=== PATIENT | male | born 1935 | race Caucasian/White ===

== ENCOUNTER 2017-12-18 05:26 | Inpatient (IN) | payer BC, OTHER ==
--- NOTE | 2017-12-18 06:01 | PDOC ---
Attending Attestation - Resident Resident Name: Phuong Kirby - ED Attending Attestation I have performed the following: I have examined & evaluated the patient, The case was reviewed & discussed with the resident, I agree w/resident's findings & plan - HPI HPI: 12/18/17 06:52 Pt comes with SOB; he has low pulsox and he has tachycardia. Pt has rapid afib 115 BPM. Pt has no fever. He has no abd pain and no flank pain. He has no cough. Pt states that he was nauseous and vomited some blood streaked sputum. - Physicial Exam PE: 12/18/17 06:53 Abd soft, NT.ND. Pt has rapid afib. Rales at the bases of his lung. Pt has fluid in his legs bilat - pitting edema. HEENT normal. Pt is alert and awake. - Medical Decision Making 12/18/17 06:54 Pt will be signed out to the day docs; they will follow all labs that were sent , CXR, and reeval patient and admit as needed.
[2017-12-18] MEDS ORDERED: ONDANSETRON 4 MG/2 ML VIAL IVPUSH ONE (06:03)
--- NOTE | 2017-12-18 06:06 | PDOC ---
History of Present Illness - General Chief Complaint: Shortness of Breath Stated Complaint: DIFFICULTY BREATHING Time Seen by Provider: 12/18/17 05:42 - History of Present Illness Initial Comments: 12/18/17 06:03 82 year old man with history of gout, DM, HTN, CKD, afib, CHF who presents from [facility] with shortness of breath and hemoptysis. The patient takes xarelto. The patient reports that he vomited two times yesterday and two times earlier today that all had blood streaks. Prior to arrival the patient reports that he was coughing up red cough medicine that was given to him. Per [facility] note the patient was coughing blood, complaining of chest pain and satting 86-90% on RA. The patient does not require home oxygen at baseline. At bedside the patient complains of nausea but denies any recent fevers, abdominal pain, diarrhea or constipation. PMHX: as in HPI PSHX: see below Meds: see below Allergies: penicillin Tob: none Etoh: none Rec drugs: none PCP: Darian Pt. full code Past History - Past Medical History Allergies/Adverse Reactions: Allergies Allergy/AdvReac Type Severity Reaction Status Date / Time Penicillins Allergy Severe Hives Verified 12/18/17 05:46 Home Medications: Ambulatory Orders Allopurinol [Zyloprim -] 100 mg PO DAILY 12/18/17 Calcium Carbonate/Vitamin D3 [Oyster Shell 500-Vit D3 200 Tb] 1 each PO BID Clotrimazole/Betamethasone Dip [Clotrimazole-Betamethasone Crm] 45 gm TP BID Fenofibric Acid [Trilipix -] 45 mg PO DAILY 12/18/17 Guaifenesin 100 mg PO TID 12/18/17 Metformin HCl [Metformin HCl ER] 500 mg PO BID 12/18/17 Mometasone Furoate [Asmanex] 110 mcg IH DAILY 12/18/17 Rivaroxaban [Xarelto -] 20 mg PO DAILY 12/18/17 Acetaminophen [Tylenol .Regular Strength -] 650 mg PO Q6H PRN tablet 12/24/17 Albuterol 2.5/Ipratropium 0.5 [Duoneb -] 1 amp NEB Q4H PRN amp 12/24/17 Allopurinol [Zyloprim -] 100 mg PO DAILY tablet 12/24/17 Aspirin [ASA -] 81 mg PO DAILY tab.chew 12/24/17 Atorvastatin Ca [Lipitor] 80 mg PO HS tablet 12/24/17 Enalapril Maleate [Vasotec -] 2.5 mg PO BID tablet 12/24/17 Ferrous Sulfate [Feosol] 325 mg PO DAILY #30 tablet 12/24/17 Furosemide [Lasix -] 40 mg PO BID@0600,1400 tablet 12/24/17 Metoprolol Succinate [Toprol XL -] 150 mg PO DAILY tab.sr.24h 12/24/17 Mupirocin Ointment [Bactroban Ointment (For Decolonization) -] 1 applic NS BID applic 12/24/17 Polyethylene Glycol 3350 [Miralax 119 gm Btl -] 17 gm PO DAILY bottle 12/24/17 Sennosides [Senna -] 2 tab PO HS PRN tablet 12/24/17 Anemia: No Asthma: No Cancer: No Cardiac Disorders: No CVA: No COPD: No CHF: No Dementia: No Diabetes: Yes Disorders: (CKD) HTN: Yes Seizures: No Other medical history: Gout - Surgical History Cardiac Surgery: No Neurologic Surgery: No Orthopedic Surgery: Yes (Right knee replacement) - Suicide/Smoking/Psychosocial Hx Smoking History: Never smoked Have you smoked in the past 12 months: No Information on smoking cessation initiated: No Hx Alcohol Use: No Drug/Substance Use Hx: No Substance Use Type: None Hx Substance Use Treatment: No Review of Systems - Review of Systems Able to Perform ROS?: Yes Is the patient limited Lebanese proficient: No Constitutional: No: Chills, Diaphoresis, Fever, Weakness HEENTM: No: Blurred Vision, Tinnitus Respiratory: Yes: Cough. No: Orthopnea, Shortness of Breath Cardiac (ROS): No: Chest Pain, Edema, Lightheadedness, Chest Tightness ABD/GI: Yes: Nausea, Vomiting. No: Constipated, Diarrhea : No: Burning, Dysuria, Hematuria Musculoskeletal: No: Muscle Pain, Muscle Weakness Neurological: No: Headache, Numbness, Paresthesia, Tingling *Physical Exam - Vital Signs Last Vital Signs Temp Pulse Resp BP Pulse Ox 98.1 F 117 H 24 144/104 98 12/18/17 05:42 12/18/17 05:42 12/18/17 05:42 12/18/17 05:42 12/18/17 05:42 - Physical Exam Comments: 12/18/17 06:17 Per proxy who is familiar with patient and at bedside: pt's symptoms of: facial droop and expressive aphasia 2+ pitting edema bilateral calves and ankles abdominal distention are all at baseline for the patient GENERAL: Awake, alert, and fully oriented, in no acute distress, facial droop and expressive aphasia, red liquid crusting around mouth and chin HEAD: No signs of trauma, normocephalic, atraumatic EYES: EOMI, sclera anicteric, conjunctiva clear ENT: oropharynx clear without exudates. Moist mucosa NECK: Normal ROM, supple, no lymphadenopathy, JVD, or masses LUNGS: No distress, speaks full sentences, minimally decreased breath sounds in all lobes HEART: Regular rate and rhythm, normal S1 and S2, no murmurs, rubs or gallops, peripheral pulses normal and equal bilaterally. ABDOMEN: abdominal distention, nontender, normoactive bowel sounds. No guarding , no rebound EXTREMITIES : Normal inspection, Normal range of motion, 2+ pitting edema bilateral calves and ankles NEUROLOGICAL: Cranial nerves II through XII grossly intact. Normal speech, normal gait, no focal sensorimotor deficits SKIN: Warm, Dry, normal turgor, no rashes or lesions noted ED Treatment Course - LABORATORY CBC & Chemistry Diagram: 12/23/17 05:30 12/23/17 05:30 - RADIOLOGY Radiology Studies Ordered: Category Date Time Status CHEST X-RAY PORTABLE* [RAD] Stat Radiology 12/18/17 05:51 Ordered Medical Decision Making - Medical Decision Making 12/18/17 06:13 82 year old man with history of gout, DM, HTN, CKD, afib, CHF who presents from [facility] with shortness of breath and hemoptysis. The patient takes xarelto. The patient reports that he vomited two times yesterday and two times earlier today that had blood streaks. Prior to arrival the patient reports that he was coughing but only coughing up red cough medicine that was given to him. Per [facility] note the patient was coughing blood and complaining of chest pain and satting 86-90% on RA. DDX including but not limited to: PE vs PNA vs CHF exacerbation vs bronchitis vs esophageal tear W/U: - cbc, cmp, PT/INR, PTT, cardiac profile, BNP - CXR - EKG TX: - zofran 4 ED Course: Patient sat 99% on 3L NC. tachycardic EKG: Afib, tachy 115bpm Patient w/ history of CKD, concern for Chest CTA to r/o PE. D-dimer ordered. Patient on xarelto. at [facility] for 3 years - likely compliant with all medications. Pt signed out to Dr. Stein. *DC/Admit/Observation/Transfer Diagnosis at time of Disposition: Pneumonia - Discharge Dispostion Disposition: LONGTERM FACILITY Condition at time of disposition: Stable - Prescriptions - Referrals - Patient Instructions - Post Discharge Activity
[2017-12-18 06:55] LABS: BASO % 0.8 % (0-2.0); EOS % 0.1 % (0-4.5); HEMOGLOBIN 11.6 GM/dL (11.7-16.9); LYMPH % 6.4 % (8-40); MCH 28.6 pg (25.7-33.7); MCHC 32.4 g/dl (32.0-35.9); MEAN CELL VOLUME 88.3 fl (80-96); MEAN PLT VOLUME 9.5 fl (7.5-11.1); MONO % 6.6 % (3.8-10.2); NEUT % 86.1 % (42.8-82.8); PLATELET COUNT 340 K/MM3 (134-434); RBC 4.07 M/mm3 (4.00-5.60); RDW 14.5 % (11.9-15.9); WHITE BLOOD COUNT 19.7 K/mm3 (4.0-10.0)
[2017-12-18 07:08] LABS: INR 1.49 (0.83-1.09); PROTHROMBIN TIME (PATIENT) 16.8 SEC (9.7-13.0)
[2017-12-18 07:11] LABS: ACTIVATED PTT 33.8 SECONDS (25.2-36.5)
--- NOTE | 2017-12-18 07:12 | PDOC ---
*Physical Exam - Vital Signs Last Vital Signs Temp Pulse Resp BP Pulse Ox 97.8 F 111 H 18 140/89 100 12/18/17 06:00 12/18/17 07:37 12/18/17 07:37 12/18/17 07:37 12/18/17 07:37 <Nasar Hernandez - Last Filed: 12/18/17 09:32> - Vital Signs Last Vital Signs Temp Pulse Resp BP Pulse Ox 97.8 F 118 H 20 138/108 99 12/18/17 06:00 12/18/17 06:00 12/18/17 06:00 12/18/17 06:00 12/18/17 06:00 <Hieu Stein - Last Filed: 12/18/17 11:32> ED Treatment Course - LABORATORY CBC & Chemistry Diagram: 12/18/17 06:50 12/18/17 06:50 - ADDITIONAL ORDERS Additional order review: Laboratory Results 12/18/17 12/18/17 12/18/17 08:31 06:50 06:50 PT with INR 16.80 H INR 1.49 H PTT (Actin FS) 33.8 D-Dimer VBG pH 7.38 POC VBG pCO2 42.5 POC VBG pO2 30.0 Mixed VBG HCO3 24.7 Sodium 139 Potassium 4.6 Chloride 105 Carbon Dioxide 27 Anion Gap 7 L BUN 37 H Creatinine 1.6 H Creat Clearance w eGFR 41.49 Random Glucose 155 H Lactic Acid Calcium 8.3 L Total Bilirubin 0.7 AST 36 ALT 38 Alkaline Phosphatase 98 Creatine Kinase 147 Troponin I 2.16 H* B-Natriuretic Peptide 8137.72 H Total Protein 6.8 Albumin 3.0 L 12/18/17 12/18/17 06:40 06:40 PT with INR INR PTT (Actin FS) D-Dimer 850 H VBG pH POC VBG pCO2 POC VBG pO2 Mixed VBG HCO3 Sodium Potassium Chloride Carbon Dioxide Anion Gap BUN Creatinine Creat Clearance w eGFR Random Glucose Lactic Acid 2.3 H* Calcium Total Bilirubin AST ALT Alkaline Phosphatase Creatine Kinase Troponin I B-Natriuretic Peptide Total Protein Albumin 12/18/17 06:50 RBC 4.07 MCV 88.3 MCHC 32.4 RDW 14.5 D MPV 9.5 Neutrophils % 86.1 H Lymphocytes % 6.4 L D Monocytes % 6.6 Eosinophils % 0.1 D Basophils % 0.8 - Medications Given in the ED: ED Medications Discontinued Medications Generic Name Dose Route Start Last Admin Trade Name Diana PRN Reason Stop Dose Admin Aspirin 324 mg 12/18/17 07:35 12/18/17 08:09 Asa - PO 12/18/17 07:36 324 mg ONCE ONE Administration Azithromycin 500 mg/ Dextrose 250 mls @ 250 mls/hr 12/18/17 07:55 12/18/17 08 :29 IVPB 12/18/17 08:54 250 mls/hr ONCE ONE Administration <Nasra Hernandez - Last Filed: 12/18/17 09:32> - LABORATORY CBC & Chemistry Diagram: 12/18/17 06:50 12/18/17 06:50 <Hieu Stein - Last Filed: 12/18/17 11:32> Medical Decision Making - Medical Decision Making *Reviewed vital signs, nursing notes, and prior visit documentation (if available). 12/18/17 07:10 Received sign out from resident Dr. Kirby. In short, pt is a 82 y/o male presenting from [facility] complaining of two days of blood streaked sputum and cough. SNF notes document prior complaint of chest pain, which pt current denies. Found to be hypoxia on room air, now requiring 3LPM of Oxygen. All labs pending. EKG: Afib with ventricular rate of 115. No ST segment changes. Chronic arrhythmia per pts chart. CXR: Per my wet read, R lower lobe pneumonia and questionable left-sided lower lobe pneumonia. Awaiting official read. Leukocytosis 19.7 Troponin 2.16 Lactic Acid 2.3 BUN/Cr: 37/1.6 calculated eGFR 41 Blood cultures ordered. Started antibiotic therapy with Vancomycin, Azithromycin, Aztreonam. Did not start Zosyn given pts penicillin allergy. Holding fluids given history of CHF and BNP of >8000. Pt will received fluids through IV therapy. Will reconsider if repeat lactic acid trends upward. 08:[address] Montez (cardiology). Will evaluate the pt at bedside. Requests 6 hour repeat troponin. No heparin as pt is on Xeralto. 08:22 Telephone consult with ICU admitting team with concern for pneumonia with concurrent NSTEMI given troponin elevation versus pneumonia with severe sepsis and signs of end organ dysfunction. Will review chart and return call. 09:[address] Pritchard. Agrees to admit pt to telemetry with concern for bilateral lower lobe pneumonia. Requests cardiology consultation be changed to Dr. Lozada from Dr. Montez. Awaiting repeat lactic acid and official CXR read. 12/18/17 11:[address] Wilkinson. Explained mistake made with cardiology consult. 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 <Hieu Stein - Last Filed: 12/18/17 11:32> *DC/Admit/Observation/Transfer <Nasra Hernandez - Last Filed: 12/18/17 09:32> - Discharge Dispostion Decision to Admit order: Yes <Hieu Stein - Last Filed: 12/18/17 11:32> Diagnosis at time of Disposition: Pneumonia Qualifiers: Pneumonia type: due to unspecified organism Laterality: bilateral Lung location : lower lobe of lung Qualified Code(s): J18.1 - Lobar pneumonia, unspecified organism - Discharge Dispostion Condition at time of disposition: Stable
[2017-12-18 07:27] LABS: ANION GAP 7 MMOL/L (8-16); BILIRUBIN,TOTAL 0.7 mg/dL (0.2-1.0); BLOOD UREA NITROGEN 37 mg/dL (7-18); CALCIUM 8.3 mg/dL (8.5-10.1); CHLORIDE 105 mmol/L (98-107); CO2 27 mmol/L (21-32); CREATININE 1.6 mg/dL (0.55-1.3); GLUCOSE,RANDOM 155 mg/dL (74-106); POTASSIUM 4.6 mmol/L (3.5-5.1); SGOT/AST 36 U/L (15-37); SGPT/ALT 38 U/L (13-61); SODIUM 139 mmol/L (136-145); TOT PROT 6.8 g/dl (6.4-8.2)
[2017-12-18 07:30] LABS: ALK PHOS 98 U/L (45-117); N-TERMINAL BNP 8137.72 pg/ml (5-450)
[2017-12-18] MEDS ORDERED: ASPIRIN 81 MG CHEWABLE TABLETS PO ONE (07:35)
[2017-12-18] MEDS ORDERED: VANCOMYCIN 1,000 MG in DEXTROSE 5%-WATER - 250 ML IVPB ONE (07:55)
[2017-12-18] MEDS ORDERED: AZITHROMYCIN IVPB 500 MG in DEXTROSE 5%-WATER - 250 ML IVPB ONE (07:55)
[2017-12-18] MEDS ORDERED: AZTREONAM 2 GM in DEXTROSE 5%-WATER 100 ML IVPB ONE (07:58)
[2017-12-18] MEDS ORDERED: ASPIRIN 81 MG CHEWABLE TABLETS ONE (08:04)
[2017-12-18] MEDS ORDERED: VANCOMYCIN 1 GRAM (PRE-DOCKED) 1,000 MG/250 ML BAG IVPB ONE ×2 (08:04→10:19)
[2017-12-18] MEDS ORDERED: AZITHROMYCIN IVPB 250 ML IVPB ONE (08:04)
[2017-12-18] MEDS ORDERED: ACETAMINOPHEN 325 MG TABLET (FP) PO PRN (09:12)
--- NOTE | 2017-12-18 09:14 | HP ---
Admitting History and Physical - Primary Care Physician PCP: Lindsay Arvizu - Admission Chief Complaint: COUGH WITH BLOOD TINGED SPUTUM/SOB/CHEST PAIN History of Present Illness: 82 year old man with history of gout, DM, HTN, CKD, afib, CHF who presents from [facility] with shortness of breath and hemoptysis. The patient takes xarelto. The patient reports that he vomited two times yesterday and two times earlier today that all had blood streaks. Prior to arrival the patient reports that he was coughing up red cough medicine that was given to him. Per [facility] note the patient was coughing blood, complaining of chest pain and satting 86-90% on RA. The patient does not require home oxygen at baseline. At bedside the patient complains of nausea but denies any recent fevers, abdominal pain, diarrhea or constipation. 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 History of Recent Travel: No Home Medications - Allergies Allergies/Adverse Reactions: Allergies Allergy/AdvReac Type Severity Reaction Status Date / Time Penicillins Allergy Severe Hives Verified 12/18/17 05:46 - Home Medications Home Medications: Ambulatory Orders Allopurinol [Zyloprim -] 100 mg PO DAILY 12/18/17 Amoxicillin/Potassium Clav [Augmentin 875-125 Tablet] 1 each PO BID 12/18/17 Calcium Carbonate/Vitamin D3 [Oyster Shell 500-Vit D3 200 Tb] 1 each PO BID Clotrimazole/Betamethasone Dip [Clotrimazole-Betamethasone Crm] 45 gm TP BID Fenofibric Acid [Trilipix -] 45 mg PO DAILY 12/18/17 Furosemide [Lasix] 40 mg PO DAILY 12/18/17 Guaifenesin 100 mg PO TID 12/18/17 Hydralazine HCl 25 mg PO QID 12/18/17 Metformin HCl [Metformin HCl ER] 500 mg PO BID 12/18/17 Metoprolol Succinate [Toprol Xl] 100 mg PO DAILY 12/18/17 Mometasone Furoate [Asmanex] 110 mcg IH DAILY 12/18/17 Rivaroxaban [Xarelto -] 20 mg PO DAILY 12/18/17 Review of Systems - Review of Systems Constitutional: reports: Loss of Appetite Eyes: reports: No Symptoms HENT: reports: No Symptoms Neck: reports: No Symptoms Cardiovascular: reports: Chest Pain, Shortness of Breath Respiratory: reports: Cough, Hemoptysis Gastrointestinal: reports: No Symptoms Genitourinary: reports: Incontinence Musculoskeletal: reports: Muscle Weakness Integumentary: reports: Other Neurological: reports: Other Endocrine: reports: Other Psychiatric: reports: Other Physical Examination Vital Signs: Vital Signs Temperature 97.8 F 12/18/17 06:00 Pulse Rate 111 H 12/18/17 07:37 Respiratory Rate 18 12/18/17 07:37 Blood Pressure 140/89 12/18/17 07:37 O2 Sat by Pulse Oximetry (%) 100 12/18/17 07:37 Constitutional: Yes: Mild Distress Eyes: Yes: WNL, Other HENT: Yes: WNL Neck: Yes: WNL Cardiovascular: Yes: Pulse Irregular Respiratory: Yes: Cough, On Nasal O2, SOB Gastrointestinal: Yes: WNL Renal/: Yes: WNL, Incontinence Musculoskeletal: Yes: Muscle Weakness Extremities: Yes: Other Edema: Yes Edema: LLE: 1+, RLE: 1+ Peripheral Pulses WNL: Yes Integumentary: Yes: Venous Stasis Changes Wound/Incision: Yes: Clean/Dry Neurological: Yes: Weakness ...Motor Strength: LLE, RLE Psychiatric: Yes: Other Labs: CBC, BMP 12/18/17 06:50 12/18/17 06:50 Imaging - Results Chest X-ray: Report Reviewed Problem List - Problems (1) Hemoptysis, unspecified Code(s): R04.2 - HEMOPTYSIS (2) Pneumonia Code(s): J18.9 - PNEUMONIA, UNSPECIFIED ORGANISM Qualifiers: Pneumonia type: due to unspecified organism Laterality: bilateral Lung location: lower lobe of lung Qualified Code(s): J18.1 - Lobar pneumonia, unspecified organism (3) Abnormal LFTs (liver function tests) Code(s): R79.89 - OTHER SPECIFIED ABNORMAL FINDINGS OF BLOOD CHEMISTRY (4) Atrial fibrillation Code(s): I48.91 - UNSPECIFIED ATRIAL FIBRILLATION (5) Fever Code(s): R50.9 - FEVER, UNSPECIFIED Qualifiers: Fever type: unspecified cause of fever Qualified Code(s): R50.9 - Fever, unspecified (6) Hyperlipidemia Code(s): E78.5 - HYPERLIPIDEMIA, UNSPECIFIED (7) Hypertension Code(s): I10 - ESSENTIAL (PRIMARY) HYPERTENSION Qualifiers: Hypertension type: essential hypertension Qualified Code(s): I10 - Essential (primary) hypertension Assessment/Plan IV ABX CARDIO EVAL PT EVAL RESP SUPPORT NEBS PULM/ID FOLLOW UP
[2017-12-18 09:18] LABS: VENOUS PH 7.38 (7.32-7.42)
[2017-12-18 09:19] LABS: VENOUS PC02 42.5 mmHg (38-52)
--- NOTE | 2017-12-18 10:25 | CONSULT ---
Consult - text type - Consultation Consultation Note: Renal Consult for JD This is a 82 year old gentleman with Hx of DM, CKD (unclear baseline Cr), Afib on A/C, CHF (preserved LV function on last echo), Hypertension who presented from [facility] with SOB and Hemoptysis and found to have PNA with JD. Pt says that he has been coughing for 1 days. No Chest pain, abd pain, N/V/D. No change in urine output quality. no flank pain. PMhx: as above Allergies: NKDA Family Hx: NC Social Hx: No T/A/D ROS: as per HPI Home Medications Medication Instructions Recorded Atorvastatin Ca [Lipitor] 20 mg PO HS #30 tablet 06/22/14 Rivaroxaban [Xarelto -] 20 mg PO DAILY #30 tablet 06/22/14 Acetaminophen [Tylenol .Regular 650 mg PO Q6H PRN #0 tablet 07/21/14 Strength -] Allopurinol [Zyloprim -] 100 mg PO DAILY tablet 07/21/14 Calcium 500Mg/Vit-D 200 Units 1 combo PO BID tablet 07/21/14 [Os-Yehuda 500+D -] Metoprolol Succinate [Toprol XL -] 100 mg PO BID #60 tab.sr.24h 07/21/14 Metoprolol Succinate [Toprol XL -] 100 mg PO BID #60 tab.sr.24h 07/30/14 Vital Signs Temperature 98.4 F 12/18/17 09:33 Pulse Rate 108 H 12/18/17 09:33 Respiratory Rate 22 12/18/17 09:33 Blood Pressure 125/85 12/18/17 09:33 O2 Sat by Pulse Oximetry (%) 99 12/18/17 09:33 Intake & Output 12/15/17 12/16/17 12/17/17 12/18/17 23:59 23:59 23:59 23:59 Weight 106.594 kg NAD awake and alert neck supple, no JVD RRR, No M/R Dec BS B/L soft NT/ND No LE edema, no clubbing or cyanosis no bladder distension CBC, BMP 12/18/17 06:50 12/18/17 06:50 Current Medications Acetaminophen (Tylenol -) 650 mg PO Q6H PRN PRN Reason: PAIN OR FEVER Albuterol/Ipratropium (Duoneb -) 1 amp NEB Q6H PRN PRN Reason: SHORTNESS OF BREATH Allopurinol (Zyloprim -) 100 mg PO DAILY [facility] Atorvastatin Calcium (Lipitor -) 20 mg PO HS [facility] Metoprolol Succinate (Toprol Xl -) 100 mg PO DAILY [facility] 82 year old gentleman with Hx of DM, CKD (unclear baseline Cr), Afib on A/C, CHF (preserved LV function on last echo), Hypertension who presented from [facility] with SOB and Hemoptysis and found to have PNA with JD. #JD vs. CKD likely related to renal hypoprofusion in setting of sepsis #PNA/Sepsis Syndrome #Hx of CHF #DM #Hypertension #Elevated Troponin Will need to obtain baseline Cr from [place] Would suggest trial of IVF given pt has lactic acidosis, sepsis and possibly acute renal insufficiency check UA, UPCR Check Renal Us when clinically stable Trend Cardiac enzymes, Cardiology consult Tele monitoring Would not start ACEi/ARB at this time Thank you Will follow Thiago Fan DO
[2017-12-18] MEDS ORDERED: SODIUM CHLORIDE 1,000 ML IV SCH (10:30)
--- NOTE | 2017-12-18 10:32 | CON.CARD ---
Consult Consult Specialty:: cardio - History of Present Illness Chief Complaint: cp, sob, cough with blood History of Present Illness: 82 M sent from [place] with cp, cough with blood, sob. pt provides history to me as follows: states that he began "throwing up" and coughing yesterday. brown color, but also saw some blood. more of same earlier this am but less than yesterday. denies having had CP or SOB at any time in ID or here. denies fever/chills, cough, sore throat. walks around halls in [place] and says he does not experience cp or sob with this. denies leg/feet swelling. hypoxia (to 86%) noted in NH vs's. 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 History of Recent Travel: No Home Medications - Allergies Allergies/Adverse Reactions: Allergies Allergy/AdvReac Type Severity Reaction Status Date / Time Penicillins Allergy Severe Hives Verified 12/18/17 05:46 - Home Medications Home Medications: Ambulatory Orders Allopurinol [Zyloprim -] 100 mg PO DAILY 12/18/17 Amoxicillin/Potassium Clav [Augmentin 875-125 Tablet] 1 each PO BID 12/18/17 Calcium Carbonate/Vitamin D3 [Oyster Shell 500-Vit D3 200 Tb] 1 each PO BID Clotrimazole/Betamethasone Dip [Clotrimazole-Betamethasone Crm] 45 gm TP BID Fenofibric Acid [Trilipix -] 45 mg PO DAILY 12/18/17 Furosemide [Lasix] 40 mg PO DAILY 12/18/17 Guaifenesin 100 mg PO TID 12/18/17 Hydralazine HCl 25 mg PO QID 12/18/17 Metformin HCl [Metformin HCl ER] 500 mg PO BID 12/18/17 Metoprolol Succinate [Toprol Xl] 100 mg PO DAILY 12/18/17 Mometasone Furoate [Asmanex] 110 mcg IH DAILY 12/18/17 Rivaroxaban [Xarelto -] 20 mg PO DAILY 12/18/17 Family Disease History - Family Disease History Family History: Denies (no known CMP) Review of Systems - Review of Systems Constitutional: denies: Chills, Fever Eyes: denies: Eye Pain HENT: denies: Nasal Congestion Neck: denies: Stiffness Cardiovascular: denies: Palpitations Respiratory: denies: Orthopnea, PND Gastrointestinal: denies: Diarrhea, Rectal Bleeding Genitourinary: denies: Burning, Hematuria Musculoskeletal: denies: Muscle Pain Integumentary: denies: Rash Neurological: denies: Numbness, Seizure, Syncope Endocrine: denies: Excessive Sweating Hematology/Lymphatic: denies: Excessive Bleeding Vital Signs: Vital Signs Temperature 98.4 F 12/18/17 09:33 Pulse Rate 108 H 12/18/17 09:33 Respiratory Rate 22 12/18/17 09:33 Blood Pressure 125/85 12/18/17 09:33 O2 Sat by Pulse Oximetry (%) 99 12/18/17 09:33 Constitutional: Yes: Well Nourished, No Distress Eyes: No: Sclera Icterus HENT: No: Nasal Congestion Neck: No: Decreased ROM Respiratory: Yes: CTA Bilaterally. No: Accessory Muscle Use, Rales, Wheezes Gastrointestinal: Yes: Normal Bowel Sounds. No: Distention, Hepatomegaly, Palpable Mass, Tenderness Cardiovascular: Yes: Regular Rate and Rhythm JVD: No Carotid Bruit: No PMI: Non-Displaced Heart Sounds: Yes: S1, S2. No: Gallop Murmur: No: Systolic Murmur, Diastolic Murmur Musculoskeletal: Yes: Other (No kyphosis) Extremities: No: Cold, Cyanosis Edema: Yes (mild nonpitting ankles) Peripheral Pulses: 2+ Left Carotid, 2+ Right Carotid, 2+ Left Doralis Pedis, 2+ Right Dorsalis Pedis Integumentary: No: Jaundice Neurological: Yes: Alert, Oriented (x3) Psychiatric: No: Agitated - Other Data Labs, Other Data: CBC, BMP 12/18/17 06:50 12/18/17 06:50 INR, PTT INR 1.49 (0.83-1.09) H 12/18/17 06:50 Troponin, BNP 12/18/17 06:50 Troponin I 2.16 H* B-Natriuretic Peptide 8137.72 H Troponin, BNP 12/18/17 06:50 Troponin I 2.16 H* B-Natriuretic Peptide 8137.72 H Laboratory Tests 10/02/14 12/18/17 12/18/17 05:00 06:40 06:50 WBC 19.7 H Hgb 11.6 L Plt Count 340 D Sodium Potassium Carbon Dioxide BUN Creatinine 0.9 Lactic Acid 2.3 H* AST ALT Creatine Kinase Troponin I B-Natriuretic Peptide 12/18/17 06:50 WBC Hgb Plt Count Sodium 139 Potassium 4.6 Carbon Dioxide 27 BUN 37 H Creatinine 1.6 H Lactic Acid AST 36 ALT 38 Creatine Kinase 147 Troponin I 2.16 H* B-Natriuretic Peptide 8137.72 H Assessment/Plan ECG: afib (115 bpm), normal axis. q waves V1-V3, NSST-Ts lateral leads CXR (no report, image reviewed): bilateral interstitial infiltrates lower lobes new vs prior. no vasc redistribution or effusions. mibi 04/2013 (stanton): no ecg changes, no ischemia/scar, nl lvef Echo 2014: TDS, normal LV/RV size and function, Aortic valve not seen well hypoxia, tachypnea, ? hemoptysis vs hematemesis (pt describes the latter): -CXR with new bilateral lower lobe interstitial infiltrates, without corresponding findings of chf (no effusions, vasc redistribution, estela b lines ) -physical exam without JVD though somewhat TDS thick neck -elevated troponin -hi WBCs, no fever--? PNA. being treated with abx -consider pulm consult, per PMD -clinical picture uncertain for sepsis/PNA (acute onset of sx's argues less for PNA), vs ACS and cxr not diagnostic as well -JD could be sepsis or could be cardiorenal -ongoing mild tachypnea but pt comfortable with stable O2 sats -prefer to avoid IVF, but also defer diuresis, while observe him over next 24 hrs and repeat CXR in am. if acute myocardial ischemia is causing chf and JD here, all may resolve promptly with med mgmt of ischemia -d/w'd renal (jackie) who agrees--IVF order d/c'd NSTEM: -troponin 2.1-->monitor trend -ECG with no diagnostic acute ischemia. there is evidence of old septal infarct which was not present on prior study (2014). nonspecific mild ST-Ts likely rate- related. -pt only admits to sx of vomiting vs cough--? atypical NSTEMI sx. -rpt ECG -check echo -will plan for pharm MPI early next week to risk stratify -continue home AC (xarelto). per ER, sputum reportedly blood tinged, without large amt of blood--close monitoring and hold AC if hemoptysis worsens -cont home metoprolol -hi intensity statin for now until pathophysiology of present events is clarified (incr atorva 20 to 80) afib: -on xarelto from before (CHADS VASC 3)--hemoptysis monitoring as above, to cont AC for now -cont home metoprolol -monitor HRs on tele HTN: -bp controlled -same plan
[2017-12-18] MEDS: ALLOPURINOL 100 MG TABLET (FP) PO SCH (11:57)
--- NOTE | 2017-12-18 13:13 | CON.PULM ---
Consult Consult Specialty:: PULM/CCM Referred by:: USMAN Reason for Consultation:: SOB - History of Present Illness Chief Complaint: SOB History of Present Illness: 82 M, DM, CKD, Afib on NOAC, CHF (preserved LV function on last echo), and HTN. Admitted via the ER due to reported hematamesis and/or hemoptysis. Patient reports cough for 1 day. No travel history or sick contacts. No fever or chills. CXR: cardiomegaly / biltateral increased interstitial markings mostly at the lung bases. Noted he was given Aztreonam and Zithromax. Noted mildly elevated lactic acid so there is a concern for sepsis, although this can be due to his WOB and inflammatory response. He has been on a NOAC so do not have a high clinical suspicion for PE. 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 History of Recent Travel: No Home Medications - Allergies Allergies/Adverse Reactions: Allergies Allergy/AdvReac Type Severity Reaction Status Date / Time Penicillins Allergy Severe Hives Verified 12/18/17 05:46 - Home Medications Home Medications: Ambulatory Orders Allopurinol [Zyloprim -] 100 mg PO DAILY 12/18/17 Amoxicillin/Potassium Clav [Augmentin 875-125 Tablet] 1 each PO BID 12/18/17 Calcium Carbonate/Vitamin D3 [Oyster Shell 500-Vit D3 200 Tb] 1 each PO BID Clotrimazole/Betamethasone Dip [Clotrimazole-Betamethasone Crm] 45 gm TP BID Fenofibric Acid [Trilipix -] 45 mg PO DAILY 12/18/17 Furosemide [Lasix] 40 mg PO DAILY 12/18/17 Guaifenesin 100 mg PO TID 12/18/17 Hydralazine HCl 25 mg PO QID 12/18/17 Metformin HCl [Metformin HCl ER] 500 mg PO BID 12/18/17 Metoprolol Succinate [Toprol Xl] 100 mg PO DAILY 12/18/17 Mometasone Furoate [Asmanex] 110 mcg IH DAILY 12/18/17 Rivaroxaban [Xarelto -] 20 mg PO DAILY 12/18/17 Review of Systems - Review of Systems Constitutional: reports: Malaise, Weakness. denies: Chills, Fever, Night Sweats , Unintentional Wgt. Loss Eyes: reports: No Symptoms HENT: reports: No Symptoms Neck: reports: No Symptoms Cardiovascular: reports: Shortness of Breath. denies: Chest Pain, Edema, Palpitations Respiratory: reports: Cough, Hemoptysis, SOB, SOB on Exertion. denies: Snoring , Wheezing Gastrointestinal: reports: No Symptoms Genitourinary: reports: No Symptoms Breasts: reports: No Symptoms Reported Musculoskeletal: reports: No Symptoms Integumentary: reports: No Symptoms Neurological: reports: No Symptoms Endocrine: reports: No Symptoms Hematology/Lymphatic: reports: No Symptoms Psychiatric: reports: No Symptoms Physical Exam Vital Sings: Vital Signs Temperature 98.4 F 12/18/17 09:33 Pulse Rate 108 H 12/18/17 09:33 Respiratory Rate 22 12/18/17 09:33 Blood Pressure 125/85 12/18/17 09:33 O2 Sat by Pulse Oximetry (%) 99 12/18/17 09:33 Constitutional: Yes: No Distress, Calm Eyes: Yes: Conjunctiva Clear, EOM Intact HENT: Yes: Atraumatic, Normocephalic Neck: Yes: Supple, Trachea Midline Cardiovascular: Yes: Tachycardia, Pulse Irregular Respiratory: Yes: Cough, Diminished, On Nasal O2, Rhonchi, SOB, SOB on Exertion , Tachypnea. No: Accessory Muscle Use, Rales, Stridor, Wheezes ...Inspection: Yes: WNL ...Clubbing: No Gastrointestinal: Yes: Normal Bowel Sounds, Soft Renal/: Yes: WNL Musculoskeletal: Yes: WNL Extremities: Yes: WNL Edema: No Peripheral Pulses WNL: Yes Integumentary: Yes: WNL Neurological: Yes: Alert, Oriented ...Motor Strength: WNL Psychiatric: Yes: Alert, Oriented Labs: CBC, BMP 12/18/17 06:50 12/18/17 06:50 Imaging - Results Chest X-ray: Report Reviewed, Image Reviewed Problem List - Problems (1) Pneumonia Code(s): J18.9 - PNEUMONIA, UNSPECIFIED ORGANISM Qualifiers: Pneumonia type: due to unspecified organism Laterality: bilateral Lung location: lower lobe of lung Qualified Code(s): J18.1 - Lobar pneumonia, unspecified organism (2) Atrial fibrillation Code(s): I48.91 - UNSPECIFIED ATRIAL FIBRILLATION (3) Hyperlipidemia Code(s): E78.5 - HYPERLIPIDEMIA, UNSPECIFIED (4) Hypertension Code(s): I10 - ESSENTIAL (PRIMARY) HYPERTENSION Qualifiers: Hypertension type: essential hypertension Qualified Code(s): I10 - Essential (primary) hypertension Assessment/Plan Noted that the patient has already received IV ABX and ID consult has been called. To discuss coverage. Check urine Check sputum O2 as needed to maintain saturation. IVF Follow renal function Follow H&H Monitor systemic steroids Trend LA (pending repeat) Will be monitored on Cardiac Telemetry Will follow Dr Novak
--- NOTE | 2017-12-18 17:20 | HOSP ---
Subjective - Review of Symptoms Events since last encounter: Requested to evaluate patient by RN for complaint of SOB and agitation. Distressed, says he can't urinate. Patient seen and examined Vital Signs Temperature 98 F 12/18/17 16:31 Pulse Rate 108 H 12/18/17 16:31 Respiratory Rate 18 12/18/17 15:27 Blood Pressure 143/110 12/18/17 16:41 O2 Sat by Pulse Oximetry (%) 94 L 12/18/17 16:31 General: A&Ox2; moderate distress due to urgency Pulm: bibasilar crackles, end expiratory wheezing Lower Ext: 1+ edema bilaterally Assessment & Plan Ray catheter placed, pus/cloudy urine sent for UA&UC Put out ~30 cc's total Discussed with renal; clearly septic patient with NSTEMI possible heart failure ; will refrain from IV fluids and lasix for now and observe closely; if patient changes clinically (hypotensive, desats) will reassess Physical Examination Vital Signs: Vital Signs Temperature 98 F 12/18/17 16:31 Pulse Rate 108 H 12/18/17 16:31 Respiratory Rate 18 12/18/17 15:27 Blood Pressure 143/110 12/18/17 16:41 O2 Sat by Pulse Oximetry (%) 93 L 12/18/17 16:31 Labs: CBC, BMP 12/18/17 06:50 12/18/17 06:50
[2017-12-18] MEDS: ALBUTEROL SO4 2.5/IPRATROPIUM 0.5 INH SOL 3 ML VIAL.NEB. NEB PRN ×2 (17:22→23:14)
[2017-12-18 18:27] LABS: ARTERIAL BLD GAS O2 SATURATION 94.4 % (90-98.9); ARTERIAL BLOOD GAS BASE EXCESS -2.5 meq/l (-2-2); ARTERIAL BLOOD GAS PCO2 34.1 mmHg (35-45); ARTERIAL BLOOD GAS PO2 79.4 mmHg (68-100); ARTERIAL BLOOD GAS pH 7.41 (7.35-7.45)
[2017-12-18 19:48] LABS: URINE APPEARANCE TURBID; URINE BILIRUBIN NEGATIVE (<2.0 mg/dL); URINE COLOR YELLOW; URINE GLUCOSE (UA) 1+ (NEGATIVE); URINE KETONE NEGATIVE (NEGATIVE); URINE LEUK ESTERASE 2+ (NEGATIVE); URINE NITRITE NEGATIVE (NEGATIVE); URINE PROTEIN 2+ (NEGATIVE); URINE UROBILINOGEN NEGATIVE mg/dL (0.2-1.0)
[2017-12-18 19:49] LABS: EPI CELLS RARE /HPF (FEW); URINE MUCUS FEW
[2017-12-18] MEDS ORDERED: ATORVASTATIN CA 20 MG TABLET (FP) PO SCH (22:00)
[2017-12-18] MEDS: ATORVASTATIN CA 20 MG TABLET (FP) PO SCH (22:46)
[2017-12-19] MEDS ORDERED: METOPROLOL TARTRATE 5 MG/5 ML VIAL IVPUSH ONE ×3 (01:12→23:45)
[2017-12-19 09:25] LABS: BASO % 0.4 % (0-2.0); EOS % 0.2 % (0-4.5); HEMATOCRIT 36.2 % (35.4-49); HEMOGLOBIN 11.8 GM/dL (11.7-16.9); LYMPH % 7.7 % (8-40); MCH 28.6 pg (25.7-33.7); MCHC 32.4 g/dl (32.0-35.9); MEAN CELL VOLUME 88.1 fl (80-96); MEAN PLT VOLUME 9.9 fl (7.5-11.1); MONO % 6.9 % (3.8-10.2); NEUT % 84.8 % (42.8-82.8); PLATELET COUNT 361 K/MM3 (134-434); RBC 4.12 M/mm3 (4.00-5.60); RDW 15.2 % (11.9-15.9); WHITE BLOOD COUNT 18.7 K/mm3 (4.0-10.0)
--- NOTE | 2017-12-19 09:39 | PN ---
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 (short form) - Note 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: Renal follow up for JD Pt seen and examined at the bedside no acute complaints no sob, cp, abd pain, N/V/D Vital Signs Temperature 97.5 F L 12/19/17 09:02 Pulse Rate 115 H 12/19/17 09:02 Respiratory Rate 28 H 12/19/17 09:02 Blood Pressure 160/113 12/19/17 09:02 O2 Sat by Pulse Oximetry (%) 96 12/19/17 09:02 Intake & Output 12/16/17 12/17/17 12/18/17 12/19/17 23:59 23:59 23:59 23:59 Intake Total 1144 100 Output Total 230 300 Balance 914 -200 Weight 106.594 kg NAD awake and alert Neck supple no JVD Dec BS lung bases no LE edema todays lab pending Current Medications Acetaminophen (Tylenol -) 650 mg PO Q6H PRN PRN Reason: PAIN OR FEVER Albuterol/Ipratropium (Duoneb -) 1 amp NEB Q6H PRN PRN Reason: SHORTNESS OF BREATH Last Admin: 12/18/17 23:14 Dose: 1 amp Allopurinol (Zyloprim -) 100 mg PO DAILY [facility] Last Admin: 12/18/17 11:57 Dose: 100 mg Atorvastatin Calcium (Lipitor -) 80 mg PO HS [facility] Last Admin: 12/18/17 22:46 Dose: 80 mg Metoprolol Succinate (Toprol Xl -) 100 mg PO DAILY [facility] Last Admin: 12/18/17 11:27 Dose: 100 mg 82 year old gentleman with Hx of DM, CKD (unclear baseline Cr), Afib on A/C, CHF (preserved LV function on last echo), Hypertension who presented from [facility] with SOB and Hemoptysis and found to have PNA with JD. #JD vs. CKD likely related to renal hypoprofusion in setting of sepsis #PNA/Sepsis Syndrome #Hx of CHF #DM #Hypertension #Elevated Troponin Clinically unchanged, labs pending, CXR pendng Cardiac enzymes stable thus far BP stable, no fevers will wait for repeat labs and CXR findings, would attempt to give trail of IVF if CXR not indicative of CHF urine studies show low serum Na indicating preserved tubular function Trend renal function and electrolytes cardiology follow up Thiago Fan DO
[2017-12-19 09:52] LABS: ANION GAP 12 MMOL/L (8-16); BLOOD UREA NITROGEN 39 mg/dL (7-18); CALCIUM 8.6 mg/dL (8.5-10.1); CHLORIDE 107 mmol/L (98-107); CO2 22 mmol/L (21-32); CREATININE 1.5 mg/dL (0.55-1.3); GLUCOSE,RANDOM 165 mg/dL (74-106); MAGNESIUM 2.3 mg/dL (1.8-2.4); POTASSIUM 4.5 mmol/L (3.5-5.1); SGOT/AST 86 U/L (15-37); SGPT/ALT 108 U/L (13-61); SODIUM 141 mmol/L (136-145)
[2017-12-19 09:56] LABS: ALK PHOS 126 U/L (45-117); BILIRUBIN,TOTAL 0.8 mg/dL (0.2-1.0); TOT PROT 6.6 g/dl (6.4-8.2)
[2017-12-19] MEDS: ALLOPURINOL 100 MG TABLET (FP) PO SCH ×2 (10:49→10:56)
--- NOTE | 2017-12-19 11:47 | PN ---
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, Physician Chief Complaint: cough tele neg History of Present Illness: He is an 82 year old NHR with a history of HTN NIDDM, CKD, afib on NOAC admitted for cough with blood tinged sputum, noted with elevated troponin. No chest pain, sob, orthopnea, pnd or edema. ECG: afib (115 bpm), normal axis. q waves V1-V3, NSST-Ts lateral leads mibi 04/2013 (stanton): no ecg changes, no ischemia/scar, nl lvef Echo 2014: TDS, normal LV/RV size and function, Aortic valve not seen well - Current Medication List Current Medications: Active Medications Acetaminophen (Tylenol -) 650 mg PO Q6H PRN PRN Reason: PAIN OR FEVER Albuterol/Ipratropium (Duoneb -) 1 amp NEB Q6H PRN PRN Reason: SHORTNESS OF BREATH Last Admin: 12/18/17 23:14 Dose: 1 amp Allopurinol (Zyloprim -) 100 mg PO DAILY [facility] Last Admin: 12/19/17 10:56 Dose: Not Given Atorvastatin Calcium (Lipitor -) 80 mg PO [facility] Last Admin: 12/18/17 22:46 Dose: 80 mg Metoprolol Succinate (Toprol Xl -) 100 mg PO DAILY [facility] Last Admin: 12/19/17 08:30 Dose: 100 mg - Objective Vital Signs: Vital Signs Temperature 97.5 F L 12/19/17 09:02 Pulse Rate 115 H 12/19/17 09:02 Respiratory Rate 28 H 12/19/17 09:02 Blood Pressure 160/113 12/19/17 09:02 O2 Sat by Pulse Oximetry (%) 96 12/19/17 09:02 Constitutional: Yes: No Distress, Calm Eyes: Yes: EOM Intact HENT: Yes: Normocephalic Neck: Yes: Trachea Midline Cardiovascular: Yes: Pulse Irregular Respiratory: Yes: Rales (bilat bases) Gastrointestinal: Yes: Normal Bowel Sounds, Soft Extremities: Yes: WNL Edema: Yes Edema: LLE: Trace, RLE: Trace Peripheral Pulses WNL: Yes Labs: CBC, BMP 12/19/17 09:15 12/19/17 09:15 INR, PTT INR 1.49 (0.83-1.09) H 12/18/17 06:50 Assessment/Plan He is an 82 year old NHR with a history of HTN, NIDDM, Afib on Noac, CKD admitted for cough with blood tinged sputum, noted with elevated troponin. No chest pain, sob, orthopnea, pnd or edema. ECG: afib (115 bpm), normal axis. q waves V1-V3, NSST-Ts lateral leads CXR (no report, image reviewed): bilateral interstitial infiltrates lower lobes new vs prior. no vasc redistribution or effusions. mibi 04/2013 (stanton): no ecg changes, no ischemia/scar, nl lvef Echo 2015: TDS, normal LV/RV size and function, Aortic valve not seen well 1. hypoxia, tachypnea, ? hemoptysis vs hematemesis : -CXR with new bilateral lower lobe interstitial infiltrates, without corresponding findings of chf (no effusions, vasc redistribution, estela b lines ) -elevated troponin -hi WBCs, no fever--? PNA. being treated with abx -ongoing mild tachypnea but pt comfortable with stable O2 sats -Hold IVF for now. 2.NSTEMI: -troponin 2.1-->monitor trend -ECG with no diagnostic acute ischemia. there is evidence of old septal infarct which was not present on prior study (2014). nonspecific mild ST-Ts likely rate- related. -pt only admits to sx of vomiting vs cough--? atypical NSTEMI sx. -rpt ECG without changes -check echo, further plans depending on the results as he is at elevated risk of cath related ATN due to his renal disease. -continue home AC (xarelto). per ER, sputum reportedly blood tinged, without large amt of blood--close monitoring and hold AC if hemoptysis worsens -cont home metoprolol -hi intensity statin for now until pathophysiology of present events is clarified (incr atorva 20 to 80) afib: -on xarelto from before (CHADS VASC 3)--hemoptysis monitoring as above, to cont AC for now -cont home metoprolol -monitor HRs on tele HTN: -bp controlled -same plan
--- NOTE | 2017-12-19 12:17 | PN ---
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, Physician Chief Complaint: AWAKE MORE ALERT TODAY - Current Medication List Current Medications: Active Medications Acetaminophen (Tylenol -) 650 mg PO Q6H PRN PRN Reason: PAIN OR FEVER Albuterol/Ipratropium (Duoneb -) 1 amp NEB Q6H PRN PRN Reason: SHORTNESS OF BREATH Last Admin: 12/18/17 23:14 Dose: 1 amp Allopurinol (Zyloprim -) 100 mg PO DAILY [facility] Last Admin: 12/19/17 10:56 Dose: Not Given Atorvastatin Calcium (Lipitor -) 80 mg PO HS [facility] Last Admin: 12/18/17 22:46 Dose: 80 mg Metoprolol Succinate (Toprol Xl -) 100 mg PO DAILY [facility] Last Admin: 12/19/17 08:30 Dose: 100 mg - Objective Vital Signs: Vital Signs Temperature 97.5 F L 12/19/17 09:02 Pulse Rate 115 H 12/19/17 09:02 Respiratory Rate 28 H 12/19/17 09:02 Blood Pressure 160/113 12/19/17 09:02 O2 Sat by Pulse Oximetry (%) 96 12/19/17 09:02 Constitutional: Yes: Mild Distress Eyes: Yes: WNL HENT: Yes: WNL Neck: Yes: WNL Cardiovascular: Yes: Pulse Irregular Respiratory: Yes: SOB, Wheezes Gastrointestinal: Yes: WNL Genitourinary: Yes: Incontinence Musculoskeletal: Yes: Muscle Weakness Extremities: Yes: Other Edema: Yes Edema: LLE: 1+, RLE: 1+ Peripheral Pulses WNL: Yes Integumentary: Yes: Rash, Venous Stasis Changes Wound/Incision: Yes: Dressing Dry and Intact Neurological: Yes: Weakness ...Motor Strength: LLE, RLE Psychiatric: Yes: Other Labs: CBC, BMP 12/19/17 09:15 12/19/17 09:15 INR, PTT INR 1.49 (0.83-1.09) H 12/18/17 06:50 Problem List - Problems (1) Hemoptysis, unspecified Code(s): R04.2 - HEMOPTYSIS (2) Pneumonia Code(s): J18.9 - PNEUMONIA, UNSPECIFIED ORGANISM Qualifiers: Pneumonia type: due to unspecified organism Laterality: bilateral Lung location: lower lobe of lung Qualified Code(s): J18.1 - Lobar pneumonia, unspecified organism (3) Atrial fibrillation Code(s): I48.91 - UNSPECIFIED ATRIAL FIBRILLATION (4) Fever Code(s): R50.9 - FEVER, UNSPECIFIED Qualifiers: Fever type: unspecified cause of fever Qualified Code(s): R50.9 - Fever, unspecified (5) Hypertension Code(s): I10 - ESSENTIAL (PRIMARY) HYPERTENSION Qualifiers: Hypertension type: essential hypertension Qualified Code(s): I10 - Essential (primary) hypertension Assessment/Plan IV ABX CARDIO EVAL PT EVAL RESP SUPPORT NEBS PULM/ID FOLLOW UP
--- NOTE | 2017-12-19 13:04 | PN ---
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 (short form) - Note 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: Looks a little better today. Reports some cough. No CP or SOB. Intake & Output 12/16/17 12/17/17 12/18/17 12/19/17 23:59 23:59 23:59 23:59 Intake Total 1144 100 Output Total 230 300 Balance 914 -200 Weight 235 lb Last Vital Signs Temp Pulse Resp BP Pulse Ox 97.5 F L 115 H 28 H 160/113 96 12/19/17 09:02 12/19/17 09:02 12/19/17 09:02 12/19/17 09:02 12/19/17 09:02 Active Medications Acetaminophen (Tylenol -) 650 mg PO Q6H PRN PRN Reason: PAIN OR FEVER Albuterol/Ipratropium (Duoneb -) 1 amp NEB Q6H PRN PRN Reason: SHORTNESS OF BREATH Last Admin: 12/18/17 23:14 Dose: 1 amp Allopurinol (Zyloprim -) 100 mg PO DAILY [facility] Last Admin: 12/19/17 10:56 Dose: Not Given Atorvastatin Calcium (Lipitor -) 80 mg PO [facility] Last Admin: 12/18/17 22:46 Dose: 80 mg Metoprolol Succinate (Toprol Xl -) 100 mg PO DAILY [facility] Last Admin: 12/19/17 08:30 Dose: 100 mg Constitutional: Yes: No Distress Eyes: Yes: Conjunctiva Clear, EOM Intact HENT: Yes: Atraumatic, Normocephalic Neck: Yes: Supple, Trachea Midline Cardiovascular: Yes: Tachycardia, Pulse Irregular Respiratory: Yes: Cough, Diminished, On Nasal O2, Rhonchi, SOB, SOB on Exertion , Tachypnea. No: Accessory Muscle Use, Rales, Stridor, Wheezes ...Inspection: Yes: WNL ...Clubbing: No Gastrointestinal: Yes: Normal Bowel Sounds, Soft Renal/: Yes: WNL Musculoskeletal: Yes: WNL Extremities: Yes: WNL Edema: No Peripheral Pulses WNL: Yes Integumentary: Yes: WNL Neurological: Yes: Alert, Oriented ...Motor Strength: WNL Psychiatric: Yes: Alert, Oriented Labs: Laboratory Results - last 24 hr 12/18/17 12/18/17 12/18/17 10:45 18:00 18:00 WBC RBC Hgb Hct MCV MCH MCHC RDW Plt Count MPV Absolute Neuts (auto) Neutrophils % Lymphocytes % Monocytes % Eosinophils % Basophils % Nucleated RBC % Anticoagulation Therapy Puncture Site ABG pH ABG pCO2 at Pt Temp ABG pO2 at Pt Temp ABG HCO3 ABG O2 Sat (Measured) ABG O2 Content ABG Base Excess Brice Test O2 Delivery Device Oxygen Flow Rate Vent Mode Vent Rate Mechanical Rate Pressure Support Vent Sodium Potassium Chloride Carbon Dioxide Anion Gap BUN Creatinine Creat Clearance w eGFR POC Glucometer Random Glucose Calcium Magnesium Total Bilirubin AST ALT Alkaline Phosphatase Creatine Kinase 144 162 Creatine Kinase Index 3.3 CK-MB (CK-2) 5.38 H Troponin I 2.17 H* 1.89 H* Total Protein Albumin Urine Color Urine Appearance Urine pH Ur Specific [place] Urine Protein Urine Glucose (UA) Urine Ketones Urine Blood Urine Nitrite Urine Bilirubin Urine Urobilinogen Ur Leukocyte Esterase Urine WBC (Auto) Urine RBC (Auto) Ur Epithelial Cells Urine Mucus U Random Total Protein Ur Random Sodium 16 Ur Random Urea Nitrogn Urine Creatinine 12/18/17 12/18/17 12/18/17 18:00 18:00 18:00 WBC RBC Hgb Hct MCV MCH MCHC RDW Plt Count MPV Absolute Neuts (auto) Neutrophils % Lymphocytes % Monocytes % Eosinophils % Basophils % Nucleated RBC % Anticoagulation Therapy Puncture Site ABG pH ABG pCO2 at Pt Temp ABG pO2 at Pt Temp ABG HCO3 ABG O2 Sat (Measured) ABG O2 Content ABG Base Excess Brice Test O2 Delivery Device Oxygen Flow Rate Vent Mode Vent Rate Mechanical Rate Pressure Support Vent Sodium Potassium Chloride Carbon Dioxide Anion Gap BUN Creatinine Creat Clearance w eGFR POC Glucometer Random Glucose Calcium Magnesium Total Bilirubin AST ALT Alkaline Phosphatase Creatine Kinase Creatine Kinase Index CK-MB (CK-2) Troponin I Total Protein Albumin Urine Color Yellow Urine Appearance Turbid Urine pH 5.0 Ur Specific [place] 1.019 Urine Protein 2+ H Urine Glucose (UA) 1+ H Urine Ketones Negative Urine Blood 1+ H Urine Nitrite Negative Urine Bilirubin Negative Urine Urobilinogen Negative Ur Leukocyte Esterase 2+ H Urine WBC (Auto) 3108 Urine RBC (Auto) 38 Ur Epithelial Cells Rare Urine Mucus Few U Random Total Protein 113 H Ur Random Sodium Ur Random Urea Nitrogn Urine Creatinine 198.0 12/18/17 12/18/17 12/19/17 18:00 18:05 06:48 WBC RBC Hgb Hct MCV MCH MCHC RDW Plt Count MPV Absolute Neuts (auto) Neutrophils % Lymphocytes % Monocytes % Eosinophils % Basophils % Nucleated RBC % Anticoagulation Therapy No Result Required. Puncture Site Right radial ABG pH 7.41 ABG pCO2 at Pt Temp 34.1 L ABG pO2 at Pt Temp 79.4 ABG HCO3 21.0 L ABG O2 Sat (Measured) 94.4 ABG O2 Content 16.4 ABG Base Excess -2.5 L Brice Test No Result Required. O2 Delivery Device Nasal Oxygen Flow Rate 4l Vent Mode No Result Required. Vent Rate No Result Required. Mechanical Rate No Result Required. Pressure Support Vent No Result Required. Sodium Potassium Chloride Carbon Dioxide Anion Gap BUN Creatinine Creat Clearance w eGFR POC Glucometer 175 Random Glucose Calcium Magnesium Total Bilirubin AST ALT Alkaline Phosphatase Creatine Kinase Creatine Kinase Index CK-MB (CK-2) Troponin I Total Protein Albumin Urine Color Urine Appearance Urine pH Ur Specific [place] Urine Protein Urine Glucose (UA) Urine Ketones Urine Blood Urine Nitrite Urine Bilirubin Urine Urobilinogen Ur Leukocyte Esterase Urine WBC (Auto) Urine RBC (Auto) Ur Epithelial Cells Urine Mucus U Random Total Protein Ur Random Sodium Ur Random Urea Nitrogn 966 Urine Creatinine 12/19/17 12/19/17 09:15 09:15 WBC 18.7 H RBC 4.12 Hgb 11.8 Hct 36.2 MCV 88.1 MCH 28.6 MCHC 32.4 RDW 15.2 Plt Count 361 MPV 9.9 Absolute Neuts (auto) 15.9 H Neutrophils % 84.8 H Lymphocytes % 7.7 L D Monocytes % 6.9 Eosinophils % 0.2 D Basophils % 0.4 Nucleated RBC % 0 Anticoagulation Therapy Puncture Site ABG pH ABG pCO2 at Pt Temp ABG pO2 at Pt Temp ABG HCO3 ABG O2 Sat (Measured) ABG O2 Content ABG Base Excess Brice Test O2 Delivery Device Oxygen Flow Rate Vent Mode Vent Rate Mechanical Rate Pressure Support Vent Sodium 141 Potassium 4.5 Chloride 107 Carbon Dioxide 22 Anion Gap 12 BUN 39 H Creatinine 1.5 H Creat Clearance w eGFR 44.69 POC Glucometer Random Glucose 165 H Calcium 8.6 Magnesium 2.3 Total Bilirubin 0.8 AST 86 H ALT 108 H Alkaline Phosphatase 126 H Creatine Kinase 177 Creatine Kinase Index 3.4 CK-MB (CK-2) 6.07 H Troponin I 1.84 H* Total Protein 6.6 Albumin 3.0 L Urine Color Urine Appearance Urine pH Ur Specific [place] Urine Protein Urine Glucose (UA) Urine Ketones Urine Blood Urine Nitrite Urine Bilirubin Urine Urobilinogen Ur Leukocyte Esterase Urine WBC (Auto) Urine RBC (Auto) Ur Epithelial Cells Urine Mucus U Random Total Protein Ur Random Sodium Ur Random Urea Nitrogn Urine Creatinine Problem List - Problems (1) Pneumonia Code(s): J18.9 - PNEUMONIA, UNSPECIFIED ORGANISM Qualifiers: Pneumonia type: due to unspecified organism Laterality: bilateral Lung location: lower lobe of lung Qualified Code(s): J18.1 - Lobar pneumonia, unspecified organism (2) Atrial fibrillation Code(s): I48.91 - UNSPECIFIED ATRIAL FIBRILLATION (3) Hyperlipidemia Code(s): E78.5 - HYPERLIPIDEMIA, UNSPECIFIED (4) Hypertension Code(s): I10 - ESSENTIAL (PRIMARY) HYPERTENSION Qualifiers: Hypertension type: essential hypertension Qualified Code(s): I10 - Essential (primary) hypertension Assessment/Plan Currently off ABX, noted ID consult has been called, cultures are (-) and he appears improved. O2 as needed to maintain saturation. BD TX Monitor off systemic steroids Dr Novak Problem List - Problems (1) Pneumonia Code(s): J18.9 - PNEUMONIA, UNSPECIFIED ORGANISM Qualifiers: Pneumonia type: due to unspecified organism Laterality: bilateral Lung location: lower lobe of lung Qualified Code(s): J18.1 - Lobar pneumonia, unspecified organism (2) Atrial fibrillation Code(s): I48.91 - UNSPECIFIED ATRIAL FIBRILLATION (3) Hyperlipidemia Code(s): E78.5 - HYPERLIPIDEMIA, UNSPECIFIED (4) Hypertension Code(s): I10 - ESSENTIAL (PRIMARY) HYPERTENSION Qualifiers: Hypertension type: essential hypertension Qualified Code(s): I10 - Essential (primary) hypertension
[2017-12-19] MEDS: ALBUTEROL SO4 2.5/IPRATROPIUM 0.5 INH SOL 3 ML VIAL.NEB. NEB PRN (14:47)
--- NOTE | 2017-12-19 14:51 | PN ---
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 (short form) - Note 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: ID Consult dictated UTI/ possible sepsis secondary to UTI ? pneumonia Leukocytosis PCN allergy Await cultures Empiric ceftriaxone
[2017-12-19] MEDS ORDERED: CEFTRIAXONE 1 GM in DEXTROSE 5%-WATER - 100 ML IVPB SCH (15:00)
--- NOTE | 2017-12-19 15:28 | CONS ---
DATE OF CONSULTATION: DATE OF DICTATION: 12/19/2017 The patient is an 82-year-old male who is evaluated for possible pneumonia. History was obtained from the chart, as he cannot give a reliable history. He was admitted from the half-way with reports of worsening shortness of breath and hemoptysis. In the emergency room, he was noted to be in rapid atrial fibrillation and was noted to have rales at the bases bilaterally. He had developed nausea and vomiting with blood-streaking noted in the vomitus. White blood cell count on admission elevated at 19.7. He was empirically treated with vancomycin, Azactam, and Zithromax. At the present time, he is awake, but he is confused. He offers no complaints. He denies any chest pain or shortness of breath. No complaints of dysuria or hematuria. Denies suprapubic or flank pain. PAST MEDICAL HISTORY: Positive for diabetes mellitus, hypertension, hyperlipidemia, gouty arthritis, chronic kidney disease, atrial fibrillation, congestive heart failure. PAST SURGICAL HISTORY: Status post right total knee replacement. ALLERGIES: PENICILLIN (hives). MEDICATIONS: Lipitor; Xarelto; allopurinol; Toprol. SOCIAL HISTORY: He is a half-way resident, nonsmoker, nondrinker. SYSTEMS REVIEW: Neurologic: No loss of consciousness, seizure activity, focal weakness. Cardiac: Negative chest pain or palpitations. Respiratory: As per HPI. Gastrointestinal: Positive for nausea and vomiting. No diarrhea. Genitourinary: Positive for urinary tract infection. LABORATORY DATA: White count on admission 19.7 with 84 neutrophils, 7 lymphocytes, 7 monocytes; hematocrit 36.2; platelet count 361. BUN 39, creatinine 1.5. Total bilirubin 0.8, alkaline phosphatase 126, ALT 86, AST 108. Urinalysis with 3108 white cells. Blood and urine cultures pending. Chest x-ray shows increased markings at the bases bilaterally. PHYSICAL EXAMINATION: General: He is awake, but he is confused. Vital Signs: His temperature is 97.5, blood pressure 160/113, pulse 115 and irregular, respirations 24/min. HEENT: Sclerae anicteric. Heart Sounds: S1, S2, irregular. Lungs: Crepitations at the bases bilaterally. Abdomen: Obese. No tenderness elicited. No mass, rebound, or rigidity. Extremities: One-plus edema. IMPRESSION: 1. Urinary tract infection/possible sepsis secondary to urinary tract infection. 2. Possible pneumonia. 3. Leukocytosis. 4. PENICILLIN allergy. Await culture results, empiric antibiotic coverage pending cultures with ceftriaxone in this PENICILLIN-allergic patient. Will follow. Thank you for the kind referral. HEAVEN LANGE M.D. [id number]
[2017-12-19] MEDS: RIVAROXABAN 20 MG TABLET PO SCH (17:00)
[2017-12-19] MEDS ORDERED: cefTRIAXone SODIUM 1 GM VIAL ONE ×2 (17:17→20:08)
[2017-12-19] MEDS ORDERED: DEXTROSE 5%-WATER - 50 ML IVPB ONE ×2 (17:17→20:08)
[2017-12-19] MEDS: CEFTRIAXONE 1 GM in DEXTROSE 5%-WATER - 50 ML IVPB SCH (17:22)
[2017-12-19] MEDS ORDERED: METOPROLOL TARTRATE 5 MG/5 ML VIAL ONE ×2 (17:26→18:15)
[2017-12-19] MEDS ORDERED: FUROSEMIDE 40 MG/4 ML INJECTABLE VIAL IVPUSH ONE (18:00)
[2017-12-19] MEDS ORDERED: NITROGLYCERIN 2% OINTMENT - 1GM PACKET TD ONE (18:00)
--- NOTE | 2017-12-19 18:39 | RAPID ---
Physical Examination Vital Signs: Requested to respond to patient who is desatting to 50s on 5L NC. Patient seen and examined. VS: 98.1 BP 176/109 p110 SpO2 95% on 100% FiO2 General: Awake, alert, talking Lungs: Diffuse wheezing Skin: pale, clammy CV: irreg S1, S2 Lower Ext: 1+ bilateral edema Assessment & Plan Hypoxic respiratory failure Acute decompensated heart failure NSTEMI --Lasix IVP 80 x 1 --Nitro paste 2" --EKG: afib @ 111bpm --BiPAP --CXR --ABG --lopressor 5mg x 1 --cbc, cmp, lytes, troponins x 2, lactic acid --low threshold for intubation --consider lasix drip depending in cxr --Echo in am --transferred to ICU Labs: CBC, BMP 12/19/17 09:15 12/19/17 09:15
[2017-12-19 19:00] LABS: ARTERIAL BLOOD GAS pH 7.46 (7.35-7.45)
[2017-12-19 19:01] LABS: ALLENS TEST POSITIVE; ARTERIAL BLOOD GAS BASE EXCESS -0.6 meq/l (-2-2); ARTERIAL BLOOD GAS PCO2 31.5 mmHg (35-45)
[2017-12-19] MEDS ORDERED: morphine SULFATE 4 MG/ML VIAL ONE (19:03)
[2017-12-19 19:05] LABS: ARTERIAL BLD GAS O2 SATURATION 99.6 % (90-98.9)
--- NOTE | 2017-12-19 19:07 | CONSULT ---
Consultation: REQUESTING PROVIDER: Amanda CONSULT REQUEST: We have been asked to medically evaluate this patient for acute respiratory failure. HISTORY OF PRESENT ILLNESS: Pt is a 82 yo M with PMH of gout, DM, HTN, CKD, A-fib (on xarelto), CHF who presents from [facility] with SOB and hemoptysis. Pt reports that he vomited multiple times prior to presentation that all had blood streaks. He also stated that he was coughing up red cough medicine that was given to him. Per [facility], pt was coughing blood, complaining of chest pain and satting 86-90% on RA. Pt does not require home oxygen at baseline. At bedside, pt complains of nausea, but denies any recent fevers, abdominal pain, diarrhea or constipation. On the floor today, Rapid was called b/c pt had hypoxic resp failure, desat into 40s with wheezing. 80 Lasix was given, 2 inch nitro paste, and 5 mg lopressor. Initial BP 183/135, recheck 160/116. Pt brought down to the ICU on non-rebreather mask saturating 100%, but tachypneic into 30s-40s. He was started on BIPAP (14 IPAP, 8 EPAP, rate 12, FiO2 100%), repeat ABG drawn. Cardio was called and repeat ECG and chest x-ray done. PMHX: as in HPI Allergies: penicillin Tob: none Etoh: none Rec drugs: none Pt. full code ROS: as above -fever, -syncope +cough, +productive, red sputum +vomiting, +red-streaked vomit -abdominal pain, -diarrhea, -constipation, -dysuria, -hematuria -leg swelling PHYSICAL EXAMINATION Vital Signs - 24 hr 12/18/17 12/18/17 12/18/17 20:00 21:00 22:00 Temperature Pulse Rate 109 H Respiratory 25 H 24 Rate Blood Pressure 149/106 O2 Sat by Pulse 94 L 93 L Oximetry (%) 12/18/17 12/19/17 12/19/17 23:50 01:34 01:59 Temperature 98.2 F 98.8 F Pulse Rate 125 H 125 H 126 H Respiratory 24 20 Rate Blood Pressure 174/110 137/106 139/104 O2 Sat by Pulse Oximetry (%) 12/19/17 12/19/17 12/19/17 06:05 09:00 09:02 Temperature 97.5 F L Pulse Rate 115 H Respiratory 28 H Rate Blood Pressure 160/113 O2 Sat by Pulse 94 L 96 96 Oximetry (%) 12/19/17 12/19/17 12/19/17 13:00 18:00 18:30 Temperature 97.4 F L Pulse Rate 104 H 122 H Respiratory 32 H Rate Blood Pressure 154/104 185/135 O2 Sat by Pulse 100 Oximetry (%) GENERAL: Awake, alert, and fully oriented. Tachypneic on BiPAP, diaphoretic. HEAD: Normal with no signs of trauma. EYES: Pupils equal, round and reactive to light, extraocular movements intact, sclera anicteric, conjunctiva clear. No lid lag. EARS, NOSE, THROAT: External ears normal, nares patent, oropharynx clear without exudates. Moist mucous membranes. NECK: Normal range of motion, supple without lymphadenopathy, JVD, or masses. LUNGS: Breath sounds diminished anterior and posterior, more diminished in L anterior guillory. No current wheezes or crackles noted. Pt tachypneic to 30s-40s , diaphoretic with increased work of breathing. HEART: A-fib, tachycardic to 110s, normal S1 and S2 without murmur, rub or gallop. No JVD. ABDOMEN: Soft, nontender, distended (umbilical hernia?), normoactive bowel sounds, no guarding, no rebound. No hepatomegaly or splenomegaly. Pt states protuberant abdomen is baseline for him. MUSCULOSKELETAL: Normal range of motion at all joints. No bony deformities or tenderness. No CVA tenderness. UPPER EXTREMITIES: 2+ pulses, warm, well-perfused. No cyanosis. No clubbing. Cap refill <2 seconds. No peripheral pitting edema. LOWER EXTREMITIES: 1+ pulses, warm, well-perfused. No calf tenderness. No peripheral pitting edema. NEUROLOGICAL: Cranial nerves II-XII intact. Normal speech. Gait not examined. PSYCHIATRIC: Cooperative. Good eye contact. Appropriate mood and affect. SKIN: Warm, dry, normal turgor, no rashes or lesions noted. Laboratory Results - last 24 hr 12/18/17 12/18/17 12/18/17 18:00 18:00 18:00 WBC RBC Hgb Hct MCV MCH MCHC RDW Plt Count MPV Absolute Neuts (auto) Neutrophils % Lymphocytes % Monocytes % Eosinophils % Basophils % Nucleated RBC % Sodium Potassium Chloride Carbon Dioxide Anion Gap BUN Creatinine Creat Clearance w eGFR POC Glucometer Random Glucose Lactic Acid Calcium Magnesium Total Bilirubin AST ALT Alkaline Phosphatase Creatine Kinase 162 Creatine Kinase Index 3.3 CK-MB (CK-2) 5.38 H Troponin I 1.89 H* Total Protein Albumin Urine Color Yellow Urine Appearance Turbid Urine pH 5.0 Ur Specific [place] 1.019 Urine Protein 2+ H Urine Glucose (UA) 1+ H Urine Ketones Negative Urine Blood 1+ H Urine Nitrite Negative Urine Bilirubin Negative Urine Urobilinogen Negative Ur Leukocyte Esterase 2+ H Urine WBC (Auto) 3108 Urine RBC (Auto) 38 Ur Epithelial Cells Rare Urine Mucus Few U Random Total Protein Ur Random Sodium 16 Ur Random Urea Nitrogn Urine Creatinine 12/18/17 12/18/17 12/18/17 18:00 18:00 18:00 WBC RBC Hgb Hct MCV MCH MCHC RDW Plt Count MPV Absolute Neuts (auto) Neutrophils % Lymphocytes % Monocytes % Eosinophils % Basophils % Nucleated RBC % Sodium Potassium Chloride Carbon Dioxide Anion Gap BUN Creatinine Creat Clearance w eGFR POC Glucometer Random Glucose Lactic Acid Calcium Magnesium Total Bilirubin AST ALT Alkaline Phosphatase Creatine Kinase Creatine Kinase Index CK-MB (CK-2) Troponin I Total Protein Albumin Urine Color Urine Appearance Urine pH Ur Specific [place] Urine Protein Urine Glucose (UA) Urine Ketones Urine Blood Urine Nitrite Urine Bilirubin Urine Urobilinogen Ur Leukocyte Esterase Urine WBC (Auto) Urine RBC (Auto) Ur Epithelial Cells Urine Mucus U Random Total Protein 113 H Ur Random Sodium Ur Random Urea Nitrogn 966 Urine Creatinine 198.0 12/19/17 12/19/17 12/19/17 06:48 09:15 09:15 WBC 18.7 H RBC 4.12 Hgb 11.8 Hct 36.2 MCV 88.1 MCH 28.6 MCHC 32.4 RDW 15.2 Plt Count 361 MPV 9.9 Absolute Neuts (auto) 15.9 H Neutrophils % 84.8 H Lymphocytes % 7.7 L D Monocytes % 6.9 Eosinophils % 0.2 D Basophils % 0.4 Nucleated RBC % 0 Sodium 141 Potassium 4.5 Chloride 107 Carbon Dioxide 22 Anion Gap 12 BUN 39 H Creatinine 1.5 H Creat Clearance w eGFR 44.69 POC Glucometer 175 Random Glucose 165 H Lactic Acid Calcium 8.6 Magnesium 2.3 Total Bilirubin 0.8 AST 86 H ALT 108 H Alkaline Phosphatase 126 H Creatine Kinase 177 Creatine Kinase Index 3.4 CK-MB (CK-2) 6.07 H Troponin I 1.84 H* Total Protein 6.6 Albumin 3.0 L Urine Color Urine Appearance Urine pH Ur Specific [place] Urine Protein Urine Glucose (UA) Urine Ketones Urine Blood Urine Nitrite Urine Bilirubin Urine Urobilinogen Ur Leukocyte Esterase Urine WBC (Auto) Urine RBC (Auto) Ur Epithelial Cells Urine Mucus U Random Total Protein Ur Random Sodium Ur Random Urea Nitrogn Urine Creatinine 12/19/17 12:01 WBC RBC Hgb Hct MCV MCH MCHC RDW Plt Count MPV Absolute Neuts (auto) Neutrophils % Lymphocytes % Monocytes % Eosinophils % Basophils % Nucleated RBC % Sodium Potassium Chloride Carbon Dioxide Anion Gap BUN Creatinine Creat Clearance w eGFR POC Glucometer Random Glucose Lactic Acid 2.4 H* Calcium Magnesium Total Bilirubin AST ALT Alkaline Phosphatase Creatine Kinase Creatine Kinase Index CK-MB (CK-2) Troponin I Total Protein Albumin Urine Color Urine Appearance Urine pH Ur Specific [place] Urine Protein Urine Glucose (UA) Urine Ketones Urine Blood Urine Nitrite Urine Bilirubin Urine Urobilinogen Ur Leukocyte Esterase Urine WBC (Auto) Urine RBC (Auto) Ur Epithelial Cells Urine Mucus U Random Total Protein Ur Random Sodium Ur Random Urea Nitrogn Urine Creatinine Active Medications Generic Name Dose Route Start Last Admin Trade Name Freq PRN Reason Stop Dose Admin Acetaminophen 650 mg 12/18/17 09:12 Tylenol - PO Q6H PRN PAIN OR FEVER Albuterol/Ipratropium 1 amp 12/18/17 09:12 12/19/17 14:47 Duoneb - NEB 1 amp Q6H PRN Administration SHORTNESS OF BREATH Allopurinol 100 mg 12/18/17 10:00 12/19/17 10:56 Zyloprim - PO Not Given DAILY [facility] Atorvastatin Calcium 80 mg 12/18/17 22:00 12/18/17 22:46 Lipitor - PO 80 mg HS [facility]ILEY Administration Ceftriaxone Sodium 1 gm/ 50 mls @ 100 mls/hr 12/19/17 17:15 12/19/17 17:22 Dextrose IVPB 100 mls/hr DAILY [facility] Administration Protocol Metoprolol Succinate 100 mg 12/18/17 10:00 12/19/17 08:30 Toprol Xl - PO 100 mg DAILY [facility] Administration Rivaroxaban 20 mg 12/19/17 15:45 12/19/17 17:00 Xarelto - PO 20 mg DAILY [facility] Administration ASSESSMENT/PLAN: 1. Respiratory (acute hypoxic respiratory failure 2/2 to acute heart failure/N- STEMI); possible pneumonia -Desat into 40s on floor with wheezing and SOB; Was provided 80 mg Lasix, 5 Lopressor IV, 100 Lopressor Qday -2 inch nitro paste given, 2 mg IV morphine -CXR (no report, image reviewed): bilateral interstitial infiltrates lower lobes new vs prior. no vasc redistribution or effusions; PE showed no JVD, no pitting edema in LE -F/u chest x-ray, ABG -- may need additional diuresis with Lasix drip depending on x-ray and symptomatic improvement -Requiring BIPAP: IPAP 14, EPAP 8, Rate 12, FiO2 100%; Low threshold for intubation -Follow ABG, mental status changes and respiratory effort 2. Cardiac (acute heart failure 2/2 N-STEMI, and A-fib) -Echo 2014: TDS, normal LV/RV size and function, Aortic valve not seen well -ECG (12:00 12/19): A-Fib, HR 111, QTC 495, ST depression I/aVL, T-wave inversions V1-V6, ST depression V5-V6 -ECG (18:35): A-fib with RVR, HR 111, Qtc 448, ST depression I/aVL, T-wave upright V1-V6, ST segment elevation V1-V3 -Troponin 2.1, monitor trend -- new troponin ordered after respiratory distress today -Current BP 167/117, continue to monitor -BNP 8000s -AFib-on a/c: xarelto 20mg PO qd; rate control with Toprol XL 100 mg PO Qday -Atorvastatin 80 mg PO Qday -d/t initial labile BP, currently not on GEMMA-, plavix, but should restart once BP stable 3. -UA shows UTI, urine cultures pending; Leuk est 2+, WBC 3108 -Ray in place, minimal output so far (appeared pustular, ~100 cc so far), will monitor 4. Renal (JD) -39, 1.5; continue to monitor -- balance between fluids/lasix -- sepsis vs cardio-renal 5. ID (pneumonia vs UTI) -Lactic acid 2.4, 2.3; WBC 18.7 -- f/u lactic drawn this PM -Azithromycin 500 mg and Aztreonam 2 g given ONCE in ER -Rocephin 1 gm Qday IVPB -- treating UTI -Follow urine and blood cultures, no growth yet Dispo: We will continue to follow the patient. Thank you for this consultative opportunity. Problem List - Problems (1) Respiratory failure Code(s): J96.90 - RESPIRATORY FAILURE, UNSP, UNSP W HYPOXIA OR HYPERCAPNIA (2) Urinary tract infection Code(s): N39.0 - URINARY TRACT INFECTION, SITE NOT SPECIFIED (3) Sepsis Code(s): A41.9 - SEPSIS, UNSPECIFIED ORGANISM (4) Non-STEMI (non-ST elevated myocardial infarction) Code(s): I21.4 - NON-ST ELEVATION (NSTEMI) MYOCARDIAL INFARCTION (5) Hemoptysis, unspecified Code(s): R04.2 - HEMOPTYSIS (6) Pneumonia Code(s): J18.9 - PNEUMONIA, UNSPECIFIED ORGANISM Qualifiers: Pneumonia type: due to unspecified organism Laterality: bilateral Lung location: lower lobe of lung Qualified Code(s): J18.1 - Lobar pneumonia, unspecified organism (7) Atrial fibrillation Code(s): I48.91 - UNSPECIFIED ATRIAL FIBRILLATION (8) Leukocytosis Code(s): D72.829 - ELEVATED WHITE BLOOD CELL COUNT, UNSPECIFIED Visit type - Emergency Visit Emergency Visit: Yes ED Registration Date: 12/18/17 Care time: The patient presented to the Emergency Department on the above date and was hospitalized for further evaluation of their emergent condition. - New Patient This patient is new to me today: Yes Date on this admission: 12/19/17 - Critical Care Critical Care patient: Yes Total Critical Care Time (in minutes): 45 Critical Care Statement: The care of this patient involved high complexity decision making to prevent further life threatening deterioration of the patient 's condition and/or to evaluate & treat vital organ system(s) failure or risk of failure.
[2017-12-19] MEDS ORDERED: MORPHINE SULFATE 2 MG/ML VIAL IVPUSH ONE (19:15)
[2017-12-19 19:53] LABS: BASO % 0.2 % (0-2.0); EOS % 0.1 % (0-4.5); HEMATOCRIT 34.6 % (35.4-49); HEMOGLOBIN 11.5 GM/dL (11.7-16.9); MCH 29.3 pg (25.7-33.7); MCHC 33.3 g/dl (32.0-35.9); MEAN CELL VOLUME 87.9 fl (80-96); MEAN PLT VOLUME 10.3 fl (7.5-11.1); MONO % 6.5 % (3.8-10.2); NEUT % 86.2 % (42.8-82.8); PLATELET COUNT 371 K/MM3 (134-434); RBC 3.93 M/mm3 (4.00-5.60); RDW 14.7 % (11.9-15.9)
[2017-12-19 20:12] LABS: ALBUMIN 2.9 g/dl (3.4-5.0); ANION GAP 14 MMOL/L (8-16); BILIRUBIN,TOTAL 0.7 mg/dL (0.2-1.0); BLOOD UREA NITROGEN 42 mg/dL (7-18); CALCIUM 8.3 mg/dL (8.5-10.1); CHLORIDE 107 mmol/L (98-107); CO2 21 mmol/L (21-32); CREATININE 1.4 mg/dL (0.55-1.3); GLUCOSE,RANDOM 191 mg/dL (74-106); MAGNESIUM 2.2 mg/dL (1.8-2.4); POTASSIUM 4.1 mmol/L (3.5-5.1); SGOT/AST 136 U/L (15-37); SGPT/ALT 169 U/L (13-61); SODIUM 142 mmol/L (136-145); TOT PROT 6.4 g/dl (6.4-8.2)
[2017-12-19 20:13] LABS: ALK PHOS 201 U/L (45-117)
[2017-12-19] MEDS: ATORVASTATIN CA 20 MG TABLET (FP) PO SCH (21:29)
[2017-12-19] MEDS: CHLORHEXIDINE GLUCONATE 4% CLEANSER FOR DECOLONIZATION TP SCH (21:29)
[2017-12-19] MEDS: MUPIROCIN 2% TOPICAL OINTMENT FOR DECOLONIZATION NS SCH (21:31)
--- NOTE | 2017-12-19 21:36 | EKG ---
Test Reason : Blood Pressure : / mmHG Vent. Rate : 111 BPM Atrial Rate : 250 BPM P-R Int : 000 ms QRS Dur : 086 ms QT Int : 364 ms P-R-T Axes : 000 -29 130 degrees QTc Int : 495 ms ATRIAL FIBRILLATION WITH RAPID VENTRICULAR RESPONSE SEPTAL INFARCT (CITED ON OR BEFORE 18-DEC-2017) ABNORMAL ECG WHEN COMPARED WITH ECG OF 18-DEC-2017 06:04, SERIAL CHANGES OF SEPTAL INFARCT PRESENT Confirmed by RUTH ALCALA MD ([id number]) on 12/19/2017 9:36:19 PM Referred By: Amish MENDOZA Confirmed By:RUTH ALCALA MD
--- NOTE | 2017-12-19 21:42 | EKG ---
Test Reason : Blood Pressure : / mmHG Vent. Rate : 115 BPM Atrial Rate : 127 BPM P-R Int : 000 ms QRS Dur : 084 ms QT Int : 316 ms P-R-T Axes : 000 -22 122 degrees QTc Int : 437 ms ATRIAL FIBRILLATION WITH RAPID VENTRICULAR RESPONSE WITH PREMATURE VENTRICULAR OR ABERRANTLY CONDUCTED COMPLEXES ANTEROSEPTAL INFARCT , AGE UNDETERMINED NONSPECIFIC T WAVE ABNORMALITY ABNORMAL ECG WHEN COMPARED WITH ECG OF 19-JUL-2014 08:28, ANTEROSEPTAL INFARCT IS NOW PRESENT T WAVE INVERSION NOW EVIDENT IN LATERAL LEADS Confirmed by RUTH ALCALA MD ([id number]) on 12/19/2017 9:41:37 PM Referred By: Confirmed By:RUTH ALCALA MD
[2017-12-20 05:47] LABS: BASO % 0.4 % (0-2.0); EOS % 0.7 % (0-4.5); HEMATOCRIT 33.5 % (35.4-49); HEMOGLOBIN 10.9 GM/dL (11.7-16.9); LYMPH % 11.5 % (8-40); MCH 28.7 pg (25.7-33.7); MCHC 32.5 g/dl (32.0-35.9); MEAN CELL VOLUME 88.2 fl (80-96); MEAN PLT VOLUME 10.3 fl (7.5-11.1); MONO % 8.4 % (3.8-10.2); PLATELET COUNT 372 K/MM3 (134-434); WHITE BLOOD COUNT 15.5 K/mm3 (4.0-10.0)
[2017-12-20 06:01] LABS: ALBUMIN 2.8 g/dl (3.4-5.0); ANION GAP 10 MMOL/L (8-16); BLOOD UREA NITROGEN 43 mg/dL (7-18); CALCIUM 8.4 mg/dL (8.5-10.1); CHLORIDE 103 mmol/L (98-107); CO2 29 mmol/L (21-32); CREATININE 1.6 mg/dL (0.55-1.3); GLUCOSE,RANDOM 136 mg/dL (74-106); MAGNESIUM 2.2 mg/dL (1.8-2.4); PHOSPHOROUS 4.3 mg/dL (2.5-4.9); POTASSIUM 3.8 mmol/L (3.5-5.1); SGOT/AST 99 U/L (15-37); SGPT/ALT 150 U/L (13-61); SODIUM 142 mmol/L (136-145)
[2017-12-20 06:04] LABS: ALK PHOS 172 U/L (45-117); BILIRUBIN,TOTAL 0.7 mg/dL (0.2-1.0); TOT PROT 6.2 g/dl (6.4-8.2)
[2017-12-20] MEDS ORDERED: POTASSIUM CHLORIDE 20 MEQ PREMIX IVPB 100 ML IVPB ONE ×2 (07:20→07:32)
[2017-12-20] MEDS ORDERED: DEXTROSE 5%-WATER - 50 ML IVPB ONE (07:52)
[2017-12-20] MEDS ORDERED: cefTRIAXone SODIUM 1 GM VIAL ONE (07:52)
[2017-12-20] MEDS ORDERED: KCL 10 MEQ IVPB 10 MEQ/100 ML INFUS.BAG IVPB SCH (08:30)
--- NOTE | 2017-12-20 08:35 | PN ---
Physical Exam: SUBJECTIVE: Patient seen and examined this AM. Pt was switched from BiPAP -> face mask -> 4L NC. Pt currently on 4L NC. He has been afebrile with no acute events overnight. Pt complains of mild SOB and cough, but states he is much improved from last PM. He denies any chest pain, syncope, dizziness, nausea/ vomiting, abdominal pain, or leg swelling from baseline. Pt tolerating PO intake without difficulty. Urine output improved with salcedo catheter, draining yellow urine. OBJECTIVE: Vital Signs Period Temp Pulse Resp BP Sys/[place] Pulse Ox Last 24 Hr 97.2 F-98.7 F 91-122 17-36 107-185/80-135 95-100 GENERAL: Awake, alert, and fully oriented. Tachypneic in 30s. Can speak in full sentences on NC. HEAD: Normal with no signs of trauma. EYES: Extraocular movements intact, sclera anicteric, conjunctiva clear. No lid lag. EARS, NOSE, THROAT: External ears normal, nares patent, oropharynx clear without exudates. Moist mucous membranes. NECK: Normal range of motion, supple without lymphadenopathy, or masses. No significant JVD. LUNGS: Breath sounds diminished anterior and posterior, more diminished in L anterior guillory. No current wheezes or crackles noted. Pt tachypneic to 30s, no significant increased work of breathing, no intercostal retractions. HEART: A-fib, tachycardic to 110s, normal S1 and S2 without murmur, rub or gallop. No significant JVD. ABDOMEN: Soft, nontender, distended (umbilical hernia?), normoactive bowel sounds, no guarding, no rebound. No hepatomegaly or splenomegaly. Pt states protuberant abdomen is baseline for him. MUSCULOSKELETAL: Normal range of motion at all joints. No bony deformities or tenderness. No CVA tenderness. UPPER EXTREMITIES: 2+ pulses, warm, well-perfused. No cyanosis. No clubbing. Cap refill <2 seconds. No peripheral pitting edema. LOWER EXTREMITIES: 1+ pulses, warm, well-perfused. No calf tenderness. No peripheral pitting edema. NEUROLOGICAL: Cranial nerves II-XII intact. Normal speech. Gait not examined. PSYCHIATRIC: Cooperative. Good eye contact. Appropriate mood and affect. SKIN: Warm, dry, normal turgor, no rashes or lesions noted. I/O: 1130/2100 = -970 over past 24 hrs. Laboratory Results - last 24 hr 12/19/17 12/19/17 12/19/17 09:15 09:15 12:01 WBC 18.7 H RBC 4.12 Hgb 11.8 Hct 36.2 MCV 88.1 MCH 28.6 MCHC 32.4 RDW 15.2 Plt Count 361 MPV 9.9 Absolute Neuts (auto) 15.9 H Neutrophils % 84.8 H Lymphocytes % 7.7 L D Monocytes % 6.9 Eosinophils % 0.2 D Basophils % 0.4 Nucleated RBC % 0 Puncture Site ABG pH ABG pCO2 at Pt Temp ABG pO2 at Pt Temp ABG HCO3 ABG O2 Sat (Measured) ABG O2 Content ABG Base Excess Brice Test Oxygen Flow Rate Sodium 141 Potassium 4.5 Chloride 107 Carbon Dioxide 22 Anion Gap 12 BUN 39 H Creatinine 1.5 H Creat Clearance w eGFR 44.69 POC Glucometer Random Glucose 165 H Lactic Acid 2.4 H* Calcium 8.6 Phosphorus Magnesium 2.3 Total Bilirubin 0.8 AST 86 H ALT 108 H Alkaline Phosphatase 126 H Creatine Kinase 177 Creatine Kinase Index 3.4 CK-MB (CK-2) 6.07 H Troponin I 1.84 H* Total Protein 6.6 Albumin 3.0 L 12/19/17 12/19/17 12/19/17 19:00 19:15 19:15 WBC 17.0 H RBC 3.93 L Hgb 11.5 L Hct 34.6 L MCV 87.9 MCH 29.3 MCHC 33.3 RDW 14.7 Plt Count 371 MPV 10.3 Absolute Neuts (auto) 14.6 H Neutrophils % 86.2 H Lymphocytes % 7.0 L Monocytes % 6.5 Eosinophils % 0.1 Basophils % 0.2 Nucleated RBC % 0 Puncture Site Left radial ABG pH 7.46 H ABG pCO2 at Pt Temp 31.5 L ABG pO2 at Pt Temp 380.0 H* D ABG HCO3 22.1 ABG O2 Sat (Measured) 99.6 H* ABG O2 Content No Result Required. ABG Base Excess -0.6 Brice Test Positive Oxygen Flow Rate Fio2:100% Sodium Potassium Chloride Carbon Dioxide Anion Gap BUN Creatinine Creat Clearance w eGFR POC Glucometer Random Glucose Lactic Acid Calcium Phosphorus Magnesium Total Bilirubin AST ALT Alkaline Phosphatase Creatine Kinase Creatine Kinase Index CK-MB (CK-2) Troponin I 1.92 H* Total Protein Albumin 12/19/17 12/19/17 12/19/17 19:15 19:15 21:32 WBC RBC Hgb Hct MCV MCH MCHC RDW Plt Count MPV Absolute Neuts (auto) Neutrophils % Lymphocytes % Monocytes % Eosinophils % Basophils % Nucleated RBC % Puncture Site ABG pH ABG pCO2 at Pt Temp ABG pO2 at Pt Temp ABG HCO3 ABG O2 Sat (Measured) ABG O2 Content ABG Base Excess Brice Test Oxygen Flow Rate Sodium 142 Potassium 4.1 Chloride 107 Carbon Dioxide 21 Anion Gap 14 BUN 42 H Creatinine 1.4 H Creat Clearance w eGFR 48.40 POC Glucometer [phone] Random Glucose 191 H Lactic Acid 1.9 Calcium 8.3 L Phosphorus Magnesium 2.2 Total Bilirubin 0.7 AST 136 H ALT 169 H Alkaline Phosphatase 201 H Creatine Kinase Creatine Kinase Index CK-MB (CK-2) Troponin I Total Protein 6.4 Albumin 2.9 L 12/20/17 12/20/17 12/20/17 00:00 00:00 01:30 WBC RBC Hgb Hct MCV MCH MCHC RDW Plt Count MPV Absolute Neuts (auto) Neutrophils % Lymphocytes % Monocytes % Eosinophils % Basophils % Nucleated RBC % Puncture Site ABG pH ABG pCO2 at Pt Temp ABG pO2 at Pt Temp ABG HCO3 ABG O2 Sat (Measured) ABG O2 Content ABG Base Excess Brice Test Oxygen Flow Rate Sodium Potassium Chloride Carbon Dioxide Anion Gap BUN Creatinine Creat Clearance w eGFR POC Glucometer 179.78703 Random Glucose Lactic Acid Calcium Phosphorus Magnesium Total Bilirubin AST ALT Alkaline Phosphatase Creatine Kinase 106 Creatine Kinase Index CK-MB (CK-2) Troponin I 1.97 H* 1.95 H* Total Protein Albumin 12/20/17 12/20/17 12/20/17 05:15 05:15 05:15 WBC 15.5 H RBC 3.80 L Hgb 10.9 L Hct 33.5 L MCV 88.2 MCH 28.7 MCHC 32.5 RDW 15.0 Plt Count 372 MPV 10.3 Absolute Neuts (auto) 12.3 H Neutrophils % 79.0 Lymphocytes % 11.5 D Monocytes % 8.4 Eosinophils % 0.7 D Basophils % 0.4 Nucleated RBC % 0 Puncture Site ABG pH ABG pCO2 at Pt Temp ABG pO2 at Pt Temp ABG HCO3 ABG O2 Sat (Measured) ABG O2 Content ABG Base Excess Brice Test Oxygen Flow Rate Sodium 142 Potassium 3.8 Chloride 103 Carbon Dioxide 29 Anion Gap 10 BUN 43 H Creatinine 1.6 H Creat Clearance w eGFR 41.49 POC Glucometer Random Glucose 136 H Lactic Acid Calcium 8.4 L Phosphorus 4.3 Magnesium 2.2 Total Bilirubin 0.7 AST 99 H ALT 150 H Alkaline Phosphatase 172 H Creatine Kinase 135 Creatine Kinase Index CK-MB (CK-2) Troponin I 2.70 H* Total Protein 6.2 L Albumin 2.8 L 12/20/17 05:20 WBC RBC Hgb Hct MCV MCH MCHC RDW Plt Count MPV Absolute Neuts (auto) Neutrophils % Lymphocytes % Monocytes % Eosinophils % Basophils % Nucleated RBC % Puncture Site ABG pH ABG pCO2 at Pt Temp ABG pO2 at Pt Temp ABG HCO3 ABG O2 Sat (Measured) ABG O2 Content ABG Base Excess Brice Test Oxygen Flow Rate Sodium Potassium Chloride Carbon Dioxide Anion Gap BUN Creatinine Creat Clearance w eGFR POC Glucometer 139.88158 Random Glucose Lactic Acid Calcium Phosphorus Magnesium Total Bilirubin AST ALT Alkaline Phosphatase Creatine Kinase Creatine Kinase Index CK-MB (CK-2) Troponin I Total Protein Albumin Active Medications Generic Name Dose Route Start Last Admin Trade Name Josueq PRN Reason Stop Dose Admin Acetaminophen 650 mg 12/18/17 09:12 Tylenol - PO Q6H PRN PAIN OR FEVER Albuterol/Ipratropium 1 amp 12/18/17 09:12 12/19/17 14:47 Duoneb - NEB 1 amp Q6H PRN Administration SHORTNESS OF BREATH Allopurinol 100 mg 12/18/17 10:00 12/19/17 10:56 Zyloprim - PO Not Given DAILY [facility] Atorvastatin Calcium 80 mg 12/18/17 22:00 12/19/17 21:29 Lipitor - PO 80 mg HS [facility] Administration Chlorhexidine Gluconate 1 applic 12/19/17 22:00 12/19/17 21:29 Hibiclens For Decolonization - TP 1 applic HS [facility] Administration Ceftriaxone Sodium 1 gm/ 50 mls @ 100 mls/hr 12/19/17 17:15 12/19/17 17:22 Dextrose IVPB 100 mls/hr DAILY [facility] Administration Protocol Metoprolol Succinate 100 mg 12/18/17 10:00 12/19/17 08:30 Toprol Xl - PO 100 mg DAILY [facility] Administration Mupirocin 1 applic 12/19/17 22:00 12/19/17 21:31 Bactroban Ointment (For Decolonization) - NS 12/24/17 21:59 1 applic BID [facility] Administration Potassium Chloride 20 meq 12/20/17 08:45 K-Dur - PO 12/20/17 08:46 ONCE ONE Rivaroxaban 20 mg 12/19/17 15:45 12/19/17 17:00 Xarelto - PO 20 mg DAILY [facility] Administration ASSESSMENT/PLAN: 1. Respiratory (acute hypoxic respiratory failure 2/2 to acute heart failure/N- STEMI); possible pneumonia -Desat into 40s on floor with wheezing and SOB; Was provided 80 mg Lasix, 5 Lopressor IV, 100 Lopressor Qday, 2 inch nitro paste given, and 2 mg IV morphine last PM Pt improved today, stable on 4L NC, still tachypneic and tachycardic -- provided additional 40 IV Lasix, 100 Lopressor PO Qday, 5 mg IV lopressor will continue to monitor based on pt clinical appearance Put in order for 5 mg IV Lopressor PRN (for HR >110s) for rate control -CXR: continued bi-basilar infiltrates, hazy on L lung guillory; PE showed no JVD , no pitting edema in LE -May need additional diuresis with Lasix drip depending on x-ray and symptomatic improvement -Follow mental status changes and respiratory effort 2. Cardiac (acute heart failure 2/2 N-STEMI, and A-fib) -Echo 2014: TDS, normal LV/RV size and function, Aortic valve not seen well Repeat Echo done today, awaiting report. -ECG (12:00 12/19): A-Fib, HR 111, QTC 495, ST depression I/aVL, T-wave inversions V1-V6, ST depression V5-V6 -ECG (18:35): A-fib with RVR, HR 111, Qtc 448, ST depression I/aVL, T-wave upright V1-V6, ST segment elevation V1-V3 -ECG this AM similar to last PM. Called cardiology (Dr. Kendall) about ST elevations in anterior leads; no significant changes from ECGs since admission, Dr. Kendall will follow. -Troponin 2.1, monitor trend -- troponin 2.70 -> 1.67 today (down-trending) -Current BP 144/105, continue to monitor -BNP 8000s -AFib-on a/c: xarelto 20mg PO qd; rate control with Toprol XL 100 mg PO Qday and PRN lopressor as needed -Atorvastatin 80 mg PO Qday; Aspirin 81 mg PO Qday -d/t initial labile BP, currently not on GEMMA-, plavix, but should restart once BP stable 3. -UA shows UTI, urine cultures pending; Leuk est 2+, WBC 3108 -Salcedo in place, output of yellow urine has improved since yesterday -Covering with Rocephin 1 gm Qday IVPB 4. Renal (JD) -39, 1.5; continue to monitor -- balance between fluids/lasix -- sepsis vs cardio-renal 5. Hepatic -Increased LFTs (downtrending) -- continue to monitor 6. ID (pneumonia vs UTI) -Lactic acid 2.4, 2.3; WBC 18.7 -- f/u lactic drawn this PM -Azithromycin 500 mg and Aztreonam 2 g given ONCE in ER -Rocephin 1 gm Qday IVPB -- treating UTI -Follow urine and blood cultures, no growth yet 7. Diet -Na/Diabetic/Fluid restricted diet due to fluid overload -Strict I/Os -*Passed bedside 3oz water swallow test with resident; able to tolerate PO meds before diet started with no choking or spitting up Dispo: We will continue to follow the patient. Thank you for this consultative opportunity. Problem List - Problems (1) Respiratory failure Code(s): J96.90 - RESPIRATORY FAILURE, UNSP, UNSP W HYPOXIA OR HYPERCAPNIA (2) Urinary tract infection Code(s): N39.0 - URINARY TRACT INFECTION, SITE NOT SPECIFIED (3) Sepsis Code(s): A41.9 - SEPSIS, UNSPECIFIED ORGANISM (4) Non-STEMI (non-ST elevated myocardial infarction) Code(s): I21.4 - NON-ST ELEVATION (NSTEMI) MYOCARDIAL INFARCTION (5) Hemoptysis, unspecified Code(s): R04.2 - HEMOPTYSIS (6) Pneumonia Code(s): J18.9 - PNEUMONIA, UNSPECIFIED ORGANISM Qualifiers: Pneumonia type: due to unspecified organism Laterality: bilateral Lung location: lower lobe of lung Qualified Code(s): J18.1 - Lobar pneumonia, unspecified organism (7) Atrial fibrillation Code(s): I48.91 - UNSPECIFIED ATRIAL FIBRILLATION (8) Leukocytosis Code(s): D72.829 - ELEVATED WHITE BLOOD CELL COUNT, UNSPECIFIED Visit type - Emergency Visit Emergency Visit: Yes ED Registration Date: 12/18/17 Care time: The patient presented to the Emergency Department on the above date and was hospitalized for further evaluation of their emergent condition. - New Patient This patient is new to me today: No - Critical Care Critical Care patient: Yes Total Critical Care Time (in minutes): 35 Critical Care Statement: The care of this patient involved high complexity decision making to prevent further life threatening deterioration of the patient 's condition and/or to evaluate & treat vital organ system(s) failure or risk of failure. - Discharge Referral Referred to [facility] Yes
[2017-12-20] MEDS ORDERED: POTASSIUM CHLORIDE TABS 20 MEQ TABLET.ER (FP) PO ONE (08:45)
--- NOTE | 2017-12-20 08:59 | PN ---
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, Physician Chief Complaint: AWAKE ALERT HAVING ECHO BEDSIDE PN 02 OVERNIGHT EVENTS NOTED - Current Medication List Current Medications: Active Medications Acetaminophen (Tylenol -) 650 mg PO Q6H PRN PRN Reason: PAIN OR FEVER Albuterol/Ipratropium (Duoneb -) 1 amp NEB Q6H PRN PRN Reason: SHORTNESS OF BREATH Last Admin: 12/19/17 14:47 Dose: 1 amp Allopurinol (Zyloprim -) 100 mg PO DAILY [facility] Last Admin: 12/19/17 10:56 Dose: Not Given Atorvastatin Calcium (Lipitor -) 80 mg PO HS [facility] Last Admin: 12/19/17 21:29 Dose: 80 mg Chlorhexidine Gluconate (Hibiclens For Decolonization -) 1 applic TP HS [facility] Last Admin: 12/19/17 21:29 Dose: 1 applic Ceftriaxone Sodium 1 gm/ (Dextrose) 50 mls @ 100 mls/hr IVPB DAILY [facility]; Protocol Last Admin: 12/19/17 17:22 Dose: 100 mls/hr Metoprolol Succinate (Toprol Xl -) 100 mg PO DAILY [facility] Last Admin: 12/19/17 08:30 Dose: 100 mg Mupirocin (Bactroban Ointment (For Decolonization) -) 1 applic NS BID [facility] Stop: 12/24/17 21:59 Last Admin: 12/19/17 21:31 Dose: 1 applic Rivaroxaban (Xarelto -) 20 mg PO DAILY [facility] Last Admin: 12/19/17 17:00 Dose: 20 mg - Objective Vital Signs: Vital Signs Temperature 98.7 F 12/20/17 08:00 Pulse Rate 105 H 12/20/17 08:00 Respiratory Rate 26 H 12/20/17 08:00 Blood Pressure 134/106 12/20/17 08:00 O2 Sat by Pulse Oximetry (%) 99 12/20/17 08:00 Constitutional: Yes: Mild Distress Eyes: Yes: WNL HENT: Yes: WNL Neck: Yes: WNL Cardiovascular: Yes: WNL Respiratory: Yes: Other Gastrointestinal: Yes: WNL Genitourinary: Yes: WNL Musculoskeletal: Yes: WNL Extremities: Yes: WNL Edema: Yes Peripheral Pulses WNL: Yes Integumentary: Yes: WNL Wound/Incision: Yes: Clean/Dry Neurological: Yes: WNL ...Motor Strength: LLE, RLE Psychiatric: Yes: WNL Labs: CBC, BMP 12/20/17 05:15 12/20/17 05:15 INR, PTT INR 1.49 (0.83-1.09) H 12/18/17 06:50 Problem List - Problems (1) Hemoptysis, unspecified Code(s): R04.2 - HEMOPTYSIS (2) Pneumonia Code(s): J18.9 - PNEUMONIA, UNSPECIFIED ORGANISM Qualifiers: Pneumonia type: due to unspecified organism Laterality: bilateral Lung location: lower lobe of lung Qualified Code(s): J18.1 - Lobar pneumonia, unspecified organism (3) Atrial fibrillation Code(s): I48.91 - UNSPECIFIED ATRIAL FIBRILLATION (4) Fever Code(s): R50.9 - FEVER, UNSPECIFIED Qualifiers: Fever type: unspecified cause of fever (5) Hypertension Code(s): I10 - ESSENTIAL (PRIMARY) HYPERTENSION Qualifiers: Hypertension type: essential hypertension Qualified Code(s): I10 - Essential (primary) hypertension Assessment/Plan IV ABX CARDIO EVAL APPRECIATED ICU FOR MONITORING INTUBATE IF NEEDED PT EVAL RESP SUPPORT ON NC_NEBS PULM/ID FOLLOW UP IV LASIX
[2017-12-20] MEDS ORDERED: PT OWN MED DRAWER 7, Y5N ONE (09:31)
[2017-12-20] MEDS: CEFTRIAXONE 1 GM in DEXTROSE 5%-WATER - 50 ML IVPB SCH (09:33)
[2017-12-20] MEDS: MUPIROCIN 2% TOPICAL OINTMENT FOR DECOLONIZATION NS SCH ×2 (09:34→21:06)
[2017-12-20] MEDS: ALLOPURINOL 100 MG TABLET (FP) PO SCH (09:34)
[2017-12-20] MEDS: RIVAROXABAN 20 MG TABLET PO SCH (09:34)
--- NOTE | 2017-12-20 09:55 | EKG ---
Test Reason : Blood Pressure : / mmHG Vent. Rate : 102 BPM Atrial Rate : 098 BPM P-R Int : 000 ms QRS Dur : 088 ms QT Int : 378 ms P-R-T Axes : 000 -24 149 degrees QTc Int : 492 ms ATRIAL FIBRILLATION WITH RAPID VENTRICULAR RESPONSE WITH ABERRANTLY CONDUCTED COMPLEX ANTEROSEPTAL INFARCT (CITED ON OR BEFORE 18-DEC-2017) ABNORMAL ECG WHEN COMPARED WITH ECG OF 19-DEC-2017 18:35, T WAVE INVERSION NOW EVIDENT IN ANTERIOR LEADS Confirmed by JANEE KRAUS, DRISS ([id number]) on 12/20/2017 9:54:54 AM Referred By: Confirmed By:DRISS EWLLER MD
--- NOTE | 2017-12-20 09:59 | EKG ---
Test Reason : Blood Pressure : / mmHG Vent. Rate : 111 BPM Atrial Rate : 117 BPM P-R Int : 000 ms QRS Dur : 086 ms QT Int : 330 ms P-R-T Axes : 000 -12 133 degrees QTc Int : 448 ms ATRIAL FIBRILLATION WITH RAPID VENTRICULAR RESPONSE WITH PREMATURE VENTRICULAR OR ABERRANTLY CONDUCTED COMPLEXES ANTEROSEPTAL INFARCT (CITED ON OR BEFORE 18-DEC-2017) ABNORMAL ECG WHEN COMPARED WITH ECG OF 18-DEC-2017 12:08, NO SIGNIFICANT CHANGE WAS FOUND Confirmed by DRISS WELLER MD ([id number]) on 12/20/2017 9:59:35 AM Referred By: Confirmed By:DRISS WELLER MD
[2017-12-20] MEDS ORDERED: VANCOMYCIN 1,000 MG in DEXTROSE 5%-WATER - 250 ML IVPB ONE (10:42)
[2017-12-20] MEDS ORDERED: FUROSEMIDE 40 MG/4 ML INJECTABLE VIAL IVPUSH ONE (10:43)
[2017-12-20] MEDS ORDERED: METOPROLOL TARTRATE 5 MG/5 ML VIAL IVPUSH ONE (10:44)
--- NOTE | 2017-12-20 10:48 | PN ---
Teaching Attending Note Name of Resident: Merari De ATTENDING PHYSICIAN STATEMENT I saw and evaluated the patient. I reviewed the resident's note and discussed the case with the resident. I agree with the resident's findings and plan as documented. SUBJECTIVE: Pt seen and examined in the ICU. States breathing is improving although visibly tachypneic. Echocardiogram in progress. OBJECTIVE: Vital Signs Period Temp Pulse Resp BP Sys/[place] Pulse Ox Last 24 Hr 97.2 F-98.7 F 91-122 17-36 107-185/80-135 95-100 Intake & Output 12/17/17 12/18/17 12/19/17 12/20/17 23:59 23:59 23:59 23:59 Intake Total 1144 730 400 Output Total 230 1500 600 Balance 914 -770 -200 Weight 106.594 kg 104.5 kg 102.597 kg Gen: tachypneic at rest Heart: RRR Lung: decreased breath sounds at the bases Abd: soft, nontender Ext: distal edema CBC, BMP 12/20/17 05:15 12/20/17 05:15 Active Medications Acetaminophen (Tylenol -) 650 mg PO Q6H PRN PRN Reason: PAIN OR FEVER Albuterol/Ipratropium (Duoneb -) 1 amp NEB Q6H PRN PRN Reason: SHORTNESS OF BREATH Last Admin: 12/19/17 14:47 Dose: 1 amp Allopurinol (Zyloprim -) 100 mg PO DAILY [facility] Last Admin: 12/20/17 09:34 Dose: 100 mg Atorvastatin Calcium (Lipitor -) 80 mg PO [facility] Last Admin: 12/19/17 21:29 Dose: 80 mg Chlorhexidine Gluconate (Hibiclens For Decolonization -) 1 applic TP [facility] Last Admin: 12/19/17 21:29 Dose: 1 applic Ceftriaxone Sodium 1 gm/ (Dextrose) 50 mls @ 100 mls/hr IVPB DAILY [facility]; Protocol Last Admin: 12/20/17 09:33 Dose: 100 mls/hr Vancomycin HCl 1,000 mg/ (Dextrose) 250 mls @ 166.667 mls/hr IVPB ONCE ONE; Protocol Stop: 12/20/17 12:11 Metoprolol Succinate (Toprol Xl -) 100 mg PO DAILY [facility] Last Admin: 12/20/17 09:34 Dose: 100 mg Mupirocin (Bactroban Ointment (For Decolonization) -) 1 applic NS BID [facility] Stop: 12/24/17 21:59 Last Admin: 12/20/17 09:34 Dose: 1 applic Rivaroxaban (Xarelto -) 20 mg PO DAILY [facility] Last Admin: 12/20/17 09:34 Dose: 20 mg ASSESSMENT AND PLAN: Acute Hypoxic Respiratory Failure r/o Acute Systolic Heart Failure r/o Acute NSTEMI Atrial Fibrillation with RVR UTI Acute Kidney Injury Elevated LFTs HTN DM - continue antibiotics, dose vanco for possible gram positive cocci - f/u cultures - lasix today - monitor urine output, creatinine - rate control - continue anticoagulation - trend cardiac enzymes until peak - f/u echocardiogram - cardiology f/u - O2 to keep SpO2 >90% - BiPAP as needed to assist in work of breathing - trend LFTs - continue ICU monitoring critical care time spent in reviewing chart, evaluating patient and formulating plan 35 min
[2017-12-20] MEDS ORDERED: VANCOMYCIN 1,500 MG in DEXTROSE 5%-WATER - 500 ML IVPB ONE (11:00)
--- NOTE | 2017-12-20 11:43 | PN ---
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, Physician History of Present Illness: Transferred to ICU Awake but confused Offers no complaints Denies chest pain/ dyspnea/ cough Ray catheter in place Afebrile WBC improved 15K BC GPCCL 1 bottle Urine c/s 10K CFU - Current Medication List Current Medications: Active Medications Acetaminophen (Tylenol -) 650 mg PO Q6H PRN PRN Reason: PAIN OR FEVER Albuterol/Ipratropium (Duoneb -) 1 amp NEB Q6H PRN PRN Reason: SHORTNESS OF BREATH Last Admin: 12/19/17 14:47 Dose: 1 amp Allopurinol (Zyloprim -) 100 mg PO DAILY [facility] Last Admin: 12/20/17 09:34 Dose: 100 mg Aspirin (Asa -) 81 mg PO DAILY [facility] Atorvastatin Calcium (Lipitor -) 80 mg PO HS [facility] Last Admin: 12/19/17 21:29 Dose: 80 mg Chlorhexidine Gluconate (Hibiclens For Decolonization -) 1 applic TP HS [facility] Last Admin: 12/19/17 21:29 Dose: 1 applic Ceftriaxone Sodium 1 gm/ (Dextrose) 50 mls @ 100 mls/hr IVPB DAILY [facility]; Protocol Last Admin: 12/20/17 09:33 Dose: 100 mls/hr Vancomycin HCl 1,500 mg/ (Dextrose) 500 mls @ 250 mls/hr IVPB ONCE ONE; Protocol Stop: 12/20/17 12:59 Metoprolol Succinate (Toprol Xl -) 100 mg PO DAILY [facility] Last Admin: 12/20/17 09:34 Dose: 100 mg Metoprolol Tartrate (Lopressor Injection -) 5 mg IVPUSH Q4H PRN PRN Reason: TACHYCARDIA Mupirocin (Bactroban Ointment (For Decolonization) -) 1 applic NS BID [facility] Stop: 12/24/17 21:59 Last Admin: 18 09:34 Dose: 1 applic Rivaroxaban (Xarelto -) 20 mg PO DAILY [facility] Last Admin: 12/20/17 09:34 Dose: 20 mg - Objective Vital Signs: Vital Signs Temperature 98.7 F 12/20/17 08:00 Pulse Rate 108 H 18 10:00 Respiratory Rate 19 12/20/17 10:00 Blood Pressure 137/95 12/20/17 10:00 O2 Sat by Pulse Oximetry (%) 99 12/20/17 08:00 Constitutional: Yes: No Distress Eyes: Yes: Conjunctiva Clear Cardiovascular: Yes: Regular Rate and Rhythm, Tachycardia, S1, S2 Respiratory: Yes: Other (+ crepitations at bases) Gastrointestinal: Yes: Normal Bowel Sounds, Soft, Abdomen, Obese. No: Tenderness Edema: Yes Edema: LLE: 1+, RLE: 1+ Labs: CBC, BMP 12/20/17 05:15 12/20/17 05:15 INR, PTT INR 1.49 (0.83-1.09) H 12/18/17 06:50 Assessment/Plan + Blood c/s ? significance CHF UTI Leukocytosis - improved PCN allergy Repeat BC Vancomycin x 1 dose pending final c/s Continue ceftriaxone
[2017-12-20] MEDS: ASPIRIN 81 MG CHEWABLE TABLETS PO SCH (11:45)
--- NOTE | 2017-12-20 11:48 | PN ---
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 (short form) - Note 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: Renal follow up for JD Pt seen and examined in the ICU transferred to the ICU yesterday b/c of SOB required BIPAP and IV diuretics reprots feeling better today but SOB not fully resolved no cp, abd pain, N//V/D Vital Signs Temperature 98.7 F 12/20/17 08:00 Pulse Rate 111 H 12/20/17 11:00 Respiratory Rate 19 12/20/17 11:00 Blood Pressure 123/88 12/20/17 11:00 O2 Sat by Pulse Oximetry (%) 99 12/20/17 08:00 Intake & Output 12/17/17 12/18/17 12/19/17 12/20/17 23:59 23:59 23:59 23:59 Intake Total 1144 730 400 Output Total 230 1500 600 Balance 914 -770 -200 Weight 106.594 kg 104.5 kg 102.597 kg NAD awake and alert Neck supple no JVD some rales lung base no LE edema CBC, BMP 12/20/17 05:15 12/20/17 05:15 Current Medications Acetaminophen (Tylenol -) 650 mg PO Q6H PRN PRN Reason: PAIN OR FEVER Albuterol/Ipratropium (Duoneb -) 1 amp NEB Q6H PRN PRN Reason: SHORTNESS OF BREATH Last Admin: 12/19/17 14:47 Dose: 1 amp Allopurinol (Zyloprim -) 100 mg PO DAILY [facility] Last Admin: 12/20/17 09:34 Dose: 100 mg Aspirin (Asa -) 81 mg PO DAILY [facility] Last Admin: 12/20/17 11:45 Dose: 81 mg Atorvastatin Calcium (Lipitor -) 80 mg PO HS [facility] Last Admin: 12/19/17 21:29 Dose: 80 mg Chlorhexidine Gluconate (Hibiclens For Decolonization -) 1 applic TP HS [facility] Last Admin: 12/19/17 21:29 Dose: 1 applic Ceftriaxone Sodium 1 gm/ (Dextrose) 50 mls @ 100 mls/hr IVPB DAILY [facility]; Protocol Last Admin: 12/20/17 09:33 Dose: 100 mls/hr Vancomycin HCl 1,500 mg/ (Dextrose) 500 mls @ 250 mls/hr IVPB ONCE ONE; Protocol Stop: 12/20/17 12:59 Metoprolol Succinate (Toprol Xl -) 100 mg PO DAILY [facility] Last Admin: 12/20/17 09:34 Dose: 100 mg Metoprolol Tartrate (Lopressor Injection -) 5 mg IVPUSH Q4H PRN PRN Reason: TACHYCARDIA Mupirocin (Bactroban Ointment (For Decolonization) -) 1 applic NS BID [facility] Stop: 12/24/17 21:59 Last Admin: 12/20/17 09:34 Dose: 1 applic Rivaroxaban (Xarelto -) 20 mg PO DAILY [facility] Last Admin: 12/20/17 09:34 Dose: 20 mg 82 year old gentleman with Hx of DM, CKD (unclear baseline Cr), Afib on A/C, CHF (preserved LV function on last echo), Hypertension who presented from [facility] with SOB and Hemoptysis and found to have PNA with JD. #JD vs. CKD likely related to renal hypoprofusion in setting of sepsis #PNA/Sepsis Syndrome #Hx of CHF #DM #Hypertension #Elevated Troponin Renal function stable thus far pt with clinical improvement and improvement in urine output s/p Lasix continue Lasix as needed for SOB Trend renal function and electrolytes Cardiology follow up Thiago Fan DO
--- NOTE | 2017-12-20 14:00 | ECHO ---
Name: CONNIE MARLEY Exam:Adult Echocardiogram Study Date: 12/20/2017 08:31 AM Age: 82 yrs Reason For Study: anstemi Height: 72 in Weight: 235 lb BSA: 2.3 m2 MMode/2D Measurements & Calculations IVSd: 0.92 cm Ao root diam: 2.8 cm LVIDd: 5.0 cm LA dimension: 3.9 cm LVIDs: 3.8 cm LVPWd: 0.87 cm EDV(Teich): 115.7 ml LVOT diam: 1.9 cm ESV(Teich): 62.1 ml RV S Clarence: 10.1 cm/sec Doppler Measurements & Calculations MV E max clarence: 67.6 cm/sec Ao V2 max: 267.8 cm/sec MV A max clarence: 17.8 cm/sec Ao max P.8 mmHg MV E/A: 3.8 Ao V2 mean: 190.0 cm/sec MV dec time: 0.12 sec Ao mean P.4 mmHg Ao V2 VTI: 44.0 cm RICO(I,D): 0.74 cm2 AI P1/2t: 286.0 msec RICO(V,D): 0.80 cm2 AI max clarence: 370.3 cm/sec LV V1 max P.2 mmHg AI max P.0 mmHg LV V1 mean P.1 mmHg AI dec slope: 379.3 cm/sec2 LV V1 max: 73.7 cm/sec LV V1 mean: 48.0 cm/sec LV V1 VTI: 11.1 cm MR max clarence: 441.4 cm/sec SV(LVOT): 32.5 ml MR max P.3 mmHg TR max clarence: 245.7 cm/sec Med Peak E' Clarence: 2.5 cm/sec TR max P.3 mmHg Med E/e': 26.7 Lat Peak E' Clarence: 9.6 cm/sec Lat E/e': 7.0 Procedure The study was technically difficult with many images being suboptimal in quality. Left Ventricle The left ventricle is grossly normal size. Left ventricular systolic function is moderate to severely reduced. LV wall motion abnormality with severely hypokinetic anterior, septal brannon, apical dyskinesis and hypercontractile base c/w LAD infarct vs Takutsubo apical ballooning syndrome. There is apical dyskin esis. There is severe anterior wall hypokinesis. There is severe septal hypokinesis. Right Ventricle The right ventricle is normal in size and function. Atria The left atrium is borderline dilated. The right atrium is mildly dilated. Mitral Valve There is mild mitral annular calcification. The mitral valve is grossly normal. There is moderate to severe mitral regurgitation. Tricuspid Valve The tricuspid valve is not well visualized, but is grossly normal. Aortic Valve Moderate valvular aortic stenosis. Trace aortic regurgitation. Pulmonic Valve The pulmonic valve is not well visualized. Great Vessels The aortic root is normal size. Pericardium/Pleura There is no pericardial effusion. Interpretation Summary In comparison to previous study performed 06/19/2014, new regional wall motion abnormalities are now seen. The right ventricle is normal in size and function. Moderate valvular aortic stenosis. Trace aortic regurgitation. There is mild mitral annular calcification. There is severe septal hypokinesis. There is apical dyskinesis. In comparison to previous study performed 06/19/2014, new regional wall motion abnormalities are now seen LV wall motion abnormality with severely hypokinetic anterior, septal brannon, apical dyskinesis and hypercontractile base c/w LAD infarct vs Takutsubo apical ballooning syndrome. Left ventricular systolic function is moderate to severely reduced. The right atrium is mildly dilated. There is moderate to severe mitral regurgitation. There is severe anterior wall hypokinesis. Swapnil Bazan MD 12/20/2017 01:59 PM
--- NOTE | 2017-12-20 16:55 | PN ---
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, Physician Chief Complaint: Transferred to ICU for hypoxia required BiPAP. SP diuresis. History of Present Illness: He is an 82 year old NHR with a history of HTN NIDDM, CKD, afib on NOAC admitted for cough with blood tinged sputum, noted with elevated troponin. ECG: afib (115 bpm), normal axis. q waves V1-V3, NSST-Ts lateral leads mibi 04/2013 (stanton): no ecg changes, no ischemia/scar, nl lvef Echo 2014: TDS, normal LV/RV size and function, Aortic valve not seen well Echo 12/20/17 severe segmental LV systolic dysfunction with LAD territory LV dysfunction. No significant valvular pathology - Current Medication List Current Medications: Active Medications Acetaminophen (Tylenol -) 650 mg PO Q6H PRN PRN Reason: PAIN OR FEVER Albuterol/Ipratropium (Duoneb -) 1 amp NEB Q6H PRN PRN Reason: SHORTNESS OF BREATH Last Admin: 12/19/17 14:47 Dose: 1 amp Allopurinol (Zyloprim -) 100 mg PO DAILY [facility] Last Admin: 12/20/17 09:34 Dose: 100 mg Aspirin (Asa -) 81 mg PO DAILY [facility] Last Admin: 12/20/17 11:45 Dose: 81 mg Atorvastatin Calcium (Lipitor -) 80 mg PO HS [facility] Last Admin: 12/19/17 21:29 Dose: 80 mg Chlorhexidine Gluconate (Hibiclens For Decolonization -) 1 applic TP HS [facility] Last Admin: 12/19/17 21:29 Dose: 1 applic Ceftriaxone Sodium 1 gm/ (Dextrose) 50 mls @ 100 mls/hr IVPB DAILY [facility]; Protocol Last Admin: 12/20/17 09:33 Dose: 100 mls/hr Metoprolol Succinate (Toprol Xl -) 100 mg PO DAILY [facility] Last Admin: 12/20/17 09:34 Dose: 100 mg Metoprolol Tartrate (Lopressor Injection -) 5 mg IVPUSH Q4H PRN PRN Reason: TACHYCARDIA Mupirocin (Bactroban Ointment (For Decolonization) -) 1 applic NS BID [facility] Stop: 12/24/17 21:59 Last Admin: 12/20/17 09:34 Dose: 1 applic Rivaroxaban (Xarelto -) 20 mg PO DAILY [facility] Last Admin: 12/20/17 09:34 Dose: 20 mg - Objective Vital Signs: Vital Signs Temperature 98.0 F 12/20/17 16:00 Pulse Rate 102 H 12/20/17 16:00 Respiratory Rate 24 12/20/17 16:00 Blood Pressure 133/93 12/20/17 16:00 O2 Sat by Pulse Oximetry (%) 99 12/20/17 08:00 Constitutional: Yes: Well Nourished, No Distress Eyes: Yes: Conjunctiva Clear, EOM Intact HENT: Yes: Atraumatic, Normocephalic Neck: Yes: Supple, Trachea Midline, Tenderness Cardiovascular: Yes: Tachycardia, Pulse Irregular, JVD, S1, S2 Respiratory: Yes: CTA Bilaterally Gastrointestinal: Yes: Normal Bowel Sounds Edema: Yes Edema: LLE: 1+, RLE: 1+ Labs: CBC, BMP 12/20/17 05:15 12/20/17 05:15 INR, PTT INR 1.49 (0.83-1.09) H 12/18/17 06:50 - ....Imaging Chest X-ray: Report Reviewed Problem List - Problems (1) Non-STEMI (non-ST elevated myocardial infarction) Code(s): I21.4 - NON-ST ELEVATION (NSTEMI) MYOCARDIAL INFARCTION (2) Sepsis Code(s): A41.9 - SEPSIS, UNSPECIFIED ORGANISM Assessment/Plan He is an 82 year old NHR with a history of HTN, NIDDM, Afib on Noac, CKD admitted for cough with blood tinged sputum, noted with elevated troponin, HFrEF and sepsis. 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 Troponin elevation during this admission is due to heart failure and sepsis not STEMI. Rec: -Lasix 40mg IV BID -Monitor I/O -Continue Metoprolol XL 100mg qd today and will try to raise dose tomorrow. -Hold off on adding ACEI/ARB until diuresed.
[2017-12-20] MEDS: ATORVASTATIN CA 20 MG TABLET (FP) PO SCH (21:04)
[2017-12-20] MEDS: CHLORHEXIDINE GLUCONATE 4% CLEANSER FOR DECOLONIZATION TP SCH (21:05)
[2017-12-21 06:15] LABS: BASO % 0.6 % (0-2.0); EOS % 2.6 % (0-4.5); HEMOGLOBIN 11.9 GM/dL (11.7-16.9); LYMPH % 13.7 % (8-40); MCH 28.5 pg (25.7-33.7); MCHC 32.1 g/dl (32.0-35.9); MEAN CELL VOLUME 88.8 fl (80-96); MEAN PLT VOLUME 10.5 fl (7.5-11.1); MONO % 8.2 % (3.8-10.2); NEUT % 74.9 % (42.8-82.8); PLATELET COUNT 392 K/MM3 (134-434); RBC 4.16 M/mm3 (4.00-5.60); RDW 14.8 % (11.9-15.9); WHITE BLOOD COUNT 15.9 K/mm3 (4.0-10.0)
[2017-12-21 06:35] LABS: ALBUMIN 2.7 g/dl (3.4-5.0); ANION GAP 9 MMOL/L (8-16); BLOOD UREA NITROGEN 43 mg/dL (7-18); CALCIUM 8.2 mg/dL (8.5-10.1); CHLORIDE 102 mmol/L (98-107); CO2 28 mmol/L (21-32); GLUCOSE,RANDOM 130 mg/dL (74-106); MAGNESIUM 2.1 mg/dL (1.8-2.4); POTASSIUM 4.1 mmol/L (3.5-5.1); SODIUM 139 mmol/L (136-145)
[2017-12-21 06:38] LABS: ALK PHOS 161 U/L (45-117); BILIRUBIN,TOTAL 0.7 mg/dL (0.2-1); CREATININE 1.5 mg/dL (0.55-1.3); PHOSPHOROUS 3.5 mg/dL (2.5-4.9); SGOT/AST 62 U/L (15-37); SGPT/ALT 127 U/L (13-61); TOT PROT 6.3 g/dl (6.4-8.2)
--- NOTE | 2017-12-21 06:49 | PN ---
Physical Exam: SUBJECTIVE: Patient seen and examined this AM. Pt has been tolerating PO intake. Denies current SOB and chest pain, currently on 4LNC, no acute events overnight. Has been passing yellow urine via Ray catheter, no BM in last 2 days. Pt asked for medication to assist with BMs. OBJECTIVE: Vital Signs Period Temp Pulse Resp BP Sys/[place] Pulse Ox Last 24 Hr 97.6 F-98.7 F 95-118 14-40 114-149/80-112 95-100 GENERAL: Awake, alert, and fully oriented. Continues to be tachypneic in 30s. Can speak in full sentences on 4L NC. Saturating ~95-96%. HEAD: Normal with no signs of trauma. EYES: Extraocular movements intact, sclera anicteric, conjunctiva clear. No lid lag. EARS, NOSE, THROAT: External ears normal, nares patent, oropharynx clear without exudates. Moist mucous membranes. NECK: Normal range of motion, supple without lymphadenopathy, or masses. No significant JVD. LUNGS: Breath sounds diminished anterior and posterior, improved from yesterday. No current wheezes or crackles noted. Pt tachypneic to 30s, no significant increased work of breathing, no intercostal retractions. HEART: A-fib, tachycardic 90s to ~110, normal S1 and S2 without murmur, rub or gallop. No significant JVD. ABDOMEN: Soft, nontender, distended (umbilical hernia?), normoactive bowel sounds, no guarding, no rebound. No hepatomegaly or splenomegaly. Pt states protuberant abdomen is baseline for him. MUSCULOSKELETAL: Normal range of motion at all joints. No bony deformities or tenderness. No CVA tenderness. UPPER EXTREMITIES: 2+ pulses, warm, well-perfused. No cyanosis. No clubbing. Cap refill <2 seconds. No peripheral pitting edema. LOWER EXTREMITIES: 1+ pulses, warm, well-perfused. No calf tenderness. No peripheral pitting edema. NEUROLOGICAL: Cranial nerves II-XII intact. Normal speech. Gait not examined. PSYCHIATRIC: Cooperative and interactive with staff. Good eye contact. Appropriate mood and affect. SKIN: Warm, dry, normal turgor, no rashes or lesions noted. I/O: 1380/2650 = -1300 over past 24 hrs. Laboratory Results - last 24 hr 0912/20/17 12/20/17 10:16 11:02 16:18 WBC RBC Hgb Hct MCV MCH MCHC RDW Plt Count MPV Absolute Neuts (auto) Neutrophils % Lymphocytes % Monocytes % Eosinophils % Basophils % Nucleated RBC % Sodium Potassium Chloride Carbon Dioxide Anion Gap BUN Creatinine Creat Clearance w eGFR POC Glucometer 138.89223 235.18258 Random Glucose Calcium Phosphorus Magnesium Total Bilirubin AST ALT Alkaline Phosphatase Creatine Kinase 132 Troponin I 1.67 H* Total Protein Albumin 12/21/17 12/21/17 05:30 05:30 WBC 15.9 H RBC 4.16 Hgb 11.9 Hct 37.0 MCV 88.8 MCH 28.5 MCHC 32.1 RDW 14.8 Plt Count 392 MPV 10.5 Absolute Neuts (auto) 11.9 H Neutrophils % 74.9 Lymphocytes % 13.7 Monocytes % 8.2 Eosinophils % 2.6 D Basophils % 0.6 Nucleated RBC % 0 Sodium 139 Potassium 4.1 Chloride 102 Carbon Dioxide 28 Anion Gap 9 BUN 43 H Creatinine 1.5 H Creat Clearance w eGFR 44.69 POC Glucometer Random Glucose 130 H Calcium 8.2 L Phosphorus 3.5 Magnesium 2.1 Total Bilirubin 0.7 AST 62 H ALT 127 H Alkaline Phosphatase 161 H Creatine Kinase Troponin I Total Protein 6.3 L Albumin 2.7 L Active Medications Generic Name Dose Route Start Last Admin Trade Name Freq PRN Reason Stop Dose Admin Acetaminophen 650 mg 12/18/17 09:12 Tylenol - PO Q6H PRN PAIN OR FEVER Albuterol/Ipratropium 1 amp 12/18/17 09:12 12/19/17 14:47 Duoneb - NEB 1 amp Q6H PRN Administration SHORTNESS OF BREATH Allopurinol 100 mg 12/18/17 10:00 12/20/17 09:34 Zyloprim - PO 100 mg DAILY [facility] Administration Aspirin 81 mg 12/20/17 11:00 12/20/17 11:45 Asa - PO 81 mg DAILY [facility] Administration Atorvastatin Calcium 80 mg 12/18/17 22:00 12/20/17 21:04 Lipitor - PO 80 mg HS [facility] Administration Chlorhexidine Gluconate 1 applic 12/19/17 22:00 12/20/17 21:05 Hibiclens For Decolonization - TP 1 applic HS [facility] Administration Ceftriaxone Sodium 1 gm/ 50 mls @ 100 mls/hr 12/19/17 17:15 12/20/17 09:33 Dextrose IVPB 100 mls/hr DAILY [facility] Administration Protocol Metoprolol Succinate 100 mg 12/18/17 10:00 12/20/17 09:34 Toprol Xl - PO 100 mg DAILY [facility] Administration Metoprolol Tartrate 5 mg 12/20/17 10:56 Lopressor Injection - IVPUSH Q4H PRN TACHYCARDIA Mupirocin 1 applic 12/19/17 22:00 12/20/17 21:06 Bactroban Ointment (For Decolonization) - NS 12/24/17 21:59 1 applic BID [facility] Administration Rivaroxaban 20 mg 12/19/17 15:45 12/20/17 09:34 Xarelto - PO 20 mg DAILY [facility] Administration ASSESSMENT/PLAN: 1. Respiratory (acute hypoxic respiratory failure 2/2 to acute heart failure/N- STEMI); possible pneumonia -Desat into 40s on floor with wheezing and SOB; Was provided 80 mg Lasix, 5 Lopressor IV, 100 Lopressor Qday, 2 inch nitro paste given, and 2 mg IV morphine last PM Pt improved, stable on 4L NC, still tachypneic and tachycardic -- today provided 125 mg Lopressor Qday and started 40 Lasix IV BID. Will increase to 150 mg Lopressor Qday tomorrow and re-evaluate, considering pt HR still in 90s- 110s today. Put in order for 5 mg IV Lopressor PRN (for HR >110s) for rate control -CXR: continued bi-basilar infiltrates, hazy on L lung guillory; PE showed no JVD , no pitting edema in LE -Follow mental status changes and respiratory effort 2. Cardiac (acute heart failure 2/2 N-STEMI, and A-fib) -Echo 2014: TDS, normal LV/RV size and function, Aortic valve not seen well Repeat Echo showed LV systolic dysfunction (mod-severe reduction); Severe hypokinetic anterior, septal, and apical dyskinesis, with hypercontractile base , consistent with prior LAD infarct. -ECG (12:00 12/19): A-Fib, HR 111, QTC 495, ST depression I/aVL, T-wave inversions V1-V6, ST depression V5-V6 -ECG (18:35): A-fib with RVR, HR 111, Qtc 448, ST depression I/aVL, T-wave upright V1-V6, ST segment elevation V1-V3 -ECG this AM similar to last PM. Called cardiology (Dr. Kendall) about ST elevations in anterior leads; no significant changes from ECGs since admission, Dr. Pressley/[facility] team will follow. -Troponin 2.1, monitor trend -- troponin 2.70 -> 1.67 (down-trending); due to sepsis/CHF, not STEMI per Dr. Pressley -BP 130-140/80-120 today, continue to monitor -BNP 8000s -AFib-on a/c: xarelto 20mg PO qd; rate control with Toprol XL 150 mg PO Qday and PRN lopressor as needed -Atorvastatin 80 mg PO Qday; Aspirin 81 mg PO Qday -Wait to initiate GEMMA-i/ARB once BP more stable 3. -UA shows UTI, urine cultures pending; Leuk est 2+, WBC 3108 -Ray d/c today, as pt has been ambulatory with PT. -Covering with Rocephin 1 gm Qday IVPB 4. Renal (JD) -39, 1.5; continue to monitor -- balance between fluids/lasix -- sepsis vs cardio-renal 5. Hepatic -Increased LFTs (downtrending each day) -- continue to monitor 6. ID (pneumonia vs UTI) -Lactic acid 2.4, 2.3; WBC 18.7 -- f/u lactic drawn this PM -Azithromycin 500 mg and Aztreonam 2 g given ONCE in ER -Rocephin 1 gm Qday IVPB -- treating UTI -Blood culture grew gram+ cocci in clusters, provided 1.5 g Vanc 12/20. Vanc level 12/21: 9.29, providing additional 1.5 g Vanc. -Continue following cultures. 7. Diet/FEN -Continue to monitor electrolytes- no repletion needed today -Na/Diabetic/Fluid restricted diet due to fluid overload -Strict I/Os -*Passed bedside 3oz water swallow test with resident; able to tolerate PO meds before diet started with no choking or spitting up 8. Prophylaxis -Xarelto 20 mg Qday -SCDs Dispo: Pt transfer to Tele today. Problem List - Problems (1) Respiratory failure Code(s): J96.90 - RESPIRATORY FAILURE, UNSP, UNSP W HYPOXIA OR HYPERCAPNIA (2) Urinary tract infection Code(s): N39.0 - URINARY TRACT INFECTION, SITE NOT SPECIFIED (3) Sepsis Code(s): A41.9 - SEPSIS, UNSPECIFIED ORGANISM (4) Non-STEMI (non-ST elevated myocardial infarction) Code(s): I21.4 - NON-ST ELEVATION (NSTEMI) MYOCARDIAL INFARCTION (5) Hemoptysis, unspecified Code(s): R04.2 - HEMOPTYSIS (6) Pneumonia Code(s): J18.9 - PNEUMONIA, UNSPECIFIED ORGANISM Qualifiers: Pneumonia type: due to unspecified organism Laterality: bilateral Lung location: lower lobe of lung Qualified Code(s): J18.1 - Lobar pneumonia, unspecified organism (7) Atrial fibrillation Code(s): I48.91 - UNSPECIFIED ATRIAL FIBRILLATION (8) Leukocytosis Code(s): D72.829 - ELEVATED WHITE BLOOD CELL COUNT, UNSPECIFIED Visit type - Emergency Visit Emergency Visit: Yes ED Registration Date: 12/18/17 Care time: The patient presented to the Emergency Department on the above date and was hospitalized for further evaluation of their emergent condition. - New Patient This patient is new to me today: No - Critical Care Critical Care patient: Yes Total Critical Care Time (in minutes): 35 Critical Care Statement: The care of this patient involved high complexity decision making to prevent further life threatening deterioration of the patient 's condition and/or to evaluate & treat vital organ system(s) failure or risk of failure. - Discharge Referral Referred to [facility] Med P.C.: Yes
[2017-12-21] MEDS ORDERED: SENNOSIDES 8.6MG TABLET (FP) PO PRN (09:10)
--- NOTE | 2017-12-21 09:11 | PN ---
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, Physician Chief Complaint: AWAKE ALERT FEELING BETTER TODAY - Current Medication List Current Medications: Active Medications Acetaminophen (Tylenol -) 650 mg PO Q6H PRN PRN Reason: PAIN OR FEVER Albuterol/Ipratropium (Duoneb -) 1 amp NEB Q6H PRN PRN Reason: SHORTNESS OF BREATH Last Admin: 12/19/17 14:47 Dose: 1 amp Allopurinol (Zyloprim -) 100 mg PO DAILY [facility] Last Admin: 12/20/17 09:34 Dose: 100 mg Aspirin (Asa -) 81 mg PO DAILY [facility] Last Admin: 12/20/17 11:45 Dose: 81 mg Atorvastatin Calcium (Lipitor -) 80 mg PO HS [facility] Last Admin: 12/20/17 21:04 Dose: 80 mg Chlorhexidine Gluconate (Hibiclens For Decolonization -) 1 applic TP HS [facility] Last Admin: 12/20/17 21:05 Dose: 1 applic Furosemide (Lasix Injection -) 40 mg IVPUSH BIDLASIX [facility] Ceftriaxone Sodium 1 gm/ (Dextrose) 50 mls @ 100 mls/hr IVPB DAILY [facility]; Protocol Last Admin: 12/20/17 09:33 Dose: 100 mls/hr Metoprolol Succinate 100 mg/ (Metoprolol Succinate 25 mg) 125 mg PO DAILY [facility] Metoprolol Tartrate (Lopressor Injection -) 5 mg IVPUSH Q4H PRN PRN Reason: TACHYCARDIA Mupirocin (Bactroban Ointment (For Decolonization) -) 1 applic NS BID [facility] Stop: 12/24/17 21:59 Last Admin: 12/20/17 21:06 Dose: 1 applic Rivaroxaban (Xarelto -) 20 mg PO DAILY [facility] Last Admin: 12/20/17 09:34 Dose: 20 mg - Objective Vital Signs: Vital Signs Temperature 97.6 F 12/21/17 02:36 Pulse Rate 117 H 12/21/17 08:00 Respiratory Rate 22 12/21/17 08:00 Blood Pressure 136/97 12/21/17 08:00 O2 Sat by Pulse Oximetry (%) 100 12/21/17 07:59 Constitutional: Yes: Mild Distress Eyes: Yes: WNL HENT: Yes: WNL Neck: Yes: WNL Cardiovascular: Yes: Pulse Irregular Respiratory: Yes: On Nasal O2, Rales, SOB Gastrointestinal: Yes: WNL Genitourinary: Yes: Incontinence Musculoskeletal: Yes: Muscle Weakness Extremities: Yes: Other Edema: Yes Edema: LLE: 1+, RLE: 1+ Peripheral Pulses WNL: Yes Integumentary: Yes: Rash, Venous Stasis Changes Wound/Incision: Yes: Dressing Dry and Intact Neurological: Yes: Pre-Existing Deficit, Weakness ...Motor Strength: LLE, RLE Psychiatric: Yes: Other Labs: CBC, BMP 12/21/17 05:30 12/21/17 05:30 INR, PTT INR 1.49 (0.83-1.09) H 12/18/17 06:50 Problem List - Problems (1) Hemoptysis, unspecified Code(s): R04.2 - HEMOPTYSIS (2) Pneumonia Code(s): J18.9 - PNEUMONIA, UNSPECIFIED ORGANISM Qualifiers: Pneumonia type: due to unspecified organism Laterality: bilateral Lung location: lower lobe of lung Qualified Code(s): J18.1 - Lobar pneumonia, unspecified organism (3) Atrial fibrillation Code(s): I48.91 - UNSPECIFIED ATRIAL FIBRILLATION (4) Fever Code(s): R50.9 - FEVER, UNSPECIFIED Qualifiers: Fever type: unspecified cause of fever (5) Hypertension Code(s): I10 - ESSENTIAL (PRIMARY) HYPERTENSION Qualifiers: Hypertension type: essential hypertension Qualified Code(s): I10 - Essential (primary) hypertension Assessment/Plan IV ABX CARDIO EVAL APPRECIATED ICU FOR MONITORING INTUBATE IF NEEDED PT EVAL RESP SUPPORT ON NC_NEBS PULM/ID FOLLOW UP IV LASIX ECHO REVIEWED
[2017-12-21] MEDS ORDERED: metoPROLOL SUCCINATE 25 MG TAB.SR.24H (FP) ONE (09:18)
[2017-12-21] MEDS ORDERED: cefTRIAXone SODIUM 1 GM VIAL ONE (09:19)
[2017-12-21] MEDS ORDERED: DEXTROSE 5%-WATER - 50 ML IVPB ONE (09:20)
[2017-12-21] MEDS: ASPIRIN 81 MG CHEWABLE TABLETS PO SCH (09:28)
[2017-12-21] MEDS: ALLOPURINOL 100 MG TABLET (FP) PO SCH (09:28)
[2017-12-21] MEDS: CEFTRIAXONE 1 GM in DEXTROSE 5%-WATER - 50 ML IVPB SCH (09:28)
[2017-12-21] MEDS: RIVAROXABAN 20 MG TABLET PO SCH (09:28)
[2017-12-21] MEDS: POLYETHYLENE GLYCOL 3350 119 GM BTL PO SCH (09:29)
[2017-12-21] MEDS: FUROSEMIDE 40 MG/4 ML INJECTABLE VIAL IVPUSH SCH ×2 (09:29→15:28)
[2017-12-21] MEDS: METOPROLOL TARTRATE 5 MG/5 ML VIAL IVPUSH PRN (09:37)
[2017-12-21] MEDS ORDERED: METOPROLOL SUCCINATE 100 MG, METOPROLOL SUCCINATE 25 MG PO SCH (10:00)
[2017-12-21] MEDS: MUPIROCIN 2% TOPICAL OINTMENT FOR DECOLONIZATION NS SCH ×2 (10:00→22:00)
--- NOTE | 2017-12-21 10:50 | PN ---
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, Physician History of Present Illness: seen and examined today in nad. - Current Medication List Current Medications: Active Medications Acetaminophen (Tylenol -) 650 mg PO Q6H PRN PRN Reason: PAIN OR FEVER Albuterol/Ipratropium (Duoneb -) 1 amp NEB Q6H PRN PRN Reason: SHORTNESS OF BREATH Last Admin: 12/19/17 14:47 Dose: 1 amp Allopurinol (Zyloprim -) 100 mg PO DAILY [facility] Last Admin: 12/21/17 09:28 Dose: 100 mg Aspirin (Asa -) 81 mg PO DAILY [facility] Last Admin: 12/21/17 09:28 Dose: 81 mg Atorvastatin Calcium (Lipitor -) 80 mg PO HS [facility] Last Admin: 12/20/17 21:04 Dose: 80 mg Chlorhexidine Gluconate (Hibiclens For Decolonization -) 1 applic TP HS [facility] Last Admin: 12/20/17 21:05 Dose: 1 applic Furosemide (Lasix Injection -) 40 mg IVPUSH BIDLASIX [facility] Last Admin: 12/21/17 09:29 Dose: 40 mg Ceftriaxone Sodium 1 gm/ (Dextrose) 50 mls @ 100 mls/hr IVPB DAILY [facility]; Protocol Last Admin: 12/21/17 09:28 Dose: 100 mls/hr Metoprolol Succinate 100 mg/ (Metoprolol Succinate 25 mg) 125 mg PO DAILY [facility] Last Admin: 12/21/17 09:28 Dose: 125 mg Metoprolol Tartrate (Lopressor Injection -) 5 mg IVPUSH Q4H PRN PRN Reason: TACHYCARDIA Last Admin: 12/21/17 09:37 Dose: 5 mg Mupirocin (Bactroban Ointment (For Decolonization) -) 1 applic NS BID [facility] Stop: 12/24/17 21:59 Last Admin: 12/20/17 21:06 Dose: 1 applic Polyethylene Glycol (Miralax (For Daily Use) -) 17 gm PO DAILY [facility] Last Admin: 12/21/17 09:29 Dose: 17 gm Rivaroxaban (Xarelto -) 20 mg PO DAILY [facility] Last Admin: 12/21/17 09:28 Dose: 20 mg Senna (Senna -) 2 tab PO HS PRN PRN Reason: CONSTIPATION - Objective Vital Signs: Vital Signs Temperature 97.2 F L 12/21/17 10:00 Pulse Rate 115 H 09/18/18 10:00 Respiratory Rate 15 12/21/17 10:00 Blood Pressure 151/103 12/21/17 10:00 O2 Sat by Pulse Oximetry (%) 100 12/21/17 07:59 Constitutional: Yes: Well Nourished, No Distress, Calm Eyes: Yes: Conjunctiva Clear, EOM Intact HENT: Yes: Atraumatic, Normocephalic Neck: Yes: Supple, Trachea Midline Cardiovascular: Yes: Pulse Irregular, S1, S2. No: Bradycardia, Tachycardia, Bruit, JVD, Gallop, Murmur, Rub, S3, S4, Varicosities Respiratory: Yes: Regular, Diminished. No: Rales Gastrointestinal: Yes: Normal Bowel Sounds, Soft. No: Distention, Tenderness Edema: Yes Edema: LLE: Trace, RLE: Trace Peripheral Pulses WNL: Yes Peripheral Pulses: Left Doralis Pedis: 2+, Right Dorsalis Pedis: 2+ Neurological: Yes: Alert Psychiatric: Yes: Alert Labs: CBC, BMP 12/21/17 05:30 12/21/17 05:30 INR, PTT INR 1.49 (0.83-1.09) H 12/18/17 06:50 - ....Imaging Chest X-ray: Report Reviewed, Image Reviewed EKG: Report Reviewed, Image Reviewed Other: Report Reviewed, Image Reviewed (tele-AF with RVR, PVCs) Assessment/Plan 82 year old NHR with a history of HTN NIDDM, CKD, afib on NOAC admitted for cough with blood tinged sputum, noted with elevated troponin. ECG: afib (115 bpm), normal axis. q waves V1-V3, NSST-Ts lateral leads mibi 04/2013 (stanton): no ecg changes, no ischemia/scar, nl lvef Echo 2014: TDS, normal LV/RV size and function, Aortic valve not seen well Echo 12/20/17 severe segmental LV systolic dysfunction with LAD territory LV dysfunction. No significant valvular pathology Assessment/Plan He is an 82 year old NHR with a history of HTN, NIDDM, Afib on Noac, CKD admitted for cough with blood tinged sputum, noted with elevated troponin, HFrEF and sepsis. 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 Troponin elevation during this admission is due to heart failure and sepsis not STEMI. Rec: Acute on chronic systolic CHF -cont Lasix 40mg IV BID -Monitor I/O, daily weights, bun/creat, electrolytes and replete as needed -cont asa, statin -Hold off on adding ACEI/ARB until diuresed. Atrial fibrillation with RVR -Continue Metoprolol XL 125mg qd today and cont to titrate as needed for HR control -on Xarelto
--- NOTE | 2017-12-21 12:22 | PN ---
Teaching Attending Note Name of Resident: Merari De ATTENDING PHYSICIAN STATEMENT I saw and evaluated the patient. I reviewed the resident's note and discussed the case with the resident. I agree with the resident's findings and plan as documented. SUBJECTIVE: Pt seen and examined in the ICU. Breathing improving. Diuresed well with lasix yesterday. Heart rates better controlled but still rapid at times. OBJECTIVE: Vital Signs Period Temp Pulse Resp BP Sys/[place] Pulse Ox Last 24 Hr 97.2 F-98.3 F 95-130 14-40 114-151/80-112 96-100 Intake & Output 12/18/17 12/19/17 12/20/17 12/21/17 23:59 23:59 23:59 23:59 Intake Total 6869 322 9544 Output Total 230 1500 2350 300 Balance 914 -770 -1000 -300 Weight 106.594 kg 104.5 kg 102.512 kg 102.1 kg Gen: less tachypneic Heart: irregular Lung: scattered rhonchi Abd: soft, nontender Ext: no edema CBC, BMP 12/21/17 05:30 12/21/17 05:30 Active Medications Acetaminophen (Tylenol -) 650 mg PO Q6H PRN PRN Reason: PAIN OR FEVER Albuterol/Ipratropium (Duoneb -) 1 amp NEB Q6H PRN PRN Reason: SHORTNESS OF BREATH Last Admin: 12/19/17 14:47 Dose: 1 amp Allopurinol (Zyloprim -) 100 mg PO DAILY [facility] Last Admin: 12/21/17 09:28 Dose: 100 mg Aspirin (Asa -) 81 mg PO DAILY [facility] Last Admin: 12/21/17 09:28 Dose: 81 mg Atorvastatin Calcium (Lipitor -) 80 mg PO HS [facility] Last Admin: 12/20/17 21:04 Dose: 80 mg Chlorhexidine Gluconate (Hibiclens For Decolonization -) 1 applic TP HS [facility] Last Admin: 12/20/17 21:05 Dose: 1 applic Furosemide (Lasix Injection -) 40 mg IVPUSH BIDLASIX [facility] Last Admin: 12/21/17 09:29 Dose: 40 mg Ceftriaxone Sodium 1 gm/ (Dextrose) 50 mls @ 100 mls/hr IVPB DAILY [facility]; Protocol Last Admin: 12/21/17 09:28 Dose: 100 mls/hr Metoprolol Succinate (Toprol Xl -) 150 mg PO DAILY [facility] Metoprolol Tartrate (Lopressor Injection -) 5 mg IVPUSH Q4H PRN PRN Reason: TACHYCARDIA Last Admin: 12/21/17 09:37 Dose: 5 mg Mupirocin (Bactroban Ointment (For Decolonization) -) 1 applic NS BID [facility] Stop: 12/24/17 21:59 Last Admin: 12/20/17 21:06 Dose: 1 applic Polyethylene Glycol (Miralax (For Daily Use) -) 17 gm PO DAILY [facility] Last Admin: 12/21/17 09:29 Dose: 17 gm Rivaroxaban (Xarelto -) 20 mg PO DAILY [facility] Last Admin: 12/21/17 09:28 Dose: 20 mg Senna (Senna -) 2 tab PO HS PRN PRN Reason: CONSTIPATION ASSESSMENT AND PLAN: Acute Hypoxic Respiratory Failure Acute Systolic Heart Failure r/o Acute NSTEMI Atrial Fibrillation with RVR UTI Acute Kidney Injury Elevated LFTs HTN DM - continue antibiotics, dose vanco for possible gram positive cocci - f/u cultures - continue lasix - monitor urine output, creatinine - rate control, titrate up metoprolol - continue anticoagulation - O2 to keep SpO2 >90% - BiPAP as needed to assist in work of breathing - trend LFTs - can monitor on telemetry critical care time spent in reviewing chart, evaluating patient and formulating plan 35 min
[2017-12-21] MEDS ORDERED: VANCOMYCIN 1,500 MG in DEXTROSE 5%-WATER - 500 ML IVPB ONE (14:48)
--- NOTE | 2017-12-21 15:13 | PN ---
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 (short form) - Note 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: Renal follow up for JD Pt seen and examined in the ICU no acute complaints no overnight events no cp, sob improved Vital Signs Temperature 98 F 12/21/17 14:00 Pulse Rate 104 H 12/21/17 14:00 Respiratory Rate 22 12/21/17 14:00 Blood Pressure 120/88 12/21/17 14:00 O2 Sat by Pulse Oximetry (%) 96 12/21/17 09:00 Intake & Output 12/18/17 12/19/17 12/20/17 12/21/17 23:59 23:59 23:59 23:59 Intake Total 7645 668 9268 Output Total 230 1500 2350 300 Balance 914 -770 -1000 -300 Weight 106.594 kg 104.5 kg 102.512 kg 102.1 kg NAD awake and alert Neck supple no JVD some rales lung base no LE edema CBC, BMP 12/21/17 05:30 12/21/17 05:30 Current Medications Acetaminophen (Tylenol -) 650 mg PO Q6H PRN PRN Reason: PAIN OR FEVER Albuterol/Ipratropium (Duoneb -) 1 amp NEB Q6H PRN PRN Reason: SHORTNESS OF BREATH Last Admin: 12/19/17 14:47 Dose: 1 amp Allopurinol (Zyloprim -) 100 mg PO DAILY [facility] Last Admin: 12/21/17 09:28 Dose: 100 mg Aspirin (Asa -) 81 mg PO DAILY [facility] Last Admin: 12/21/17 09:28 Dose: 81 mg Atorvastatin Calcium (Lipitor -) 80 mg PO HS [facility] Last Admin: 12/20/17 21:04 Dose: 80 mg Chlorhexidine Gluconate (Hibiclens For Decolonization -) 1 applic TP HS [facility] Last Admin: 12/20/17 21:05 Dose: 1 applic Furosemide (Lasix Injection -) 40 mg IVPUSH BIDLASIX [facility] Last Admin: 12/21/17 09:29 Dose: 40 mg Ceftriaxone Sodium 1 gm/ (Dextrose) 50 mls @ 100 mls/hr IVPB DAILY [facility]; Protocol Last Admin: 12/21/17 09:28 Dose: 100 mls/hr Vancomycin HCl 1,500 mg/ (Dextrose) 500 mls @ 250 mls/hr IVPB ONCE ONE; Protocol Stop: 09/18/18 16:47 Metoprolol Succinate (Toprol Xl -) 150 mg PO DAILY [facility] Metoprolol Tartrate (Lopressor Injection -) 5 mg IVPUSH Q4H PRN PRN Reason: TACHYCARDIA Last Admin: 12/21/17 09:37 Dose: 5 mg Mupirocin (Bactroban Ointment (For Decolonization) -) 1 applic NS BID [facility] Stop: 12/24/17 21:59 Last Admin: 12/20/17 21:06 Dose: 1 applic Polyethylene Glycol (Miralax (For Daily Use) -) 17 gm PO DAILY [facility] Last Admin: 12/21/17 09:29 Dose: 17 gm Rivaroxaban (Xarelto -) 20 mg PO DAILY [facility] Last Admin: 12/21/17 09:28 Dose: 20 mg Senna (Senna -) 2 tab PO HS PRN PRN Reason: CONSTIPATION 82 year old gentleman with Hx of DM, CKD (unclear baseline Cr), Afib on A/C, CHF (preserved LV function on last echo), Hypertension who presented from [facility] with SOB and Hemoptysis and found to have PNA with JD. #JD vs. CKD likely related to renal hypoprofusion in setting of sepsis #PNA/Sepsis Syndrome #Hx of CHF #DM #Hypertension #Elevated Troponin Renal function remains stable continue Lasix as per cardiology continue Abx BIPAP support as needed Trend renal function and electrolytes Thiago Fan DO
[2017-12-21] MEDS ORDERED: MINERAL OIL ENEMA 133 ML ENEMA PR ONE (18:30)
--- NOTE | 2017-12-21 19:03 | PN ---
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, Physician History of Present Illness: OOB in chair Awake but confused Offers no complaints Denies chest pain/ dyspnea/ cough Afebrile WBC remains elevated 15K BC SCN 1 bottle Urine c/s 10K CFU - Current Medication List Current Medications: Active Medications Acetaminophen (Tylenol -) 650 mg PO Q6H PRN PRN Reason: PAIN OR FEVER Albuterol/Ipratropium (Duoneb -) 1 amp NEB Q6H PRN PRN Reason: SHORTNESS OF BREATH Last Admin: 12/19/17 14:47 Dose: 1 amp Allopurinol (Zyloprim -) 100 mg PO DAILY [facility] Last Admin: 12/21/17 09:28 Dose: 100 mg Aspirin (Asa -) 81 mg PO DAILY [facility] Last Admin: 12/21/17 09:28 Dose: 81 mg Atorvastatin Calcium (Lipitor -) 80 mg PO HS [facility] Last Admin: 12/20/17 21:04 Dose: 80 mg Chlorhexidine Gluconate (Hibiclens For Decolonization -) 1 applic TP HS [facility] Last Admin: 12/20/17 21:05 Dose: 1 applic Furosemide (Lasix Injection -) 40 mg IVPUSH BIDLASIX [facility] Last Admin: 12/21/17 15:28 Dose: 40 mg Ceftriaxone Sodium 1 gm/ (Dextrose) 50 mls @ 100 mls/hr IVPB DAILY [facility]; Protocol Last Admin: 12/21/17 09:28 Dose: 100 mls/hr Metoprolol Succinate (Toprol Xl -) 150 mg PO DAILY [facility] Metoprolol Tartrate (Lopressor Injection -) 5 mg IVPUSH Q4H PRN PRN Reason: TACHYCARDIA Last Admin: 12/21/17 09:37 Dose: 5 mg Mupirocin (Bactroban Ointment (For Decolonization) -) 1 applic NS BID [facility] Stop: 12/24/17 21:59 Last Admin: 12/21/17 10:00 Dose: 1 applic Polyethylene Glycol (Miralax (For Daily Use) -) 17 gm PO DAILY [facility] Last Admin: 12/21/17 09:29 Dose: 17 gm Rivaroxaban (Xarelto -) 20 mg PO DAILY [facility] Last Admin: 12/21/17 09:28 Dose: 20 mg Senna (Senna -) 2 tab PO HS PRN PRN Reason: CONSTIPATION - Objective Vital Signs: Vital Signs Temperature 98 F 12/21/17 14:00 Pulse Rate 104 H 12/21/17 14:00 Respiratory Rate 22 12/21/17 14:00 Blood Pressure 120/88 12/21/17 14:00 O2 Sat by Pulse Oximetry (%) 96 12/21/17 09:00 Constitutional: Yes: No Distress Cardiovascular: Yes: Regular Rate and Rhythm, S1, S2 Respiratory: Yes: Other (crepitations, bases) Gastrointestinal: Yes: Soft, Abdomen, Obese Labs: CBC, BMP 12/21/17 05:30 12/21/17 05:30 INR, PTT INR 1.49 (0.83-1.09) H 12/18/17 06:50 Assessment/Plan + Blood c/s SCN c/w contamination CHF UTI Leukocytosis PCN allergy Repeat BC no growth Continue ceftriaxone
[2017-12-21] MEDS: CHLORHEXIDINE GLUCONATE 4% CLEANSER FOR DECOLONIZATION TP SCH (22:00)
[2017-12-21] MEDS: ALBUTEROL SO4 2.5/IPRATROPIUM 0.5 INH SOL 3 ML VIAL.NEB. NEB PRN (22:00)
[2017-12-21] MEDS: ATORVASTATIN CA 80 MG TABLET (FP) PO SCH (22:06)
[2017-12-22] MEDS: FUROSEMIDE 40 MG/4 ML INJECTABLE VIAL IVPUSH SCH ×2 (06:13→13:22)
[2017-12-22 06:47] LABS: HEMATOCRIT 33.7 % (35.4-49); HEMOGLOBIN 10.9 GM/dL (11.7-16.9); MCH 28.7 pg (25.7-33.7); MCHC 32.5 g/dl (32.0-35.9); MEAN CELL VOLUME 88.3 fl (80-96); MEAN PLT VOLUME 10.1 fl (7.5-11.1); PLATELET COUNT 364 K/MM3 (134-434); RBC 3.81 M/mm3 (4.00-5.60); RDW 14.5 % (11.9-15.9); WHITE BLOOD COUNT 12.9 K/mm3 (4.0-10.0)
[2017-12-22] MEDS: ALBUTEROL SO4 2.5/IPRATROPIUM 0.5 INH SOL 3 ML VIAL.NEB. NEB PRN ×2 (07:54→21:10)
[2017-12-22 08:44] LABS: BLOOD UREA NITROGEN 40 mg/dL (7-18); CHLORIDE 102 mmol/L (98-107); CREATININE 1.4 mg/dL (0.55-1.3); GLUCOSE,RANDOM 107 mg/dL (74-106); POTASSIUM 3.6 mmol/L (3.5-5.1); SODIUM 140 mmol/L (136-145)
[2017-12-22 08:45] LABS: ALBUMIN 2.5 g/dl (3.4-5.0); ALK PHOS 134 U/L (45-117); ANION GAP 9 MMOL/L (8-16); BILIRUBIN,TOTAL 0.7 mg/dL (0.2-1); CALCIUM 7.9 mg/dL (8.5-10.1); CO2 29 mmol/L (21-32); MAGNESIUM 2.1 mg/dL (1.8-2.4); PHOSPHOROUS 4.1 mg/dL (2.5-4.9); SGOT/AST 41 U/L (15-37); SGPT/ALT 96 U/L (13-61); TOT PROT 5.7 g/dl (6.4-8.2)
[2017-12-22] MEDS ORDERED: cefTRIAXone SODIUM 1 GM VIAL ONE (09:50)
[2017-12-22] MEDS ORDERED: DEXTROSE 5%-WATER - 50 ML IVPB ONE (09:50)
[2017-12-22] MEDS: MUPIROCIN 2% TOPICAL OINTMENT FOR DECOLONIZATION NS SCH ×3 (10:06→21:29)
[2017-12-22] MEDS: POLYETHYLENE GLYCOL 3350 119 GM BTL PO SCH (10:06)
[2017-12-22] MEDS: ASPIRIN 81 MG CHEWABLE TABLETS PO SCH (10:06)
[2017-12-22] MEDS: CEFTRIAXONE 1 GM in DEXTROSE 5%-WATER - 50 ML IVPB SCH (10:06)
[2017-12-22] MEDS: RIVAROXABAN 20 MG TABLET PO SCH (10:07)
[2017-12-22] MEDS: ALLOPURINOL 100 MG TABLET (FP) PO SCH (10:07)
--- NOTE | 2017-12-22 12:20 | PN ---
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 (short form) - Note 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: Looks a little better today. Seen on Telemetry unit. Remains on 40% VM O2. Some cough reported. No CP. No acute events overnight. Intake & Output 12/19/17 12/20/17 12/21/17 12/22/17 23:59 23:59 23:59 23:59 Intake Total 730 1350 760 980 Output Total 1500 2350 2375 400 Balance -770 1000 -2744 580 Weight 230 lb 6.129 oz 226 lb 225 lb 1.471 oz 225 lb 3.2 oz Last Vital Signs Temp Pulse Resp BP Pulse Ox 97.6 F 101 H 20 131/85 96 12/22/17 09:00 12/22/17 09:00 12/22/17 09:00 12/22/17 09:00 12/22/17 09:00 Active Medications Acetaminophen (Tylenol -) 650 mg PO Q6H PRN PRN Reason: PAIN OR FEVER Albuterol/Ipratropium (Duoneb -) 1 amp NEB Q6H PRN PRN Reason: SHORTNESS OF BREATH Last Admin: 12/22/17 07:54 Dose: 1 amp Allopurinol (Zyloprim -) 100 mg PO DAILY [facility] Last Admin: 12/22/17 10:07 Dose: 100 mg Aspirin (Asa -) 81 mg PO DAILY [facility] Last Admin: 12/22/17 10:06 Dose: 81 mg Atorvastatin Calcium (Lipitor -) 80 mg PO HS [facility] Last Admin: 12/21/17 22:06 Dose: 80 mg Chlorhexidine Gluconate (Hibiclens For Decolonization -) 1 applic TP HS [facility] Last Admin: 12/21/17 22:00 Dose: Not Given Furosemide (Lasix Injection -) 40 mg IVPUSH BIDLASIX [facility] Last Admin: 12/22/17 06:13 Dose: 40 mg Ceftriaxone Sodium 1 gm/ (Dextrose) 50 mls @ 100 mls/hr IVPB DAILY [facility]; Protocol Last Admin: 12/22/17 10:06 Dose: 100 mls/hr Metoprolol Succinate (Toprol Xl -) 150 mg PO DAILY [facility] Last Admin: 12/22/17 10:07 Dose: 150 mg Metoprolol Tartrate (Lopressor Injection -) 5 mg IVPUSH Q4H PRN PRN Reason: TACHYCARDIA Last Admin: 12/21/17 09:37 Dose: 5 mg Mupirocin (Bactroban Ointment (For Decolonization) -) 1 applic NS BID [facility] Stop: 12/24/17 21:59 Last Admin: 12/22/17 10:06 Dose: 1 applic Polyethylene Glycol (Miralax (For Daily Use) -) 17 gm PO DAILY [facility] Last Admin: 12/22/17 10:06 Dose: 17 gm Rivaroxaban (Xarelto -) 20 mg PO DAILY [facility] Last Admin: 12/22/17 10:07 Dose: 20 mg Senna (Senna -) 2 tab PO HS PRN PRN Reason: CONSTIPATION Constitutional: Yes: Awake, No Distress Eyes: Yes: Conjunctiva Clear, EOM Intact HENT: Yes: Atraumatic, Normocephalic Neck: Yes: Supple, Trachea Midline Cardiovascular: Yes: Pulse Irregular Respiratory: Yes: Cough, Diminished, On VM O2, Rhonchi. No: Accessory Muscle Use , Rales, Stridor, Wheezes ...Inspection: Yes: WNL ...Clubbing: No Gastrointestinal: Yes: Normal Bowel Sounds, Soft Renal/: Yes: WNL Musculoskeletal: Yes: WNL Extremities: Yes: WNL Edema: No Peripheral Pulses WNL: Yes Integumentary: Yes: WNL Neurological: Yes: Alert, Oriented ...Motor Strength: WNL Psychiatric: Yes: Alert, Oriented Labs: Laboratory Results - last 24 hr 12/21/17 12/21/17 12/22/17 11:58 22:05 05:30 WBC 12.9 H RBC 3.81 L Hgb 10.9 L Hct 33.7 L MCV 88.3 MCH 28.7 MCHC 32.5 RDW 14.5 Plt Count 364 MPV 10.1 Sodium Potassium Chloride Carbon Dioxide Anion Gap BUN Creatinine Creat Clearance w eGFR POC Glucometer 165 Random Glucose Calcium Phosphorus Magnesium Total Bilirubin AST ALT Alkaline Phosphatase Total Protein Albumin Random Vancomycin 9.29 12/22/17 05:30 WBC RBC Hgb Hct MCV MCH MCHC RDW Plt Count MPV Sodium 140 Potassium 3.6 Chloride 102 Carbon Dioxide 29 Anion Gap 9 BUN 40 H Creatinine 1.4 H Creat Clearance w eGFR 48.40 POC Glucometer Random Glucose 107 H Calcium 7.9 L Phosphorus 4.1 Magnesium 2.1 Total Bilirubin 0.7 AST 41 H ALT 96 H Alkaline Phosphatase 134 H Total Protein 5.7 L Albumin 2.5 L Random Vancomycin Problem List - Problems (1) Pneumonia Code(s): J18.9 - PNEUMONIA, UNSPECIFIED ORGANISM Qualifiers: Pneumonia type: due to unspecified organism Laterality: bilateral Lung location: lower lobe of lung Qualified Code(s): J18.1 - Lobar pneumonia, unspecified organism (2) Atrial fibrillation Code(s): I48.91 - UNSPECIFIED ATRIAL FIBRILLATION (3) Hyperlipidemia Code(s): E78.5 - HYPERLIPIDEMIA, UNSPECIFIED (4) Hypertension Code(s): I10 - ESSENTIAL (PRIMARY) HYPERTENSION Qualifiers: Hypertension type: essential hypertension Qualified Code(s): I10 - Essential (primary) hypertension Assessment/Plan ABX per ID IV Lasix Supplemental O2 via VM to maintain saturation If WOB increases, can order NIPPV support BD TX Monitor off systemic steroids Dr Novak Problem List - Problems (1) Pneumonia Code(s): J18.9 - PNEUMONIA, UNSPECIFIED ORGANISM Qualifiers: Pneumonia type: due to unspecified organism Laterality: bilateral Lung location: lower lobe of lung Qualified Code(s): J18.1 - Lobar pneumonia, unspecified organism (2) Atrial fibrillation Code(s): I48.91 - UNSPECIFIED ATRIAL FIBRILLATION (3) Hyperlipidemia Code(s): E78.5 - HYPERLIPIDEMIA, UNSPECIFIED (4) Hypertension Code(s): I10 - ESSENTIAL (PRIMARY) HYPERTENSION Qualifiers: Hypertension type: essential hypertension Qualified Code(s): I10 - Essential (primary) hypertension
--- NOTE | 2017-12-22 13:59 | PN ---
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 (short form) - Note 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: Renal follow up for JD Pt seen and examined at the bedside no acute complaints On venti mask O2 no CP, SOB, abd pain, N/V/D making urine Vital Signs Temperature 97.4 F L 12/22/17 11:00 Pulse Rate 102 H 12/22/17 11:00 Respiratory Rate 20 12/22/17 11:00 Blood Pressure 135/82 12/22/17 11:00 O2 Sat by Pulse Oximetry (%) 96 12/22/17 09:00 Intake & Output 12/19/17 12/20/17 12/21/17 12/22/17 23:59 23:59 23:59 23:59 Intake Total 730 1350 760 980 Output Total 1500 2350 2375 400 Balance -770 -1000 -1615 580 Weight 104.5 kg 102.512 kg 102.1 kg 102.149 kg NAD awake and alert Neck supple no JVD some rales lung base no LE edema CBC, BMP 12/22/17 05:30 12/22/17 05:30 Current Medications Acetaminophen (Tylenol -) 650 mg PO Q6H PRN PRN Reason: PAIN OR FEVER Albuterol/Ipratropium (Duoneb -) 1 amp NEB Q6H PRN PRN Reason: SHORTNESS OF BREATH Last Admin: 12/22/17 07:54 Dose: 1 amp Allopurinol (Zyloprim -) 100 mg PO DAILY [facility] Last Admin: 12/22/17 10:07 Dose: 100 mg Aspirin (Asa -) 81 mg PO DAILY [facility] Last Admin: 12/22/17 10:06 Dose: 81 mg Atorvastatin Calcium (Lipitor -) 80 mg PO HS [facility] Last Admin: 12/21/17 22:06 Dose: 80 mg Chlorhexidine Gluconate (Hibiclens For Decolonization -) 1 applic TP HS [facility] Last Admin: 12/21/17 22:00 Dose: Not Given Furosemide (Lasix Injection -) 40 mg IVPUSH BIDLASIX [facility] Last Admin: 12/22/17 13:22 Dose: 40 mg Ceftriaxone Sodium 1 gm/ (Dextrose) 50 mls @ 100 mls/hr IVPB DAILY [facility]; Protocol Last Admin: 12/22/17 10:06 Dose: 100 mls/hr Metoprolol Succinate (Toprol Xl -) 150 mg PO DAILY [facility] Last Admin: 12/22/17 10:07 Dose: 150 mg Metoprolol Tartrate (Lopressor Injection -) 5 mg IVPUSH Q4H PRN PRN Reason: TACHYCARDIA Last Admin: 12/21/17 09:37 Dose: 5 mg Mupirocin (Bactroban Ointment (For Decolonization) -) 1 applic NS BID [facility] Stop: 12/24/17 21:59 Last Admin: 12/22/17 10:06 Dose: 1 applic Polyethylene Glycol (Miralax (For Daily Use) -) 17 gm PO DAILY [facility] Last Admin: 12/22/17 10:06 Dose: 17 gm Rivaroxaban (Xarelto -) 20 mg PO DAILY [facility] Last Admin: 12/22/17 10:07 Dose: 20 mg Senna (Senna -) 2 tab PO HS PRN PRN Reason: CONSTIPATION 82 year old gentleman with Hx of DM, CKD (unclear baseline Cr), Afib on A/C, CHF (preserved LV function on last echo), Hypertension who presented from [facility] with SOB and Hemoptysis and found to have PNA with JD. #JD vs. CKD likely related to renal hypoprofusion in setting of sepsis #PNA/Sepsis Syndrome #Hx of CHF #DM #Hypertension #Elevated Troponin Renal function remains stable continue IV Lasix BID continue Abx f/u vanco levels if repeat doses warranted Cardiology follow up trend renal function and electrolytes Thiago Fan DO
--- NOTE | 2017-12-22 17:16 | PN ---
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, Physician History of Present Illness: seen and examined today in nad. states that he is feeling better. sob improving , LE edema improving. - Current Medication List Current Medications: Active Medications Acetaminophen (Tylenol -) 650 mg PO Q6H PRN PRN Reason: PAIN OR FEVER Albuterol/Ipratropium (Duoneb -) 1 amp NEB Q6H PRN PRN Reason: SHORTNESS OF BREATH Last Admin: 12/22/17 07:54 Dose: 1 amp Allopurinol (Zyloprim -) 100 mg PO DAILY [facility] Last Admin: 12/22/17 10:07 Dose: 100 mg Aspirin (Asa -) 81 mg PO DAILY [facility] Last Admin: 12/22/17 10:06 Dose: 81 mg Atorvastatin Calcium (Lipitor -) 80 mg PO HS [facility] Last Admin: 12/21/17 22:06 Dose: 80 mg Chlorhexidine Gluconate (Hibiclens For Decolonization -) 1 applic TP HS [facility] Last Admin: 12/21/17 22:00 Dose: Not Given Furosemide (Lasix Injection -) 40 mg IVPUSH BIDLASIX [facility] Last Admin: 12/22/17 13:22 Dose: 40 mg Ceftriaxone Sodium 1 gm/ (Dextrose) 50 mls @ 100 mls/hr IVPB DAILY [facility]; Protocol Last Admin: 12/22/17 10:06 Dose: 100 mls/hr Metoprolol Succinate (Toprol Xl -) 150 mg PO DAILY [facility] Last Admin: 12/22/17 10:07 Dose: 150 mg Metoprolol Tartrate (Lopressor Injection -) 5 mg IVPUSH Q4H PRN PRN Reason: TACHYCARDIA Last Admin: 12/21/17 09:37 Dose: 5 mg Mupirocin (Bactroban Ointment (For Decolonization) -) 1 applic NS BID [facility] Stop: 12/24/17 21:59 Last Admin: 12/22/17 10:06 Dose: 1 applic Polyethylene Glycol (Miralax (For Daily Use) -) 17 gm PO DAILY [facility] Last Admin: 12/22/17 10:06 Dose: 17 gm Rivaroxaban (Xarelto -) 20 mg PO DAILY [facility] Last Admin: 12/22/17 10:07 Dose: 20 mg Senna (Senna -) 2 tab PO HS PRN PRN Reason: CONSTIPATION - Objective Vital Signs: Vital Signs Temperature 98.1 F 12/22/17 14:00 Pulse Rate 104 H 12/22/17 14:00 Respiratory Rate 20 12/22/17 11:00 Blood Pressure 121/96 12/22/17 14:00 O2 Sat by Pulse Oximetry (%) 96 12/22/17 09:00 Constitutional: Yes: No Distress, Calm Eyes: Yes: Conjunctiva Clear, EOM Intact, PERRL HENT: Yes: Atraumatic, Normocephalic Neck: Yes: Supple, Trachea Midline Cardiovascular: Yes: Regular Rate and Rhythm, Murmur, S1, S2. No: Bradycardia, Tachycardia, Pulse Irregular, Bruit, JVD, Gallop, Rub, S3, S4, Varicosities Respiratory: Yes: Regular, Diminished, Rales. No: Rhonchi, SOB, Wheezes Gastrointestinal: Yes: Normal Bowel Sounds, Soft. No: Distention, Tenderness Musculoskeletal: Yes: WNL Extremities: Yes: WNL Edema: Yes Edema: LLE: Trace, RLE: Trace Peripheral Pulses WNL: Yes Neurological: Yes: Alert, Oriented Psychiatric: Yes: Alert, Oriented Labs: CBC, BMP 12/22/17 05:30 12/22/17 05:30 INR, PTT INR 1.49 (0.83-1.09) H 12/18/17 06:50 - ....Imaging Chest X-ray: Report Reviewed, Image Reviewed EKG: Report Reviewed, Image Reviewed Other: Report Reviewed, Image Reviewed (tele-nsr, pvcs) Assessment/Plan 82 year old NHR with a history of HTN NIDDM, CKD, afib on NOAC admitted for cough with blood tinged sputum, noted with elevated troponin. ECG: afib (115 bpm), normal axis. q waves V1-V3, NSST-Ts lateral leads mibi 04/2013 ([facility]): no ecg changes, no ischemia/scar, nl lvef Echo 2014: TDS, normal LV/RV size and function, Aortic valve not seen well Echo 12/20/17 severe segmental LV systolic dysfunction with LAD territory LV dysfunction. No significant valvular pathology Assessment/Plan He is an 82 year old NHR with a history of HTN, NIDDM, Afib on Noac, CKD admitted for cough with blood tinged sputum, noted with elevated troponin, HFrEF and sepsis. 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 Troponin elevation during this admission is due to heart failure and sepsis not STEMI. Rec: Acute on chronic systolic CHF-still mildly volume overloaded -cont Lasix 40mg IV BID -Monitor I/O, daily weights, bun/creat, electrolytes and replete as needed -cont asa, statin -Hold off on adding ACEI/ARB until diuresed. Atrial fibrillation with RVR -Continue Metoprolol XL 150mg qd today and cont to titrate as needed for HR control -on Xarelto
--- NOTE | 2017-12-22 17:38 | PN ---
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, Physician Chief Complaint: Pneumonia JD History of Present Illness: NAD Alert but confused Seen by Pulmonary and nephrology On IV abx Seen by ID - Current Medication List Current Medications: Active Medications Acetaminophen (Tylenol -) 650 mg PO Q6H PRN PRN Reason: PAIN OR FEVER Albuterol/Ipratropium (Duoneb -) 1 amp NEB Q6H PRN PRN Reason: SHORTNESS OF BREATH Last Admin: 12/22/17 07:54 Dose: 1 amp Allopurinol (Zyloprim -) 100 mg PO DAILY [facility] Last Admin: 12/22/17 10:07 Dose: 100 mg Aspirin (Asa -) 81 mg PO DAILY [facility] Last Admin: 12/22/17 10:06 Dose: 81 mg Atorvastatin Calcium (Lipitor -) 80 mg PO HS [facility] Last Admin: 12/21/17 22:06 Dose: 80 mg Chlorhexidine Gluconate (Hibiclens For Decolonization -) 1 applic TP HS [facility] Last Admin: 12/21/17 22:00 Dose: Not Given Furosemide (Lasix Injection -) 40 mg IVPUSH BIDLASIX [facility] Last Admin: 12/22/17 13:22 Dose: 40 mg Ceftriaxone Sodium 1 gm/ (Dextrose) 50 mls @ 100 mls/hr IVPB DAILY [facility]; Protocol Last Admin: 12/22/17 10:06 Dose: 100 mls/hr Metoprolol Succinate (Toprol Xl -) 150 mg PO DAILY [facility] Last Admin: 12/22/17 10:07 Dose: 150 mg Metoprolol Tartrate (Lopressor Injection -) 5 mg IVPUSH Q4H PRN PRN Reason: TACHYCARDIA Last Admin: 12/21/17 09:37 Dose: 5 mg Mupirocin (Bactroban Ointment (For Decolonization) -) 1 applic NS BID [facility] Stop: 12/24/17 21:59 Last Admin: 12/22/17 10:06 Dose: 1 applic Polyethylene Glycol (Miralax (For Daily Use) -) 17 gm PO DAILY [facility] Last Admin: 12/22/17 10:06 Dose: 17 gm Rivaroxaban (Xarelto -) 20 mg PO DAILY [facility] Last Admin: 12/22/17 10:07 Dose: 20 mg Senna (Senna -) 2 tab PO HS PRN PRN Reason: CONSTIPATION - Objective Vital Signs: Vital Signs Temperature 98.1 F 12/22/17 14:00 Pulse Rate 104 H 12/22/17 14:00 Respiratory Rate 20 12/22/17 11:00 Blood Pressure 121/96 12/22/17 14:00 O2 Sat by Pulse Oximetry (%) 96 12/22/17 09:00 Constitutional: Yes: Well Nourished, No Distress, Calm Cardiovascular: Yes: Regular Rate and Rhythm Respiratory: Yes: Rales (BLLL) Musculoskeletal: Yes: WNL Extremities: Yes: WNL Edema: No Neurological: Yes: Alert, Confusion Psychiatric: Yes: Alert Labs: CBC, BMP 12/22/17 05:30 12/22/17 05:30 INR, PTT INR 1.49 (0.83-1.09) H 12/18/17 06:50 Problem List - Problems (1) Pneumonia Assessment/Plan: -Pulmonary and ID on board -IV abx -Urine legionella -afebrile -Micro pending -Bronchodilators Code(s): J18.9 - PNEUMONIA, UNSPECIFIED ORGANISM Qualifiers: Pneumonia type: due to unspecified organism Laterality: bilateral Lung location: lower lobe of lung Qualified Code(s): J18.1 - Lobar pneumonia, unspecified organism (2) Abnormal LFTs (liver function tests) Assessment/Plan: -trended up, now improving -GI consult -likely 2/2 to abx Code(s): R79.89 - OTHER SPECIFIED ABNORMAL FINDINGS OF BLOOD CHEMISTRY (3) Atrial fibrillation Assessment/Plan: -On Xarelto -metoprolol 150 mg po daily Code(s): I48.91 - UNSPECIFIED ATRIAL FIBRILLATION (4) Hypertension Assessment/Plan: -on metoprolol 150 mg po daily -Metoprolol 4 mg IVP for SBP >160 mm Hg or HR > 110 BPM Code(s): I10 - ESSENTIAL (PRIMARY) HYPERTENSION Qualifiers: Hypertension type: essential hypertension Qualified Code(s): I10 - Essential (primary) hypertension (5) Anemia Assessment/Plan: -check stool OB, B12, Iron and Thyroid profile -monitor trend Code(s): D64.9 - ANEMIA, UNSPECIFIED (6) CHF (congestive heart failure) Assessment/Plan: -cardiology on board -IV lasix Code(s): I50.9 - HEART FAILURE, UNSPECIFIED (7) JD (acute kidney injury) Assessment/Plan: -nephrology on board -Cr stable -monitor trend Code(s): N17.9 - ACUTE KIDNEY FAILURE, UNSPECIFIED Assessment/Plan see problem list
[2017-12-22] MEDS ORDERED: METOPROLOL TARTRATE 5 MG/5 ML VIAL ONE (17:46)
[2017-12-22] MEDS: METOPROLOL TARTRATE 5 MG/5 ML VIAL IVPUSH PRN (17:48)
[2017-12-22] MEDS: CHLORHEXIDINE GLUCONATE 4% CLEANSER FOR DECOLONIZATION TP SCH (21:29)
[2017-12-22] MEDS: ATORVASTATIN CA 80 MG TABLET (FP) PO SCH (21:40)
[2017-12-23] MEDS: FUROSEMIDE 40 MG/4 ML INJECTABLE VIAL IVPUSH SCH ×2 (05:59→13:09)
[2017-12-23] MEDS: ALBUTEROL SO4 2.5/IPRATROPIUM 0.5 INH SOL 3 ML VIAL.NEB. NEB PRN ×2 (06:18→21:09)
[2017-12-23 07:18] LABS: BASO % 0.5 % (0-2.0); EOS % 3.5 % (0-4.5); HEMATOCRIT 34.5 % (35.4-49); HEMOGLOBIN 11.5 GM/dL (11.7-16.9); LYMPH % 13.7 % (8-40); MCHC 33.3 g/dl (32.0-35.9); MEAN CELL VOLUME 87.1 fl (80-96); MEAN PLT VOLUME 10.1 fl (7.5-11.1); MONO % 7.4 % (3.8-10.2); NEUT % 74.9 % (42.8-82.8); PLATELET COUNT 405 K/MM3 (134-434); RBC 3.96 M/mm3 (4.00-5.60); RDW 14.6 % (11.9-15.9)
[2017-12-23 07:38] LABS: ALBUMIN 2.6 g/dl (3.4-5.0); ANION GAP 9 MMOL/L (8-16); BLOOD UREA NITROGEN 38 mg/dL (7-18); CALCIUM 7.9 mg/dL (8.5-10.1); CHLORIDE 101 mmol/L (98-107); CO2 29 mmol/L (21-32); GLUCOSE,RANDOM 114 mg/dL (74-106); POTASSIUM 3.5 mmol/L (3.5-5.1); SGOT/AST 36 U/L (15-37); SODIUM 139 mmol/L (136-145)
[2017-12-23 08:15] LABS: ALK PHOS 131 U/L (45-117); BILIRUBIN,TOTAL 0.6 mg/dL (0.2-1); CREATININE 1.3 mg/dL (0.55-1.3); SGPT/ALT 80 U/L (13-61); TOT PROT 5.8 g/dl (6.4-8.2)
--- NOTE | 2017-12-23 08:30 | PN ---
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, Physician - Current Medication List Current Medications: Active Medications Acetaminophen (Tylenol -) 650 mg PO Q6H PRN PRN Reason: PAIN OR FEVER Albuterol/Ipratropium (Duoneb -) 1 amp NEB Q6H PRN PRN Reason: SHORTNESS OF BREATH Last Admin: 12/23/17 06:18 Dose: 1 amp Allopurinol (Zyloprim -) 100 mg PO DAILY [facility] Last Admin: 12/22/17 10:07 Dose: 100 mg Aspirin (Asa -) 81 mg PO DAILY [facility] Last Admin: 12/22/17 10:06 Dose: 81 mg Atorvastatin Calcium (Lipitor -) 80 mg PO HS [facility] Last Admin: 12/22/17 21:40 Dose: 80 mg Chlorhexidine Gluconate (Hibiclens For Decolonization -) 1 applic TP HS [facility] Last Admin: 12/22/17 21:29 Dose: Not Given Furosemide (Lasix Injection -) 40 mg IVPUSH BIDLASIX [facility] Last Admin: 12/23/17 05:59 Dose: 40 mg Ceftriaxone Sodium 1 gm/ (Dextrose) 50 mls @ 100 mls/hr IVPB DAILY [facility]; Protocol Last Admin: 12/22/17 10:06 Dose: 100 mls/hr Metoprolol Succinate (Toprol Xl -) 150 mg PO DAILY [facility] Last Admin: 12/22/17 10:07 Dose: 150 mg Metoprolol Tartrate (Lopressor Injection -) 5 mg IVPUSH Q4H PRN PRN Reason: TACHYCARDIA Last Admin: 12/22/17 17:48 Dose: 5 mg Mupirocin (Bactroban Ointment (For Decolonization) -) 1 applic NS BID [facility] Stop: 12/24/17 21:59 Last Admin: 12/22/17 21:29 Dose: Not Given Polyethylene Glycol (Miralax (For Daily Use) -) 17 gm PO DAILY [facility] Last Admin: 12/22/17 10:06 Dose: 17 gm Rivaroxaban (Xarelto -) 20 mg PO DAILY [facility] Last Admin: 12/22/17 10:07 Dose: 20 mg Senna (Senna -) 2 tab PO HS PRN PRN Reason: CONSTIPATION - Objective Vital Signs: Vital Signs Temperature 99.8 F H 12/23/17 05:00 Pulse Rate 96 H 12/23/17 05:00 Respiratory Rate 20 12/23/17 05:00 Blood Pressure 121/79 12/23/17 05:00 O2 Sat by Pulse Oximetry (%) 95 12/22/17 21:00 Cardiovascular: Yes: S1, S2 Respiratory: Yes: Rhonchi Gastrointestinal: Yes: Normal Bowel Sounds, Soft Labs: CBC, BMP 12/23/17 05:30 12/23/17 05:30 INR, PTT INR 1.49 (0.83-1.09) H 12/18/17 06:50 Assessment/Plan - Problems (1) Pneumonia Assessment/Plan: -Pulmonary and ID on board -IV abx -Urine legionella -afebrile -Micro pending -Bronchodilators Code(s): J18.9 - PNEUMONIA, UNSPECIFIED ORGANISM Qualifiers: Pneumonia type: due to unspecified organism Laterality: bilateral Lung location: lower lobe of lung Qualified Code(s): J18.1 - Lobar pneumonia, unspecified organism (2) Abnormal LFTs (liver function tests) Assessment/Plan: -trended up, now improving -GI consult -likely 2/2 to abx Code(s): R79.89 - OTHER SPECIFIED ABNORMAL FINDINGS OF BLOOD CHEMISTRY (3) Atrial fibrillation Assessment/Plan: -On Xarelto -metoprolol 150 mg po daily Code(s): I48.91 - UNSPECIFIED ATRIAL FIBRILLATION (4) Hypertension Assessment/Plan: -on metoprolol 150 mg po daily -Metoprolol 4 mg IVP for SBP >160 mm Hg or HR > 110 BPM Code(s): I10 - ESSENTIAL (PRIMARY) HYPERTENSION Qualifiers: Hypertension type: essential hypertension Qualified Code(s): I10 - Essential (primary) hypertension (5) Anemia Assessment/Plan: -check stool OB, B12, Iron and Thyroid profile -monitor trend Code(s): D64.9 - ANEMIA, UNSPECIFIED (6) CHF (congestive heart failure) Assessment/Plan: -cardiology on board -IV lasix Code(s): I50.9 - HEART FAILURE, UNSPECIFIED (7) JD (acute kidney injury) Assessment/Plan: -nephrology on board -Cr stable -monitor trend Code(s): N17.9 - ACUTE KIDNEY FAILURE, UNSPECIFIED
--- NOTE | 2017-12-23 08:57 | CON.GI ---
Consult Consult Specialty:: GI Reason for Consultation:: elevated liver enzymes - History of Present Illness History of Present Illness: Chart reviewed. Hospital course noted. Prior admissions and imaging reviewed. GI was called for elevated liver enzymes. Admitted for PNA on 12/18 with normal liver chemistry. Rocephin was initiated and mild hepatitis with intrahepatic cholestasis was noted one day later. Augmenting was also documented on pt's home medications list even though he is allergic to Penicillins, per records. The patient is know to have cholelithiasis per US of the liver and MRCP on 07/21 , however, no signs, or symptos of choledocolithiasis, cholecystitis, or symptomatic cholelithiais reported. 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 History of Recent Travel: No Home Medications - Allergies Allergies/Adverse Reactions: Allergies Allergy/AdvReac Type Severity Reaction Status Date / Time Penicillins Allergy Severe Hives Verified 12/18/17 05:46 - Home Medications Home Medications: Ambulatory Orders Allopurinol [Zyloprim -] 100 mg PO DAILY 12/18/17 Amoxicillin/Potassium Clav [Augmentin 875-125 Tablet] 1 each PO BID 12/18/17 Calcium Carbonate/Vitamin D3 [Oyster Shell 500-Vit D3 200 Tb] 1 each PO BID Clotrimazole/Betamethasone Dip [Clotrimazole-Betamethasone Crm] 45 gm TP BID Fenofibric Acid [Trilipix -] 45 mg PO DAILY 12/18/17 Furosemide [Lasix] 40 mg PO DAILY 12/18/17 Guaifenesin 100 mg PO TID 12/18/17 Hydralazine HCl 25 mg PO QID 12/18/17 Metformin HCl [Metformin HCl ER] 500 mg PO BID 12/18/17 Metoprolol Succinate [Toprol Xl] 100 mg PO DAILY 12/18/17 Mometasone Furoate [Asmanex] 110 mcg IH DAILY 12/18/17 Rivaroxaban [Xarelto -] 20 mg PO DAILY 12/18/17 Family Disease History - Family Disease History Family History: Unremarkable Review of Systems Findings/Remarks: as per HPI, ED, H&P Physical Exam-GI Vital Signs: Vital Signs Temperature 99.8 F H 12/23/17 05:00 Pulse Rate 96 H 12/23/17 05:00 Respiratory Rate 20 12/23/17 05:00 Blood Pressure 121/79 12/23/17 05:00 O2 Sat by Pulse Oximetry (%) 95 12/22/17 21:00 Constitutional: Yes: Well Nourished, No Distress, Calm Eyes: Yes: Conjunctiva Clear HENT: Yes: Atraumatic Neck: Yes: Supple Cardiovascular: Yes: Regular Rate and Rhythm Respiratory: Yes: Regular Gastrointestinal Inspection: No: Ascites, Distention ...Auscultate: Yes: Normoactive Bowel Sounds ...Palpate: Yes: Soft. No: Firm/Rigid, Guarding, Mass Neurological: Yes: Alert, Oriented Labs: CBC, BMP 12/23/17 05:30 12/23/17 05:30 INR, PTT INR 1.49 (0.83-1.09) H 12/18/17 06:50 Laboratory Last Values WBC 13.0 K/mm3 (4.0-10.0) H 12/23/17 05:30 RBC 3.96 M/mm3 (4.00-5.60) L 12/23/17 05:30 Hgb 11.5 GM/dL (11.7-16.9) L 12/23/17 05:30 Hct 34.5 % (35.4-49) L 12/23/17 05:30 MCV 87.1 fl (80-96) 12/23/17 05:30 MCH 29.0 pg (25.7-33.7) 12/23/17 05:30 MCHC 33.3 g/dl (32.0-35.9) 12/23/17 05:30 RDW 14.6 % (11.9-15.9) 12/23/17 05:30 Plt Count 405 K/MM3 (134-434) 12/23/17 05:30 MPV 10.1 fl (7.5-11.1) 12/23/17 05:30 Absolute Neuts (auto) 9.7 K/mm3 (1.5-8.0) H 12/23/17 05:30 Neutrophils % 74.9 % (42.8-82.8) 12/23/17 05:30 Lymphocytes % 13.7 % (8-40) 12/23/17 05:30 Monocytes % 7.4 % (3.8-10.2) 12/23/17 05:30 Eosinophils % 3.5 % (0-4.5) 12/23/17 05:30 Basophils % 0.5 % (0-2.0) 12/23/17 05:30 Nucleated RBC % 0 % (0-0) 12/23/17 05:30 PT with INR 16.80 SEC (9.7-13.0) H 12/18/17 06:50 INR 1.49 (0.83-1.09) H 12/18/17 06:50 PTT (Actin FS) 33.8 SECONDS (25.2-36.5) 12/18/17 06:50 D-Dimer 850 ng/ml (0-500) H 12/18/17 06:40 Anticoagulation Therapy No Result Required. 12/18/17 18:05 Puncture Site Left radial 12/19/17 19:00 ABG pH 7.46 (7.35-7.45) H 12/19/17 19:00 ABG pCO2 at Pt Temp 31.5 mmHg (35-45) L 12/19/17 19:00 ABG pO2 at Pt Temp 380.0 mmHg (68-100) H* D 12/19/17 19:00 ABG HCO3 22.1 meq/L (22-26) 12/19/17 19:00 ABG O2 Sat (Measured) 99.6 % (90-98.9) H* 12/19/17 19:00 ABG O2 Content No Result Required. 12/19/17 19:00 ABG Base Excess -0.6 meq/l (-2-2) 12/19/17 19:00 Brice Test Positive 12/19/17 19:00 VBG pH 7.38 (7.32-7.42) 12/18/17 08:31 POC VBG pCO2 42.5 mmHg (38-52) 12/18/17 08:31 POC VBG pO2 30.0 mmHg (28-48) 12/18/17 08:31 Mixed VBG HCO3 24.7 meq/L (19-25) 12/18/17 08:31 O2 Delivery Device Nasal 12/18/17 18:05 Oxygen Flow Rate Fio2:100% 12/19/17 19:00 Vent Mode No Result Required. 12/18/17 18:05 Vent Rate No Result Required. 12/18/17 18:05 Mechanical Rate No Result Required. 12/18/17 18:05 Pressure Support Vent No Result Required. 12/18/17 18:05 Sodium 139 mmol/L (136-145) 12/23/17 05:30 Potassium 3.5 mmol/L (3.5-5.1) 12/23/17 05:30 Chloride 101 mmol/L (98-107) 12/23/17 05:30 Carbon Dioxide 29 mmol/L (21-32) 12/23/17 05:30 Anion Gap 9 MMOL/L (8-16) 12/23/17 05:30 BUN 38 mg/dL (7-18) H 12/23/17 05:30 Creatinine 1.3 mg/dL (0.55-1.3) 12/23/17 05:30 Creat Clearance w eGFR 52.72 (>60) 12/23/17 05:30 POC Glucometer 195 UNITS (80-120) 12/22/17 16:12 Random Glucose 114 mg/dL (74-106) H 12/23/17 05:30 Hemoglobin A1c % 6.7 % (4.2-6.3) H 12/23/17 05:30 Lactic Acid 1.9 mmol/L (0.4-2.0) 12/19/17 19:15 Calcium 7.9 mg/dL (8.5-10.1) L 12/23/17 05:30 Phosphorus 4.1 mg/dL (2.5-4.9) 12/22/17 05:30 Magnesium 2.1 mg/dL (1.8-2.4) 12/22/17 05:30 Ferritin 212.6 ng/ml (8-388) 12/23/17 05:30 Total Bilirubin 0.6 mg/dL (0.2-1) 12/23/17 05:30 AST 36 U/L (15-37) 12/23/17 05:30 ALT 80 U/L (13-61) H 12/23/17 05:30 Alkaline Phosphatase 131 U/L (45-117) H 12/23/17 05:30 Creatine Kinase 132 IU/L (26-308) 12/20/17 11:02 Creatine Kinase Index 3.4 % (0.0-5.0) 12/19/17 09:15 CK-MB (CK-2) 6.07 ng/mL (0.5-3.6) H 12/19/17 09:15 Troponin I 1.67 ng/ml (0.00-0.05) H* 12/20/17 11:02 B-Natriuretic Peptide 8137.72 pg/ml (5-450) H 12/18/17 06:50 Total Protein 5.8 g/dl (6.4-8.2) L 12/23/17 05:30 Albumin 2.6 g/dl (3.4-5.0) L 12/23/17 05:30 Triglycerides 79 mg/dL (0-150) 12/23/17 05:30 Cholesterol 114 mg/dL (50-200) 12/23/17 05:30 Total LDL Cholesterol 82 mg/dL (5-100) 12/23/17 05:30 HDL Cholesterol 25 mg/dL (40-60) L 12/23/17 05:30 Vitamin B12 890 pg/ml (193-986) 12/23/17 05:30 Serum Folate 22 ng/ml (3.1-17.5) H 12/23/17 05:30 TSH 0.77 uIU/ml (0.358-3.74) 12/23/17 05:30 Free T4 1.68 ng/dl (0.76-1.16) H 12/23/17 05:30 Urine Color Yellow 12/18/17 18:00 Urine Appearance Turbid 12/18/17 18:00 Urine pH 5.0 (5.0-8.0) 12/18/17 18:00 Ur Specific [place] 1.019 (1.001-1.035) 12/18/17 18:00 Urine Protein 2+ (NEGATIVE) H 12/18/17 18:00 Urine Glucose (UA) 1+ (NEGATIVE) H 12/18/17 18:00 Urine Ketones Negative (NEGATIVE) 12/18/17 18:00 Urine Blood 1+ (NEGATIVE) H 12/18/17 18:00 Urine Nitrite Negative (NEGATIVE) 12/18/17 18:00 Urine Bilirubin Negative (<2.0 mg/dL) 12/18/17 18:00 Urine Urobilinogen Negative mg/dL (0.2-1.0) 12/18/17 18:00 Ur Leukocyte Esterase 2+ (NEGATIVE) H 12/18/17 18:00 Urine WBC (Auto) 3108 /hpf (3-5) 12/18/17 18:00 Urine RBC (Auto) 38 /hpf (0-3) 12/18/17 18:00 Ur Epithelial Cells Rare /HPF (FEW) 12/18/17 18:00 Urine Mucus Few 12/18/17 18:00 U Random Total Protein 113 mg/dl (0-11.9) H 12/18/17 18:00 Ur Random Sodium 16 MMOL/L 12/18/17 18:00 Ur Random Urea Nitrogn 966 mg/dL 12/18/17 18:00 Urine Creatinine 198.0 mg/dL (20-370) 12/18/17 18:00 Random Vancomycin 9.29 ug/ml 12/21/17 11:58 Problem List - Problems (1) Pneumonia Code(s): J18.9 - PNEUMONIA, UNSPECIFIED ORGANISM Qualifiers: Pneumonia type: due to unspecified organism Laterality: bilateral Lung location: lower lobe of lung Qualified Code(s): J18.1 - Lobar pneumonia, unspecified organism (2) Abnormal LFTs (liver function tests) Code(s): R79.89 - OTHER SPECIFIED ABNORMAL FINDINGS OF BLOOD CHEMISTRY Assessment/Plan An 82M with mild transaminitis with intrahepatic cholestasis, which appears to be improving. Suspect antibiotics and reaction to the infection to be the the culprits. Would not initiate any additional work up at this time as the numbers appear to improve. Recommend: treat underlying infection, daily liver chemistry , minimize hepatotoxic medications as much as possible. Will monitor. Discussed with the patient.
[2017-12-23] MEDS ORDERED: DEXTROSE 5%-WATER - 50 ML IVPB ONE (09:47)
[2017-12-23] MEDS ORDERED: cefTRIAXone SODIUM 1 GM VIAL ONE (09:47)
[2017-12-23] MEDS: ASPIRIN 81 MG CHEWABLE TABLETS PO SCH (09:51)
[2017-12-23] MEDS: ALLOPURINOL 100 MG TABLET (FP) PO SCH (09:51)
[2017-12-23] MEDS: RIVAROXABAN 20 MG TABLET PO SCH (09:51)
[2017-12-23] MEDS: MUPIROCIN 2% TOPICAL OINTMENT FOR DECOLONIZATION NS SCH ×2 (09:52→22:16)
[2017-12-23] MEDS: CEFTRIAXONE 1 GM in DEXTROSE 5%-WATER - 50 ML IVPB SCH (09:52)
[2017-12-23] MEDS: POLYETHYLENE GLYCOL 3350 119 GM BTL PO SCH (10:04)
--- NOTE | 2017-12-23 10:51 | PN ---
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, Physician History of Present Illness: PULMONARY ALERT,FEELING BETTER,LESS DYSPNEIC,SITTING UP IN BED - Current Medication List Current Medications: Active Medications Acetaminophen (Tylenol -) 650 mg PO Q6H PRN PRN Reason: PAIN OR FEVER Allopurinol (Zyloprim -) 100 mg PO DAILY [facility] Last Admin: 12/23/17 09:51 Dose: 100 mg Aspirin (Asa -) 81 mg PO DAILY [facility] Last Admin: 12/23/17 09:51 Dose: 81 mg Atorvastatin Calcium (Lipitor -) 80 mg PO HS [facility] Last Admin: 12/22/17 21:40 Dose: 80 mg Chlorhexidine Gluconate (Hibiclens For Decolonization -) 1 applic TP HS [facility] Last Admin: 12/22/17 21:29 Dose: Not Given Furosemide (Lasix Injection -) 40 mg IVPUSH BIDLASIX [facility] Last Admin: 12/23/17 05:59 Dose: 40 mg Ceftriaxone Sodium 1 gm/ (Dextrose) 50 mls @ 100 mls/hr IVPB DAILY [facility]; Protocol Last Admin: 12/23/17 09:52 Dose: 100 mls/hr Metoprolol Succinate (Toprol Xl -) 150 mg PO DAILY [facility] Last Admin: 12/23/17 09:52 Dose: 150 mg Metoprolol Tartrate (Lopressor Injection -) 5 mg IVPUSH Q4H PRN PRN Reason: TACHYCARDIA Last Admin: 12/22/17 17:48 Dose: 5 mg Mupirocin (Bactroban Ointment (For Decolonization) -) 1 applic NS BID [facility] Stop: 12/24/17 21:59 Last Admin: 12/23/17 09:52 Dose: Not Given Polyethylene Glycol (Miralax (For Daily Use) -) 17 gm PO DAILY [facility] Last Admin: 12/23/17 10:04 Dose: 17 gm Rivaroxaban (Xarelto -) 20 mg PO DAILY [facility] Last Admin: 12/23/17 09:51 Dose: 20 mg Senna (Senna -) 2 tab PO HS PRN PRN Reason: CONSTIPATION - Objective Vital Signs: Vital Signs Temperature 99.8 F H 12/23/17 05:00 Pulse Rate 96 H 12/23/17 05:00 Respiratory Rate 20 12/23/17 05:00 Blood Pressure 121/79 12/23/17 05:00 O2 Sat by Pulse Oximetry (%) 95 09/19/18 21:00 Constitutional: Yes: Well Nourished, Calm Eyes: Yes: WNL HENT: Yes: WNL Cardiovascular: Yes: Pulse Irregular, S1, S2 Respiratory: Yes: Rales (ASHLEY RALES 1/2 UP) Gastrointestinal: Yes: Normal Bowel Sounds, Soft Extremities: Yes: WNL Edema: No Labs: CBC, BMP 12/23/17 05:30 12/23/17 05:30 INR, PTT INR 1.49 (0.83-1.09) H 12/18/17 06:50 Problem List - Problems (1) JD (acute kidney injury) Code(s): N17.9 - ACUTE KIDNEY FAILURE, UNSPECIFIED (2) Anemia Code(s): D64.9 - ANEMIA, UNSPECIFIED (3) CHF (congestive heart failure) Code(s): I50.9 - HEART FAILURE, UNSPECIFIED (4) Pneumonia Code(s): J18.9 - PNEUMONIA, UNSPECIFIED ORGANISM Qualifiers: Pneumonia type: due to unspecified organism Laterality: bilateral Lung location: lower lobe of lung Qualified Code(s): J18.1 - Lobar pneumonia, unspecified organism (5) Respiratory failure Code(s): J96.90 - RESPIRATORY FAILURE, UNSP, UNSP W HYPOXIA OR HYPERCAPNIA (6) Abnormal LFTs (liver function tests) Code(s): R79.89 - OTHER SPECIFIED ABNORMAL FINDINGS OF BLOOD CHEMISTRY (7) Atrial fibrillation Code(s): I48.91 - UNSPECIFIED ATRIAL FIBRILLATION (8) Hyperlipidemia Code(s): E78.5 - HYPERLIPIDEMIA, UNSPECIFIED (9) Hypertension Code(s): I10 - ESSENTIAL (PRIMARY) HYPERTENSION Qualifiers: Hypertension type: essential hypertension Qualified Code(s): I10 - Essential (primary) hypertension (10) Acute hypoxemic respiratory failure Code(s): J96.01 - ACUTE RESPIRATORY FAILURE WITH HYPOXIA Assessment/Plan ASSESSMENT AND PLAN: Acute Hypoxic Respiratory Failure Acute Systolic Heart Failure r/o Acute NSTEMI Atrial Fibrillation with RVR UTI Acute Kidney Injury Elevated LFTs HTN DM - antibiotics - lasix - monitor urine output, creatinine - rate control - anticoagulation - O2 to keep SpO2 >90% - BiPAP as needed to assist in work of breathing DR TUCKER
--- NOTE | 2017-12-23 14:16 | PN ---
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, Physician Chief Complaint: Cardiology FU In chair and comfortable. Telem Afib HR 100. History of Present Illness: He is an 82 year old NHR with a history of HTN NIDDM, CKD, afib on NOAC admitted for cough with blood tinged sputum, noted with elevated troponin. ECG: afib (115 bpm), normal axis. q waves V1-V3, NSST-Ts lateral leads mibi 04/2013 (stanton): no ecg changes, no ischemia/scar, nl lvef Echo 2014: TDS, normal LV/RV size and function, Aortic valve not seen well Echo 12/20/17 severe segmental LV systolic dysfunction with LAD territory LV dysfunction. No significant valvular pathology - Current Medication List Current Medications: Active Medications Acetaminophen (Tylenol -) 650 mg PO Q6H PRN PRN Reason: PAIN OR FEVER Allopurinol (Zyloprim -) 100 mg PO DAILY [facility] Last Admin: 12/23/17 09:51 Dose: 100 mg Aspirin (Asa -) 81 mg PO DAILY [facility] Last Admin: 12/23/17 09:51 Dose: 81 mg Atorvastatin Calcium (Lipitor -) 80 mg PO HS [facility] Last Admin: 12/22/17 21:40 Dose: 80 mg Chlorhexidine Gluconate (Hibiclens For Decolonization -) 1 applic TP HS [facility] Last Admin: 12/22/17 21:29 Dose: Not Given Furosemide (Lasix Injection -) 40 mg IVPUSH BIDLASIX [facility] Last Admin: 12/23/17 13:09 Dose: 40 mg Ceftriaxone Sodium 1 gm/ (Dextrose) 50 mls @ 100 mls/hr IVPB DAILY [facility]; Protocol Last Admin: 12/23/17 09:52 Dose: 100 mls/hr Metoprolol Succinate (Toprol Xl -) 150 mg PO DAILY [facility] Last Admin: 12/23/17 09:52 Dose: 150 mg Metoprolol Tartrate (Lopressor Injection -) 5 mg IVPUSH Q4H PRN PRN Reason: TACHYCARDIA Last Admin: 12/22/17 17:48 Dose: 5 mg Mupirocin (Bactroban Ointment (For Decolonization) -) 1 applic NS BID [facility] Stop: 12/24/17 21:59 Last Admin: 12/23/17 09:52 Dose: Not Given Polyethylene Glycol (Miralax (For Daily Use) -) 17 gm PO DAILY [facility] Last Admin: 12/23/17 10:04 Dose: 17 gm Rivaroxaban (Xarelto -) 20 mg PO DAILY [facility] Last Admin: 12/23/17 09:51 Dose: 20 mg Senna (Senna -) 2 tab PO HS PRN PRN Reason: CONSTIPATION - Objective Vital Signs: Vital Signs Temperature 97.8 F 12/23/17 09:00 Pulse Rate 98 H 12/23/17 09:00 Respiratory Rate 20 12/23/17 09:00 Blood Pressure 150/65 12/23/17 09:00 O2 Sat by Pulse Oximetry (%) 95 12/23/17 09:00 Constitutional: Yes: No Distress, Calm Eyes: Yes: Conjunctiva Clear, EOM Intact HENT: Yes: Atraumatic, Normocephalic Neck: Yes: Supple, Trachea Midline Cardiovascular: Yes: Pulse Irregular, S1, S2. No: JVD Respiratory: Yes: CTA Bilaterally. No: Cough, SOB, Wheezes Gastrointestinal: Yes: Normal Bowel Sounds Edema: No Labs: CBC, BMP 12/23/17 05:30 12/23/17 05:30 INR, PTT INR 1.49 (0.83-1.09) H 12/18/17 06:50 Problem List - Problems (1) Non-STEMI (non-ST elevated myocardial infarction) Code(s): I21.4 - NON-ST ELEVATION (NSTEMI) MYOCARDIAL INFARCTION (2) Sepsis Code(s): A41.9 - SEPSIS, UNSPECIFIED ORGANISM Assessment/Plan He is an 82 year old NHR with a history of HTN, NIDDM, Afib on Noac, CKD admitted for cough with blood tinged sputum, noted with elevated troponin, HFrEF and sepsis. 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 Troponin elevation during this admission is due to heart failure and sepsis not STEMI. Rec: -Lasix 40mg PO bid PO -Add Enalapril 2.5mg bid -Monitor I/O -Continue Metoprolol XL 150mg qd
--- NOTE | 2017-12-23 14:20 | PN ---
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 (short form) - Note 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: Renal follow up for JD Pt seen and examined at the bedside SOB improve but not yet at baseline no cp, abd pain, N/V/D Making urine Vital Signs Temperature 97.8 F 12/23/17 09:00 Pulse Rate 98 H 12/23/17 09:00 Respiratory Rate 20 12/23/17 09:00 Blood Pressure 150/65 12/23/17 09:00 O2 Sat by Pulse Oximetry (%) 95 12/23/17 09:00 Intake & Output 12/20/17 12/21/17 12/22/17 12/23/17 23:59 23:59 23:59 23:59 Intake Total 9838 849 0765 390 Output Total 2350 2375 400 Balance -1000 -1615 1190 390 Weight 102.512 kg 102.1 kg 102.149 kg 102.24 kg NAD awake and alert Neck supple no JVD some rales lung base no LE edema CBC, BMP 12/23/17 05:30 12/23/17 05:30 Current Medications Acetaminophen (Tylenol -) 650 mg PO Q6H PRN PRN Reason: PAIN OR FEVER Allopurinol (Zyloprim -) 100 mg PO DAILY [facility] Last Admin: 12/23/17 09:51 Dose: 100 mg Aspirin (Asa -) 81 mg PO DAILY [facility] Last Admin: 12/23/17 09:51 Dose: 81 mg Atorvastatin Calcium (Lipitor -) 80 mg PO HS [facility] Last Admin: 12/22/17 21:40 Dose: 80 mg Chlorhexidine Gluconate (Hibiclens For Decolonization -) 1 applic TP HS [facility] Last Admin: 12/22/17 21:29 Dose: Not Given Enalapril Maleate (Vasotec -) 2.5 mg PO BID [facility] Furosemide (Lasix -) 40 mg PO BID@0600,1400 [facility] Ceftriaxone Sodium 1 gm/ (Dextrose) 50 mls @ 100 mls/hr IVPB DAILY [facility]; Protocol Last Admin: 12/23/17 09:52 Dose: 100 mls/hr Metoprolol Succinate (Toprol Xl -) 150 mg PO DAILY [facility] Last Admin: 12/23/17 09:52 Dose: 150 mg Metoprolol Tartrate (Lopressor Injection -) 5 mg IVPUSH Q4H PRN PRN Reason: TACHYCARDIA Last Admin: 12/22/17 17:48 Dose: 5 mg Mupirocin (Bactroban Ointment (For Decolonization) -) 1 applic NS BID [facility] Stop: 12/24/17 21:59 Last Admin: 12/23/17 09:52 Dose: Not Given Polyethylene Glycol (Miralax (For Daily Use) -) 17 gm PO DAILY [facility] Last Admin: 12/23/17 10:04 Dose: 17 gm Rivaroxaban (Xarelto -) 20 mg PO DAILY [facility] Last Admin: 12/23/17 09:51 Dose: 20 mg Senna (Senna -) 2 tab PO HS PRN PRN Reason: CONSTIPATION 82 year old gentleman with Hx of DM, CKD (unclear baseline Cr), Afib on A/C, CHF (preserved LV function on last echo), Hypertension who presented from [facility] with SOB and Hemoptysis and found to have PNA with JD. #JD vs. CKD likely cardio-renal syndrome given imporvement with IV diuretics #PNA #CHF exacerbation #DM #Hypertension #Elevated Troponin Renal function improved and stable overall clinically improved continue IV lasix BId as per cardiology to start ACEi Trend renal function and electrolytes Thiago Fan DO
[2017-12-23] MEDS ORDERED: PT OWN MED DRAWER 7, Y5N ONE (18:06)
[2017-12-23] MEDS ORDERED: ALBUTEROL SO4 2.5/IPRATROPIUM 0.5 INH SOL 3 ML VIAL.NEB. NEB ONE (20:59)
--- NOTE | 2017-12-23 21:22 | PN ---
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, Physician History of Present Illness: OOB in chair Awake but confused Offers no complaints Denies chest pain/ dyspnea/ cough Low grade temp WBC remains elevated 13k BC SCN 1 bottle c/w contamination Urine c/s 10K CFU - Current Medication List Current Medications: Active Medications Acetaminophen (Tylenol -) 650 mg PO Q6H PRN PRN Reason: PAIN OR FEVER Albuterol/Ipratropium (Duoneb -) 1 amp NEB Q4H PRN PRN Reason: SHORTNESS OF BREATH Last Admin: 12/23/17 21:09 Dose: 1 amp Allopurinol (Zyloprim -) 100 mg PO DAILY [facility] Last Admin: 12/23/17 09:51 Dose: 100 mg Aspirin (Asa -) 81 mg PO DAILY [facility] Last Admin: 12/23/17 09:51 Dose: 81 mg Atorvastatin Calcium (Lipitor -) 80 mg PO HS [facility] Last Admin: 12/22/17 21:40 Dose: 80 mg Chlorhexidine Gluconate (Hibiclens For Decolonization -) 1 applic TP HS [facility] Last Admin: 12/22/17 21:29 Dose: Not Given Enalapril Maleate (Vasotec -) 2.5 mg PO BID [facility] Furosemide (Lasix -) 40 mg PO BID@0600,1400 [facility] Ceftriaxone Sodium 1 gm/ (Dextrose) 50 mls @ 100 mls/hr IVPB DAILY [facility]; Protocol Last Admin: 12/23/17 09:52 Dose: 100 mls/hr Metoprolol Succinate (Toprol Xl -) 150 mg PO DAILY [facility] Last Admin: 12/23/17 09:52 Dose: 150 mg Metoprolol Tartrate (Lopressor Injection -) 5 mg IVPUSH Q4H PRN PRN Reason: TACHYCARDIA Last Admin: 12/22/17 17:48 Dose: 5 mg Mupirocin (Bactroban Ointment (For Decolonization) -) 1 applic NS BID [facility] Stop: 12/24/17 21:59 Last Admin: 12/23/17 09:52 Dose: Not Given Polyethylene Glycol (Miralax (For Daily Use) -) 17 gm PO DAILY [facility] Last Admin: 12/23/17 10:04 Dose: 17 gm Rivaroxaban (Xarelto -) 20 mg PO DAILY [facility] Last Admin: 12/23/17 09:51 Dose: 20 mg Senna (Senna -) 2 tab PO HS PRN PRN Reason: CONSTIPATION - Objective Vital Signs: Vital Signs Temperature 98.4 F 12/23/17 17:00 Pulse Rate 98 H 12/23/17 17:00 Respiratory Rate 20 12/23/17 17:00 Blood Pressure 154/118 12/23/17 17:00 O2 Sat by Pulse Oximetry (%) 95 12/23/17 09:00 Constitutional: Yes: No Distress Eyes: Yes: Conjunctiva Clear Cardiovascular: Yes: Regular Rate and Rhythm, S1, S2 Respiratory: Yes: CTA Bilaterally Gastrointestinal: Yes: Normal Bowel Sounds, Soft Labs: CBC, BMP 12/23/17 05:30 12/23/17 05:30 INR, PTT INR 1.49 (0.83-1.09) H 12/18/17 06:50 Assessment/Plan + Blood c/s SCN c/w contamination CHF UTI Leukocytosis PCN allergy Repeat BC no growth Continue ceftriaxone
--- NOTE | 2017-12-23 21:26 | CONSULT ---
Consult - text type - Consultation Consultation Note: Patient seen and examined. NOt able to give detailed history but able to give limited answers due to cognitive impairment Chart reviewed. Hospital course noted. Prior admissions and imaging reviewed. . Admitted for PNA on 12/18. Rocephin was initiated and mild hepatitis with intrahepatic cholestasis was noted one day later. We have been consulted for chronic leukocytosis--patient reports that he has had this for several years but never saw a sound recordist. 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 Home Medications - Allergies Allergies/Adverse Reactions: Allergies Allergy/AdvReac Type Severity Reaction Status Date / Time Penicillins Allergy Severe Hives Verified 12/18/17 05:46 - Home Medications Home Medications: Ambulatory Orders Allopurinol [Zyloprim -] 100 mg PO DAILY 12/18/17 Amoxicillin/Potassium Clav [Augmentin 875-125 Tablet] 1 each PO BID 12/18/17 Calcium Carbonate/Vitamin D3 [Oyster Shell 500-Vit D3 200 Tb] 1 each PO BID Clotrimazole/Betamethasone Dip [Clotrimazole-Betamethasone Crm] 45 gm TP BID Fenofibric Acid [Trilipix -] 45 mg PO DAILY 12/18/17 Furosemide [Lasix] 40 mg PO DAILY 12/18/17 Guaifenesin 100 mg PO TID 12/18/17 Hydralazine HCl 25 mg PO QID 12/18/17 Metformin HCl [Metformin HCl ER] 500 mg PO BID 12/18/17 Metoprolol Succinate [Toprol Xl] 100 mg PO DAILY 12/18/17 Mometasone Furoate [Asmanex] 110 mcg IH DAILY 12/18/17 Rivaroxaban [Xarelto -] 20 mg PO DAILY 12/18/17 Family Disease History - Family Disease History Family History: Unremarkable Physical Exam-GI Vital Signs: Vital Signs Temperature 99.8 F H 12/23/17 05:00 Pulse Rate 96 H 12/23/17 05:00 Respiratory Rate 20 12/23/17 05:00 Blood Pressure 121/79 12/23/17 05:00 O2 Sat by Pulse Oximetry (%) 95 12/22/17 21:00 Constitutional: Yes: Well Nourished, No Distress, Calm HENT: Yes: Atraumatic Neck: Yes: Supple Cardiovascular: Yes: Regular Rate and Rhythm Respiratory: Yes: Regular Gastrointestinal Inspection: No: Ascites, Distention ...Auscultate: Yes: Normoactive Bowel Sounds ...Palpate: Yes: Soft. No: Firm/Rigid, Guarding, Mass Neurological: Yes: Alert, Oriented Labs: CBC, BMP 12/23/17 05:30 12/23/17 05:30 INR, PTT INR 1.49 (0.83-1.09) H 12/18/17 06:50 Laboratory Last Values WBC 13.0 K/mm3 (4.0-10.0) H 12/23/17 05:30 RBC 3.96 M/mm3 (4.00-5.60) L 12/23/17 05:30 Hgb 11.5 GM/dL (11.7-16.9) L 12/23/17 05:30 Hct 34.5 % (35.4-49) L 12/23/17 05:30 MCV 87.1 fl (80-96) 12/23/17 05:30 MCH 29.0 pg (25.7-33.7) 12/23/17 05:30 MCHC 33.3 g/dl (32.0-35.9) 12/23/17 05:30 RDW 14.6 % (11.9-15.9) 12/23/17 05:30 Plt Count 405 K/MM3 (134-434) 12/23/17 05:30 MPV 10.1 fl (7.5-11.1) 12/23/17 05:30 Absolute Neuts (auto) 9.7 K/mm3 (1.5-8.0) H 12/23/17 05:30 Neutrophils % 74.9 % (42.8-82.8) 12/23/17 05:30 Lymphocytes % 13.7 % (8-40) 12/23/17 05:30 Monocytes % 7.4 % (3.8-10.2) 12/23/17 05:30 Eosinophils % 3.5 % (0-4.5) 12/23/17 05:30 Basophils % 0.5 % (0-2.0) 12/23/17 05:30 Nucleated RBC % 0 % (0-0) 12/23/17 05:30 PT with INR 16.80 SEC (9.7-13.0) H 12/18/17 06:50 INR 1.49 (0.83-1.09) H 12/18/17 06:50 PTT (Actin FS) 33.8 SECONDS (25.2-36.5) 12/18/17 06:50 D-Dimer 850 ng/ml (0-500) H 12/18/17 06:40 Anticoagulation Therapy No Result Required. 12/18/17 18:05 Puncture Site Left radial 12/19/17 19:00 ABG pH 7.46 (7.35-7.45) H 12/19/17 19:00 ABG pCO2 at Pt Temp 31.5 mmHg (35-45) L 12/19/17 19:00 ABG pO2 at Pt Temp 380.0 mmHg (68-100) H* D 12/19/17 19:00 ABG HCO3 22.1 meq/L (22-26) 12/19/17 19:00 ABG O2 Sat (Measured) 99.6 % (90-98.9) H* 12/19/17 19:00 ABG O2 Content No Result Required. 12/19/17 19:00 ABG Base Excess -0.6 meq/l (-2-2) 12/19/17 19:00 Brice Test Positive 12/19/17 19:00 VBG pH 7.38 (7.32-7.42) 12/18/17 08:31 POC VBG pCO2 42.5 mmHg (38-52) 12/18/17 08:31 POC VBG pO2 30.0 mmHg (28-48) 12/18/17 08:31 Mixed VBG HCO3 24.7 meq/L (19-25) 12/18/17 08:31 O2 Delivery Device Nasal 12/18/17 18:05 Oxygen Flow Rate Fio2:100% 12/19/17 19:00 Vent Mode No Result Required. 12/18/17 18:05 Vent Rate No Result Required. 12/18/17 18:05 Mechanical Rate No Result Required. 12/18/17 18:05 Pressure Support Vent No Result Required. 12/18/17 18:05 Sodium 139 mmol/L (136-145) 12/23/17 05:30 Potassium 3.5 mmol/L (3.5-5.1) 12/23/17 05:30 Chloride 101 mmol/L (98-107) 12/23/17 05:30 Carbon Dioxide 29 mmol/L (21-32) 12/23/17 05:30 Anion Gap 9 MMOL/L (8-16) 12/23/17 05:30 BUN 38 mg/dL (7-18) H 12/23/17 05:30 Creatinine 1.3 mg/dL (0.55-1.3) 12/23/17 05:30 Creat Clearance w eGFR 52.72 (>60) 12/23/17 05:30 POC Glucometer 195 UNITS (80-120) 12/22/17 16:12 Random Glucose 114 mg/dL (74-106) H 12/23/17 05:30 Hemoglobin A1c % 6.7 % (4.2-6.3) H 12/23/17 05:30 Lactic Acid 1.9 mmol/L (0.4-2.0) 12/19/17 19:15 Calcium 7.9 mg/dL (8.5-10.1) L 12/23/17 05:30 Phosphorus 4.1 mg/dL (2.5-4.9) 12/22/17 05:30 Magnesium 2.1 mg/dL (1.8-2.4) 12/22/17 05:30 Ferritin 212.6 ng/ml (8-388) 12/23/17 05:30 Total Bilirubin 0.6 mg/dL (0.2-1) 12/23/17 05:30 AST 36 U/L (15-37) 12/23/17 05:30 ALT 80 U/L (13-61) H 12/23/17 05:30 Alkaline Phosphatase 131 U/L (45-117) H 12/23/17 05:30 Creatine Kinase 132 IU/L (26-308) 12/20/17 11:02 Creatine Kinase Index 3.4 % (0.0-5.0) 12/19/17 09:15 CK-MB (CK-2) 6.07 ng/mL (0.5-3.6) H 12/19/17 09:15 Troponin I 1.67 ng/ml (0.00-0.05) H* 12/20/17 11:02 B-Natriuretic Peptide 8137.72 pg/ml (5-450) H 12/18/17 06:50 Total Protein 5.8 g/dl (6.4-8.2) L 12/23/17 05:30 Albumin 2.6 g/dl (3.4-5.0) L 12/23/17 05:30 Triglycerides 79 mg/dL (0-150) 12/23/17 05:30 Cholesterol 114 mg/dL (50-200) 12/23/17 05:30 Total LDL Cholesterol 82 mg/dL (5-100) 12/23/17 05:30 HDL Cholesterol 25 mg/dL (40-60) L 12/23/17 05:30 Vitamin B12 890 pg/ml (193-986) 12/23/17 05:30 Serum Folate 22 ng/ml (3.1-17.5) H 12/23/17 05:30 TSH 0.77 uIU/ml (0.358-3.74) 12/23/17 05:30 Free T4 1.68 ng/dl (0.76-1.16) H 12/23/17 05:30 Urine Color Yellow 12/18/17 18:00 Urine Appearance Turbid 12/18/17 18:00 Urine pH 5.0 (5.0-8.0) 12/18/17 18:00 Ur Specific Halfway 1.019 (1.001-1.035) 12/18/17 18:00 Urine Protein 2+ (NEGATIVE) H 12/18/17 18:00 Urine Glucose (UA) 1+ (NEGATIVE) H 12/18/17 18:00 Urine Ketones Negative (NEGATIVE) 12/18/17 18:00 Urine Blood 1+ (NEGATIVE) H 12/18/17 18:00 Urine Nitrite Negative (NEGATIVE) 12/18/17 18:00 Urine Bilirubin Negative (<2.0 mg/dL) 12/18/17 18:00 Urine Urobilinogen Negative mg/dL (0.2-1.0) 12/18/17 18:00 Ur Leukocyte Esterase 2+ (NEGATIVE) H 12/18/17 18:00 Urine WBC (Auto) 3108 /hpf (3-5) 12/18/17 18:00 Urine RBC (Auto) 38 /hpf (0-3) 12/18/17 18:00 Ur Epithelial Cells Rare /HPF (FEW) 12/18/17 18:00 Urine Mucus Few 12/18/17 18:00 U Random Total Protein 113 mg/dl (0-11.9) H 12/18/17 18:00 Ur Random Sodium 16 MMOL/L 12/18/17 18:00 Ur Random Urea Nitrogn 966 mg/dL 12/18/17 18:00 Urine Creatinine 198.0 mg/dL (20-370) 12/18/17 18:00 Random Vancomycin 9.29 ug/ml 12/21/17 11:58 Problem List - Problems (1) Pneumonia Code(s): J18.9 - PNEUMONIA, UNSPECIFIED ORGANISM Qualifiers: Pneumonia type: due to unspecified organism Laterality: bilateral Lung location: lower lobe of lung Qualified Code(s): J18.1 - Lobar pneumonia, unspecified organism (2) Abnormal LFTs (liver function tests) Code(s): R79.89 - OTHER SPECIFIED ABNORMAL FINDINGS OF BLOOD CHEMISTRY Assessment/Plan 82 y/o with HTN, Afib, cognitive impairment admitted for PNA on 12/18. Rocephin was initiated and mild hepatitis with intrahepatic cholestasis was noted one day later. We have been consulted for chronic leukocytosis--patient reports that he has had this for several years but never saw a sound recordist. Limited history due to cognitive impairment Leukocytoiss--chronic improving on antibiotics neutrophilia worsened by ongoing infection will check flow/bcr;abl/JAK2
[2017-12-23] MEDS: CHLORHEXIDINE GLUCONATE 4% CLEANSER FOR DECOLONIZATION TP SCH (22:16)
[2017-12-23] MEDS: ENALAPRIL MALEATE 2.5 MG TABLET (FP) PO SCH (22:19)
[2017-12-23] MEDS: ATORVASTATIN CA 80 MG TABLET (FP) PO SCH (22:19)
[2017-12-24] MEDS ORDERED: FUROSEMIDE 40 MG TABLET (FP) PO SCH (06:00)
[2017-12-24 07:46] VITALS: TEMP 97.5
[2017-12-24 08:07] LABS: SERUM IRON SATURATION 16 % (15-55); TOTAL IRON BINDING CAPACITY 213 ug/dL (250-450); UIBC 179 ug/dL (111-343)
[2017-12-24] MEDS ORDERED: cefTRIAXone SODIUM 1 GM VIAL ONE (08:56)
[2017-12-24] MEDS ORDERED: DEXTROSE 5%-WATER - 50 ML IVPB ONE (08:56)
[2017-12-24] MEDS: ENALAPRIL MALEATE 2.5 MG TABLET (FP) PO SCH (09:49)
[2017-12-24] MEDS: RIVAROXABAN 20 MG TABLET PO SCH (09:49)
[2017-12-24] MEDS: ALLOPURINOL 100 MG TABLET (FP) PO SCH (09:49)
[2017-12-24] MEDS: ASPIRIN 81 MG CHEWABLE TABLETS PO SCH (09:50)
[2017-12-24] MEDS: POLYETHYLENE GLYCOL 3350 119 GM BTL PO SCH (09:50)
[2017-12-24] MEDS: MUPIROCIN 2% TOPICAL OINTMENT FOR DECOLONIZATION NS SCH (09:50)
--- NOTE | 2017-12-24 09:51 | DS ---
Physical Examination Vital Signs: Vital Signs Temperature 97.5 F L 12/24/17 06:00 Pulse Rate 105 H 12/24/17 06:00 Respiratory Rate 20 12/24/17 06:00 Blood Pressure 148/84 12/24/17 06:00 O2 Sat by Pulse Oximetry (%) 95 12/23/17 21:00 Constitutional: Yes: No Distress Eyes: Yes: WNL HENT: Yes: WNL Neck: Yes: WNL Cardiovascular: Yes: WNL Respiratory: Yes: Diminished, On Nasal O2 Gastrointestinal: Yes: WNL Renal/: Yes: WNL Musculoskeletal: Yes: Muscle Weakness Extremities: Yes: WNL Edema: Yes Edema: LLE: Trace, RLE: Trace Peripheral Pulses WNL: Yes Integumentary: Yes: Venous Stasis Changes Wound/Incision: Yes: Clean/Dry Neurological: Yes: Pre-Existing Deficit ...Motor Strength: WNL Psychiatric: Yes: WNL Labs: CBC, BMP 12/23/17 05:30 12/23/17 05:30 Discharge Summary Reason For Visit: PNEUMONIA Current Active Problems JD (acute kidney injury) (Acute) Acute hypoxemic respiratory failure (Acute) Anemia (Acute) CHF (congestive heart failure) (Acute) Hemoptysis, unspecified (Acute) Non-STEMI (non-ST elevated myocardial infarction) (Acute) Pneumonia (Acute) Respiratory failure (Acute) Sepsis (Acute) Urinary tract infection (Acute) Procedures: Principal: ECHO/CT SCAN Hospital Course: PATIENT ADMITTED RESPIRATORY DISTRESS, TREATED WITH IV LASIX AND ABX, ACUTE ON CHRONIC CHF AND COPD EXACERBATION. Condition: Stable - Instructions Diet, Activity, Other Instructions: LOW SODIUM /ADA Referrals: Lindsay Arvizu MD [Primary Care Provider] - Disposition: [facility] - Home Medications Comprehensive Discharge Medication List: Ambulatory Orders Allopurinol [Zyloprim -] 100 mg PO DAILY 12/18/17 Calcium Carbonate/Vitamin D3 [Oyster Shell 500-Vit D3 200 Tb] 1 each PO BID Clotrimazole/Betamethasone Dip [Clotrimazole-Betamethasone Crm] 45 gm TP BID Fenofibric Acid [Trilipix -] 45 mg PO DAILY 12/18/17 Guaifenesin 100 mg PO TID 12/18/17 Metformin HCl [Metformin HCl ER] 500 mg PO BID 12/18/17 Mometasone Furoate [Asmanex] 110 mcg IH DAILY 12/18/17 Rivaroxaban [Xarelto -] 20 mg PO DAILY 12/18/17 Acetaminophen [Tylenol .Regular Strength -] 650 mg PO Q6H PRN tablet 12/24/17 Albuterol 2.5/Ipratropium 0.5 [Duoneb -] 1 amp NEB Q4H PRN amp 12/24/17 Allopurinol [Zyloprim -] 100 mg PO DAILY tablet 12/24/17 Aspirin [ASA -] 81 mg PO DAILY tab.chew 12/24/17 Atorvastatin Ca [Lipitor] 80 mg PO HS tablet 12/24/17 Enalapril Maleate [Vasotec -] 2.5 mg PO BID tablet 12/24/17 Ferrous Sulfate [Feosol] 325 mg PO DAILY #30 tablet 12/24/17 Furosemide [Lasix -] 40 mg PO BID@0600,1400 tablet 12/24/17 Metoprolol Succinate [Toprol XL -] 150 mg PO DAILY tab.sr.24h 12/24/17 Mupirocin Ointment [Bactroban Ointment (For Decolonization) -] 1 applic NS BID applic 12/24/17 Polyethylene Glycol 3350 [Miralax 119 gm Btl -] 17 gm PO DAILY bottle 12/24/17 Sennosides [Senna -] 2 tab PO HS PRN tablet 12/24/17
[2017-12-24 10:51] VITALS: BP 143/72; PULSE 68
--- NOTE | 2017-12-24 11:09 | PN ---
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 (short form) - Note 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: Renal follow up for JD Pt seen and examined at the bedside has mild cough but sob improved no cp, abd pain, N/V/D making urine tolerating oral diet Vital Signs Temperature 97.5 F L 12/24/17 10:00 Pulse Rate 68 12/24/17 10:00 Respiratory Rate 20 12/24/17 10:00 Blood Pressure 143/72 12/24/17 10:00 O2 Sat by Pulse Oximetry (%) 95 12/24/17 09:00 Intake & Output 12/21/17 12/22/17 12/23/17 12/24/17 23:59 23:59 23:59 23:59 Intake Total 760 1590 1180 250 Output Total 2375 400 Balance -1615 1190 1180 250 Weight 102.1 kg 102.149 kg 102.24 kg 102.421 kg NAD awake and alert Neck supple no JVD dec BS lung bases no LE edema CBC, BMP 12/23/17 05:30 12/23/17 05:30 Current Medications Acetaminophen (Tylenol -) 650 mg PO Q6H PRN PRN Reason: PAIN OR FEVER Albuterol/Ipratropium (Duoneb -) 1 amp NEB Q4H PRN PRN Reason: SHORTNESS OF BREATH Last Admin: 12/23/17 21:09 Dose: 1 amp Allopurinol (Zyloprim -) 100 mg PO DAILY [facility] Last Admin: 12/24/17 09:49 Dose: 100 mg Aspirin (Asa -) 81 mg PO DAILY [facility] Last Admin: 12/24/17 09:50 Dose: 81 mg Atorvastatin Calcium (Lipitor -) 80 mg PO HS [facility] Last Admin: 12/23/17 22:19 Dose: 80 mg Enalapril Maleate (Vasotec -) 2.5 mg PO BID [facility] Last Admin: 12/24/17 09:49 Dose: 2.5 mg Furosemide (Lasix -) 40 mg PO BID@0600,1400 [facility] Last Admin: 12/24/17 06:17 Dose: 40 mg Metoprolol Succinate (Toprol Xl -) 150 mg PO DAILY [facility] Last Admin: 12/24/17 09:49 Dose: 150 mg Mupirocin (Bactroban Ointment (For Decolonization) -) 1 applic NS BID [facility] Stop: 09/21/18 21:59 Last Admin: 12/24/17 09:50 Dose: Not Given Polyethylene Glycol (Miralax (For Daily Use) -) 17 gm PO DAILY [facility] Last Admin: 12/24/17 09:50 Dose: Not Given Rivaroxaban (Xarelto -) 20 mg PO DAILY [facility] Last Admin: 12/24/17 09:49 Dose: 20 mg Senna (Senna -) 2 tab PO HS PRN PRN Reason: CONSTIPATION 82 year old gentleman with Hx of DM, CKD (unclear baseline Cr), Afib on A/C, CHF (preserved LV function on last echo), Hypertension who presented from [facility] with SOB and Hemoptysis and found to have PNA with JD. #JD vs. CKD likely cardio-renal syndrome given improvement with IV diuretics #PNA #CHF exacerbation #DM #Hypertension #Elevated Troponin Renal function improved and stable stable for discharge from renal perspective should follow up with PMD or have repeat labs done in 5-7 days as outpatient would avoid NSAIDs for the time being continue PO diuretics as ACEi Cardiology follow up as outpatient Thiago Fan DO
--- NOTE | 2017-12-24 11:17 | PN ---
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, Physician History of Present Illness: pulmonary alert,oob-chair,-resp distress - Current Medication List Current Medications: Active Medications Acetaminophen (Tylenol -) 650 mg PO Q6H PRN PRN Reason: PAIN OR FEVER Albuterol/Ipratropium (Duoneb -) 1 amp NEB Q4H PRN PRN Reason: SHORTNESS OF BREATH Last Admin: 12/23/17 21:09 Dose: 1 amp Allopurinol (Zyloprim -) 100 mg PO DAILY [facility] Last Admin: 12/24/17 09:49 Dose: 100 mg Aspirin (Asa -) 81 mg PO DAILY [facility] Last Admin: 12/24/17 09:50 Dose: 81 mg Atorvastatin Calcium (Lipitor -) 80 mg PO HS [facility] Last Admin: 12/23/17 22:19 Dose: 80 mg Enalapril Maleate (Vasotec -) 2.5 mg PO BID [facility] Last Admin: 12/24/17 09:49 Dose: 2.5 mg Furosemide (Lasix -) 40 mg PO BID@0600,1400 [facility] Last Admin: 12/24/17 06:17 Dose: 40 mg Metoprolol Succinate (Toprol Xl -) 150 mg PO DAILY [facility] Last Admin: 12/24/17 09:49 Dose: 150 mg Mupirocin (Bactroban Ointment (For Decolonization) -) 1 applic NS BID [facility] Stop: 12/24/17 21:59 Last Admin: 12/24/17 09:50 Dose: Not Given Polyethylene Glycol (Miralax (For Daily Use) -) 17 gm PO DAILY [facility] Last Admin: 12/24/17 09:50 Dose: Not Given Rivaroxaban (Xarelto -) 20 mg PO DAILY [facility] Last Admin: 12/24/17 09:49 Dose: 20 mg Senna (Senna -) 2 tab PO HS PRN PRN Reason: CONSTIPATION - Objective Vital Signs: Vital Signs Temperature 97.5 F L 12/24/17 10:00 Pulse Rate 68 12/24/17 10:00 Respiratory Rate 20 12/24/17 10:00 Blood Pressure 143/72 12/24/17 10:00 O2 Sat by Pulse Oximetry (%) 95 12/24/17 09:00 Constitutional: Yes: Well Nourished, Calm Eyes: Yes: WNL HENT: Yes: WNL Neck: Yes: WNL Cardiovascular: Yes: Pulse Irregular, S1, S2 Respiratory: Yes: Rales (bibasailr crackles) Gastrointestinal: Yes: Normal Bowel Sounds, Soft Extremities: Yes: WNL Edema: Yes Problem List - Problems (1) JD (acute kidney injury) Code(s): N17.9 - ACUTE KIDNEY FAILURE, UNSPECIFIED (2) Anemia Code(s): D64.9 - ANEMIA, UNSPECIFIED (3) CHF (congestive heart failure) Code(s): I50.9 - HEART FAILURE, UNSPECIFIED (4) Pneumonia Code(s): J18.9 - PNEUMONIA, UNSPECIFIED ORGANISM Qualifiers: Pneumonia type: due to unspecified organism Laterality: bilateral Lung location: lower lobe of lung Qualified Code(s): J18.1 - Lobar pneumonia, unspecified organism (5) Respiratory failure Code(s): J96.90 - RESPIRATORY FAILURE, UNSP, UNSP W HYPOXIA OR HYPERCAPNIA (6) Abnormal LFTs (liver function tests) Code(s): R79.89 - OTHER SPECIFIED ABNORMAL FINDINGS OF BLOOD CHEMISTRY (7) Atrial fibrillation Code(s): I48.91 - UNSPECIFIED ATRIAL FIBRILLATION (8) Hyperlipidemia Code(s): E78.5 - HYPERLIPIDEMIA, UNSPECIFIED (9) Hypertension Code(s): I10 - ESSENTIAL (PRIMARY) HYPERTENSION Qualifiers: Hypertension type: essential hypertension Qualified Code(s): I10 - Essential (primary) hypertension (10) Acute hypoxemic respiratory failure Code(s): J96.01 - ACUTE RESPIRATORY FAILURE WITH HYPOXIA Assessment/Plan ASSESSMENT AND PLAN: Acute Hypoxic Respiratory Failure Acute Systolic Heart Failure r/o Acute NSTEMI Atrial Fibrillation with RVR UTI Acute Kidney Injury Elevated LFTs HTN DM - lasix - monitor urine output, creatinine - rate control - anticoagulation - O2 to keep SpO2 >90% DR TUCKER
[2017-12-24] MEDS: ALBUTEROL SO4 2.5/IPRATROPIUM 0.5 INH SOL 3 ML VIAL.NEB. NEB PRN (11:59)
[2017-12-24 13:21] VITALS: BMI 30.5
== END 2017-12-24 13:06 | DRG 871 ==
LOC: JER 05:26 → JERBED 09:16 → J4W 16:42 → JICU 12-19 18:25 → J4W 12-21 18:45
PROVIDERS: ADMIT Family Medicine; ATTEND Family Medicine
PROC: 5A09457 Assistance with Respiratory Ventilation, 24-96 Consecutive Hours, Continuous Positive Airway Pressure (ICD-10-PCS; principal; 2017-12-19)
PROC: 3E0F7GC Introduction of Other Therapeutic Substance into Respiratory Tract, Via Natural or Artificial Opening (ICD-10-PCS; 2017-12-19)
DX: A41.9 Sepsis, unspecified organism (principal); J18.9 Pneumonia, unspecified organism; J96.01 Acute respiratory failure with hypoxia; I21.9 Acute myocardial infarction, unspecified; I50.23 Acute on chronic systolic (congestive) heart failure; I13.0 Hypertensive heart and chronic kidney disease with heart failure and stage 1 through stage 4 chronic kidney disease, or unspecified chronic kidney disease; R47.01 Aphasia; N17.9 Acute kidney failure, unspecified; E87.2 Acidosis; N39.0 Urinary tract infection, site not specified; R04.2 Hemoptysis; E11.22 Type 2 diabetes mellitus with diabetic chronic kidney disease; R65.20 Severe sepsis without septic shock; N18.9 Chronic kidney disease, unspecified; Z88.0 Allergy status to penicillin; I48.91 Unspecified atrial fibrillation; K71.0 Toxic liver disease with cholestasis; Z79.84 Long term (current) use of oral hypoglycemic drugs; R29.810 Facial weakness; G31.84 Mild cognitive impairment of uncertain or unknown etiology; Z96.651 Presence of right artificial knee joint; E78.5 Hyperlipidemia, unspecified; E66.9 Obesity, unspecified; Z68.30 Body mass index [BMI] 30.0-30.9, adult; K59.00 Constipation, unspecified; D64.9 Anemia, unspecified; R74.0 Nonspecific elevation of levels of transaminase and lactic acid dehydrogenase [LDH]
CPT/HCPCS: 36415; 36600; 71045-TC-FY; 80053; 80061; 81003; 81015; 82550; 82553; 82570; 82607; 82728; 82746; 82803; 82962; 83036; 83540; 83550; 83605; 83721; 83735; 83880; 84100; 84156; 84300; 84439; 84443; 84484; 84540; 85025; 85027; 85379; 85610; 85730; 87040; 87086; 87186; 93005; 93010; 93306-TC; 94640; 94660; 97116-GP; 97162-GP; 99285-25; G0480; J7030; J7620

== ENCOUNTER 2017-12-26 18:02 | Inpatient (IN) | payer BC, OTHER ==
--- NOTE | 2017-12-26 19:00 | PDOC ---
Attending Attestation - Resident Resident Name: Dirk Rollins - ED Attending Attestation I have performed the following: I have examined & evaluated the patient, The case was reviewed & discussed with the resident, I agree w/resident's findings & plan, Exceptions are as noted - HPI HPI: 12/26/17 18:59 82 yo male BIBA for shortness of breath, [facility] when he was admitted for pneumonia 12/26/17 19:00 - Physicial Exam PE: 12/27/17 02:35 82 yo male with c/o cough,sob,nausea and vomiting head ncat neck no bruits,supple lung rhochi cvs tachycardia abd no rebound skin warm ,dry neuro conversant psych appropriate - Medical Decision Making 12/27/17 02:43 cxr infiltrates imp pneumonia, pt given vanco zosyn and admitted
[2017-12-26] MEDS ORDERED: ACETAMINOPHEN 1000 MG/100 ML VIAL (NON FORMULARY) IVPB ONE (19:10)
[2017-12-26 19:30] LABS: BASO % 0.4 % (0-2.0); EOS % 1.1 % (0-4.5); HEMATOCRIT 38.3 % (35.4-49); HEMOGLOBIN 12.4 GM/dL (11.7-16.9); LYMPH % 7.7 % (8-40); MCH 28.8 pg (25.7-33.7); MCHC 32.5 g/dl (32.0-35.9); MEAN CELL VOLUME 88.9 fl (80-96); MEAN PLT VOLUME 10.7 fl (7.5-11.1); MONO % 9.5 % (3.8-10.2); NEUT % 81.3 % (42.8-82.8); PLATELET COUNT 398 K/MM3 (134-434); RBC 4.31 M/mm3 (4.00-5.60); RDW 15.3 % (11.9-15.9); VENOUS PC02 40.1 mmHg (38-52); VENOUS PH 7.4 (7.32-7.42); VENOUS PO2 28.9 mmHg (28-48); WHITE BLOOD COUNT 19.7 K/mm3 (4.0-10.0)
[2017-12-26] MEDS ORDERED: ACETAMINOPHEN INJECTION 100 ML IVPB ONE (19:47)
[2017-12-26 19:52] LABS: INR 1.53 (0.83-1.09); PROTHROMBIN TIME (PATIENT) 17.3 SEC (9.7-13.0)
[2017-12-26 19:54] LABS: ACTIVATED PTT 33.6 SECONDS (25.2-36.5)
[2017-12-26 19:57] LABS: ALBUMIN 3.2 g/dl (3.4-5.0); ALK PHOS 156 U/L (45-117); ANION GAP 11 MMOL/L (8-16); BILIRUBIN,TOTAL 0.8 mg/dL (0.2-1); BLOOD UREA NITROGEN 48 mg/dL (7-18); CALCIUM 9.3 mg/dL (8.5-10.1); CHLORIDE 99 mmol/L (98-107); CO2 26 mmol/L (21-32); GLUCOSE,RANDOM 127 mg/dL (74-106); POTASSIUM 4.6 mmol/L (3.5-5.1); SGOT/AST 49 U/L (15-37); SGPT/ALT 74 U/L (13-61); SODIUM 137 mmol/L (136-145)
[2017-12-26] MEDS ORDERED: SODIUM CHLORIDE 1,000 ML IV STA ×2 (20:06→20:07)
[2017-12-26] MEDS ORDERED: MEROPENEM 1 GM in DEXTROSE 5%-WATER 100 ML IVPB ONE (20:06)
[2017-12-26] MEDS ORDERED: VANCOMYCIN 1,000 MG in DEXTROSE 5%-WATER - 250 ML IVPB ONE (20:06)
[2017-12-26] MEDS ORDERED: VANCOMYCIN 1 GRAM (PRE-DOCKED) 1,000 MG/250 ML BAG IVPB ONE (20:28)
[2017-12-26 21:01] LABS: URINE APPEARANCE CLEAR; URINE BILIRUBIN NEGATIVE (<2.0 mg/dL); URINE COLOR YELLOW; URINE GLUCOSE (UA) NEGATIVE (NEGATIVE); URINE KETONE NEGATIVE (NEGATIVE); URINE LEUK ESTERASE NEGATIVE (NEGATIVE); URINE NITRITE NEGATIVE (NEGATIVE); URINE PROTEIN NEGATIVE (NEGATIVE); URINE UROBILINOGEN NEGATIVE mg/dL (0.2-1.0)
--- NOTE | 2017-12-26 21:23 | PDOC ---
History of Present Illness - General Chief Complaint: Shortness of Breath Stated Complaint: S.O.B Time Seen by Provider: 12/26/17 18:52 History Source: Patient Exam Limitations: No Limitations - History of Present Illness Initial Comments: 12/26/17 21:23 Patient is an 82M with history of DM, HTN, CKD, afib, CHF, recent admission for pneumonia here today complaining of two days of cough, shortness of breath, and fever. Patient states that he vomited after coughing once. Denies chest pain, abdominal pain. Denies leg swelling, history of blood clots. Patient is on xarelto. Patient was admitted two weeks prior for pneumonia, patient was treated with meropenem. Trops were positive, thought to be secondary to afib w/ RVR. Past History - Past Medical History Allergies/Adverse Reactions: Allergies Allergy/AdvReac Type Severity Reaction Status Date / Time Penicillins Allergy Severe Hives Verified 12/26/17 18:12 Home Medications: Ambulatory Orders Allopurinol [Zyloprim -] 100 mg PO DAILY 12/18/17 Calcium Carbonate/Vitamin D3 [Oyster Shell 500-Vit D3 200 Tb] 1 each PO BID Clotrimazole/Betamethasone Dip [Clotrimazole-Betamethasone Crm] 45 gm TP BID Fenofibric Acid [Trilipix -] 45 mg PO DAILY 12/18/17 Guaifenesin 100 mg PO TID 12/18/17 Metformin HCl [Metformin HCl ER] 500 mg PO BID 12/18/17 Mometasone Furoate [Asmanex] 110 mcg IH DAILY 12/18/17 Rivaroxaban [Xarelto -] 20 mg PO DAILY 12/18/17 Acetaminophen [Tylenol .Regular Strength -] 650 mg PO Q6H PRN tablet 12/24/17 Albuterol 2.5/Ipratropium 0.5 [Duoneb -] 1 amp NEB Q4H PRN amp 12/24/17 Allopurinol [Zyloprim -] 100 mg PO DAILY tablet 12/24/17 Aspirin [ASA -] 81 mg PO DAILY tab.chew 12/24/17 Atorvastatin Ca [Lipitor] 80 mg PO HS tablet 12/24/17 Enalapril Maleate [Vasotec -] 2.5 mg PO BID tablet 12/24/17 Ferrous Sulfate [Feosol] 325 mg PO DAILY #30 tablet 12/24/17 Furosemide [Lasix -] 40 mg PO BID@0600,1400 tablet 12/24/17 Metoprolol Succinate [Toprol XL -] 150 mg PO DAILY tab.sr.24h 12/24/17 Mupirocin Ointment [Bactroban Ointment (For Decolonization) -] 1 applic NS BID applic 12/24/17 Polyethylene Glycol 3350 [Miralax 119 gm Btl -] 17 gm PO DAILY bottle 12/24/17 Sennosides [Senna -] 2 tab PO HS PRN tablet 12/24/17 Anemia: No Asthma: No Cancer: No Cardiac Disorders: No CVA: No COPD: No CHF: No Dementia: No Diabetes: Yes Disorders: (CKD) HTN: Yes Seizures: No - Surgical History Cardiac Surgery: No Neurologic Surgery: No Orthopedic Surgery: Yes (Right knee replacement) - Suicide/Smoking/Psychosocial Hx Smoking History: Never smoked Have you smoked in the past 12 months: No Information on smoking cessation initiated: No Hx Alcohol Use: No Drug/Substance Use Hx: No Substance Use Type: None Hx Substance Use Treatment: No Review of Systems - Review of Systems Able to Perform ROS?: Yes Comments:: 12/26/17 21:33 GENERAL/CONSTITUTIONAL: + fever +chills. No weakness. HEAD, EYES, EARS, NOSE AND THROAT: No change in vision. No ear pain or discharge. No sore throat. CARDIOVASCULAR: No chest pain +shortness of breath RESPIRATORY: +cough, no wheezing, or hemoptysis. GASTROINTESTINAL: +nausea, +vomiting, no diarrhea or constipation. GENITOURINARY: No dysuria, frequency, or change in urination. MUSCULOSKELETAL: No joint or muscle swelling or pain. No neck or back pain. SKIN: No rash NEUROLOGIC: No headache, vertigo, loss of consciousness, or change in strength/ sensation. ENDOCRINE: No increased thirst. No abnormal weight change HEMATOLOGIC/LYMPHATIC: No anemia, easy bleeding, or history of blood clots. ALLERGIC/IMMUNOLOGIC: No hives or skin allergy. *Physical Exam - Vital Signs Last Vital Signs Temp Pulse Resp BP Pulse Ox 100.8 F H 106 H 22 H 133/91 97 12/26/17 18:30 12/26/17 18:30 12/26/17 18:30 12/26/17 18:30 12/26/17 18:30 - Physical Exam Comments: 12/26/17 21:34 GENERAL: Awake, alert, in no acute distress HEAD: No signs of trauma, normocephalic, atraumatic EYES: PERRLA, EOMI, sclera anicteric, conjunctiva clear ENT: Auricles normal inspection, hearing grossly normal, nares patent, oropharynx clear without exudates. Moist mucosa NECK: Normal ROM, supple, no lymphadenopathy, JVD, or masses LUNGS: No distress, speaks full sentences, clear to auscultation bilaterally HEART: Tachycardic, normal S1 and S2, no murmurs, rubs or gallops, peripheral pulses normal and equal bilaterally. ABDOMEN: Soft, nontender, normoactive bowel sounds. No guarding, no rebound. No masses EXTREMITIES: Normal inspection, Normal range of motion, no edema. No clubbing or cyanosis. NEUROLOGICAL: Cranial nerves II through XII grossly intact. Normal speech, no focal sensorimotor deficits SKIN: Warm, Dry, normal turgor, no rashes or lesions noted. ED Treatment Course - LABORATORY CBC & Chemistry Diagram: 12/26/17 19:12 12/26/17 19:12 - ADDITIONAL ORDERS Additional order review: Laboratory Results 12/26/17 12/26/17 12/26/17 20:50 19:12 19:12 PT with INR INR PTT (Actin FS) VBG pH POC VBG pCO2 POC VBG pO2 Mixed VBG HCO3 Sodium Potassium Chloride Carbon Dioxide Anion Gap BUN Creatinine Creat Clearance w eGFR Random Glucose Lactic Acid 3.3 H* Calcium Total Bilirubin AST ALT Alkaline Phosphatase Troponin I 0.58 H Total Protein Albumin Urine Color Yellow Urine Appearance Clear Urine pH 5.0 Ur Specific [place] 1.014 Urine Protein Negative Urine Glucose (UA) Negative Urine Ketones Negative Urine Blood Negative Urine Nitrite Negative Urine Bilirubin Negative Urine Urobilinogen Negative Ur Leukocyte Esterase Negative 12/26/17 12/26/17 12/26/17 19:12 19:12 19:12 PT with INR 17.30 H INR 1.53 H PTT (Actin FS) 33.6 VBG pH 7.40 POC VBG pCO2 40.1 POC VBG pO2 28.9 Mixed VBG HCO3 24.3 Sodium 137 Potassium 4.6 Chloride 99 Carbon Dioxide 26 Anion Gap 11 BUN 48 H Creatinine 2.0 H Creat Clearance w eGFR 32.07 Random Glucose 127 H Lactic Acid Calcium 9.3 Total Bilirubin 0.8 AST 49 H ALT 74 H Alkaline Phosphatase 156 H Troponin I Total Protein 7.0 Albumin 3.2 L Urine Color Urine Appearance Urine pH Ur Specific [place] Urine Protein Urine Glucose (UA) Urine Ketones Urine Blood Urine Nitrite Urine Bilirubin Urine Urobilinogen Ur Leukocyte Esterase 12/26/17 19:12 RBC 4.31 MCV 88.9 MCHC 32.5 RDW 15.3 MPV 10.7 Neutrophils % 81.3 Lymphocytes % 7.7 L D Monocytes % 9.5 Eosinophils % 1.1 Basophils % 0.4 - RADIOLOGY Radiology Studies Ordered: Category Date Time Status CHEST X-RAY PORTABLE* [RAD] Stat Radiology 12/26/17 19:00 Taken - Medications Given in the ED: ED Medications Discontinued Medications Generic Name Dose Route Start Last Admin Trade Name Freq PRN Reason Stop Dose Admin Acetaminophen 1,000 mg 12/26/17 19:10 12/26/17 19:23 Ofirmev Injection - IVPB 12/26/17 19:11 1,000 mg ONCE ONE Administration Sodium Chloride 1,000 mls @ 1,000 mls/hr 12/26/17 20:06 12/26/17 20:06 Normal Saline - IV 12/26/17 21:05 1,000 mls/hr ASDIR STA Administration Medical Decision Making - Medical Decision Making 12/26/17 21:35 Patient is 82M with history of DM, HTN, CKD, afib, CHF, recent admission for pneumonia here today with fever, cough, tachycardia. Likely lung source. Septic workup initiated. EKG shows afib with rate of 93. No st elevations/depressions. Left axis. Lateral t wave inversions. Normal QTc/QRS intervals. 12/26/17 21:37 CXR shows coarse lung markings with no clear infiltrate, appears better than his prior visit. Laboratory Tests 12/26/17 12/26/17 12/26/17 19:12 19:12 19:12 WBC 19.7 H Hgb 12.4 Plt Count 398 VBG pH 7.40 BUN 48 H Creatinine 2.0 H Lactic Acid Troponin I 12/26/17 12/26/17 19:12 19:12 WBC Hgb Plt Count VBG pH BUN Creatinine Lactic Acid 3.3 H* Troponin I 0.58 H CBC shows leukocytosis, VBG normal. 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 Lactic acid elevated to 3.3. UA clear. Troponin elevated, but patient was elevated on prior admission, no acute rise. Will hydrate gently given CHF history with afib. Will cover with meropenem/vanc. Believe most likely source is pneumonia. *DC/Admit/Observation/Transfer Diagnosis at time of Disposition: Pneumonia, Sepsis - Discharge Dispostion Condition at time of disposition: Stable Decision to Admit order: Yes - Referrals - Patient Instructions - Post Discharge Activity
--- NOTE | 2017-12-26 22:31 | HP ---
CHIEF COMPLAINT: cough, SOB PCP: Jasper Hartman HISTORY OF PRESENT ILLNESS: This is an 82 year old male who is s/p recent admission here 12/16-12/24 for PNA who presented from his NH with c/o cough, posttussive emesis x 1, SOB x 2 days as per ED note. Upon exam pt states he coughs occasionally and denies any sputum production. He does confirm SOB. ER course was notable for: (1) WBC 19.7 (2) CXR official read pending but appears improved c/w prior (3) Recent Travel: pt denies PAST MEDICAL HISTORY: HTN, CHF, AFIB on xarelto, CKD, DM, PNA PAST SURGICAL HISTORY: R TKR 2013 Social History: Smoking: Pt denies Alcohol: Pt denies Drugs: Pt denies Family History: father approx age 68, "heart" mother unknown Allergies Penicillins Allergy (Severe, Verified 12/26/17 18:12) Hives HOME MEDICATIONS: 3 Medication Instructions Recorded Allopurinol [Zyloprim -] 100 mg PO DAILY 12/18/17 Calcium Carbonate/Vitamin D3 1 each PO BID 12/18/17 [Oyster Shell 500-Vit D3 200 Tb] Clotrimazole/Betamethasone Dip 45 gm TP BID 12/18/17 [Clotrimazole-Betamethasone Crm] Fenofibric Acid [Trilipix -] 45 mg PO DAILY 12/18/17 Guaifenesin 100 mg PO TID 12/18/17 Metformin HCl [Metformin HCl ER] 500 mg PO BID 12/18/17 Mometasone Furoate [Asmanex] 110 mcg IH DAILY 12/18/17 Rivaroxaban [Xarelto -] 20 mg PO DAILY 12/18/17 Acetaminophen [Tylenol .Regular 650 mg PO Q6H PRN tablet 12/24/17 Strength -] Albuterol 2.5/Ipratropium 0.5 1 amp NEB Q4H PRN amp 12/24/17 [Duoneb -] Allopurinol [Zyloprim -] 100 mg PO DAILY tablet 12/24/17 Aspirin [ASA -] 81 mg PO DAILY tab.chew 12/24/17 Atorvastatin Ca [Lipitor] 80 mg PO HS tablet 12/24/17 Enalapril Maleate [Vasotec -] 2.5 mg PO BID tablet 12/24/17 Ferrous Sulfate [Feosol] 325 mg PO DAILY #30 tablet 12/24/17 Furosemide [Lasix -] 40 mg PO BID@0600,1400 tablet 12/24/17 Metoprolol Succinate [Toprol XL -] 150 mg PO DAILY tab.sr.24h 12/24/17 Mupirocin Ointment [Bactroban 1 applic NS BID applic 12/24/17 Ointment (For Decolonization) -] Polyethylene Glycol 3350 [Miralax 17 gm PO DAILY bottle 12/24/17 119 gm Btl -] Sennosides [Senna -] 2 tab PO HS PRN tablet 12/24/17 REVIEW OF SYSTEMS CONSTITUTIONAL: Absent: fever, chills, diaphoresis, generalized weakness, malaise, loss of appetite, weight change HEENT: Absent: rhinorrhea, nasal congestion, throat pain, throat swelling, difficulty swallowing, mouth swelling, ear pain, eye pain, visual changes CARDIOVASCULAR: Absent: chest pain, syncope, palpitations, irregular heart rate, lightheadedness , peripheral edema RESPIRATORY: Present: cough, shortness of breath Absent: dyspnea with exertion, orthopnea, wheezing, stridor, hemoptysis GASTROINTESTINAL: Absent: abdominal pain, abdominal distension, nausea, vomiting, diarrhea, constipation, melena, hematochezia GENITOURINARY: Absent: dysuria, frequency, urgency, hesitancy, hematuria, flank pain, genital pain MUSCULOSKELETAL: Absent: myalgia, arthralgia, joint swelling, back pain, neck pain SKIN: Absent: rash, itching, pallor HEMATOLOGIC/IMMUNOLOGIC: Absent: easy bleeding, easy bruising, lymphadenopathy, frequent infections ENDOCRINE: Absent: unexplained weight gain, unexplained weight loss, heat intolerance, cold intolerance NEUROLOGIC: Absent: headache, focal weakness or paresthesias, dizziness, unsteady gait, seizure, mental status changes, bladder or bowel incontinence PSYCHIATRIC: Absent: anxiety, depression, suicidal or homicidal ideation, hallucinations. PHYSICAL EXAMINATION Vital Signs - 24 hr 3 12/26/17 18:30 Temperature 100.8 F H Pulse Rate 106 H Respiratory 22 H Rate Blood Pressure 133/91 O2 Sat by Pulse 97 Oximetry (%) GENERAL: Awake, alert, and fully oriented, in no acute distress. HEAD: Normal with no signs of trauma. EYES: Pupils equal, round and reactive to light, extraocular movements intact, sclera anicteric, conjunctiva clear. No lid lag. EARS, NOSE, THROAT: Ears normal, nares patent, oropharynx clear without exudates. Moist mucous membranes. NECK: Normal range of motion, supple without lymphadenopathy, JVD, or masses. LUNGS: + crackles b/l bases, R>L, diminished right. No accessory muscle use. HEART: Regular rate and rhythm, normal S1 and S2 without murmur, rub or gallop. ABDOMEN: Soft, nontender, not distended, normoactive bowel sounds, no guarding, no rebound, no masses. No hepatomegaly or splenomegaly. MUSCULOSKELETAL: Normal range of motion at all joints. No bony deformities or tenderness. No CVA tenderness. UPPER EXTREMITIES: 2+ pulses, warm, well-perfused. No cyanosis. No clubbing. No peripheral edema. LOWER EXTREMITIES: 2+ pulses, warm, well-perfused. No calf tenderness. 1+ peripheral edema B/L NEUROLOGICAL: Cranial nerves II-XII intact. Normal speech. PSYCHIATRIC: Cooperative. Good eye contact. Appropriate mood and affect. SKIN: Warm, dry, normal turgor, no rashes or lesions noted, normal capillary refill. Laboratory Results - last 24 hr 3 12/26/17 12/26/17 12/26/17 19:12 19:12 19:12 WBC 19.7 H RBC 4.31 Hgb 12.4 Hct 38.3 MCV 88.9 MCH 28.8 MCHC 32.5 RDW 15.3 Plt Count 398 MPV 10.7 Absolute Neuts (auto) 16.0 H Neutrophils % 81.3 Lymphocytes % 7.7 L D Monocytes % 9.5 Eosinophils % 1.1 Basophils % 0.4 Nucleated RBC % 0 PT with INR 17.30 H INR 1.53 H PTT (Actin FS) 33.6 VBG pH 7.40 POC VBG pCO2 40.1 POC VBG pO2 28.9 Mixed VBG HCO3 24.3 Sodium Potassium Chloride Carbon Dioxide Anion Gap BUN Creatinine Creat Clearance w eGFR Random Glucose Lactic Acid Calcium Total Bilirubin AST ALT Alkaline Phosphatase Troponin I Total Protein Albumin Urine Color Urine Appearance Urine pH Ur Specific [place] Urine Protein Urine Glucose (UA) Urine Ketones Urine Blood Urine Nitrite Urine Bilirubin Urine Urobilinogen Ur Leukocyte Esterase 3 12/26/17 12/26/17 12/26/17 19:12 19:12 19:12 WBC RBC Hgb Hct MCV MCH MCHC RDW Plt Count MPV Absolute Neuts (auto) Neutrophils % Lymphocytes % Monocytes % Eosinophils % Basophils % Nucleated RBC % PT with INR INR PTT (Actin FS) VBG pH POC VBG pCO2 POC VBG pO2 Mixed VBG HCO3 Sodium 137 Potassium 4.6 Chloride 99 Carbon Dioxide 26 Anion Gap 11 BUN 48 H Creatinine 2.0 H Creat Clearance w eGFR 32.07 Random Glucose 127 H Lactic Acid 3.3 H* Calcium 9.3 Total Bilirubin 0.8 AST 49 H ALT 74 H Alkaline Phosphatase 156 H Troponin I 0.58 H Total Protein 7.0 Albumin 3.2 L Urine Color Urine Appearance Urine pH Ur Specific [place] Urine Protein Urine Glucose (UA) Urine Ketones Urine Blood Urine Nitrite Urine Bilirubin Urine Urobilinogen Ur Leukocyte Esterase 3 Urine Color Yellow 12/26/17 20:50 Urine Appearance Clear 12/26/17 20:50 Urine pH 5.0 (5.0-8.0) 12/26/17 20:50 Ur Specific [place] 1.014 (1.001-1.035) 12/26/17 20:50 Urine Protein Negative (NEGATIVE) 12/26/17 20:50 Urine Glucose (UA) Negative (NEGATIVE) 12/26/17 20:50 Urine Ketones Negative (NEGATIVE) 12/26/17 20:50 Urine Blood Negative (NEGATIVE) 12/26/17 20:50 Urine Nitrite Negative (NEGATIVE) 12/26/17 20:50 Urine Bilirubin Negative (<2.0 mg/dL) 12/26/17 20:50 Ur Leukocyte Esterase Negative (NEGATIVE) 12/26/17 20:50 ECG atrial fibrillation vent rate 93, QTC 474 left axis deviation TWI lead I, aVLv2, V4, V5, biphasix V3, flattened V6 Radiology reports CXR-official read pending ASSESSMENT/PLAN: 82yF with PMH HTN, CHF, AFIB on xarelto, CKD, DM, PNA s/p hospitalization 12/16- presented to the ED with cough and SOB. Noted to be febrile in ED. PNA - given vanc and meropenem in ED, cont meropenem - ID consult - consider CT chest - Pulm consult Elevated troponin - down from previous admission - likely due to CKD - if second troponin unchanged will DC tele. - cardio consult HTN/CHF - cont home meds: metoprolol, enalapril, lasix HLD - cont lipitor Afib - cont home meds: metoprolol, xarelto DM - diabetic diet - sugars have been well controlled, follow with routine am labs, add fingersticks if elevated JD on CKD - cr 2.0, above baseline 1.3-1.4 - renal consult DVT PPX - on xarelto at home, cont same FEN - hold further IVF as pt with CHF - BMP in am - low sodium/diabetic diet as tolerated Dispo: pt currently requires further inpatient management of his emergent condition Visit type - Emergency Visit Emergency Visit: Yes ED Registration Date: 12/26/17 Care time: The patient presented to the Emergency Department on the above date and was hospitalized for further evaluation of their emergent condition. - New Patient This patient is new to me today: Yes Date on this admission: 12/26/17 - Critical Care Critical Care patient: No Hospitalist Screening - Colonoscopy Questionnaire Colonoscopy Questionnaire: Colonoscopy Questionnaire - Patient: 50 - 75 years old and never had a screening colonoscopy: No History of colon or rectal polyps, or CA: No History of IBD, Crohn's disease or UC: No History of abdominal radiation therapy as a child: No - Relative: 1 with colon or rectal CA, or polyps at age 60 or younger: Unknown Colon or rectal CA diagnosed at age 45 or younger: Unknown Multiple relatives with colon or rectal CA: Unknown - Outcome: Screening Result: Negative Screen
[2017-12-27 05:24] VITALS: BMI 30.2
[2017-12-27 07:26] LABS: BASO % 0.6 % (0-2.0); EOS % 1.7 % (0-4.5); HEMATOCRIT 34.4 % (35.4-49); HEMOGLOBIN 11.3 GM/dL (11.7-16.9); LYMPH % 11.3 % (8-40); MCH 28.8 pg (25.7-33.7); MCHC 32.8 g/dl (32.0-35.9); MEAN CELL VOLUME 87.7 fl (80-96); MEAN PLT VOLUME 9.8 fl (7.5-11.1); MONO % 8.9 % (3.8-10.2); NEUT % 77.5 % (42.8-82.8); PLATELET COUNT 355 K/MM3 (134-434); RBC 3.92 M/mm3 (4.00-5.60); RDW 14.9 % (11.9-15.9); WHITE BLOOD COUNT 14.9 K/mm3 (4.0-10.0)
[2017-12-27 08:18] LABS: ANION GAP 8 MMOL/L (8-16); BLOOD UREA NITROGEN 48 mg/dL (7-18); CALCIUM 8.2 mg/dL (8.5-10.1); CHLORIDE 99 mmol/L (98-107); CO2 28 mmol/L (21-32); CREATININE 1.9 mg/dL (0.55-1.3); GLUCOSE,RANDOM 107 mg/dL (74-106); MAGNESIUM 2.1 mg/dL (1.8-2.4); PHOSPHOROUS 4.3 mg/dL (2.5-4.9); POTASSIUM 3.9 mmol/L (3.5-5.1); SODIUM 136 mmol/L (136-145)
--- NOTE | 2017-12-27 08:28 | PN ---
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, Physician Chief Complaint: EVENTS AND NOTES REVIEWED PATIENT AWAKE EATING BREAKFAST FOOD NOT SWALLOWED AND SPREAD OVER HIS FACE DENIES ASPIRATIONS OR CHOKING - Current Medication List Current Medications: Active Medications Meropenem 500 mg/ Dextrose 100 mls @ 400 mls/hr IVPB ONCE ONE Stop: 12/27/17 10:14 - Objective Vital Signs: Vital Signs Temperature 97.5 F L 12/27/17 05:44 Pulse Rate 102 H 12/27/17 05:44 Respiratory Rate 20 12/27/17 05:44 Blood Pressure 106/58 L 12/27/17 05:44 O2 Sat by Pulse Oximetry (%) 95 12/27/17 05:04 Constitutional: Yes: Mild Distress Eyes: Yes: WNL HENT: Yes: WNL Neck: Yes: WNL Cardiovascular: Yes: Pulse Irregular Respiratory: Yes: Cough, On Nasal O2, Wheezes Gastrointestinal: Yes: WNL Genitourinary: Yes: Incontinence Musculoskeletal: Yes: Muscle Weakness Extremities: Yes: Other Edema: Yes Edema: LLE: 1+, RLE: 1+ Peripheral Pulses WNL: Yes Integumentary: Yes: WNL Wound/Incision: Yes: Clean/Dry Neurological: Yes: Confusion, Pre-Existing Deficit ...Motor Strength: LLE, RLE Psychiatric: Yes: Other Labs: CBC, BMP 12/27/17 07:10 12/27/17 07:10 INR, PTT INR 1.53 (0.83-1.09) H 12/26/17 19:12 Problem List - Problems (1) Acute bronchitis Code(s): J20.9 - ACUTE BRONCHITIS, UNSPECIFIED (2) Pneumonia Code(s): J18.9 - PNEUMONIA, UNSPECIFIED ORGANISM Qualifiers: (3) Sepsis Code(s): A41.9 - SEPSIS, UNSPECIFIED ORGANISM (4) Anemia Code(s): D64.9 - ANEMIA, UNSPECIFIED (5) Atrial fibrillation Code(s): I48.91 - UNSPECIFIED ATRIAL FIBRILLATION Assessment/Plan IV ABX NEBS 02 SUPPORT SWALLOW EVAL R/O CDIFF DVT PROPHYLAXIS
[2017-12-27] MEDS ORDERED: PT OWN MED DRAWER 7, Y5N ONE ×3 (09:31→21:27)
[2017-12-27] MEDS ORDERED: MEROPENEM 500 MG in DEXTROSE 5%-WATER 100 ML IVPB ONE (10:00)
--- NOTE | 2017-12-27 11:08 | CON.CARD ---
Consult Consult Specialty:: Cardiology Referred by:: Luh Reason for Consultation:: elevated troponin - History of Present Illness Chief Complaint: cough, dyspnea History of Present Illness: 82M h/o HTN, CHF, afib, CKD, DM p/w PNA. had recent admission for PNA 12/16-. Has had cough, dyspnea for two days. WBC 19.7. febrile in ER. EKG shows no ischemic changes. Trop 0.58->0.55->0.44. lactate 3.3, Cr 1.9. on recent admission trop 2.7 on 12/23 in setting of sepsis. Received IV abx in ER. 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 History of Recent Travel: No Home Medications - Allergies Allergies/Adverse Reactions: Allergies Allergy/AdvReac Type Severity Reaction Status Date / Time Penicillins Allergy Severe Hives Verified 12/26/17 18:12 - Home Medications Home Medications: Ambulatory Orders Calcium Carbonate/Vitamin D3 [Oyster Shell 500-Vit D3 200 Tb] 1 each PO BID Clotrimazole/Betamethasone Dip [Clotrimazole-Betamethasone Crm] 45 gm TP BID Fenofibric Acid [Trilipix -] 45 mg PO DAILY 12/18/17 Guaifenesin 100 mg PO TID 12/18/17 Metformin HCl [Metformin HCl ER] 500 mg PO BID 12/18/17 Mometasone Furoate [Asmanex] 2 puff IH DAILY 12/18/17 Rivaroxaban [Xarelto -] 20 mg PO DAILY 12/18/17 Acetaminophen [Tylenol .Regular Strength -] 650 mg PO Q6H PRN tablet 12/24/17 Albuterol 2.5/Ipratropium 0.5 [Duoneb -] 1 amp NEB Q4H PRN amp 12/24/17 Allopurinol [Zyloprim -] 100 mg PO DAILY tablet 12/24/17 Aspirin [ASA -] 81 mg PO DAILY tab.chew 12/24/17 Atorvastatin Ca [Lipitor] 80 mg PO HS tablet 12/24/17 Enalapril Maleate [Vasotec -] 2.5 mg PO BID tablet 12/24/17 Ferrous Sulfate [Feosol] 325 mg PO DAILY #30 tablet 12/24/17 Furosemide [Lasix -] 40 mg PO BID@0600,1400 tablet 12/24/17 Mupirocin Ointment [Bactroban Ointment (For Decolonization) -] 1 applic NS BID applic 12/24/17 Polyethylene Glycol 3350 [Miralax 119 gm Btl -] 17 gm PO DAILY bottle 12/24/17 Sennosides [Senna -] 2 tab PO HS PRN tablet 12/24/17 Magnesium Hydrox 2400MG/30Ml [Milk of Magnesia -] 30 ml PO DAILY PRN 12/27/17 Metoprolol Succinate [Toprol XL -] 150 mg PO DAILY 12/27/17 Family Disease History - Family Disease History Family History: Unremarkable Review of Systems - Review of Systems Constitutional: reports: No Symptoms Eyes: reports: No Symptoms HENT: reports: No Symptoms Neck: reports: No Symptoms Cardiovascular: reports: No Symptoms Respiratory: reports: No Symptoms Gastrointestinal: reports: No Symptoms Genitourinary: reports: No Symptoms Musculoskeletal: reports: No Symptoms Integumentary: reports: No Symptoms Neurological: reports: No Symptoms Endocrine: reports: No Symptoms Hematology/Lymphatic: reports: No Symptoms Psychiatric: reports: No Symptoms Vital Signs: Vital Signs Temperature 97.5 F L 12/27/17 05:44 Pulse Rate 102 H 12/27/17 05:44 Respiratory Rate 20 12/27/17 05:44 Blood Pressure 106/58 L 12/27/17 05:44 O2 Sat by Pulse Oximetry (%) 95 12/27/17 05:04 Constitutional: Yes: Well Nourished, No Distress, Calm Eyes: Yes: Conjunctiva Clear, EOM Intact HENT: Yes: Atraumatic, Normocephalic Neck: Yes: Supple Respiratory: Yes: Regular, CTA Bilaterally Gastrointestinal: Yes: Normal Bowel Sounds, Soft Cardiovascular: Yes: Pulse Irregular JVD: No Heart Sounds: Yes: S1, S2 Murmur: Yes: Systolic Murmur, Grade 2 Musculoskeletal: Yes: WNL Extremities: Yes: WNL Edema: No Peripheral Pulses: 2+ Left Doralis Pedis, 2+ Right Dorsalis Pedis Integumentary: Yes: WNL Neurological: Yes: Alert, Oriented ...Motor Strength: WNL Psychiatric: Yes: Alert, Oriented - Other Data Labs, Other Data: CBC, BMP 12/27/17 07:10 12/27/17 07:10 INR, PTT INR 1.53 (0.83-1.09) H 12/26/17 19:12 Troponin, BNP 12/26/17 12/27/17 12/27/17 19:12 00:50 07:10 Troponin I 0.58 H 0.56 H 0.44 H 12/27/17 07:10 Troponin I Cancelled Troponin, BNP 12/26/17 12/27/17 12/27/17 19:12 00:50 07:10 Troponin I 0.58 H 0.56 H 0.44 H 12/27/17 07:10 Troponin I Cancelled Assessment/Plan echo 12/2017 mod , nl RV function, severe septal hypokinesis, apical dyskinesis. severely hypokinetic anterior, septa brannon with apical dyskinesis and hypercontractile base c/w LAD infarct vs takotsubo. LV function mod to severely reduced. RA mildly reduced function, mod to severe MR, severe anterior wall hypokinesis EKG: afib, LAD, old septal infarct 82M h/o HTN, CHF, afib, CKD, DM p/w PNA +troponin - trop lower than during recent admission, was 2.7 on 12/23 now 0.44 - likely related to demand in setting of PNA/recent sepsis, stable EKG -now downtrending, not concerning for ACS Chronic systolic hf - likely intravascularly depleted, holding diuretics - holding enalapril in setting of JD - initially low BP, would restart metoprolol when BP stable - cautious use of IVF in setting of known HF PNA - on abx per primary team afib - continue xarelto - rate controlled, restart metoprolol when BP stable CKD - renal following - holding enalapril in setting of JD
--- NOTE | 2017-12-27 11:35 | CON.PULM ---
Consult Consult Specialty:: PULMONARY Referred by:: MYRNA Malave Reason for Consultation:: r/o pneumonia - History of Present Illness Chief Complaint: cough History of Present Illness: 82yo male with h/o HTN, DM, atrial fibrillation, LV systolic dysfunction, mitral regurgitation, CKD, recent admission for UTI who was admitted with cough and shortness of breath x 2 days. No chest pain or palpitations. Febrile to 100.8 on presentation. Reports a cough productive of brown sputum. No wheezing. Also reports some diarrhea. CXR without acute infiltrates. 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 History of Recent Travel: No Home Medications - Allergies Allergies/Adverse Reactions: Allergies Allergy/AdvReac Type Severity Reaction Status Date / Time Penicillins Allergy Severe Hives Verified 12/26/17 18:12 - Home Medications Home Medications: Ambulatory Orders Calcium Carbonate/Vitamin D3 [Oyster Shell 500-Vit D3 200 Tb] 1 each PO BID Clotrimazole/Betamethasone Dip [Clotrimazole-Betamethasone Crm] 45 gm TP BID Fenofibric Acid [Trilipix -] 45 mg PO DAILY 12/18/17 Guaifenesin 100 mg PO TID 12/18/17 Metformin HCl [Metformin HCl ER] 500 mg PO BID 12/18/17 Mometasone Furoate [Asmanex] 2 puff IH DAILY 12/18/17 Rivaroxaban [Xarelto -] 20 mg PO DAILY 12/18/17 Acetaminophen [Tylenol .Regular Strength -] 650 mg PO Q6H PRN tablet 12/24/17 Albuterol 2.5/Ipratropium 0.5 [Duoneb -] 1 amp NEB Q4H PRN amp 12/24/17 Allopurinol [Zyloprim -] 100 mg PO DAILY tablet 12/24/17 Aspirin [ASA -] 81 mg PO DAILY tab.chew 12/24/17 Atorvastatin Ca [Lipitor] 80 mg PO HS tablet 12/24/17 Enalapril Maleate [Vasotec -] 2.5 mg PO BID tablet 12/24/17 Ferrous Sulfate [Feosol] 325 mg PO DAILY #30 tablet 12/24/17 Furosemide [Lasix -] 40 mg PO BID@0600,1400 tablet 12/24/17 Mupirocin Ointment [Bactroban Ointment (For Decolonization) -] 1 applic NS BID applic 12/24/17 Polyethylene Glycol 3350 [Miralax 119 gm Btl -] 17 gm PO DAILY bottle 12/24/17 Sennosides [Senna -] 2 tab PO HS PRN tablet 12/24/17 Magnesium Hydrox 2400MG/30Ml [Milk of Magnesia -] 30 ml PO DAILY PRN 12/27/17 Metoprolol Succinate [Toprol XL -] 150 mg PO DAILY 12/27/17 Review of Systems - Review of Systems Constitutional: reports: Fever, Weakness. denies: Chills Eyes: denies: Recent Change in Vision HENT: denies: Nasal Congestion, Throat Pain Neck: denies: Stiffness, Tenderness Cardiovascular: reports: Shortness of Breath. denies: Chest Pain Respiratory: reports: Cough, SOB. denies: Hemoptysis, Wheezing Gastrointestinal: denies: Abdominal Pain, Nausea, Vomiting Genitourinary: denies: Dysuria, Hematuria Neurological: denies: Dizziness, Headache Physical Exam Vital Sings: Vital Signs Temperature 97.5 F L 12/27/17 05:44 Pulse Rate 102 H 12/27/17 05:44 Respiratory Rate 20 12/27/17 05:44 Blood Pressure 106/58 L 12/27/17 05:44 O2 Sat by Pulse Oximetry (%) 95 12/27/17 05:04 Constitutional: Yes: Calm Eyes: Yes: Conjunctiva Clear, EOM Intact HENT: Yes: Atraumatic, Normocephalic Neck: Yes: Supple, Trachea Midline Cardiovascular: Yes: Regular Rate and Rhythm Respiratory: Yes: Rhonchi (scattered) ...Clubbing: No Gastrointestinal: Yes: Normal Bowel Sounds, Soft. No: Tenderness Edema: No Neurological: Yes: Alert Labs: CBC, BMP 12/27/17 07:10 12/27/17 07:10 Imaging - Results Chest X-ray: Report Reviewed, Image Reviewed (no infiltrates) Problem List - Problems (1) Acute bronchitis Code(s): J20.9 - ACUTE BRONCHITIS, UNSPECIFIED (2) Sepsis Code(s): A41.9 - SEPSIS, UNSPECIFIED ORGANISM (3) JD (acute kidney injury) Code(s): N17.9 - ACUTE KIDNEY FAILURE, UNSPECIFIED (4) Atrial fibrillation Code(s): I48.91 - UNSPECIFIED ATRIAL FIBRILLATION (5) CHF (congestive heart failure) Code(s): I50.9 - HEART FAILURE, UNSPECIFIED (6) Hyperlipidemia Code(s): E78.5 - HYPERLIPIDEMIA, UNSPECIFIED (7) Hypertension Code(s): I10 - ESSENTIAL (PRIMARY) HYPERTENSION Qualifiers: Hypertension type: essential hypertension Qualified Code(s): I10 - Essential (primary) hypertension Assessment/Plan r/o Acute Bronchitis Sepsis Lactic Acidosis Acute on Chronic Renal Failure LV Systolic Dysfunction Mitral Regurgitation Atrial Fibrillation HTN DM - empiric antibiotics - f/u cultures - send stool for C diff given recent antibiotics and diarrhea - IVF - monitor urine output, creatinine - O2 to keep SpO2 >90% - rate control - continue anticoagulation Thank you for this consult Sunday Tyler MD
--- NOTE | 2017-12-27 12:10 | EKG ---
Test Reason : Blood Pressure : / mmHG Vent. Rate : 093 BPM Atrial Rate : 105 BPM P-R Int : 000 ms QRS Dur : 088 ms QT Int : 382 ms P-R-T Axes : 000 -35 118 degrees QTc Int : 474 ms ATRIAL FIBRILLATION LEFT AXIS DEVIATION SEPTAL INFARCT (CITED ON OR BEFORE 18-DEC-2017) T WAVE ABNORMALITY, CONSIDER LATERAL ISCHEMIA ABNORMAL ECG WHEN COMPARED WITH ECG OF 26-DEC-2017 18:31, COMPARED TO EKG NO SIGNIFICANT CHANGE IS FOUND Confirmed by MARIELLA BAGLEY MD ([id number]) on 12/27/2017 12:09:43 PM Referred By: Confirmed By:MARIELLA BAGLEY MD
--- NOTE | 2017-12-27 12:22 | PN ---
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 (short form) - Note 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: Renal follow up for JD Pt was recently admitted for CHF and JD, now presents with fever, sob, and admitted for sepsis with Cr of 1.9. Pt seen at the bedside, has no acute complaints. Reports having emesis a few times at home. No Abd pain, N/V/D currently. Making urine, denies any blood in urine, flank pian or NSAID use. No recent contrast exposure. Pt was on diuretics on discharge. Vital Signs Temperature 97.5 F L 12/27/17 05:44 Pulse Rate 102 H 12/27/17 05:44 Respiratory Rate 20 12/27/17 05:44 Blood Pressure 106/58 L 12/27/17 05:44 O2 Sat by Pulse Oximetry (%) 95 12/27/17 05:04 Intake & Output 12/24/17 12/25/17 12/26/17 12/27/17 23:59 23:59 23:59 23:59 Intake Total 275 Balance 275 Weight 106.594 kg 101.151 kg NAD awake and alert RRR, No M/R CTA, no rales or wheeze soft Nt/ND + edema by ankles CBC, BMP 12/27/17 07:10 12/27/17 07:10 Current Medications Nystatin/Triamcinolone Acetonide (Mycolog Ii Ointment -) 1 applic TP BID HAILEY 82 year old gentleman with Hx of DM, CKD (unclear baseline Cr), Afib on A/C, CHF (preserved LV function on last echo), Hypertension who presented from [facility] with SOB and Fever and admitted for sepsis with Cr of 1.9. #JD on CKD #PNA/bronchitis #CHF #DM #Hypertension #Elevated Troponin Renal function worse then values at last discharge agree pt is likely intravascularly volume depleted in setting of sepsis and diuretic use (low BP, high BUN/Cr use) would continue to hold diuretics for now s/p 2L of IVF in the ED, would continue NS at 75cc per hour for 24 hours empiric Abx as per JALIL Fan DO
[2017-12-27] MEDS ORDERED: SODIUM CHLORIDE 1,000 ML IV SCH (12:30)
--- NOTE | 2017-12-27 12:30 | CONSULT ---
Admitting History and Physical - Primary Care Physician PCP: Lindsay Arvizu - Admission History of Present Illness: 82 year old gentleman with Hx of DM, CKD , Afib on A/C, CHF , Hypertension who presented from [facility] with SOB and Fever and admitted for sepsis. Reports having emesis a few times at home. CXR (-) infiltrates. This is my first consult with this pt. 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 History of Recent Travel: No History - Admission Reason For Visit: SEPSIS, PNEUMONIA - Diagnostics X-ray: Report Reviewed - General Mental Status: Alert and Oriented, Awake and Alert, Able to Follow Commands, Vague ("Leave me alone") Attention: Distractible, Mild Impairment Ability to Follow Directions: Fair Head/Neck Control: Fair - Hearing Hearing: Normal Hearing Aide: No Speech Evaluation - Communication Primary Language: BURMESE Communication: Yes: Simple Responses - Speech Production Able to Make Needs Known: Yes: WNL Intelligibility: Yes: Mildly Impaired - Speech Characteristics Voice Loudness: Normal Voice Pitch: Yes: Normal Voice Phonatory-based Quality: Yes: Dysphonia, Vocal Wetness Speech Pattern: Impaired Speech Clarity: < 75% Nasal Resonance: Normal Articulation: Yes: Precise - Language/Auditory Comprehension Follows: Yes: 1 Stage Simple Commands - Language/Verbal Expression Able to Respond to Simple Queries: Yes: Mildly Impaired Able to Communicate Wants and Needs: Yes: Mildly Impaired Functional Communication Status: Yes: Mildly Impaired - Swallow Evaluation/Bedside Assessment Current Nutritional Intake: Regular, Thin Liquids Oral Secretions: Yes: WFL Dentition: Yes: Missing Teeth Laryngeal Movement: Able to Palpate Rate of Intake: Impulsive Timing of Swallow: WFL Coughing/Throat Clear: No Change in Voice: No Recommendations - Speech Evaluation, Impression/Plan Impression: Verbal. Limited cooperation, wanting to be left alone. 3 oz water test (-). Recurrent bronchitis/PNA? Dysphonia. Suggested MBS, however, pt refused today. R/o silent aspiration. - Dysphagia Impressions/Plan Dysphagia Impressions: Risk of Aspiration, Ongoing Evaluation, Refused PO Trials *Silent aspiration: cannot be R/O at bedside Recommendations: Modified Barium Swallow
--- NOTE | 2017-12-27 14:31 | PN ---
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 (short form) - Note 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: ID Consult dictated Fever/ leukocytosis ? source Possible sepsis secondary to lung v. source Lactic acidosis Azotemia ? C difficile Pending c/s empiric cefepime
--- NOTE | 2017-12-27 15:58 | CONS ---
DATE OF CONSULTATION: DATE OF DICTATION: 12/27/2017 HISTORY: The patient is an 82-year-old male who is evaluated for possible sepsis. He was recently hospitalized at [facility] from December 18 through December 24. He was treated for congestive heart failure, rapid atrial fibrillation, and urinary tract infection. He was discharged to the correction. He now returns with a 1-day history of shortness of breath, cough, fever, and vomiting. The patient was noted to be short of breath with cough, febrile to 100.8. Cough was productive of brownish sputum. Also had nausea and vomiting. Some diarrhea was also reported. He was evaluated at [facility] where a chest x-ray is negative for acute infiltrate. Urinalysis shows no white cells. He was, however, noted to have a white blood cell count of 19.2 and a lactic acid of 3.3. Cultures were obtained. He was empirically treated with vancomycin and Meropenem. Nursing staff states he has not had recurrent diarrhea. The patient is unable to give a reliable history secondary to dementia. PAST MEDICAL HISTORY: Positive for diabetes mellitus, hypertension, chronic kidney disease, congestive heart failure, gouty arthritis, atrial fibrillation. PAST SURGICAL HISTORY: Status post right total knee replacement. ALLERGIES: PENICILLIN (hives). The patient has tolerated cephalosporins in the past. SOCIAL HISTORY: prison resident. No active tobacco or alcohol use. SYSTEMS REVIEW: Neurologic: Positive for dementia. Cardiac: Positive for atrial fibrillation. Respiratory: As per HPI. Gastrointestinal: Positive for vomiting and loose bowel movements. Genitourinary: Status post urinary tract infection. LABORATORY DATA: White count on admission 19.7, hematocrit 34.4, platelet count 355, BUN 48, creatinine 1.9, lactic acid 3.3. Urinalysis negative leukocyte esterase. Cultures are pending. PHYSICAL EXAMINATION: General: He is out of bed to chair. He is awake. He appears slightly dyspneic at rest. Vital Signs: Temperature 98, T-max 100.8, blood pressure 144/98, pulse 100 and regular, respirations 20 per minute. HEENT: Sclerae anicteric. Heart: Sounds S1, S2. Irregular with a 2/6 pansystolic murmur. Lungs: Crepitations at the bases bilaterally. Abdomen: Obese, soft, nontender. Positive umbilical hernia. Extremities: Lower extremities positive for edema. IMPRESSION: 1. Fever, leukocytosis, unclear source. 2. Possible sepsis secondary to lung versus genitourinary source. 3. Lactic acidosis. 4. Azotemia. 5. Loose bowel movements. PLAN: Source of fever and leukocytosis is not clear. Await cultures. The patient has been given STAT doses of vancomycin and Meropenem. Will continue cefepime 1 g IV piggyback every 12 hours pending sepsis workup. Obtain stools for Clostridium difficile should patient have diarrhea. We will follow. Thank you for the kind referral. HEAVEN LANGE M.D. [id number]
[2017-12-27] MEDS: NYSTATIN/TRIAMCINOLONE TOPICAL OINTMENT 15 GM TUBE TP SCH ×2 (17:43→22:04)
[2017-12-27] MEDS: ENALAPRIL MALEATE 2.5 MG TABLET (FP) PO SCH (17:44)
[2017-12-27] MEDS: RIVAROXABAN 15 MG TABLET PO SCH (18:17)
[2017-12-27] MEDS ORDERED: INSULIN (NOVOLOG) ASPART 100 UNITS/ML 10ML VIAL ONE (21:26)
[2017-12-27] MEDS ORDERED: NYSTATIN/TRIAMCINOLONE TOPICAL CREAM 15 GM TUBE TP SCH (22:00)
[2017-12-27] MEDS: ATORVASTATIN CA 80 MG TABLET (FP) PO SCH (22:03)
[2017-12-27] MEDS: metoPROLOL SUCCINATE 25 MG TAB.SR.24H (FP) PO SCH (22:03)
[2017-12-27] MEDS: CEFEPIME HCL/D5W 1 GM/50 ML BAG IVPB SCH (22:04)
[2017-12-27] MEDS: INSULIN SLIDING SCALE (NOVOLOG) 1 VIAL SQ SCH (22:08)
[2017-12-27] MEDS: MOMETASONE FUROATE 110 MCG/IH INHALER IH SCH (22:11)
[2017-12-28] MEDS: ALBUTEROL SO4 2.5/IPRATROPIUM 0.5 INH SOL 3 ML VIAL.NEB. NEB PRN ×2 (04:11→17:25)
[2017-12-28] MEDS: FUROSEMIDE 40 MG TABLET (FP) PO SCH ×2 (06:34→14:40)
[2017-12-28] MEDS: INSULIN SLIDING SCALE (NOVOLOG) 1 VIAL SQ SCH ×4 (06:35→21:40)
--- NOTE | 2017-12-28 08:24 | PN ---
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, Physician Chief Complaint: AWAKE ALERT SCHEDULED MODIFIED BARIUM SWALLOW TEST TODAY NO ACUTE CHANGES OVERNIGHT - Current Medication List Current Medications: Active Medications Albuterol/Ipratropium (Duoneb -) 1 amp NEB Q6H PRN PRN Reason: SHORTNESS OF BREATH Last Admin: 12/28/17 04:11 Dose: 1 amp Allopurinol (Zyloprim -) 100 mg PO DAILY [facility] Aspirin (Ecotrin -) 81 mg PO DAILY [facility] Atorvastatin Calcium (Lipitor -) 80 mg PO HS [facility] Last Admin: 12/27/17 22:03 Dose: 80 mg Enalapril Maleate (Vasotec -) 2.5 mg PO DAILY [facility] Last Admin: 12/27/17 17:44 Dose: 2.5 mg Furosemide (Lasix -) 40 mg PO BID@0600,1400 [facility] Last Admin: 12/28/17 06:34 Dose: 40 mg Sodium Chloride (Normal Saline -) 1,000 mls @ 75 mls/hr IV ASDIR [facility] Last Admin: 12/27/17 17:43 Dose: 75 mls/hr Cefepime HCl (Maxipime 1 Gm Premix Ivpb) 1 gm in 50 mls @ 100 mls/hr IVPB BID [facility]; Protocol Last Admin: 12/27/17 22:04 Dose: 100 mls/hr Insulin Aspart (Novolog Vial Sliding Scale -) 1 vial SQ ACHS [facility]; Protocol Last Admin: 12/28/17 06:35 Dose: Not Given Metoprolol Succinate (Toprol Xl -) 25 mg PO BID [facility] Last Admin: 12/27/17 22:03 Dose: 25 mg Mometasone Furoate (Asmanex 110mcg -) 1 puff IH BID [facility] Last Admin: 12/27/17 22:11 Dose: 1 puff Nystatin/Triamcinolone Acetonide (Mycolog Ii Ointment -) 1 applic TP BID [facility] Last Admin: 12/27/17 22:04 Dose: 1 applic Rivaroxaban (Xarelto -) 15 mg PO DAILY@1800 [facility] Last Admin: 12/27/17 18:17 Dose: 15 mg - Objective Vital Signs: Vital Signs Temperature 98 F 12/28/17 06:00 Pulse Rate 112 H 12/28/17 06:00 Respiratory Rate 20 12/28/17 06:00 Blood Pressure 106/60 12/28/17 06:00 O2 Sat by Pulse Oximetry (%) 94 L 12/27/17 09:00 Constitutional: Yes: No Distress Eyes: Yes: WNL HENT: Yes: WNL Neck: Yes: WNL Cardiovascular: Yes: Pulse Irregular Respiratory: Yes: Cough, On Nasal O2 Gastrointestinal: Yes: WNL Genitourinary: Yes: Incontinence Musculoskeletal: Yes: Muscle Weakness Extremities: Yes: Other Edema: LLE: 1+, RLE: 1+ Peripheral Pulses WNL: Yes Integumentary: Yes: WNL Wound/Incision: Yes: Clean/Dry Neurological: Yes: Pre-Existing Deficit ...Motor Strength: LLE, RLE Psychiatric: Yes: Other Labs: CBC, BMP 12/27/17 07:10 12/27/17 07:10 INR, PTT INR 1.53 (0.83-1.09) H 12/26/17 19:12 Problem List - Problems (1) Acute bronchitis Code(s): J20.9 - ACUTE BRONCHITIS, UNSPECIFIED (2) Pneumonia Code(s): J18.9 - PNEUMONIA, UNSPECIFIED ORGANISM Qualifiers: (3) Sepsis Code(s): A41.9 - SEPSIS, UNSPECIFIED ORGANISM (4) Anemia Code(s): D64.9 - ANEMIA, UNSPECIFIED (5) Atrial fibrillation Code(s): I48.91 - UNSPECIFIED ATRIAL FIBRILLATION Assessment/Plan FAILED SWALLOW EVAL ASPIRATION PRECAUTIONS ADVISED SITTING WHILE EATING MEALS ID F/U CHECK CX PULM EVAL AC FOR AFIB
[2017-12-28 10:07] LABS: HEMATOCRIT 36.6 % (35.4-49); MCH 28.7 pg (25.7-33.7); MCHC 32.7 g/dl (32.0-35.9); MEAN CELL VOLUME 87.9 fl (80-96); MEAN PLT VOLUME 10.6 fl (7.5-11.1); PLATELET COUNT 367 K/MM3 (134-434); RBC 4.17 M/mm3 (4.00-5.60); WHITE BLOOD COUNT 16.4 K/mm3 (4.0-10.0)
[2017-12-28] MEDS ORDERED: PT OWN MED DRAWER 7, Y5N ONE ×2 (10:12→21:20)
[2017-12-28] MEDS: CEFEPIME HCL/D5W 1 GM/50 ML BAG IVPB SCH ×2 (10:35→21:36)
[2017-12-28 10:44] LABS: ANION GAP 12 MMOL/L (8-16); BLOOD UREA NITROGEN 39 mg/dL (7-18); CALCIUM 8.8 mg/dL (8.5-10.1); CHLORIDE 99 mmol/L (98-107); CO2 26 mmol/L (21-32); CREATININE 1.7 mg/dL (0.55-1.3); GLUCOSE,RANDOM 199 mg/dL (74-106); MAGNESIUM 2.1 mg/dL (1.8-2.4); PHOSPHOROUS 3.3 mg/dL (2.5-4.9); POTASSIUM 3.9 mmol/L (3.5-5.1); SODIUM 137 mmol/L (136-145)
--- NOTE | 2017-12-28 11:55 | PN ---
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 (short form) - Note 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: PULMONARY More short of breath today. No further fevers. Vital Signs Period Temp Pulse Resp BP Sys/[place] Pulse Ox Last 24 Hr 98 F-98.7 F 80-112 20-20 106-138/60-88 Gen: more tachypneic Heart: RRR Lung: scattered rhonchi Abd: soft, nontender Ext: + edema CBC, BMP 12/28/17 09:25 12/28/17 09:25 Active Medications Albuterol/Ipratropium (Duoneb -) 1 amp NEB Q6H PRN PRN Reason: SHORTNESS OF BREATH Last Admin: 12/28/17 04:11 Dose: 1 amp Allopurinol (Zyloprim -) 100 mg PO DAILY [facility] Aspirin (Ecotrin -) 81 mg PO DAILY [facility] Atorvastatin Calcium (Lipitor -) 80 mg PO HS [facility] Last Admin: 12/27/17 22:03 Dose: 80 mg Enalapril Maleate (Vasotec -) 2.5 mg PO DAILY [facility] Last Admin: 12/27/17 17:44 Dose: 2.5 mg Furosemide (Lasix -) 40 mg PO BID@0600,1400 [facility] Last Admin: 12/28/17 06:34 Dose: 40 mg Sodium Chloride (Normal Saline -) 1,000 mls @ 75 mls/hr IV ASDIR [facility] Last Admin: 12/27/17 17:43 Dose: 75 mls/hr Cefepime HCl (Maxipime 1 Gm Premix Ivpb) 1 gm in 50 mls @ 100 mls/hr IVPB BID [facility]; Protocol Last Admin: 12/27/17 22:04 Dose: 100 mls/hr Insulin Aspart (Novolog Vial Sliding Scale -) 1 vial SQ ACHS [facility]; Protocol Last Admin: 12/28/17 06:35 Dose: Not Given Metoprolol Succinate (Toprol Xl -) 25 mg PO BID [facility] Last Admin: 12/27/17 22:03 Dose: 25 mg Mometasone Furoate (Asmanex 110mcg -) 1 puff IH BID [facility] Last Admin: 12/27/17 22:11 Dose: 1 puff Nystatin/Triamcinolone Acetonide (Mycolog Ii Ointment -) 1 applic TP BID [facility] Last Admin: 12/27/17 22:04 Dose: 1 applic Rivaroxaban (Xarelto -) 15 mg PO DAILY@1800 [facility] Last Admin: 12/27/17 18:17 Dose: 15 mg A/P r/o Acute Bronchitis Sepsis Lactic Acidosis Acute on Chronic Renal Failure LV Systolic Dysfunction Mitral Regurgitation Atrial Fibrillation HTN DM - repeat CXR - will d/c IVF, may need IV lasix - empiric antibiotics - f/u cultures - send stool for C diff given recent antibiotics and diarrhea - monitor urine output, creatinine - O2 to keep SpO2 >90% - rate control - continue anticoagulation Problem List - Problems (1) Acute bronchitis Code(s): J20.9 - ACUTE BRONCHITIS, UNSPECIFIED (2) Sepsis Code(s): A41.9 - SEPSIS, UNSPECIFIED ORGANISM (3) JD (acute kidney injury) Code(s): N17.9 - ACUTE KIDNEY FAILURE, UNSPECIFIED (4) Atrial fibrillation Code(s): I48.91 - UNSPECIFIED ATRIAL FIBRILLATION (5) CHF (congestive heart failure) Code(s): I50.9 - HEART FAILURE, UNSPECIFIED (6) Hyperlipidemia Code(s): E78.5 - HYPERLIPIDEMIA, UNSPECIFIED (7) Hypertension Code(s): I10 - ESSENTIAL (PRIMARY) HYPERTENSION Qualifiers: Hypertension type: essential hypertension Qualified Code(s): I10 - Essential (primary) hypertension
[2017-12-28] MEDS: ASPIRIN COATED 81 MG TABLET.EC PO SCH (12:22)
[2017-12-28] MEDS: ENALAPRIL MALEATE 2.5 MG TABLET (FP) PO SCH (12:22)
[2017-12-28] MEDS: ALLOPURINOL 100 MG TABLET (FP) PO SCH (12:22)
[2017-12-28] MEDS: metoPROLOL SUCCINATE 25 MG TAB.SR.24H (FP) PO SCH ×2 (12:23→21:35)
[2017-12-28] MEDS: MOMETASONE FUROATE 110 MCG/IH INHALER IH SCH ×2 (12:23→21:35)
[2017-12-28] MEDS: NYSTATIN/TRIAMCINOLONE TOPICAL OINTMENT 15 GM TUBE TP SCH ×2 (12:24→21:37)
--- NOTE | 2017-12-28 15:25 | PN ---
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 (short form) - Note 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: s: no cp sob palps dizzy; cough improving o: Vital Signs Period Temp Pulse Resp BP Sys/[place] Pulse Ox Last 24 Hr 98 F-98.7 F 80-112 20-20 106-138/60-88 Constitutional: Yes: Well Nourished, No Distress, Calm Eyes: Yes: Conjunctiva Clear Respiratory: Yes: Regular, CTA Bilaterally Gastrointestinal: Yes: Normal Bowel Sounds, Soft Cardiovascular: Yes: Pulse Irregular JVD: No Heart Sounds: Yes: S1, S2 Murmur: Yes: Systolic Murmur, Grade 2 Edema: No Integumentary: no jaundice diaphoresis alert awake appropriate Current Medications Generic Name Dose Route Start Last Admin Trade Name Freq PRN Reason Stop Dose Admin Albuterol/Ipratropium 1 amp 12/27/17 16:33 12/28/17 04:11 Duoneb - NEB 1 amp Q6H PRN Administration SHORTNESS OF BREATH Allopurinol 100 mg 12/28/17 10:00 12/28/17 12:22 Zyloprim - PO 100 mg DAILY [facility] Administration Aspirin 81 mg 12/28/17 10:00 12/28/17 12:22 Ecotrin - PO 81 mg DAILY [facility] Administration Atorvastatin Calcium 80 mg 12/27/17 22:00 12/27/17 22:03 Lipitor - PO 80 mg HS [facility] Administration Enalapril Maleate 2.5 mg 12/27/17 16:45 12/28/17 12:22 Vasotec - PO 2.5 mg DAILY [facility] Administration Furosemide 40 mg 12/28/17 06:00 12/28/17 06:34 Lasix - PO 40 mg BID@0600,1400 [facility] Administration Cefepime HCl 1 gm in 50 mls @ 100 mls/hr 12/27/17 22:00 12/27/17 22:04 Maxipime 1 Gm Premix Ivpb IVPB 100 mls/hr BID [facility] Administration Protocol Insulin Aspart 1 vial 12/27/17 22:00 12/28/17 12:25 Novolog Vial Sliding Scale - SQ Not Given ACHS [facility] Protocol Metoprolol Succinate 25 mg 12/27/17 22:00 12/28/17 12:23 Toprol Xl - PO 25 mg BID [facility] Administration Mometasone Furoate 1 puff 12/27/17 22:00 12/28/17 12:23 Asmanex 110mcg - IH 1 puff BID [facility] Administration Nystatin/Triamcinolone Acetonide 1 applic 12/27/17 10:00 12/28/17 12:24 Mycolog Ii Ointment - TP 1 applic BID [facility] Administration Rivaroxaban 15 mg 12/27/17 18:00 12/27/17 18:17 Xarelto - PO 15 mg DAILY@1800 [facility] Administration CBC, BMP 12/28/17 09:25 12/28/17 09:25 Assessment/Plan echo 12/2017 mod , nl RV function, severe septal hypokinesis, apical dyskinesis. severely hypokinetic anterior, septa brannon with apical dyskinesis and hypercontractile base c/w LAD infarct vs takotsubo. LV function mod to severely reduced. RA mildly reduced function, mod to severe MR, severe anterior wall hypokinesis EKG: afib, LAD, old septal infarct 82M h/o HTN, CHF, afib, CKD, DM p/w PNA +troponin - trop lower than during recent admission, was 2.7 on 12/23 now 0.44 - likely related to demand in setting of PNA/recent sepsis, stable EKG - downtrending, not concerning for ACS Chronic systolic hf - on po lasix, bb - holding enalapril in setting of JD PNA - on abx per primary team afib - continue xarelto - rate controlled, cont bb CKD - renal following - holding enalapril in setting of JD
[2017-12-28] MEDS: RIVAROXABAN 15 MG TABLET PO SCH (17:16)
[2017-12-28] MEDS: ATORVASTATIN CA 80 MG TABLET (FP) PO SCH (21:35)
[2017-12-29] MEDS: ALBUTEROL SO4 2.5/IPRATROPIUM 0.5 INH SOL 3 ML VIAL.NEB. NEB PRN ×4 (00:44→22:00)
[2017-12-29] MEDS: FUROSEMIDE 40 MG TABLET (FP) PO SCH ×2 (06:28→14:26)
[2017-12-29] MEDS: INSULIN SLIDING SCALE (NOVOLOG) 1 VIAL SQ SCH ×4 (06:30→21:30)
[2017-12-29] MEDS ORDERED: PT OWN MED DRAWER 7, Y5N ONE ×4 (08:00→23:12)
--- NOTE | 2017-12-29 09:07 | PN ---
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, Physician Chief Complaint: AWAKE ALERT FEELING BETTER - Current Medication List Current Medications: Active Medications Albuterol/Ipratropium (Duoneb -) 1 amp NEB Q6H PRN PRN Reason: SHORTNESS OF BREATH Last Admin: 12/29/17 07:42 Dose: 1 amp Allopurinol (Zyloprim -) 100 mg PO DAILY [facility] Last Admin: 12/28/17 12:22 Dose: 100 mg Aspirin (Ecotrin -) 81 mg PO DAILY [facility] Last Admin: 12/28/17 12:22 Dose: 81 mg Atorvastatin Calcium (Lipitor -) 80 mg PO HS [facility] Last Admin: 12/28/17 21:35 Dose: 80 mg Enalapril Maleate (Vasotec -) 2.5 mg PO DAILY [facility] Last Admin: 12/28/17 12:22 Dose: 2.5 mg Furosemide (Lasix -) 40 mg PO BID@0600,1400 [facility] Last Admin: 12/29/17 06:28 Dose: 40 mg Cefepime HCl (Maxipime 1 Gm Premix Ivpb) 1 gm in 50 mls @ 100 mls/hr IVPB BID [facility]; Protocol Last Admin: 12/28/17 21:36 Dose: 100 mls/hr Insulin Aspart (Novolog Vial Sliding Scale -) 1 vial SQ ACHS [facility]; Protocol Last Admin: 12/29/17 06:30 Dose: Not Given Metoprolol Succinate (Toprol Xl -) 25 mg PO BID [facility] Last Admin: 12/28/17 21:35 Dose: 25 mg Mometasone Furoate (Asmanex 110mcg -) 1 puff IH BID [facility] Last Admin: 12/28/17 21:35 Dose: 1 puff Nystatin/Triamcinolone Acetonide (Mycolog Ii Ointment -) 1 applic TP BID [facility] Last Admin: 12/28/17 21:37 Dose: 1 applic Rivaroxaban (Xarelto -) 15 mg PO DAILY@1800 [facility] Last Admin: 12/28/17 17:16 Dose: 15 mg - Objective Vital Signs: Vital Signs Temperature 98 F 12/29/17 05:57 Pulse Rate 106 H 12/29/17 05:57 Respiratory Rate 20 12/29/17 05:57 Blood Pressure 120/89 12/29/17 05:57 O2 Sat by Pulse Oximetry (%) 96 12/28/17 21:00 Constitutional: Yes: Mild Distress Eyes: Yes: WNL HENT: Yes: WNL Neck: Yes: WNL Cardiovascular: Yes: Pulse Irregular Respiratory: Yes: Diminished, On Nasal O2 Gastrointestinal: Yes: WNL Genitourinary: Yes: Incontinence Musculoskeletal: Yes: Muscle Weakness Extremities: Yes: WNL Edema: Yes Edema: LLE: 1+, RLE: 1+ Peripheral Pulses WNL: Yes Integumentary: Yes: Venous Stasis Changes Wound/Incision: Yes: Clean/Dry Neurological: Yes: Confusion, Pre-Existing Deficit ...Motor Strength: LLE, RLE Psychiatric: Yes: Other Labs: CBC, BMP 12/28/17 09:25 12/28/17 09:25 INR, PTT INR 1.53 (0.83-1.09) H 12/26/17 19:12 Problem List - Problems (1) Acute bronchitis Code(s): J20.9 - ACUTE BRONCHITIS, UNSPECIFIED (2) Pneumonia Code(s): J18.9 - PNEUMONIA, UNSPECIFIED ORGANISM Qualifiers: (3) Sepsis Code(s): A41.9 - SEPSIS, UNSPECIFIED ORGANISM (4) Anemia Code(s): D64.9 - ANEMIA, UNSPECIFIED (5) Atrial fibrillation Code(s): I48.91 - UNSPECIFIED ATRIAL FIBRILLATION Assessment/Plan FAILED SWALLOW EVAL ASPIRATION PRECAUTIONS ADVISED SITTING WHILE EATING MEALS ID F/U CHECK CX PULM EVAL AC FOR AFIB
[2017-12-29] MEDS: ALLOPURINOL 100 MG TABLET (FP) PO SCH (09:34)
[2017-12-29] MEDS: metoPROLOL SUCCINATE 25 MG TAB.SR.24H (FP) PO SCH ×2 (09:34→21:45)
[2017-12-29] MEDS: ASPIRIN COATED 81 MG TABLET.EC PO SCH (09:34)
[2017-12-29] MEDS: ENALAPRIL MALEATE 2.5 MG TABLET (FP) PO SCH (09:35)
[2017-12-29] MEDS: NYSTATIN/TRIAMCINOLONE TOPICAL OINTMENT 15 GM TUBE TP SCH ×2 (09:36→21:27)
[2017-12-29] MEDS: CEFEPIME 1 GM in DEXTROSE 5%-WATER 100 ML IVPB SCH ×2 (10:39→21:26)
[2017-12-29] MEDS: MOMETASONE FUROATE 110 MCG/IH INHALER IH SCH ×2 (11:00→23:07)
--- NOTE | 2017-12-29 12:20 | PN ---
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 (short form) - Note 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: s: no cp sob palps dizzy o: Vital Signs Period Temp Pulse Resp BP Sys/[place] Pulse Ox Last 24 Hr 97.7 F-98 F 98-106 20-20 120-120/89-92 96 Constitutional: Yes: Well Nourished, No Distress, Calm Eyes: Yes: Conjunctiva Clear Respiratory: Yes: Regular, CTA Bilaterally Gastrointestinal: Yes: Normal Bowel Sounds, Soft Cardiovascular: Yes: Pulse Irregular JVD: No Heart Sounds: Yes: S1, S2 Murmur: Yes: Systolic Murmur, Grade 2 Edema: No Integumentary: no jaundice diaphoresis alert awake appropriate Current Medications Albuterol/Ipratropium (Duoneb -) 1 amp NEB Q6H PRN PRN Reason: SHORTNESS OF BREATH Last Admin: 12/29/17 07:42 Dose: 1 amp Allopurinol (Zyloprim -) 100 mg PO DAILY [facility] Last Admin: 12/29/17 09:34 Dose: 100 mg Aspirin (Ecotrin -) 81 mg PO DAILY [facility] Last Admin: 12/29/17 09:34 Dose: 81 mg Atorvastatin Calcium (Lipitor -) 80 mg PO HS [facility] Last Admin: 12/28/17 21:35 Dose: 80 mg Enalapril Maleate (Vasotec -) 2.5 mg PO DAILY [facility] Last Admin: 12/29/17 09:35 Dose: 2.5 mg Furosemide (Lasix -) 40 mg PO BID@0600,1400 [facility] Last Admin: 12/29/17 06:28 Dose: 40 mg Cefepime HCl 1 gm/ Dextrose 100 mls @ 200 mls/hr IVPB BID [facility]; Protocol Last Admin: 12/29/17 10:39 Dose: 200 mls/hr Insulin Aspart (Novolog Vial Sliding Scale -) 1 vial SQ ACHS [facility]; Protocol Last Admin: 12/29/17 11:44 Dose: Not Given Metoprolol Succinate (Toprol Xl -) 25 mg PO BID [facility] Last Admin: 12/29/17 09:34 Dose: 25 mg Mometasone Furoate (Asmanex 110mcg -) 1 puff IH BID [facility] Last Admin: 12/28/17 21:35 Dose: 1 puff Nystatin/Triamcinolone Acetonide (Mycolog Ii Ointment -) 1 applic TP BID [facility] Last Admin: 12/29/17 09:36 Dose: 1 applic Rivaroxaban (Xarelto -) 15 mg PO DAILY@1800 [facility] Last Admin: 12/28/17 17:16 Dose: 15 mg Assessment/Plan echo 12/2017 mod , nl RV function, severe septal hypokinesis, apical dyskinesis. severely hypokinetic anterior, septa brannon with apical dyskinesis and hypercontractile base c/w LAD infarct vs takotsubo. LV function mod to severely reduced. RA mildly reduced function, mod to severe MR, severe anterior wall hypokinesis EKG: afib, LAD, old septal infarct 82M h/o HTN, CHF, afib, CKD, DM p/w PNA +troponin - trop lower than during recent admission, was 2.7 on 12/23 now 0.44 - likely related to demand in setting of PNA/recent sepsis, stable EKG - clinical picture not concerning for ACS - stable from cardiac perspective Chronic systolic hf - on po lasix, bb - holding enalapril in setting of JD PNA - on abx per primary team afib - continue xarelto - rate controlled, cont bb CKD - renal following - holding enalapril in setting of JD
[2017-12-29 13:43] LABS: ANION GAP 8 MMOL/L (8-16); BLOOD UREA NITROGEN 42 mg/dL (7-18); CALCIUM 8.5 mg/dL (8.5-10.1); CHLORIDE 102 mmol/L (98-107); CO2 28 mmol/L (21-32); CREATININE 1.7 mg/dL (0.55-1.3); GLUCOSE,RANDOM 155 mg/dL (74-106); POTASSIUM 3.8 mmol/L (3.5-5.1); SODIUM 138 mmol/L (136-145)
--- NOTE | 2017-12-29 14:32 | PN ---
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, Physician History of Present Illness: pulmonary alert,oob-chair,less dyspneic - Current Medication List Current Medications: Active Medications Albuterol/Ipratropium (Duoneb -) 1 amp NEB Q6H PRN PRN Reason: SHORTNESS OF BREATH Last Admin: 12/29/17 07:42 Dose: 1 amp Allopurinol (Zyloprim -) 100 mg PO DAILY [facility] Last Admin: 12/29/17 09:34 Dose: 100 mg Aspirin (Ecotrin -) 81 mg PO DAILY [facility] Last Admin: 12/29/17 09:34 Dose: 81 mg Atorvastatin Calcium (Lipitor -) 80 mg PO HS [facility] Last Admin: 12/28/17 21:35 Dose: 80 mg Enalapril Maleate (Vasotec -) 2.5 mg PO DAILY [facility] Last Admin: 12/29/17 09:35 Dose: 2.5 mg Furosemide (Lasix -) 40 mg PO BID@0600,1400 [facility] Last Admin: 12/29/17 06:28 Dose: 40 mg Cefepime HCl 1 gm/ Dextrose 100 mls @ 200 mls/hr IVPB BID [facility]; Protocol Last Admin: 12/29/17 10:39 Dose: 200 mls/hr Insulin Aspart (Novolog Vial Sliding Scale -) 1 vial SQ ACHS [facility]; Protocol Last Admin: 12/29/17 11:44 Dose: Not Given Metoprolol Succinate (Toprol Xl -) 25 mg PO BID [facility] Last Admin: 12/29/17 09:34 Dose: 25 mg Mometasone Furoate (Asmanex 110mcg -) 1 puff IH BID [facility] Last Admin: 12/28/17 21:35 Dose: 1 puff Nystatin/Triamcinolone Acetonide (Mycolog Ii Ointment -) 1 applic TP BID [facility] Last Admin: 12/29/17 09:36 Dose: 1 applic Rivaroxaban (Xarelto -) 15 mg PO DAILY@1800 [facility] Last Admin: 12/28/17 17:16 Dose: 15 mg - Objective Vital Signs: Vital Signs Temperature 98 F 12/29/17 09:00 Pulse Rate 110 H 12/29/17 09:00 Respiratory Rate 22 H 12/29/17 09:00 Blood Pressure 128/48 L 12/29/17 09:00 O2 Sat by Pulse Oximetry (%) 96 12/29/17 09:00 Constitutional: Yes: Well Nourished, Calm Eyes: Yes: WNL HENT: Yes: WNL Neck: Yes: WNL Cardiovascular: Yes: Pulse Irregular, S1, S2 Respiratory: Yes: Rales (scattered rhonchi), Rhonchi Gastrointestinal: Yes: Normal Bowel Sounds, Soft Extremities: Yes: WNL Edema: Yes Labs: CBC, BMP 12/29/17 12:30 INR, PTT INR 1.53 (0.83-1.09) H 12/26/17 19:12 Assessment/Plan A/P r/o Acute Bronchitis Sepsis Lactic Acidosis Acute on Chronic Renal Failure LV Systolic Dysfunction Mitral Regurgitation Atrial Fibrillation HTN DM - consider iv lasix - empiric antibiotics - inhaled bronchodilators - monitor urine output, creatinine - O2 to keep SpO2 >90% - rate control - continue anticoagulation Problem List - Problems (1) Acute bronchitis Code(s): J20.9 - ACUTE BRONCHITIS, UNSPECIFIED (2) Sepsis Code(s): A41.9 - SEPSIS, UNSPECIFIED ORGANISM (3) JD (acute kidney injury) Code(s): N17.9 - ACUTE KIDNEY FAILURE, UNSPECIFIED (4) Atrial fibrillation Code(s): I48.91 - UNSPECIFIED ATRIAL FIBRILLATION (5) CHF (congestive heart failure) Code(s): I50.9 - HEART FAILURE, UNSPECIFIED (6) Hyperlipidemia Code(s): E78.5 - HYPERLIPIDEMIA, UNSPECIFIED (7) Hypertension Code(s): I10 - ESSENTIAL (PRIMARY) HYPERTENSION Qualifiers: Hypertension type: essential hypertension Qualified Code(s): I10 - Essential (primary) hypertension
--- NOTE | 2017-12-29 16:00 | PN ---
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: Selected Entries 12/28/17 12/28/17 12/28/17 06:00 10:00 11:10 Breakfast 100% Diet Tolerated Well Lunch Supper Temperature 98 F 97.5 F L 12/28/17 12/28/17 12/29/17 13:27 21:12 05:57 Breakfast Diet Tolerated Well Well Lunch 100% Supper 100% Temperature 97.7 F 98 F 12/29/17 12/29/17 12/29/17 09:00 09:58 12:32 Breakfast 100% Diet Tolerated Well Well Lunch 100% Supper Temperature 98 F 12/29/17 14:34 Breakfast Diet Tolerated Lunch Supper Temperature 98.1 F Laboratory Tests 12/26/17 12/27/17 12/28/17 19:12 07:10 09:25 WBC 19.7 H 14.9 H 16.4 H MBS DElayed esoph emptying sec to dysmotility Dyspneic,Nursing aware, OOB in [facility].
[2017-12-29] MEDS: RIVAROXABAN 15 MG TABLET PO SCH (17:32)
[2017-12-29] MEDS ORDERED: CEFEPIME HCL 1 GM VIAL (RESTRICTED TO ID) ONE (20:58)
[2017-12-29] MEDS ORDERED: DEXTROSE 5%-WATER 100 ML IVPB ONE (20:58)
[2017-12-29] MEDS: ATORVASTATIN CA 80 MG TABLET (FP) PO SCH (21:26)
[2017-12-30] MEDS: INSULIN SLIDING SCALE (NOVOLOG) 1 VIAL SQ SCH ×4 (06:19→21:26)
[2017-12-30] MEDS: FUROSEMIDE 40 MG TABLET (FP) PO SCH ×2 (06:19→14:27)
[2017-12-30 08:02] LABS: HEMATOCRIT 33.4 % (35.4-49); HEMOGLOBIN 10.8 GM/dL (11.7-16.9); MCH 28.3 pg (25.7-33.7); MCHC 32.5 g/dl (32.0-35.9); MEAN CELL VOLUME 87.1 fl (80-96); MEAN PLT VOLUME 10.1 fl (7.5-11.1); PLATELET COUNT 336 K/MM3 (134-434); RBC 3.83 M/mm3 (4.00-5.60); RDW 15.5 % (11.9-15.9); WHITE BLOOD COUNT 14.4 K/mm3 (4.0-10.0)
[2017-12-30 08:26] LABS: ANION GAP 13 MMOL/L (8-16); BLOOD UREA NITROGEN 41 mg/dL (7-18); CALCIUM 8.9 mg/dL (8.5-10.1); CHLORIDE 103 mmol/L (98-107); CO2 24 mmol/L (21-32); CREATININE 1.8 mg/dL (0.55-1.3); GLUCOSE,RANDOM 130 mg/dL (74-106); SODIUM 140 mmol/L (136-145)
[2017-12-30] MEDS ORDERED: DEXTROSE 5%-WATER 100 ML IVPB ONE ×2 (09:24→20:56)
[2017-12-30] MEDS ORDERED: CEFEPIME HCL 1 GM VIAL (RESTRICTED TO ID) ONE ×2 (09:24→20:56)
[2017-12-30] MEDS: ENALAPRIL MALEATE 2.5 MG TABLET (FP) PO SCH (09:32)
[2017-12-30] MEDS: metoPROLOL SUCCINATE 25 MG TAB.SR.24H (FP) PO SCH ×2 (09:32→21:24)
[2017-12-30] MEDS: ALLOPURINOL 100 MG TABLET (FP) PO SCH (09:32)
[2017-12-30] MEDS: CEFEPIME 1 GM in DEXTROSE 5%-WATER 100 ML IVPB SCH ×2 (09:32→21:23)
[2017-12-30] MEDS: ASPIRIN COATED 81 MG TABLET.EC PO SCH (09:32)
[2017-12-30] MEDS: MOMETASONE FUROATE 110 MCG/IH INHALER IH SCH ×2 (09:35→21:23)
[2017-12-30] MEDS ORDERED: ONDANSETRON 4 MG/2 ML VIAL IVPB PRN (09:53)
[2017-12-30] MEDS ORDERED: MAGNESIUM HYDROX 2400MG/30ML ORAL SUSPENSION 30 ML CUP PO ONE (09:54)
[2017-12-30] MEDS: guaiFENesin/CODEINE 5 ML UNIT-DOSE CUPS PO PRN (10:17)
[2017-12-30] MEDS: POLYETHYLENE GLYCOL 3350 119 GM BTL PO SCH (10:17)
--- NOTE | 2017-12-30 10:39 | PN ---
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 (short form) - Note 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: PULMONARY Breathing better today. +cough with brown sputum. Vital Signs Period Temp Pulse Resp BP Sys/[place] Pulse Ox Last 24 Hr 98.1 F-98.4 F 97-102 22 123-128/48-79 96 Gen: less tachypneic Heart: RRR Lung: scattered rhonchi Abd: soft, nontender Ext: + edema CBC, BMP 12/30/17 07:20 12/30/17 07:20 Active Medications Albuterol/Ipratropium (Duoneb -) 1 amp NEB Q6H PRN PRN Reason: SHORTNESS OF BREATH Last Admin: 12/29/17 22:00 Dose: 1 amp Allopurinol (Zyloprim -) 100 mg PO DAILY [facility] Last Admin: 12/30/17 09:32 Dose: 100 mg Aspirin (Ecotrin -) 81 mg PO DAILY [facility] Last Admin: 12/30/17 09:32 Dose: 81 mg Atorvastatin Calcium (Lipitor -) 80 mg PO HS [facility] Last Admin: 12/29/17 21:26 Dose: 80 mg Enalapril Maleate (Vasotec -) 2.5 mg PO DAILY [facility] Last Admin: 12/30/17 09:32 Dose: 2.5 mg Furosemide (Lasix -) 40 mg PO BID@0600,1400 [facility] Last Admin: 12/30/17 06:19 Dose: 40 mg Guaifenesin/Codeine Phosphate (Robitussin Ac -) 5 ml PO TID PRN PRN Reason: COUGH Last Admin: 12/30/17 10:17 Dose: 5 ml Cefepime HCl 1 gm/ Dextrose 100 mls @ 200 mls/hr IVPB BID [facility]; Protocol Last Admin: 12/30/17 09:32 Dose: 200 mls/hr Insulin Aspart (Novolog Vial Sliding Scale -) 1 vial SQ ACHS [facility]; Protocol Last Admin: 12/30/17 06:19 Dose: Not Given Metoprolol Succinate (Toprol Xl -) 25 mg PO BID [facility] Last Admin: 12/30/17 09:32 Dose: 25 mg Mometasone Furoate (Asmanex 110mcg -) 1 puff IH BID [facility] Last Admin: 12/30/17 09:35 Dose: 1 puff Nystatin/Triamcinolone Acetonide (Mycolog Ii Ointment -) 1 applic TP BID [facility] Last Admin: 12/29/17 21:27 Dose: 1 applic Ondansetron HCl (Zofran Injection) 8 mg IVPB Q6H PRN PRN Reason: NAUSEA Polyethylene Glycol (Miralax (For Daily Use) -) 17 gm PO DAILY [facility] Last Admin: 12/30/17 10:17 Dose: 17 gm Rivaroxaban (Xarelto -) 15 mg PO DAILY@1800 [facility] Last Admin: 12/29/17 17:32 Dose: 15 mg Senna (Senna -) 1 tab PO [facility] A/P r/o Acute Bronchitis Sepsis Lactic Acidosis Acute on Chronic Renal Failure LV Systolic Dysfunction Mitral Regurgitation Atrial Fibrillation HTN DM - continue lasix - empiric antibiotics - monitor urine output, creatinine - O2 to keep SpO2 >90% - rate control - continue anticoagulation Problem List - Problems (1) Acute bronchitis Code(s): J20.9 - ACUTE BRONCHITIS, UNSPECIFIED (2) Sepsis Code(s): A41.9 - SEPSIS, UNSPECIFIED ORGANISM (3) JD (acute kidney injury) Code(s): N17.9 - ACUTE KIDNEY FAILURE, UNSPECIFIED (4) Atrial fibrillation Code(s): I48.91 - UNSPECIFIED ATRIAL FIBRILLATION (5) CHF (congestive heart failure) Code(s): I50.9 - HEART FAILURE, UNSPECIFIED (6) Hyperlipidemia Code(s): E78.5 - HYPERLIPIDEMIA, UNSPECIFIED (7) Hypertension Code(s): I10 - ESSENTIAL (PRIMARY) HYPERTENSION Qualifiers: Hypertension type: essential hypertension Qualified Code(s): I10 - Essential (primary) hypertension
--- NOTE | 2017-12-30 10:55 | PN ---
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 (short form) - Note 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: s: no cp sob palps dizzy; cough improving o: Vital Signs Period Temp Pulse Resp BP Sys/[place] Pulse Ox Last 24 Hr 98.1 F-98.4 F 97-102 22 123-128/48-79 96 Constitutional: Yes: Well Nourished, No Distress, Calm Eyes: Yes: Conjunctiva Clear Respiratory: Yes: Regular, CTA Bilaterally Gastrointestinal: Yes: Normal Bowel Sounds, Soft Cardiovascular: Yes: Pulse Irregular JVD: No Heart Sounds: Yes: S1, S2 Murmur: Yes: Systolic Murmur, Grade 2 Edema: No Integumentary: no jaundice diaphoresis alert awake appropriate Current Medications Generic Name Dose Route Start Last Admin Trade Name Freq PRN Reason Stop Dose Admin Albuterol/Ipratropium 1 amp 12/27/17 16:33 12/29/17 22:00 Duoneb - NEB 1 amp Q6H PRN Administration SHORTNESS OF BREATH Allopurinol 100 mg 12/28/17 10:00 12/30/17 09:32 Zyloprim - PO 100 mg DAILY [facility] Administration Aspirin 81 mg 12/28/17 10:00 12/30/17 09:32 Ecotrin - PO 81 mg DAILY [facility] Administration Atorvastatin Calcium 80 mg 12/27/17 22:00 12/29/17 21:26 Lipitor - PO 80 mg HS [facility] Administration Enalapril Maleate 2.5 mg 12/27/17 16:45 12/30/17 09:32 Vasotec - PO 2.5 mg DAILY [facility] Administration Furosemide 40 mg 12/28/17 06:00 12/30/17 06:19 Lasix - PO 40 mg BID@0600,1400 [facility] Administration Guaifenesin/Codeine Phosphate 5 ml 12/30/17 09:53 12/30/17 10:17 Robitussin Ac - PO 5 ml TID PRN Administration COUGH Cefepime HCl 1 gm/ Dextrose 100 mls @ 200 mls/hr 12/29/17 10:00 12/30/17 09: 32 IVPB 200 mls/hr BID [facility] Administration Protocol Insulin Aspart 1 vial 12/27/17 22:00 12/30/17 10:49 Novolog Vial Sliding Scale - SQ 4 units ACHS [facility] Administration Protocol Metoprolol Succinate 25 mg 12/27/17 22:00 12/30/17 09:32 Toprol Xl - PO 25 mg BID [facility] Administration Mometasone Furoate 1 puff 12/27/17 22:00 12/30/17 09:35 Asmanex 110mcg - IH 1 puff BID [facility] Administration Nystatin/Triamcinolone Acetonide 1 applic 12/27/17 10:00 12/29/17 21:27 Mycolog Ii Ointment - TP 1 applic BID [facility] Administration Ondansetron HCl 8 mg 12/30/17 09:53 Zofran Injection IVPB Q6H PRN NAUSEA Polyethylene Glycol 17 gm 12/30/17 10:00 12/30/17 10:17 Miralax (For Daily Use) - PO 17 gm DAILY [facility] Administration Rivaroxaban 15 mg 12/27/17 18:00 12/29/17 17:32 Xarelto - PO 15 mg DAILY@1800 [facility] Administration Senna 1 tab 12/30/17 22:00 Senna - PO HS [facility] CBC, BMP 12/30/17 07:20 12/30/17 07:20 Assessment/Plan echo 12/2017 mod , nl RV function, severe septal hypokinesis, apical dyskinesis. severely hypokinetic anterior, septa brannon with apical dyskinesis and hypercontractile base c/w LAD infarct vs takotsubo. LV function mod to severely reduced. RA mildly reduced function, mod to severe MR, severe anterior wall hypokinesis EKG: afib, LAD, old septal infarct 82M h/o HTN, CHF, afib, CKD, DM p/w PNA +troponin - trop lower than during recent admission, was 2.7 on 12/23 now 0.44 - likely related to demand in setting of PNA/recent sepsis, stable EKG - downtrending, not concerning for ACS Chronic systolic hf - on po lasix, bb - holding enalapril in setting of JD PNA - on abx per primary team afib - continue xarelto - rate controlled, cont bb CKD - renal following - holding enalapril in setting of JD
--- NOTE | 2017-12-30 12:04 | PN ---
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: Selected Entries 12/28/17 12/28/17 12/28/17 06:00 10:00 11:10 Breakfast 100% Diet Tolerated Well Lunch Supper Temperature 98 F 97.5 F L 12/28/17 12/28/17 12/29/17 13:27 21:12 05:57 Breakfast Diet Tolerated Well Well Lunch 100% Supper 100% Temperature 97.7 F 98 F 12/29/17 12/29/17 12/29/17 09:00 09:58 12:32 Breakfast 100% Diet Tolerated Well Well Lunch 100% Supper Temperature 98 F 12/29/17 14:34 Breakfast Diet Tolerated Lunch Supper Temperature 98.1 F Laboratory Tests 12/26/17 12/27/17 12/28/17 19:12 07:10 09:25 WBC 19.7 H 14.9 H 16.4 H MBS DElayed esoph emptying sec to dysmotility OOB in chair, feeding himself lunch. Appears comfortable. Good appetite and tolerance. MBS reviewed and rec reviewed with pt/staff for upright posture during and after meals x 1 hour.
[2017-12-30] MEDS: NYSTATIN/TRIAMCINOLONE TOPICAL OINTMENT 15 GM TUBE TP SCH ×2 (13:51→21:24)
--- NOTE | 2017-12-30 14:26 | PN ---
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 (short form) - Note 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: Renal follow up for JD Pt seen and examined at the bedside awake and alert feels better has some cough no sob, cp, abd pain Vital Signs Temperature 98.0 F 12/30/17 12:55 Pulse Rate 99 H 12/30/17 12:55 Respiratory Rate 18 12/30/17 10:00 Blood Pressure 104/70 12/30/17 12:55 O2 Sat by Pulse Oximetry (%) 94 L 12/30/17 09:00 Intake & Output 12/27/17 12/28/17 12/29/17 12/30/17 23:59 23:59 23:59 23:59 Intake Total 900 1335 725 650 Balance 900 1335 725 650 Weight 101.151 kg 101.151 kg NAD awake and alert RRR, No M/R CTA, no rales or wheeze soft Nt/ND + edema by ankles CBC, BMP 12/30/17 07:20 12/30/17 07:20 Current Medications Albuterol/Ipratropium (Duoneb -) 1 amp NEB Q6H PRN PRN Reason: SHORTNESS OF BREATH Last Admin: 12/29/17 22:00 Dose: 1 amp Allopurinol (Zyloprim -) 100 mg PO DAILY [facility] Last Admin: 12/30/17 09:32 Dose: 100 mg Aspirin (Ecotrin -) 81 mg PO DAILY [facility] Last Admin: 12/30/17 09:32 Dose: 81 mg Atorvastatin Calcium (Lipitor -) 80 mg PO HS [facility] Last Admin: 12/29/17 21:26 Dose: 80 mg Enalapril Maleate (Vasotec -) 2.5 mg PO DAILY [facility] Last Admin: 12/30/17 09:32 Dose: 2.5 mg Furosemide (Lasix -) 40 mg PO BID@0600,1400 [facility] Last Admin: 12/30/17 06:19 Dose: 40 mg Guaifenesin/Codeine Phosphate (Robitussin Ac -) 5 ml PO TID PRN PRN Reason: COUGH Last Admin: 12/30/17 10:17 Dose: 5 ml Cefepime HCl 1 gm/ Dextrose 100 mls @ 200 mls/hr IVPB BID [facility]; Protocol Last Admin: 12/30/17 09:32 Dose: 200 mls/hr Insulin Aspart (Novolog Vial Sliding Scale -) 1 vial SQ ACHS [facility]; Protocol Last Admin: 12/30/17 10:49 Dose: 4 units Metoprolol Succinate (Toprol Xl -) 25 mg PO BID [facility] Last Admin: 12/30/17 09:32 Dose: 25 mg Mometasone Furoate (Asmanex 110mcg -) 1 puff IH BID [facility] Last Admin: 12/30/17 09:35 Dose: 1 puff Nystatin/Triamcinolone Acetonide (Mycolog Ii Ointment -) 1 applic TP BID [facility] Last Admin: 12/30/17 13:51 Dose: 1 applic Ondansetron HCl (Zofran Injection) 8 mg IVPB Q6H PRN PRN Reason: NAUSEA Polyethylene Glycol (Miralax (For Daily Use) -) 17 gm PO DAILY [facility] Last Admin: 12/30/17 10:17 Dose: 17 gm Rivaroxaban (Xarelto -) 15 mg PO DAILY@1800 [facility] Last Admin: 12/29/17 17:32 Dose: 15 mg Senna (Senna -) 1 tab PO [facility] 82 year old gentleman with Hx of DM, CKD (unclear baseline Cr), Afib on A/C, CHF (preserved LV function on last echo), Hypertension who presented from [facility] with SOB and Fever and admitted for sepsis with Cr of 1.9. #JD on CKD #PNA/bronchitis #CHF #DM #Hypertension #Elevated Troponin Renal function stable and pt is non-oliguric Continue Lasix BID for edema/CHF management trend renal function and electrolytes Continue Abx as needed Cardiology follow up Trend renal function and electrolytes Thiago Fan DO
--- NOTE | 2017-12-30 14:33 | EKG ---
Test Reason : Blood Pressure : / mmHG Vent. Rate : 099 BPM Atrial Rate : 202 BPM P-R Int : 000 ms QRS Dur : 088 ms QT Int : 366 ms P-R-T Axes : 000 -32 133 degrees QTc Int : 469 ms ATRIAL FIBRILLATION WITH PREMATURE VENTRICULAR OR ABERRANTLY CONDUCTED COMPLEXES LEFT AXIS DEVIATION ANTEROSEPTAL INFARCT (CITED ON OR BEFORE 18-DEC-2017) T WAVE ABNORMALITY, CONSIDER LATERAL ISCHEMIA ABNORMAL ECG WHEN COMPARED WITH ECG OF 20-DEC-2017 08:32, NO SIGNIFICANT CHANGE WAS FOUND Confirmed by SOTERO MOORE MD ([id number]) on 12/30/2017 2:33:02 PM Referred By: Confirmed By:SOTERO MOORE MD
--- NOTE | 2017-12-30 14:47 | PN ---
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, Physician Chief Complaint: VOMITING NO FEVER GREEN BILIOUS VOMITING - Current Medication List Current Medications: Active Medications Albuterol/Ipratropium (Duoneb -) 1 amp NEB Q6H PRN PRN Reason: SHORTNESS OF BREATH Last Admin: 12/29/17 22:00 Dose: 1 amp Allopurinol (Zyloprim -) 100 mg PO DAILY [facility] Last Admin: 12/30/17 09:32 Dose: 100 mg Aspirin (Ecotrin -) 81 mg PO DAILY [facility] Last Admin: 12/30/17 09:32 Dose: 81 mg Atorvastatin Calcium (Lipitor -) 80 mg PO HS [facility] Last Admin: 12/29/17 21:26 Dose: 80 mg Enalapril Maleate (Vasotec -) 2.5 mg PO DAILY [facility] Last Admin: 12/30/17 09:32 Dose: 2.5 mg Furosemide (Lasix -) 40 mg PO BID@0600,1400 [facility] Last Admin: 12/30/17 14:27 Dose: 40 mg Guaifenesin/Codeine Phosphate (Robitussin Ac -) 5 ml PO TID PRN PRN Reason: COUGH Last Admin: 12/30/17 10:17 Dose: 5 ml Cefepime HCl 1 gm/ Dextrose 100 mls @ 200 mls/hr IVPB BID [facility]; Protocol Last Admin: 12/30/17 09:32 Dose: 200 mls/hr Insulin Aspart (Novolog Vial Sliding Scale -) 1 vial SQ ACHS [facility]; Protocol Last Admin: 12/30/17 10:49 Dose: 4 units Metoprolol Succinate (Toprol Xl -) 25 mg PO BID [facility] Last Admin: 12/30/17 09:32 Dose: 25 mg Mometasone Furoate (Asmanex 110mcg -) 1 puff IH BID [facility] Last Admin: 12/30/17 09:35 Dose: 1 puff Nystatin/Triamcinolone Acetonide (Mycolog Ii Ointment -) 1 applic TP BID [facility] Last Admin: 12/30/17 13:51 Dose: 1 applic Ondansetron HCl (Zofran Injection) 8 mg IVPB Q6H PRN PRN Reason: NAUSEA Polyethylene Glycol (Miralax (For Daily Use) -) 17 gm PO DAILY [facility] Last Admin: 12/30/17 10:17 Dose: 17 gm Rivaroxaban (Xarelto -) 15 mg PO DAILY@1800 [facility] Last Admin: 12/29/17 17:32 Dose: 15 mg Senna (Senna -) 1 tab PO [facility] - Objective Vital Signs: Vital Signs Temperature 98.0 F 12/30/17 12:55 Pulse Rate 99 H 12/30/17 12:55 Respiratory Rate 18 12/30/17 10:00 Blood Pressure 104/70 12/30/17 12:55 O2 Sat by Pulse Oximetry (%) 94 L 12/30/17 09:00 Constitutional: Yes: Mild Distress Eyes: Yes: WNL HENT: Yes: WNL Neck: Yes: WNL Cardiovascular: Yes: Pulse Irregular Respiratory: Yes: Diminished Gastrointestinal: Yes: Normal Bowel Sounds Musculoskeletal: Yes: Muscle Weakness Extremities: Yes: Other Edema: Yes Edema: LLE: 1+, RLE: 1+ Peripheral Pulses WNL: Yes Integumentary: Yes: WNL Wound/Incision: Yes: Clean/Dry Neurological: Yes: Pre-Existing Deficit ...Motor Strength: LLE, RLE Psychiatric: Yes: Other Labs: CBC, BMP 12/30/17 07:20 12/30/17 07:20 INR, PTT INR 1.53 (0.83-1.09) H 12/26/17 19:12 Problem List - Problems (1) Acute bronchitis Code(s): J20.9 - ACUTE BRONCHITIS, UNSPECIFIED (2) Pneumonia Code(s): J18.9 - PNEUMONIA, UNSPECIFIED ORGANISM Qualifiers: (3) Sepsis Code(s): A41.9 - SEPSIS, UNSPECIFIED ORGANISM (4) Anemia Code(s): D64.9 - ANEMIA, UNSPECIFIED (5) Atrial fibrillation Code(s): I48.91 - UNSPECIFIED ATRIAL FIBRILLATION Assessment/Plan CHECK ABD XRAY R/O SBO MOM/MIRALX PRN LABS REVIEWED OOB TO CHAIR PT EVAL DISCHARGE TOMORROW
[2017-12-30] MEDS: ALBUTEROL SO4 2.5/IPRATROPIUM 0.5 INH SOL 3 ML VIAL.NEB. NEB PRN ×2 (16:30→20:05)
[2017-12-30] MEDS: RIVAROXABAN 15 MG TABLET PO SCH (17:33)
[2017-12-30] MEDS: ATORVASTATIN CA 80 MG TABLET (FP) PO SCH (21:23)
[2017-12-30] MEDS: SENNOSIDES 8.6MG TABLET (FP) PO SCH (21:23)
--- NOTE | 2017-12-30 22:32 | PN ---
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, Physician History of Present Illness: OOB in chair No complaints offered Breathing non-labored on RA - Current Medication List Current Medications: Active Medications Albuterol/Ipratropium (Duoneb -) 1 amp NEB Q6H PRN PRN Reason: SHORTNESS OF BREATH Last Admin: 12/30/17 20:05 Dose: 1 amp Allopurinol (Zyloprim -) 100 mg PO DAILY [facility] Last Admin: 12/30/17 09:32 Dose: 100 mg Aspirin (Ecotrin -) 81 mg PO DAILY [facility] Last Admin: 12/30/17 09:32 Dose: 81 mg Atorvastatin Calcium (Lipitor -) 80 mg PO HS [facility] Last Admin: 12/30/17 21:23 Dose: 80 mg Enalapril Maleate (Vasotec -) 2.5 mg PO DAILY [facility] Last Admin: 12/30/17 09:32 Dose: 2.5 mg Furosemide (Lasix -) 40 mg PO BID@0600,1400 [facility] Last Admin: 12/30/17 14:27 Dose: 40 mg Guaifenesin/Codeine Phosphate (Robitussin Ac -) 5 ml PO TID PRN PRN Reason: COUGH Last Admin: 12/30/17 10:17 Dose: 5 ml Cefepime HCl 1 gm/ Dextrose 100 mls @ 200 mls/hr IVPB BID [facility]; Protocol Last Admin: 12/30/17 21:23 Dose: 200 mls/hr Insulin Aspart (Novolog Vial Sliding Scale -) 1 vial SQ ACHS [facility]; Protocol Last Admin: 12/30/17 21:26 Dose: Not Given Metoprolol Succinate (Toprol Xl -) 25 mg PO BID [facility] Last Admin: 12/30/17 21:24 Dose: 25 mg Mometasone Furoate (Asmanex 110mcg -) 1 puff IH BID [facility] Last Admin: 12/30/17 21:23 Dose: 1 puff Nystatin/Triamcinolone Acetonide (Mycolog Ii Ointment -) 1 applic TP BID [facility] Last Admin: 12/30/17 21:24 Dose: 1 applic Ondansetron HCl (Zofran Injection) 8 mg IVPB Q6H PRN PRN Reason: NAUSEA Polyethylene Glycol (Miralax (For Daily Use) -) 17 gm PO DAILY [facility] Last Admin: 12/30/17 10:17 Dose: 17 gm Rivaroxaban (Xarelto -) 15 mg PO DAILY@1800 [facility] Last Admin: 12/30/17 17:33 Dose: 15 mg Senna (Senna -) 1 tab PO HS [facility] Last Admin: 12/30/17 21:23 Dose: 1 tab - Objective Vital Signs: Vital Signs Temperature 97.7 F 12/30/17 22:25 Pulse Rate 97 H 12/30/17 22:25 Respiratory Rate 116 H 12/30/17 22:25 Blood Pressure 117/62 12/30/17 22:25 O2 Sat by Pulse Oximetry (%) 94 L 12/30/17 20:45 Constitutional: Yes: No Distress Cardiovascular: Yes: Regular Rate and Rhythm, S1, S2 Respiratory: Yes: Other (few crepitations at bases) Gastrointestinal: Yes: Normal Bowel Sounds, Soft Edema: Yes Labs: CBC, BMP 12/30/17 07:20 12/30/17 07:20 INR, PTT INR 1.53 (0.83-1.09) H 12/26/17 19:12 Assessment/Plan Possible sepsis ? lung source Azotemia Lactic acidosis- resolved Continue cefepime
[2017-12-31] MEDS: INSULIN SLIDING SCALE (NOVOLOG) 1 VIAL SQ SCH ×4 (06:43→21:29)
[2017-12-31] MEDS: FUROSEMIDE 40 MG TABLET (FP) PO SCH ×2 (06:43→13:28)
[2017-12-31] MEDS ORDERED: DEXTROSE 5%-WATER 100 ML IVPB ONE (09:20)
[2017-12-31] MEDS ORDERED: CEFEPIME HCL 1 GM VIAL (RESTRICTED TO ID) ONE (09:20)
[2017-12-31] MEDS: ASPIRIN COATED 81 MG TABLET.EC PO SCH (09:23)
[2017-12-31] MEDS: ENALAPRIL MALEATE 2.5 MG TABLET (FP) PO SCH (09:23)
[2017-12-31] MEDS: ALLOPURINOL 100 MG TABLET (FP) PO SCH (09:23)
[2017-12-31] MEDS: metoPROLOL SUCCINATE 25 MG TAB.SR.24H (FP) PO SCH ×2 (09:23→21:29)
[2017-12-31] MEDS: POLYETHYLENE GLYCOL 3350 119 GM BTL PO SCH (09:24)
[2017-12-31] MEDS: NYSTATIN/TRIAMCINOLONE TOPICAL OINTMENT 15 GM TUBE TP SCH ×2 (09:25→21:29)
[2017-12-31] MEDS: CEFEPIME 1 GM in DEXTROSE 5%-WATER 100 ML IVPB SCH (09:25)
[2017-12-31] MEDS: MOMETASONE FUROATE 110 MCG/IH INHALER IH SCH ×2 (09:25→21:30)
--- NOTE | 2017-12-31 11:20 | PN ---
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 (short form) - Note 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: s: no cp sob palps dizzy; cough improving o: Vital Signs Period Temp Pulse Resp BP Sys/[place] Pulse Ox Last 24 Hr 97.4 F-98.0 F 97-99 18-116 104-117/62-70 94 Constitutional: Yes: Well Nourished, No Distress, Calm Eyes: Yes: Conjunctiva Clear Respiratory: Yes: Regular, CTA Bilaterally Gastrointestinal: Yes: Normal Bowel Sounds, Soft Cardiovascular: Yes: Pulse Irregular JVD: No Heart Sounds: Yes: S1, S2 Murmur: Yes: Systolic Murmur, Grade 2 Edema: trace le edema bl Integumentary: no jaundice diaphoresis alert awake appropriate Current Medications Generic Name Dose Route Start Last Admin Trade Name Freq PRN Reason Stop Dose Admin Albuterol/Ipratropium 1 amp 12/27/17 16:33 12/30/17 20:05 Duoneb - NEB 1 amp Q6H PRN Administration SHORTNESS OF BREATH Allopurinol 100 mg 12/28/17 10:00 12/31/17 09:23 Zyloprim - PO 100 mg DAILY [facility] Administration Aspirin 81 mg 12/28/17 10:00 12/31/17 09:23 Ecotrin - PO 81 mg DAILY [facility] Administration Atorvastatin Calcium 80 mg 12/27/17 22:00 12/30/17 21:23 Lipitor - PO 80 mg HS [facility] Administration Enalapril Maleate 2.5 mg 12/27/17 16:45 12/31/17 09:23 Vasotec - PO 2.5 mg DAILY [facility] Administration Furosemide 40 mg 12/28/17 06:00 12/31/17 06:43 Lasix - PO 40 mg BID@0600,1400 [facility] Administration Guaifenesin/Codeine Phosphate 5 ml 12/30/17 09:53 12/30/17 10:17 Robitussin Ac - PO 5 ml TID PRN Administration COUGH Cefepime HCl 1 gm/ Dextrose 100 mls @ 200 mls/hr 12/29/17 10:00 12/31/17 09: 25 IVPB 200 mls/hr BID [facility] Administration Protocol Insulin Aspart 1 vial 12/27/17 22:00 12/31/17 06:43 Novolog Vial Sliding Scale - SQ Not Given ACHS [facility] Protocol Metoprolol Succinate 25 mg 12/27/17 22:00 12/31/17 09:23 Toprol Xl - PO 25 mg BID [facility] Administration Mometasone Furoate 1 puff 12/27/17 22:00 12/31/17 09:25 Asmanex 110mcg - IH 1 puff BID [facility] Administration Nystatin/Triamcinolone Acetonide 1 applic 12/27/17 10:00 12/31/17 09:25 Mycolog Ii Ointment - TP 1 applic BID [facility] Administration Ondansetron HCl 8 mg 12/30/17 09:53 Zofran Injection IVPB Q6H PRN NAUSEA Polyethylene Glycol 17 gm 12/30/17 10:00 12/31/17 09:24 Miralax (For Daily Use) - PO 17 gm DAILY [facility] Administration Rivaroxaban 15 mg 12/27/17 18:00 12/30/17 17:33 Xarelto - PO 15 mg DAILY@1800 [facility] Administration Senna 1 tab 12/30/17 22:00 12/30/17 21:23 Senna - PO 1 tab HS [facility] Administration CBC, BMP 12/30/17 07:20 12/30/17 07:20 Assessment/Plan echo 12/2017 mod , nl RV function, severe septal hypokinesis, apical dyskinesis. severely hypokinetic anterior, septa brannon with apical dyskinesis and hypercontractile base c/w LAD infarct vs takotsubo. LV function mod to severely reduced. RA mildly reduced function, mod to severe MR, severe anterior wall hypokinesis EKG: afib, LAD, old septal infarct 82M h/o HTN, CHF, afib, CKD, DM p/w PNA +troponin - trop lower than during recent admission, was 2.7 on 12/23 now 0.44 - likely related to demand in setting of PNA/recent sepsis, stable EKG - downtrending, not concerning for ACS Chronic systolic hf - on po lasix, bb - holding enalapril in setting of JD PNA - on abx per primary team afib - continue xarelto - rate controlled, cont bb CKD - renal following - holding enalapril in setting of JD
--- NOTE | 2017-12-31 11:56 | PN ---
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 (short form) - Note 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: PULMONARY oob to chair resident of [facility]/mentally challenged vss/afebrile Gen: less tachypneic Heart: RRR Lung: scattered rhonchi Abd: soft, nontender Ext: + edema Active Medications noted labs/meds/notes/images/micro reviewed A/P Acute Bronchitis Sepsis Lactic Acidosis Acute on Chronic Renal Failure LV Systolic Dysfunction Mitral Regurgitation Atrial Fibrillation HTN DM - continue lasix - empiric antibiotics - monitor urine output, creatinine - O2 to keep SpO2 >90% - rate control - continue anticoagulation Kelsi PACHECO MD
--- NOTE | 2017-12-31 13:28 | PN ---
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, Physician Chief Complaint: PATIENT IN A CHAIR NAD - Current Medication List Current Medications: Active Medications Albuterol/Ipratropium (Duoneb -) 1 amp NEB Q6H PRN PRN Reason: SHORTNESS OF BREATH Last Admin: 12/30/17 20:05 Dose: 1 amp Allopurinol (Zyloprim -) 100 mg PO DAILY [facility] Last Admin: 12/31/17 09:23 Dose: 100 mg Aspirin (Ecotrin -) 81 mg PO DAILY [facility] Last Admin: 12/31/17 09:23 Dose: 81 mg Atorvastatin Calcium (Lipitor -) 80 mg PO HS [facility] Last Admin: 12/30/17 21:23 Dose: 80 mg Enalapril Maleate (Vasotec -) 2.5 mg PO DAILY [facility] Last Admin: 12/31/17 09:23 Dose: 2.5 mg Furosemide (Lasix -) 40 mg PO BID@0600,1400 [facility] Last Admin: 12/31/17 13:28 Dose: Not Given Guaifenesin/Codeine Phosphate (Robitussin Ac -) 5 ml PO TID PRN PRN Reason: COUGH Last Admin: 12/30/17 10:17 Dose: 5 ml Cefepime HCl 1 gm/ Dextrose 100 mls @ 200 mls/hr IVPB BID [facility]; Protocol Last Admin: 12/31/17 09:25 Dose: 200 mls/hr Insulin Aspart (Novolog Vial Sliding Scale -) 1 vial SQ ACHS [facility]; Protocol Last Admin: 12/31/17 11:55 Dose: 2 units Metoprolol Succinate (Toprol Xl -) 25 mg PO BID [facility] Last Admin: 12/31/17 09:23 Dose: 25 mg Mometasone Furoate (Asmanex 110mcg -) 1 puff IH BID [facility] Last Admin: 12/31/17 09:25 Dose: 1 puff Nystatin/Triamcinolone Acetonide (Mycolog Ii Ointment -) 1 applic TP BID [facility] Last Admin: 12/31/17 09:25 Dose: 1 applic Ondansetron HCl (Zofran Injection) 8 mg IVPB Q6H PRN PRN Reason: NAUSEA Polyethylene Glycol (Miralax (For Daily Use) -) 17 gm PO DAILY [facility] Last Admin: 12/31/17 09:24 Dose: 17 gm Rivaroxaban (Xarelto -) 15 mg PO DAILY@1800 [facility] Last Admin: 12/30/17 17:33 Dose: 15 mg Senna (Senna -) 1 tab PO HS [facility] Last Admin: 12/30/17 21:23 Dose: 1 tab - Objective Vital Signs: Vital Signs Temperature 97.4 F L 12/31/17 05:30 Pulse Rate 97 H 12/30/17 22:25 Respiratory Rate 116 H 12/30/17 22:25 Blood Pressure 117/62 12/30/17 22:25 O2 Sat by Pulse Oximetry (%) 94 L 12/30/17 20:45 Constitutional: Yes: No Distress Eyes: Yes: WNL HENT: Yes: WNL Neck: Yes: WNL Cardiovascular: Yes: Pulse Irregular Respiratory: Yes: Diminished Gastrointestinal: Yes: WNL Genitourinary: Yes: Incontinence Musculoskeletal: Yes: Muscle Weakness Edema: Yes Edema: LLE: 1+, RLE: 1+ Peripheral Pulses WNL: Yes Integumentary: Yes: Venous Stasis Changes Wound/Incision: Yes: Dressing Dry and Intact Neurological: Yes: Asterixis, Pre-Existing Deficit ...Motor Strength: LLE, RLE Psychiatric: Yes: Other Labs: INR, PTT INR 1.53 (0.83-1.09) H 12/26/17 19:12 Problem List - Problems (1) Acute bronchitis Code(s): J20.9 - ACUTE BRONCHITIS, UNSPECIFIED (2) Pneumonia Code(s): J18.9 - PNEUMONIA, UNSPECIFIED ORGANISM Qualifiers: (3) Sepsis Code(s): A41.9 - SEPSIS, UNSPECIFIED ORGANISM (4) Anemia Code(s): D64.9 - ANEMIA, UNSPECIFIED (5) Atrial fibrillation Code(s): I48.91 - UNSPECIFIED ATRIAL FIBRILLATION (6) Azotemia Code(s): R79.89 - OTHER SPECIFIED ABNORMAL FINDINGS OF BLOOD CHEMISTRY Assessment/Plan WATCH FOR NEPHROTOXINS, CREATININE INCREASED 2.2 TODAY OFF ABX MONITOR VS, CULTURES PT EVAL DC PLANNING TO [facility] IF CLEARED BY INFECTIOUS DISEASE
[2017-12-31 13:32] LABS: HEMATOCRIT 32.9 % (35.4-49); HEMOGLOBIN 10.7 GM/dL (11.7-16.9); MCH 28.6 pg (25.7-33.7); MCHC 32.6 g/dl (32.0-35.9); MEAN CELL VOLUME 87.7 fl (80-96); MEAN PLT VOLUME 10.4 fl (7.5-11.1); PLATELET COUNT 339 K/MM3 (134-434); RBC 3.76 M/mm3 (4.00-5.60); RDW 15.7 % (11.9-15.9); WHITE BLOOD COUNT 14.6 K/mm3 (4.0-10.0)
[2017-12-31 14:30] LABS: ANION GAP 11 MMOL/L (8-16); BLOOD UREA NITROGEN 47 mg/dL (7-18); CALCIUM 8.3 mg/dL (8.5-10.1); CHLORIDE 101 mmol/L (98-107); CO2 24 mmol/L (21-32); CREATININE 2.2 mg/dL (0.55-1.3); GLUCOSE,RANDOM 164 mg/dL (74-106); MAGNESIUM 2.3 mg/dL (1.8-2.4); POTASSIUM 4.4 mmol/L (3.5-5.1); SODIUM 135 mmol/L (136-145)
--- NOTE | 2017-12-31 15:24 | PN ---
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, Physician History of Present Illness: OOB in chair No complaints offered Breathing non-labored on RA Afebrile WBC slightly elevated Cultures negative - Current Medication List Current Medications: Active Medications Albuterol/Ipratropium (Duoneb -) 1 amp NEB Q6H PRN PRN Reason: SHORTNESS OF BREATH Last Admin: 12/30/17 20:05 Dose: 1 amp Allopurinol (Zyloprim -) 100 mg PO DAILY [facility] Last Admin: 12/31/17 09:23 Dose: 100 mg Aspirin (Ecotrin -) 81 mg PO DAILY [facility] Last Admin: 12/31/17 09:23 Dose: 81 mg Atorvastatin Calcium (Lipitor -) 80 mg PO HS [facility] Last Admin: 12/30/17 21:23 Dose: 80 mg Enalapril Maleate (Vasotec -) 2.5 mg PO DAILY [facility] Last Admin: 12/31/17 09:23 Dose: 2.5 mg Furosemide (Lasix -) 40 mg PO BID@0600,1400 [facility] Last Admin: 12/31/17 13:28 Dose: Not Given Guaifenesin/Codeine Phosphate (Robitussin Ac -) 5 ml PO TID PRN PRN Reason: COUGH Last Admin: 12/30/17 10:17 Dose: 5 ml Cefepime HCl 1 gm/ Dextrose 100 mls @ 200 mls/hr IVPB BID [facility]; Protocol Last Admin: 12/31/17 09:25 Dose: 200 mls/hr Insulin Aspart (Novolog Vial Sliding Scale -) 1 vial SQ ACHS [facility]; Protocol Last Admin: 12/31/17 11:55 Dose: 2 units Metoprolol Succinate (Toprol Xl -) 25 mg PO BID [facility] Last Admin: 12/31/17 09:23 Dose: 25 mg Mometasone Furoate (Asmanex 110mcg -) 1 puff IH BID [facility] Last Admin: 12/31/17 09:25 Dose: 1 puff Nystatin/Triamcinolone Acetonide (Mycolog Ii Ointment -) 1 applic TP BID [facility] Last Admin: 12/31/17 09:25 Dose: 1 applic Ondansetron HCl (Zofran Injection) 8 mg IVPB Q6H PRN PRN Reason: NAUSEA Polyethylene Glycol (Miralax (For Daily Use) -) 17 gm PO DAILY [facility] Last Admin: 12/31/17 09:24 Dose: 17 gm Rivaroxaban (Xarelto -) 15 mg PO DAILY@1800 [facility] Last Admin: 12/30/17 17:33 Dose: 15 mg Senna (Senna -) 1 tab PO HS [facility] Last Admin: 12/30/17 21:23 Dose: 1 tab - Objective Vital Signs: Vital Signs Temperature 97.4 F L 12/31/17 05:30 Pulse Rate 97 H 12/30/17 22:25 Respiratory Rate 116 H 12/30/17 22:25 Blood Pressure 117/62 12/30/17 22:25 O2 Sat by Pulse Oximetry (%) 94 L 12/30/17 20:45 Constitutional: Yes: No Distress Eyes: Yes: Conjunctiva Clear Cardiovascular: Yes: Regular Rate and Rhythm, S1, S2 Respiratory: Yes: Other (few crepitations R base) Gastrointestinal: Yes: Normal Bowel Sounds, Soft. No: Tenderness Edema: Yes Labs: CBC, BMP 12/31/17 13:10 12/31/17 13:10 INR, PTT INR 1.53 (0.83-1.09) H 12/26/17 19:12 Assessment/Plan Possible sepsis ? lung source Azotemia Lactic acidosis- resolved D/C antibiotics, observe
--- NOTE | 2017-12-31 15:30 | PN ---
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 (short form) - Note 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: Renal follow up for JD Pt seen and examined at the bedside sitting in chair, appears uncomfortable denies any sob no N/V/D Vital Signs Temperature 97.4 F L 12/31/17 05:30 Pulse Rate 97 H 12/30/17 22:25 Respiratory Rate 116 H 12/30/17 22:25 Blood Pressure 117/62 12/30/17 22:25 O2 Sat by Pulse Oximetry (%) 94 L 12/30/17 20:45 Intake & Output 12/28/17 12/29/17 12/30/17 12/31/17 23:59 23:59 23:59 23:59 Intake Total 1335 725 940 550 Balance 1335 725 940 550 Weight 101.151 kg NAD awake and alert RRR, No M/R CTA, no rales or wheeze soft Nt/ND + edema by ankles CBC, BMP 12/31/17 13:10 12/31/17 13:10 Current Medications Albuterol/Ipratropium (Duoneb -) 1 amp NEB Q6H PRN PRN Reason: SHORTNESS OF BREATH Last Admin: 12/30/17 20:05 Dose: 1 amp Allopurinol (Zyloprim -) 100 mg PO DAILY [facility] Last Admin: 12/31/17 09:23 Dose: 100 mg Aspirin (Ecotrin -) 81 mg PO DAILY [facility] Last Admin: 12/31/17 09:23 Dose: 81 mg Atorvastatin Calcium (Lipitor -) 80 mg PO HS [facility] Last Admin: 12/30/17 21:23 Dose: 80 mg Enalapril Maleate (Vasotec -) 2.5 mg PO DAILY [facility] Last Admin: 12/31/17 09:23 Dose: 2.5 mg Furosemide (Lasix -) 40 mg PO BID@0600,1400 [facility] Last Admin: 12/31/17 13:28 Dose: Not Given Guaifenesin/Codeine Phosphate (Robitussin Ac -) 5 ml PO TID PRN PRN Reason: COUGH Last Admin: 12/30/17 10:17 Dose: 5 ml Insulin Aspart (Novolog Vial Sliding Scale -) 1 vial SQ ACHS [facility]; Protocol Last Admin: 12/31/17 11:55 Dose: 2 units Metoprolol Succinate (Toprol Xl -) 25 mg PO BID [facility] Last Admin: 12/31/17 09:23 Dose: 25 mg Mometasone Furoate (Asmanex 110mcg -) 1 puff IH BID [facility] Last Admin: 12/31/17 09:25 Dose: 1 puff Nystatin/Triamcinolone Acetonide (Mycolog Ii Ointment -) 1 applic TP BID [facility] Last Admin: 12/31/17 09:25 Dose: 1 applic Ondansetron HCl (Zofran Injection) 8 mg IVPB Q6H PRN PRN Reason: NAUSEA Polyethylene Glycol (Miralax (For Daily Use) -) 17 gm PO DAILY [facility] Last Admin: 12/31/17 09:24 Dose: 17 gm Rivaroxaban (Xarelto -) 15 mg PO DAILY@1800 [facility] Last Admin: 12/30/17 17:33 Dose: 15 mg Senna (Senna -) 1 tab PO HS [facility] Last Admin: 12/30/17 21:23 Dose: 1 tab 82 year old gentleman with Hx of DM, CKD (unclear baseline Cr), Afib on A/C, CHF (preserved LV function on last echo), Hypertension who presented from [facility] with SOB and Fever and admitted for sepsis with Cr of 1.9. #JD on CKD #PNA/bronchitis #CHF #DM #Hypertension #Elevated Troponin Cr bumped to 2.2, unclear etiology no nephrotoxin exposure or overt hypotension noted pt reports making urine Continue Lasix and ACEi for now repeat labs in AM check urine for FeUrea Avoid NSAIDs and other nephrotoxins Trend renal function and electrolytes Thiago Fan DO
[2017-12-31] MEDS ORDERED: PT OWN MED DRAWER 7, Y5N ONE ×2 (18:23→21:26)
[2017-12-31] MEDS: RIVAROXABAN 15 MG TABLET PO SCH (18:24)
[2017-12-31] MEDS: SENNOSIDES 8.6MG TABLET (FP) PO SCH (21:28)
[2017-12-31] MEDS: ATORVASTATIN CA 80 MG TABLET (FP) PO SCH (21:28)
[2018-01-01] MEDS: ALBUTEROL SO4 2.5/IPRATROPIUM 0.5 INH SOL 3 ML VIAL.NEB. NEB PRN (02:15)
[2018-01-01 05:54] LABS: HEMATOCRIT 34.2 % (35.4-49); MCH 28.3 pg (25.7-33.7); MCHC 32.1 g/dl (32.0-35.9); MEAN CELL VOLUME 88.3 fl (80-96); MEAN PLT VOLUME 10.5 fl (7.5-11.1); PLATELET COUNT 316 K/MM3 (134-434); RBC 3.87 M/mm3 (4.00-5.60); RDW 15.8 % (11.9-15.9); WHITE BLOOD COUNT 15.9 K/mm3 (4.0-10.0)
[2018-01-01] MEDS: INSULIN SLIDING SCALE (NOVOLOG) 1 VIAL SQ SCH ×4 (06:30→21:34)
[2018-01-01] MEDS: FUROSEMIDE 40 MG TABLET (FP) PO SCH (06:30)
[2018-01-01 06:32] LABS: ANION GAP 8 MMOL/L (8-16); BLOOD UREA NITROGEN 52 mg/dL (7-18); CALCIUM 8.7 mg/dL (8.5-10.1); CHLORIDE 100 mmol/L (98-107); CO2 25 mmol/L (21-32); CREATININE 2.6 mg/dL (0.55-1.3); GLUCOSE,RANDOM 164 mg/dL (74-106); POTASSIUM 4.8 mmol/L (3.5-5.1); SODIUM 133 mmol/L (136-145)
[2018-01-01] MEDS: ASPIRIN COATED 81 MG TABLET.EC PO SCH (09:12)
[2018-01-01] MEDS: metoPROLOL SUCCINATE 25 MG TAB.SR.24H (FP) PO SCH ×2 (09:13→21:28)
[2018-01-01] MEDS: ALLOPURINOL 100 MG TABLET (FP) PO SCH (09:13)
[2018-01-01] MEDS: POLYETHYLENE GLYCOL 3350 119 GM BTL PO SCH (09:13)
[2018-01-01] MEDS: ENALAPRIL MALEATE 2.5 MG TABLET (FP) PO SCH (09:13)
[2018-01-01] MEDS: MOMETASONE FUROATE 110 MCG/IH INHALER IH SCH ×2 (09:13→21:29)
[2018-01-01] MEDS: NYSTATIN/TRIAMCINOLONE TOPICAL OINTMENT 15 GM TUBE TP SCH ×2 (09:14→21:29)
[2018-01-01] MEDS: guaiFENesin/CODEINE 5 ML UNIT-DOSE CUPS PO PRN (09:14)
--- NOTE | 2018-01-01 09:46 | PN ---
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, Physician Chief Complaint: sob History of Present Illness: says his breathing is better denies cp no palpitations, syncope - Current Medication List Current Medications: Active Medications Albuterol/Ipratropium (Duoneb -) 1 amp NEB Q6H PRN PRN Reason: SHORTNESS OF BREATH Last Admin: 01/01/18 02:15 Dose: 1 amp Allopurinol (Zyloprim -) 100 mg PO DAILY [facility] Last Admin: 01/01/18 09:13 Dose: 100 mg Aspirin (Ecotrin -) 81 mg PO DAILY [facility] Last Admin: 01/01/18 09:12 Dose: 81 mg Atorvastatin Calcium (Lipitor -) 80 mg PO HS [facility] Last Admin: 12/31/17 21:28 Dose: 80 mg Furosemide (Lasix -) 40 mg PO BID@0600,1400 [facility] Last Admin: 01/01/18 06:30 Dose: 40 mg Guaifenesin/Codeine Phosphate (Robitussin Ac -) 5 ml PO TID PRN PRN Reason: COUGH Last Admin: 01/01/18 09:14 Dose: 5 ml Insulin Aspart (Novolog Vial Sliding Scale -) 1 vial SQ [facility]; Protocol Last Admin: 01/01/18 06:30 Dose: Not Given Metoprolol Succinate (Toprol Xl -) 25 mg PO BID [facility] Last Admin: 01/01/18 09:13 Dose: 25 mg Mometasone Furoate (Asmanex 110mcg -) 1 puff IH BID [facility] Last Admin: 01/01/18 09:13 Dose: 1 puff Nystatin/Triamcinolone Acetonide (Mycolog Ii Ointment -) 1 applic TP BID [facility] Last Admin: 01/01/18 09:14 Dose: 1 applic Ondansetron HCl (Zofran Injection) 8 mg IVPB Q6H PRN PRN Reason: NAUSEA Polyethylene Glycol (Miralax (For Daily Use) -) 17 gm PO DAILY [facility] Last Admin: 01/01/18 09:13 Dose: 17 gm Rivaroxaban (Xarelto -) 15 mg PO DAILY@1800 [facility] Last Admin: 12/31/17 18:24 Dose: 15 mg Senna (Senna -) 1 tab PO [facility] Last Admin: 12/31/17 21:28 Dose: 1 tab - Objective Vital Signs: Vital Signs Temperature 98.6 F 01/01/18 06:00 Pulse Rate 105 H 01/01/18 06:00 Respiratory Rate 20 01/01/18 06:00 Blood Pressure 118/70 01/01/18 06:00 O2 Sat by Pulse Oximetry (%) 94 L 12/31/17 22:00 Constitutional: Yes: Well Nourished, No Distress, Calm Cardiovascular: Yes: Pulse Irregular, S1, S2. No: JVD, Gallop, Murmur Respiratory: Yes: Regular, CTA Bilaterally. No: Accessory Muscle Use, Rales, Wheezes Extremities: No: Cold Edema: Yes (2+ ankles,most nonpitting) Neurological: Yes: Alert. No: Seizure Psychiatric: No: Agitated Labs: CBC, BMP 01/01/18 05:35 01/01/18 05:35 INR, PTT INR 1.53 (0.83-1.09) H 12/26/17 19:12 Assessment/Plan echo 12/2017 mod , nl RV function, severe septal hypokinesis, apical dyskinesis. severely hypokinetic anterior, septa brannon with apical dyskinesis and hypercontractile base c/w LAD infarct vs takotsubo. LV function mod to severely reduced. RA mildly reduced function, mod to severe MR, severe anterior wall hypokinesis EKG: afib, LAD, old septal infarct 82M h/o HTN, CHF, afib, CKD, DM p/w PNA +troponin, chronic CAD - recent echo c/w old LAD territory infarct and systolic dysfunction - trop lower than during recent admission, was 2.7 on 12/23 now 0.44 (previous elevations due to CHF, with trend not c/w ACS) - no signs ACS here - ASA, statin, BB as doing Chronic systolic CHF, ischemic CMP - cont bb - holding enalapril in setting of JD - lasix 40 bid started 12/28. CXR that day with vascular engorgement reported, not previously reported on 12/26. notes do not describe acute chf evidence. bun/ creat uptrending since, significantly up now - clinically, doubt chf as no sob, lungs clear, no JVD. suspect leg edema is due to venous ins'y (of note, was edematous when i met him in ER on last admit) - d/c lasix PNA, possible aspiration - on abx per primary team afib - continue xarelto - rate controlled, cont bb at same dose JD CKD - renal following - holding enalapril in setting of JD - numbers worsening signif in last 48-72 hrs--lasix d/c'd 01/01 - may need IVF if creatinine does not downtrend in am tomorrow
--- NOTE | 2018-01-01 10:43 | PN ---
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 (short form) - Note 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: Renal follow up for JD Pt seen and examined at the bedside no complaints legs remain swollen denies any overt sob Vital Signs Temperature 98.6 F 01/01/18 06:00 Pulse Rate 105 H 01/01/18 06:00 Respiratory Rate 20 01/01/18 06:00 Blood Pressure 118/70 01/01/18 06:00 O2 Sat by Pulse Oximetry (%) 94 L 12/31/17 22:00 Intake & Output 12/29/17 12/30/17 12/31/17 01/01/18 23:59 23:59 23:59 23:59 Intake Total 657 124 8442 850 Balance 850 224 6079 850 NAD awake and alert RRR, No M/R CTA, no rales or wheeze soft Nt/ND + edema by ankles CBC, BMP 01/01/18 05:35 01/01/18 05:35 Current Medications Albuterol/Ipratropium (Duoneb -) 1 amp NEB Q6H PRN PRN Reason: SHORTNESS OF BREATH Last Admin: 01/01/18 02:15 Dose: 1 amp Allopurinol (Zyloprim -) 100 mg PO DAILY [facility] Last Admin: 01/01/18 09:13 Dose: 100 mg Aspirin (Ecotrin -) 81 mg PO DAILY [facility] Last Admin: 01/01/18 09:12 Dose: 81 mg Atorvastatin Calcium (Lipitor -) 80 mg PO HS [facility] Last Admin: 12/31/17 21:28 Dose: 80 mg Furosemide (Lasix -) 40 mg PO BID@0600,1400 [facility] Last Admin: 01/01/18 06:30 Dose: 40 mg Guaifenesin/Codeine Phosphate (Robitussin Ac -) 5 ml PO TID PRN PRN Reason: COUGH Last Admin: 01/01/18 09:14 Dose: 5 ml Insulin Aspart (Novolog Vial Sliding Scale -) 1 vial SQ ACHS [facility]; Protocol Last Admin: 01/01/18 06:30 Dose: Not Given Metoprolol Succinate (Toprol Xl -) 25 mg PO BID [facility] Last Admin: 01/01/18 09:13 Dose: 25 mg Mometasone Furoate (Asmanex 110mcg -) 1 puff IH BID [facility] Last Admin: 01/01/18 09:13 Dose: 1 puff Nystatin/Triamcinolone Acetonide (Mycolog Ii Ointment -) 1 applic TP BID [facility] Last Admin: 01/01/18 09:14 Dose: 1 applic Ondansetron HCl (Zofran Injection) 8 mg IVPB Q6H PRN PRN Reason: NAUSEA Polyethylene Glycol (Miralax (For Daily Use) -) 17 gm PO DAILY [facility] Last Admin: 01/01/18 09:13 Dose: 17 gm Rivaroxaban (Xarelto -) 15 mg PO DAILY@1800 [facility] Last Admin: 12/31/17 18:24 Dose: 15 mg Senna (Senna -) 1 tab PO HS [facility] Last Admin: 12/31/17 21:28 Dose: 1 tab 82 year old gentleman with Hx of DM, CKD (unclear baseline Cr), Afib on A/C, CHF (preserved LV function on last echo), Hypertension who presented from [facility] with SOB and Fever and admitted for sepsis with Cr of 1.9. #JD on CKD #PNA/bronchitis #CHF #DM #Hypertension #Elevated Troponin Renal function worsening hold ACEi (got dose today), Holding diuretics check US of the kidney and bladder urine studies pending if edema worsens may need to resume chris Fan DO
--- NOTE | 2018-01-01 11:52 | PN ---
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 (short form) - Note 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: PULMONARY Breathing better today. Less cough. Vital Signs Period Temp Pulse Resp BP Sys/[place] Pulse Ox Last 24 Hr 97.6 F-98.6 F 53-105 18-26 106-132/51-74 94 Gen: less tachypneic Heart: RRR Lung: scattered rhonchi Abd: soft, nontender Ext: + edema CBC, BMP 01/01/18 05:35 01/01/18 05:35 Active Medications Albuterol/Ipratropium (Duoneb -) 1 amp NEB Q6H PRN PRN Reason: SHORTNESS OF BREATH Last Admin: 01/01/18 02:15 Dose: 1 amp Allopurinol (Zyloprim -) 100 mg PO DAILY [facility] Last Admin: 01/01/18 09:13 Dose: 100 mg Aspirin (Ecotrin -) 81 mg PO DAILY [facility] Last Admin: 01/01/18 09:12 Dose: 81 mg Atorvastatin Calcium (Lipitor -) 80 mg PO HS [facility] Last Admin: 12/31/17 21:28 Dose: 80 mg Guaifenesin/Codeine Phosphate (Robitussin Ac -) 5 ml PO TID PRN PRN Reason: COUGH Last Admin: 01/01/18 09:14 Dose: 5 ml Insulin Aspart (Novolog Vial Sliding Scale -) 1 vial SQ [facility]; Protocol Last Admin: 01/01/18 11:20 Dose: Not Given Metoprolol Succinate (Toprol Xl -) 25 mg PO BID [facility] Last Admin: 01/01/18 09:13 Dose: 25 mg Mometasone Furoate (Asmanex 110mcg -) 1 puff IH BID [facility] Last Admin: 01/01/18 09:13 Dose: 1 puff Nystatin/Triamcinolone Acetonide (Mycolog Ii Ointment -) 1 applic TP BID [facility] Last Admin: 01/01/18 09:14 Dose: 1 applic Ondansetron HCl (Zofran Injection) 8 mg IVPB Q6H PRN PRN Reason: NAUSEA Polyethylene Glycol (Miralax (For Daily Use) -) 17 gm PO DAILY [facility] Last Admin: 01/01/18 09:13 Dose: 17 gm Rivaroxaban (Xarelto -) 15 mg PO DAILY@1800 [facility] Last Admin: 12/31/17 18:24 Dose: 15 mg Senna (Senna -) 1 tab PO HS [facility] Last Admin: 12/31/17 21:28 Dose: 1 tab A/P Acute Bronchitis Sepsis Lactic Acidosis Acute on Chronic Renal Failure LV Systolic Dysfunction Mitral Regurgitation Atrial Fibrillation HTN DM - continue lasix - completed empiric antibiotics - monitor urine output, creatinine - O2 to keep SpO2 >90% - rate control - continue anticoagulation Problem List - Problems (1) Acute bronchitis Code(s): J20.9 - ACUTE BRONCHITIS, UNSPECIFIED (2) Sepsis Code(s): A41.9 - SEPSIS, UNSPECIFIED ORGANISM (3) JD (acute kidney injury) Code(s): N17.9 - ACUTE KIDNEY FAILURE, UNSPECIFIED (4) Atrial fibrillation Code(s): I48.91 - UNSPECIFIED ATRIAL FIBRILLATION (5) CHF (congestive heart failure) Code(s): I50.9 - HEART FAILURE, UNSPECIFIED (6) Hyperlipidemia Code(s): E78.5 - HYPERLIPIDEMIA, UNSPECIFIED (7) Hypertension Code(s): I10 - ESSENTIAL (PRIMARY) HYPERTENSION Qualifiers: Hypertension type: essential hypertension Qualified Code(s): I10 - Essential (primary) hypertension
--- NOTE | 2018-01-01 12:09 | PN ---
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, Physician History of Present Illness: 82yF with PMH HTN, CHF, AFIB on xarelto, CKD, DM, PNA s/p hospitalization 12/16- presented to the ED with cough and SOB. Noted to be febrile in ED. - Current Medication List Current Medications: Active Medications Albuterol/Ipratropium (Duoneb -) 1 amp NEB Q6H PRN PRN Reason: SHORTNESS OF BREATH Last Admin: 01/01/18 02:15 Dose: 1 amp Allopurinol (Zyloprim -) 100 mg PO DAILY [facility] Last Admin: 01/01/18 09:13 Dose: 100 mg Aspirin (Ecotrin -) 81 mg PO DAILY [facility] Last Admin: 01/01/18 09:12 Dose: 81 mg Atorvastatin Calcium (Lipitor -) 80 mg PO HS [facility] Last Admin: 12/31/17 21:28 Dose: 80 mg Guaifenesin/Codeine Phosphate (Robitussin Ac -) 5 ml PO TID PRN PRN Reason: COUGH Last Admin: 01/01/18 09:14 Dose: 5 ml Insulin Aspart (Novolog Vial Sliding Scale -) 1 vial SQ [facility]; Protocol Last Admin: 01/01/18 11:20 Dose: Not Given Metoprolol Succinate (Toprol Xl -) 25 mg PO BID [facility] Last Admin: 01/01/18 09:13 Dose: 25 mg Mometasone Furoate (Asmanex 110mcg -) 1 puff IH BID [facility] Last Admin: 01/01/18 09:13 Dose: 1 puff Nystatin/Triamcinolone Acetonide (Mycolog Ii Ointment -) 1 applic TP BID [facility] Last Admin: 01/01/18 09:14 Dose: 1 applic Ondansetron HCl (Zofran Injection) 8 mg IVPB Q6H PRN PRN Reason: NAUSEA Polyethylene Glycol (Miralax (For Daily Use) -) 17 gm PO DAILY [facility] Last Admin: 01/01/18 09:13 Dose: 17 gm Rivaroxaban (Xarelto -) 15 mg PO DAILY@1800 [facility] Last Admin: 12/31/17 18:24 Dose: 15 mg Senna (Senna -) 1 tab PO HS [facility] Last Admin: 12/31/17 21:28 Dose: 1 tab - Objective Vital Signs: Vital Signs Temperature 98.6 F 01/01/18 10:51 Pulse Rate 101 H 01/01/18 10:51 Respiratory Rate 26 H 01/01/18 10:51 Blood Pressure 110/71 01/01/18 10:51 O2 Sat by Pulse Oximetry (%) 92 L 01/01/18 09:00 Labs: CBC, BMP 01/01/18 05:35 01/01/18 05:35 INR, PTT INR 1.53 (0.83-1.09) H 12/26/17 19:12 Problem List - Problems (1) Acute bronchitis Assessment/Plan: - Off abx - ID consult noted - Pulm consult Code(s): J20.9 - ACUTE BRONCHITIS, UNSPECIFIED (2) Atrial fibrillation Assessment/Plan: - cont home meds: metoprolol, xarelto Code(s): I48.91 - UNSPECIFIED ATRIAL FIBRILLATION (3) CHF (congestive heart failure) Code(s): I50.9 - HEART FAILURE, UNSPECIFIED (4) Hypertension Assessment/Plan: - cont home meds: metoprolol, enalapril, lasix Code(s): I10 - ESSENTIAL (PRIMARY) HYPERTENSION Qualifiers: Hypertension type: essential hypertension Qualified Code(s): I10 - Essential (primary) hypertension (5) JD (acute kidney injury) Assessment/Plan: - cr 2.6, above baseline 1.3-1.4 - renal consult note - Hold lasix - hold further IVF as pt with CHF - Follow trends CMP Sodium 133 mmol/L (136-145) L 01/01/18 05:35 Potassium 4.8 mmol/L (3.5-5.1) 01/01/18 05:35 Chloride 100 mmol/L (98-107) 01/01/18 05:35 Carbon Dioxide 25 mmol/L (21-32) 01/01/18 05:35 Anion Gap 8 MMOL/L (8-16) 01/01/18 05:35 BUN 52 mg/dL (7-18) H 01/01/18 05:35 Creatinine 2.6 mg/dL (0.55-1.3) H 01/01/18 05:35 Creat Clearance w eGFR 23.69 (>60) 01/01/18 05:35 POC Glucometer 173 UNITS (80-120) 01/01/18 06:05 Random Glucose 164 mg/dL (74-106) H 01/01/18 05:35 Lactic Acid 1.6 mmol/L (0.4-2.0) 12/27/17 00:50 Calcium 8.7 mg/dL (8.5-10.1) 01/01/18 05:35 Phosphorus 3.3 mg/dL (2.5-4.9) 12/28/17 09:25 Magnesium 2.3 mg/dL (1.8-2.4) 12/31/17 13:10 Total Bilirubin 0.8 mg/dL (0.2-1) 12/26/17 19:12 AST 49 U/L (15-37) H 12/26/17 19:12 ALT 74 U/L (13-61) H 12/26/17 19:12 Alkaline Phosphatase 156 U/L (45-117) H 12/26/17 19:12 Creatine Kinase 127 IU/L (26-308) 12/27/17 07:10 Troponin I 0.44 ng/ml (0.00-0.05) H 12/27/17 07:10 Total Protein 7.0 g/dl (6.4-8.2) 12/26/17 19:12 Albumin 3.2 g/dl (3.4-5.0) L 12/26/17 19:12 Code(s): N17.9 - ACUTE KIDNEY FAILURE, UNSPECIFIED (6) Diabetes Assessment/Plan: - diabetic diet - sugars have been well controlled, follow with routine am labs, add fingersticks if elevated Code(s): E11.9 - TYPE 2 DIABETES MELLITUS WITHOUT COMPLICATIONS
[2018-01-01] MEDS: RIVAROXABAN 15 MG TABLET PO SCH (17:08)
[2018-01-01] MEDS: ATORVASTATIN CA 80 MG TABLET (FP) PO SCH (21:28)
[2018-01-01] MEDS: SENNOSIDES 8.6MG TABLET (FP) PO SCH (21:28)
[2018-01-02 00:55] LABS: URINE APPEARANCE CLEAR; URINE BILIRUBIN NEGATIVE (<2.0 mg/dL); URINE COLOR YELLOW; URINE GLUCOSE (UA) NEGATIVE (NEGATIVE); URINE KETONE NEGATIVE (NEGATIVE); URINE LEUK ESTERASE NEGATIVE (NEGATIVE); URINE NITRITE NEGATIVE (NEGATIVE); URINE PROTEIN NEGATIVE (NEGATIVE); URINE UROBILINOGEN NEGATIVE mg/dL (0.2-1.0)
[2018-01-02] MEDS ORDERED: ALBUTEROL SO4 2.5/IPRATROPIUM 0.5 INH SOL 3 ML VIAL.NEB. NEB ONE (02:38)
[2018-01-02] MEDS: INSULIN SLIDING SCALE (NOVOLOG) 1 VIAL SQ SCH ×4 (06:01→21:29)
[2018-01-02] MEDS: POLYETHYLENE GLYCOL 3350 119 GM BTL PO SCH (09:49)
[2018-01-02] MEDS: metoPROLOL SUCCINATE 25 MG TAB.SR.24H (FP) PO SCH ×2 (09:49→21:25)
[2018-01-02] MEDS: NYSTATIN/TRIAMCINOLONE TOPICAL OINTMENT 15 GM TUBE TP SCH ×2 (09:49→21:25)
[2018-01-02] MEDS: ALLOPURINOL 100 MG TABLET (FP) PO SCH (09:49)
[2018-01-02] MEDS: ASPIRIN COATED 81 MG TABLET.EC PO SCH (09:49)
[2018-01-02] MEDS: MOMETASONE FUROATE 110 MCG/IH INHALER IH SCH ×2 (09:50→21:25)
--- NOTE | 2018-01-02 11:08 | PN ---
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 (short form) - Note 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: s: no cp sob palps dizzy o: Vital Signs Period Temp Pulse Resp BP Sys/[place] Pulse Ox Last 24 Hr 97.6 F-97.8 F 56-110 22 100-114/55-64 92 Constitutional: Yes: Well Nourished, No Distress, Calm Eyes: Yes: Conjunctiva Clear Respiratory: Yes: Regular, CTA Bilaterally Gastrointestinal: Yes: Normal Bowel Sounds, Soft Cardiovascular: Yes: Pulse Irregular JVD: No Heart Sounds: Yes: S1, S2 Murmur: Yes: Systolic Murmur, Grade 2 Edema: trace le edema bl Integumentary: no jaundice diaphoresis alert awake appropriate Current Medications Generic Name Dose Route Start Last Admin Trade Name Freq PRN Reason Stop Dose Admin Allopurinol 100 mg 12/28/17 10:00 01/02/18 09:49 Zyloprim - PO 100 mg DAILY [facility] Administration Aspirin 81 mg 12/28/17 10:00 01/02/18 09:49 Ecotrin - PO 81 mg DAILY [facility] Administration Atorvastatin Calcium 80 mg 12/27/17 22:00 01/01/18 21:28 Lipitor - PO Not Given HS [facility] Guaifenesin/Codeine Phosphate 5 ml 12/30/17 09:53 01/01/18 09:14 Robitussin Ac - PO 5 ml TID PRN Administration COUGH Insulin Aspart 1 vial 12/27/17 22:00 01/02/18 06:01 Novolog Vial Sliding Scale - SQ Not Given ACHS [facility] Protocol Metoprolol Succinate 25 mg 12/27/17 22:00 01/02/18 09:49 Toprol Xl - PO 25 mg BID [facility] Administration Mometasone Furoate 1 puff 12/27/17 22:00 01/02/18 09:50 Asmanex 110mcg - IH 1 puff BID [facility] Administration Nystatin/Triamcinolone Acetonide 1 applic 12/27/17 10:00 01/02/18 09:49 Mycolog Ii Ointment - TP 1 applic BID [facility] Administration Ondansetron HCl 8 mg 12/30/17 09:53 Zofran Injection IVPB Q6H PRN NAUSEA Polyethylene Glycol 17 gm 12/30/17 10:00 01/02/18 09:49 Miralax (For Daily Use) - PO 17 gm DAILY [facility] Administration Rivaroxaban 15 mg 12/27/17 18:00 01/01/18 17:08 Xarelto - PO 15 mg DAILY@1800 [facility] Administration Senna 1 tab 12/30/17 22:00 01/01/18 21:28 Senna - PO Not Given HS [facility] CBC, BMP 01/01/18 05:35 01/01/18 05:35 echo 12/2017 mod , nl RV function, severe septal hypokinesis, apical dyskinesis. severely hypokinetic anterior, septa brannon with apical dyskinesis and hypercontractile base c/w LAD infarct vs takotsubo. LV function mod to severely reduced. 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 CXR that day with vascular engorgement reported, not previously reported on 12/26. notes do not describe acute chf evidence. bun/ creat uptrending since, significantly up now - suspect leg edema is due to venous ins'y and not chf, d/c lasix for now PNA, possible aspiration - on abx per primary team afib - continue xarelto - rate controlled, cont bb at same dose JD CKD - renal following - holding enalapril in setting of JD - numbers worsening --lasix d/c'd 01/01
[2018-01-02 11:27] LABS: EOS % 1.3 % (0-4.5); HEMATOCRIT 34.1 % (35.4-49); HEMOGLOBIN 10.9 GM/dL (11.7-16.9); LYMPH % 9.5 % (8-40); MCH 28.4 pg (25.7-33.7); MCHC 32.1 g/dl (32.0-35.9); MEAN CELL VOLUME 88.4 fl (80-96); MEAN PLT VOLUME 10.9 fl (7.5-11.1); MONO % 6.9 % (3.8-10.2); NEUT % 81.3 % (42.8-82.8); PLATELET COUNT 301 K/MM3 (134-434); RBC 3.85 M/mm3 (4.00-5.60); RDW 15.9 % (11.9-15.9); WHITE BLOOD COUNT 15.5 K/mm3 (4.0-10.0)
[2018-01-02 12:06] LABS: ALK PHOS 136 U/L (45-117); ANION GAP 11 MMOL/L (8-16); BILIRUBIN,TOTAL 1.1 mg/dL (0.2-1); BLOOD UREA NITROGEN 61 mg/dL (7-18); CALCIUM 8.6 mg/dL (8.5-10.1); CHLORIDE 100 mmol/L (98-107); CO2 23 mmol/L (21-32); CREATININE 2.4 mg/dL (0.55-1.3); GLUCOSE,RANDOM 148 mg/dL (74-106); POTASSIUM 5.2 mmol/L (3.5-5.1); SGOT/AST 37 U/L (15-37); SGPT/ALT 55 U/L (13-61); SODIUM 134 mmol/L (136-145); TOT PROT 6.6 g/dl (6.4-8.2)
--- NOTE | 2018-01-02 13:15 | PN ---
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 (short form) - Note 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: PULMONARY Breathing continues to improve. Less cough. Vital Signs Period Temp Pulse Resp BP Sys/[place] Pulse Ox Last 24 Hr 97.6 F-97.8 F 56-110 22 100-114/55-64 92 Gen: less tachypneic Heart: RRR Lung: scattered rhonchi Abd: soft, nontender Ext: + edema CBC, BMP 01/02/18 10:30 01/02/18 10:30 Active Medications Allopurinol (Zyloprim -) 100 mg PO DAILY [facility] Last Admin: 01/02/18 09:49 Dose: 100 mg Aspirin (Ecotrin -) 81 mg PO DAILY [facility] Last Admin: 01/02/18 09:49 Dose: 81 mg Atorvastatin Calcium (Lipitor -) 80 mg PO HS [facility] Last Admin: 01/01/18 21:28 Dose: Not Given Guaifenesin/Codeine Phosphate (Robitussin Ac -) 5 ml PO TID PRN PRN Reason: COUGH Last Admin: 01/01/18 09:14 Dose: 5 ml Insulin Aspart (Novolog Vial Sliding Scale -) 1 vial SQ [facility]; Protocol Last Admin: 01/02/18 11:44 Dose: Not Given Metoprolol Succinate (Toprol Xl -) 25 mg PO BID [facility] Last Admin: 01/02/18 09:49 Dose: 25 mg Mometasone Furoate (Asmanex 110mcg -) 1 puff IH BID [facility] Last Admin: 01/02/18 09:50 Dose: 1 puff Nystatin/Triamcinolone Acetonide (Mycolog Ii Ointment -) 1 applic TP BID [facility] Last Admin: 01/02/18 09:49 Dose: 1 applic Ondansetron HCl (Zofran Injection) 8 mg IVPB Q6H PRN PRN Reason: NAUSEA Polyethylene Glycol (Miralax (For Daily Use) -) 17 gm PO DAILY [facility] Last Admin: 01/02/18 09:49 Dose: 17 gm Rivaroxaban (Xarelto -) 15 mg PO DAILY@1800 [facility] Last Admin: 01/01/18 17:08 Dose: 15 mg Senna (Senna -) 1 tab PO HS [facility] Last Admin: 01/01/18 21:28 Dose: Not Given A/P Acute Bronchitis Sepsis Lactic Acidosis Acute on Chronic Renal Failure LV Systolic Dysfunction Mitral Regurgitation Atrial Fibrillation HTN DM - completed empiric antibiotics - monitor urine output, creatinine - O2 to keep SpO2 >90% - rate control - continue anticoagulation Problem List - Problems (1) Acute bronchitis Code(s): J20.9 - ACUTE BRONCHITIS, UNSPECIFIED (2) Sepsis Code(s): A41.9 - SEPSIS, UNSPECIFIED ORGANISM (3) JD (acute kidney injury) Code(s): N17.9 - ACUTE KIDNEY FAILURE, UNSPECIFIED (4) Atrial fibrillation Code(s): I48.91 - UNSPECIFIED ATRIAL FIBRILLATION (5) CHF (congestive heart failure) Code(s): I50.9 - HEART FAILURE, UNSPECIFIED (6) Hyperlipidemia Code(s): E78.5 - HYPERLIPIDEMIA, UNSPECIFIED (7) Hypertension Code(s): I10 - ESSENTIAL (PRIMARY) HYPERTENSION Qualifiers: Hypertension type: essential hypertension Qualified Code(s): I10 - Essential (primary) hypertension
--- NOTE | 2018-01-02 14:40 | PN ---
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, Physician - Current Medication List Current Medications: Active Medications Allopurinol (Zyloprim -) 100 mg PO DAILY [facility] Last Admin: 01/02/18 09:49 Dose: 100 mg Aspirin (Ecotrin -) 81 mg PO DAILY [facility] Last Admin: 01/02/18 09:49 Dose: 81 mg Atorvastatin Calcium (Lipitor -) 80 mg PO HS [facility] Last Admin: 01/01/18 21:28 Dose: Not Given Guaifenesin/Codeine Phosphate (Robitussin Ac -) 5 ml PO TID PRN PRN Reason: COUGH Last Admin: 01/01/18 09:14 Dose: 5 ml Insulin Aspart (Novolog Vial Sliding Scale -) 1 vial SQ [facility]; Protocol Last Admin: 01/02/18 11:44 Dose: Not Given Metoprolol Succinate (Toprol Xl -) 25 mg PO BID [facility] Last Admin: 01/02/18 09:49 Dose: 25 mg Mometasone Furoate (Asmanex 110mcg -) 1 puff IH BID [facility] Last Admin: 01/02/18 09:50 Dose: 1 puff Nystatin/Triamcinolone Acetonide (Mycolog Ii Ointment -) 1 applic TP BID [facility] Last Admin: 01/02/18 09:49 Dose: 1 applic Ondansetron HCl (Zofran Injection) 8 mg IVPB Q6H PRN PRN Reason: NAUSEA Polyethylene Glycol (Miralax (For Daily Use) -) 17 gm PO DAILY [facility] Last Admin: 01/02/18 09:49 Dose: 17 gm Rivaroxaban (Xarelto -) 15 mg PO DAILY@1800 [facility] Last Admin: 01/01/18 17:08 Dose: 15 mg Senna (Senna -) 1 tab PO [facility] Last Admin: 01/01/18 21:28 Dose: Not Given - Objective Vital Signs: Vital Signs Temperature 98.3 F 01/02/18 10:00 Pulse Rate 91 H 01/02/18 10:00 Respiratory Rate 20 01/02/18 10:00 Blood Pressure 113/55 L 01/02/18 10:00 O2 Sat by Pulse Oximetry (%) 91 L 01/02/18 09:00 Cardiovascular: Yes: S1, S2 Respiratory: Yes: Regular, CTA Bilaterally Gastrointestinal: Yes: Normal Bowel Sounds, Soft Labs: CBC, BMP 01/02/18 10:30 01/02/18 10:30 INR, PTT INR 1.53 (0.83-1.09) H 12/26/17 19:12 Problem List - Problems (1) Acute bronchitis Assessment/Plan: - Off abx - ID consult noted - Pulm consult Code(s): J20.9 - ACUTE BRONCHITIS, UNSPECIFIED (2) Atrial fibrillation Assessment/Plan: - cont home meds: metoprolol, xarelto Code(s): I48.91 - UNSPECIFIED ATRIAL FIBRILLATION (3) CHF (congestive heart failure) Assessment/Plan: -no evidence of failure Code(s): I50.9 - HEART FAILURE, UNSPECIFIED (4) Hypertension Assessment/Plan: - cont home meds: metoprolol, enalapril, lasix Code(s): I10 - ESSENTIAL (PRIMARY) HYPERTENSION Qualifiers: Hypertension type: essential hypertension Qualified Code(s): I10 - Essential (primary) hypertension (5) JD (acute kidney injury) Assessment/Plan: - cr 2.6, above baseline 1.3-1.4 - renal consult note - Hold lasix - hold further IVF as pt with CHF - Follow trends CMP Sodium 133 mmol/L (136-145) L 01/01/18 05:35 Potassium 4.8 mmol/L (3.5-5.1) 01/01/18 05:35 Chloride 100 mmol/L (98-107) 01/01/18 05:35 Carbon Dioxide 25 mmol/L (21-32) 01/01/18 05:35 Anion Gap 8 MMOL/L (8-16) 01/01/18 05:35 BUN 52 mg/dL (7-18) H 01/01/18 05:35 Creatinine 2.6 mg/dL (0.55-1.3) H 01/01/18 05:35 Creat Clearance w eGFR 23.69 (>60) 01/01/18 05:35 POC Glucometer 173 UNITS (80-120) 01/01/18 06:05 Random Glucose 164 mg/dL (74-106) H 01/01/18 05:35 Lactic Acid 1.6 mmol/L (0.4-2.0) 12/27/17 00:50 Calcium 8.7 mg/dL (8.5-10.1) 01/01/18 05:35 Phosphorus 3.3 mg/dL (2.5-4.9) 12/28/17 09:25 Magnesium 2.3 mg/dL (1.8-2.4) 12/31/17 13:10 Total Bilirubin 0.8 mg/dL (0.2-1) 12/26/17 19:12 AST 49 U/L (15-37) H 12/26/17 19:12 ALT 74 U/L (13-61) H 12/26/17 19:12 Alkaline Phosphatase 156 U/L (45-117) H 12/26/17 19:12 Creatine Kinase 127 IU/L (26-308) 12/27/17 07:10 Troponin I 0.44 ng/ml (0.00-0.05) H 12/27/17 07:10 Total Protein 7.0 g/dl (6.4-8.2) 12/26/17 19:12 Albumin 3.2 g/dl (3.4-5.0) L 12/26/17 19:12 Code(s): N17.9 - ACUTE KIDNEY FAILURE, UNSPECIFIED (6) Diabetes Assessment/Plan: - diabetic diet - sugars have been well controlled, follow with routine am labs, add fingersticks if elevated Code(s): E11.9 - TYPE 2 DIABETES MELLITUS WITHOUT COMPLICATIONS
[2018-01-02] MEDS: RIVAROXABAN 15 MG TABLET PO SCH (17:16)
[2018-01-02] MEDS: ATORVASTATIN CA 80 MG TABLET (FP) PO SCH (21:25)
[2018-01-02] MEDS: SENNOSIDES 8.6MG TABLET (FP) PO SCH (21:25)
[2018-01-03] MEDS: INSULIN SLIDING SCALE (NOVOLOG) 1 VIAL SQ SCH ×2 (05:59→11:40)
--- NOTE | 2018-01-03 09:09 | DS ---
Physical Examination Vital Signs: Vital Signs Temperature 97.9 F 01/03/18 05:55 Pulse Rate 98 H 01/03/18 05:55 Respiratory Rate 20 01/03/18 05:55 Blood Pressure 104/61 01/03/18 05:55 O2 Sat by Pulse Oximetry (%) 92 L 01/02/18 21:00 Labs: CBC, BMP 01/02/18 10:30 01/02/18 10:30 Discharge Summary Reason For Visit: SEPSIS, PNEUMONIA Current Active Problems Acute bronchitis (Acute) Azotemia (Acute) Diabetes (Acute) Pneumonia (Acute) Sepsis (Acute) Condition: Stable - Instructions - Home Medications Comprehensive Discharge Medication List: Ambulatory Orders Calcium Carbonate/Vitamin D3 [Oyster Shell 500-Vit D3 200 Tb] 1 each PO BID Clotrimazole/Betamethasone Dip [Clotrimazole-Betamethasone Crm] 45 gm TP BID Fenofibric Acid [Trilipix -] 45 mg PO DAILY 12/18/17 Guaifenesin 100 mg PO TID 12/18/17 Metformin HCl [Metformin HCl ER] 500 mg PO BID 12/18/17 Mometasone Furoate [Asmanex] 2 puff IH DAILY 12/18/17 Rivaroxaban [Xarelto -] 20 mg PO DAILY 12/18/17 Acetaminophen [Tylenol .Regular Strength -] 650 mg PO Q6H PRN tablet 12/24/17 Albuterol 2.5/Ipratropium 0.5 [Duoneb -] 1 amp NEB Q4H PRN amp 12/24/17 Allopurinol [Zyloprim -] 100 mg PO DAILY tablet 12/24/17 Aspirin [ASA -] 81 mg PO DAILY tab.chew 12/24/17 Atorvastatin Ca [Lipitor] 80 mg PO HS tablet 12/24/17 Enalapril Maleate [Vasotec -] 2.5 mg PO BID tablet 12/24/17 Ferrous Sulfate [Feosol] 325 mg PO DAILY #30 tablet 12/24/17 Furosemide [Lasix -] 40 mg PO BID@0600,1400 tablet 12/24/17 Mupirocin Ointment [Bactroban Ointment (For Decolonization) -] 1 applic NS BID applic 12/24/17 Polyethylene Glycol 3350 [Miralax 119 gm Btl -] 17 gm PO DAILY bottle 12/24/17 Sennosides [Senna -] 2 tab PO HS PRN tablet 12/24/17 Magnesium Hydrox 2400MG/30Ml [Milk of Magnesia -] 30 ml PO DAILY PRN 12/27/17 Metoprolol Succinate [Toprol XL -] 150 mg PO DAILY 12/27/17 Allopurinol [Zyloprim -] 100 mg PO DAILY tablet 01/03/18 Aspirin Coated [Ecotrin -] 81 mg PO DAILY tablet.ec 01/03/18 Atorvastatin Ca [Lipitor] 80 mg PO HS tablet 01/03/18 Guaifenesin AC [Robitussin AC -] 5 ml PO TID PRN liquid MDD 10 01/03/18 Insulin Sliding Scale [Novolog Vial Sliding Scale -] 1 vial SQ ACHS units 01/03 Metoprolol Succinate [Toprol XL -] 25 mg PO BID tab.sr.24h 01/03/18 Mometasone Furoate [Asmanex 110Mcg -] 1 puff IH BID inhaler 01/03/18 Nystatin/Triamcinolone Top Oin [Mycolog II -] 1 applic TP BID applic 01/03/18 Polyethylene Glycol 3350 [Miralax 119 gm Btl -] 17 gm PO DAILY bottle 01/03/18 Rivaroxaban [Xarelto -] 15 mg PO DAILY@1800 tablet 01/03/18 Sennosides [Senna -] 1 tab PO HS tablet 01/03/18
[2018-01-03 10:40] VITALS: BP 129/72; PULSE 103; TEMP 97.5
[2018-01-03] MEDS: NYSTATIN/TRIAMCINOLONE TOPICAL OINTMENT 15 GM TUBE TP SCH (10:47)
[2018-01-03] MEDS: MOMETASONE FUROATE 110 MCG/IH INHALER IH SCH (10:47)
[2018-01-03] MEDS: POLYETHYLENE GLYCOL 3350 119 GM BTL PO SCH (10:47)
[2018-01-03] MEDS: ALLOPURINOL 100 MG TABLET (FP) PO SCH (10:48)
[2018-01-03] MEDS: ASPIRIN COATED 81 MG TABLET.EC PO SCH (10:48)
[2018-01-03] MEDS: metoPROLOL SUCCINATE 25 MG TAB.SR.24H (FP) PO SCH (10:48)
[2018-01-03 11:00] LABS: ANION GAP 11 MMOL/L (8-16); BLOOD UREA NITROGEN 59 mg/dL (7-18); CHLORIDE 101 mmol/L (98-107); CO2 22 mmol/L (21-32); CREATININE 2.3 mg/dL (0.55-1.3); GLUCOSE,RANDOM 177 mg/dL (74-106); SODIUM 133 mmol/L (136-145)
--- NOTE | 2018-01-03 11:20 | PN ---
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 (short form) - Note 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: s: no cp sob palps dizzy o: Vital Signs Period Temp Pulse Resp BP Sys/[place] Pulse Ox Last 24 Hr 97.5 F-98.6 F 98-113 20-20 104-146/61-77 92 Constitutional: Yes: Well Nourished, No Distress, Calm Eyes: Yes: Conjunctiva Clear Respiratory: Yes: Regular, CTA Bilaterally Gastrointestinal: Yes: Normal Bowel Sounds, Soft Cardiovascular: Yes: Pulse Irregular JVD: No Heart Sounds: Yes: S1, S2 Murmur: Yes: Systolic Murmur, Grade 2 Edema: trace/1+ le edema bl Integumentary: no jaundice diaphoresis alert awake appropriate Current Medications Generic Name Dose Route Start Last Admin Trade Name Freq PRN Reason Stop Dose Admin Allopurinol 100 mg 12/28/17 10:00 01/03/18 10:48 Zyloprim - PO 100 mg DAILY HAILEY Administration Aspirin 81 mg 12/28/17 10:00 01/03/18 10:48 Ecotrin - PO 81 mg DAILY HAILEY Administration Atorvastatin Calcium 80 mg 12/27/17 22:00 01/02/18 21:25 Lipitor - PO 80 mg HS HAILEY Administration Guaifenesin/Codeine Phosphate 5 ml 12/30/17 09:53 01/01/18 09:14 Robitussin Ac - PO 5 ml TID PRN Administration COUGH Insulin Aspart 1 vial 12/27/17 22:00 01/03/18 05:59 Novolog Vial Sliding Scale - SQ Not Given ACHS [facility] Protocol Metoprolol Succinate 25 mg 12/27/17 22:00 01/03/18 10:48 Toprol Xl - PO 25 mg BID HAILEY Administration Mometasone Furoate 1 puff 12/27/17 22:00 01/03/18 10:47 Asmanex 110mcg - IH 1 puff BID HAILEY Administration Nystatin/Triamcinolone Acetonide 1 applic 12/27/17 10:00 01/03/18 10:47 Mycolog Ii Ointment - TP 1 applic BID HAILYE Administration Ondansetron HCl 8 mg 12/30/17 09:53 Zofran Injection IVPB Q6H PRN NAUSEA Polyethylene Glycol 17 gm 12/30/17 10:00 01/03/18 10:47 Miralax (For Daily Use) - PO 17 gm DAILY HAILEY Administration Rivaroxaban 15 mg 12/27/17 18:00 01/02/18 17:16 Xarelto - PO 15 mg DAILY@1800 HAILEY Administration Senna 1 tab 12/30/17 22:00 01/02/18 21:25 Senna - PO 1 tab HS HAILEY Administration CBC, BMP 01/02/18 10:30 01/03/18 10:00 echo 12/2017 mod , nl RV function, severe septal hypokinesis, apical dyskinesis. severely hypokinetic anterior, septa brannon with apical dyskinesis and hypercontractile base c/w LAD infarct vs takotsubo. LV function mod to severely reduced. 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 CXR that day with vascular engorgement reported, not previously reported on 12/26. notes do not describe acute chf evidence. bun/ creat uptrending since, suspect leg edema is due to venous ins'y and not chf, lasix stopped for now. continue leg elevation, prn lasix. PNA, possible aspiration - s/p abx per primary team afib - continue xarelto - rate controlled, cont bb at same dose JD CKD - renal following - holding enalapril in setting of JD - numbers worsened so lasix d/c'd 01/01 with improved cr now cardiac amaro stable
--- NOTE | 2018-01-03 11:25 | PN ---
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 (short form) - Note 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: Resting in NAD. Breathing improved. Less cough. Intake & Output 12/31/17 01/01/18 01/02/18 01/03/18 23:59 23:59 23:59 23:59 Intake Total 1200 1425 1025 Output Total 300 Balance 1200 1425 725 Last Vital Signs Temp Pulse Resp BP Pulse Ox 97.5 F L 103 H 20 129/72 92 L 01/03/18 10:38 01/03/18 10:38 01/03/18 10:38 01/03/18 10:38 01/02/18 21:00 Active Medications Allopurinol (Zyloprim -) 100 mg PO DAILY COUNTS INCLUDE 234 BEDS AT THE [facility] Last Admin: 01/03/18 10:48 Dose: 100 mg Aspirin (Ecotrin -) 81 mg PO DAILY COUNTS INCLUDE 234 BEDS AT THE [facility] Last Admin: 01/03/18 10:48 Dose: 81 mg Atorvastatin Calcium (Lipitor -) 80 mg PO [facility] Last Admin: 01/02/18 21:25 Dose: 80 mg Guaifenesin/Codeine Phosphate (Robitussin Ac -) 5 ml PO TID PRN PRN Reason: COUGH Last Admin: 01/01/18 09:14 Dose: 5 ml Insulin Aspart (Novolog Vial Sliding Scale -) 1 vial SQ [facility]; Protocol Last Admin: 01/03/18 05:59 Dose: Not Given Metoprolol Succinate (Toprol Xl -) 25 mg PO BID COUNTS INCLUDE 234 BEDS AT THE [facility] Last Admin: 01/03/18 10:48 Dose: 25 mg Mometasone Furoate (Asmanex 110mcg -) 1 puff IH BID COUNTS INCLUDE 234 BEDS AT THE [facility] Last Admin: 01/03/18 10:47 Dose: 1 puff Nystatin/Triamcinolone Acetonide (Mycolog Ii Ointment -) 1 applic TP BID COUNTS INCLUDE 234 BEDS AT THE [facility] Last Admin: 01/03/18 10:47 Dose: 1 applic Ondansetron HCl (Zofran Injection) 8 mg IVPB Q6H PRN PRN Reason: NAUSEA Polyethylene Glycol (Miralax (For Daily Use) -) 17 gm PO DAILY COUNTS INCLUDE 234 BEDS AT THE [facility] Last Admin: 01/03/18 10:47 Dose: 17 gm Rivaroxaban (Xarelto -) 15 mg PO DAILY@1800 COUNTS INCLUDE 234 BEDS AT THE [facility] Last Admin: 01/02/18 17:16 Dose: 15 mg Senna (Senna -) 1 tab PO [facility] Last Admin: 01/02/18 21:25 Dose: 1 tab Gen: NAD Heart: RRR Lung: scattered rhonchi Abd: soft, nontender Ext: + edema Laboratory Results - last 24 hr 01/02/18 01/02/18 01/02/18 10:30 10:30 11:38 WBC 15.5 H RBC 3.85 L Hgb 10.9 L Hct 34.1 L MCV 88.4 MCH 28.4 MCHC 32.1 RDW 15.9 Plt Count 301 MPV 10.9 Absolute Neuts (auto) 12.6 H Neutrophils % 81.3 Lymphocytes % 9.5 Monocytes % 6.9 Eosinophils % 1.3 Basophils % 1.0 Nucleated RBC % 0 Sodium 134 L Potassium 5.2 H Chloride 100 Carbon Dioxide 23 Anion Gap 11 BUN 61 H Creatinine 2.4 H Creat Clearance w eGFR 25.98 POC Glucometer 169 Random Glucose 148 H Calcium 8.6 Total Bilirubin 1.1 H AST 37 ALT 55 Alkaline Phosphatase 136 H Total Protein 6.6 Albumin 3.0 L 01/02/18 01/02/18 01/03/18 16:48 21:28 05:59 WBC RBC Hgb Hct MCV MCH MCHC RDW Plt Count MPV Absolute Neuts (auto) Neutrophils % Lymphocytes % Monocytes % Eosinophils % Basophils % Nucleated RBC % Sodium Potassium Chloride Carbon Dioxide Anion Gap BUN Creatinine Creat Clearance w eGFR POC Glucometer 162 180 159 Random Glucose Calcium Total Bilirubin AST ALT Alkaline Phosphatase Total Protein Albumin 01/03/18 10:00 WBC RBC Hgb Hct MCV MCH MCHC RDW Plt Count MPV Absolute Neuts (auto) Neutrophils % Lymphocytes % Monocytes % Eosinophils % Basophils % Nucleated RBC % Sodium 133 L Potassium 5.0 Chloride 101 Carbon Dioxide 22 Anion Gap 11 BUN 59 H Creatinine 2.3 H Creat Clearance w eGFR 27.29 POC Glucometer Random Glucose 177 H Calcium 9.0 Total Bilirubin AST ALT Alkaline Phosphatase Total Protein Albumin Problem List - Problems (1) Acute bronchitis Code(s): J20.9 - ACUTE BRONCHITIS, UNSPECIFIED (2) Sepsis Code(s): A41.9 - SEPSIS, UNSPECIFIED ORGANISM (3) JD (acute kidney injury) Code(s): N17.9 - ACUTE KIDNEY FAILURE, UNSPECIFIED (4) Atrial fibrillation Code(s): I48.91 - UNSPECIFIED ATRIAL FIBRILLATION (5) CHF (congestive heart failure) Code(s): I50.9 - HEART FAILURE, UNSPECIFIED (6) Hyperlipidemia Code(s): E78.5 - HYPERLIPIDEMIA, UNSPECIFIED (7) Hypertension Code(s): I10 - ESSENTIAL (PRIMARY) HYPERTENSION Qualifiers: Hypertension type: essential hypertension Qualified Code(s): I10 - Essential (primary) hypertension A/P Acute Bronchitis Sepsis Lactic Acidosis Acute on Chronic Renal Failure LV Systolic Dysfunction Mitral Regurgitation Atrial Fibrillation HTN DM - completed empiric antibiotics - monitor urine output, creatinine - O2 to keep SpO2 >90% - rate control - continue anticoagulation - D/C planning Dr Novak
== END 2018-01-03 12:29 | DRG 871 ==
LOC: JER 18:02 → JERBED 23:30 → J6S 12-27 04:44
PROVIDERS: ADMIT Internal Medicine; ATTEND Family Medicine
DX: A41.9 Sepsis, unspecified organism (principal); J69.0 Pneumonitis due to inhalation of food and vomit; I13.0 Hypertensive heart and chronic kidney disease with heart failure and stage 1 through stage 4 chronic kidney disease, or unspecified chronic kidney disease; N17.9 Acute kidney failure, unspecified; I50.22 Chronic systolic (congestive) heart failure; E87.2 Acidosis; I24.8 Other forms of acute ischemic heart disease; N39.0 Urinary tract infection, site not specified; E11.22 Type 2 diabetes mellitus with diabetic chronic kidney disease; N18.9 Chronic kidney disease, unspecified; I50.9 Heart failure, unspecified; I48.91 Unspecified atrial fibrillation; Z88.0 Allergy status to penicillin; Z79.84 Long term (current) use of oral hypoglycemic drugs; Z79.01 Long term (current) use of anticoagulants; D64.9 Anemia, unspecified; I34.0 Nonrheumatic mitral (valve) insufficiency; M10.9 Gout, unspecified; J20.9 Acute bronchitis, unspecified; I25.10 Atherosclerotic heart disease of native coronary artery without angina pectoris; I25.5 Ischemic cardiomyopathy
CPT/HCPCS: 36415; 71045-TC-FY; 74018-TC-FY; 74230-TC-FY; 80048; 80053; 81003; 82550; 82570; 82803; 82962; 83605; 83735; 84100; 84484; 84540; 85025; 85027; 85610; 85730; 87040; 87086; 92611-GN; 93005; 93010; 94640; 99281-25; J0131; J7030; J7620

== ENCOUNTER 2018-01-06 22:09 | Inpatient (IN) | payer OTHER, BC ==
--- NOTE | 2018-01-06 23:15 | PDOC ---
Attending Attestation - HPI HPI: 01/07/18 00:22 The patient is a 82 year old male with a significant past medical history of DM ,HTN, CKD, AFib, CHF who presents to the ED, sent by [facility]erg, with complaints of shortness of breath and lower extremity swelling since earlier today. Patient has a history of recurring pneumonia and was recently admitted for pneumonia on 12/26/17. Denies fever or chills. Denies chest pain. Denies any other symptoms. Documentation prepared by Kelvin Valenzuela, acting as medical doctor nuclear medicine for Willow De Souza DO - Physicial Exam PE: 01/07/18 00:22 Constitutional: Awake, alert, oriented. No acute distress. Head: Normocephalic. Atraumatic Eyes: PERRL. EOMI. Conjunctivae are not pale. ENT: Mucous membranes are moist and intact. Posterior pharynx without exudates or erythema. Uvula midline. Neck: Supple. Full ROM. No lymphadenopathy. Cardiovascular: + Tachycardia, Irregular rate, Regular rhythm. S1, S2 regular. Distal pulses are 2+ and symmetric. Pulmonary/Chest: + Diminished bibasilar breath sounds. No wheezing, rales or rhonchi. Abdominal: + Umbilical hernia. Soft and non-distended. There is no tenderness. No rebound, guarding or rigidity. No organomegaly. No palpable masses. Good bowel sounds. Back: No CVA tenderness. Musculoskeletal: + 4+ pitting edema in the lower extremity bilaterally. No cyanosis. No clubbing. Full range of motion in all extremities. Nocalf tenderness. Radial/pedal pulses are intact and 2+ bilaterally Skin: Skin is warm and dry. No petechiae. No purpura. Neurological: Alert and oriented to person, place, and time. Cranial nerves II -XII are grossly intact. Normal speech. Strength is grossly symmetric. No sensory deficits. Psychiatric: Good eye contact. Normal interaction, affect and behavior. <Kelvin Valenzuela - Last Filed: 01/07/18 00:22> - Resident Resident Name: Hieu Stein - ED Attending Attestation I have performed the following: I have examined & evaluated the patient, The case was reviewed & discussed with the resident, I agree w/resident's findings & plan, Exceptions are as noted - Critical Care Time Total Critical Care Time: 45 Critical Care Statement: The care of this patient involved high complexity decision making to prevent further life threatening deterioration of the patient 's condition and/or to evaluate & treat vital organ system(s) failure or risk of failure. - Medical Decision Making 01/06/18 23:15 I, Dr. Willow De Souza, DO, attest that this document has been prepared under my direction and personally reviewed by me in its entirety. I further attest, that it accurately reflects all work, treatment, procedures and medical decision -making performed by me. 01/07/18 01:10 a/p: 82yo male with sob and le edema -hx of recent pna admission and hx of chf -concern for chf exacerbation given LE edema -pt is on lasix at [facility] -pt with diminished bs b.l -will send labs, ekg, cxr, trop, bnp -pt with tachycardia upon arrival 01/07/18 01:11 pt with afib with rvr -on toprol xl - will give metoprolol iv -elevated bnp and trop -pt will need admission for chf and afib with rvr 01/07/18 01:12 pt with chronically elevated trop no cp hr improved with iv metoprolol -microblog sent to [facility] for admission (covering Annabi from [facility]) will give iv lasix for edema 01/07/18 01:30 resident discussed the case with [facility] who accepts pt to service <Willow De Souza - Last Filed: 01/07/18 01:30> Heart Score/ECG Review - ECG Intrepretation Comment:: 01/07/18 01:12 atrial fib at 133, q waves inferiorly, q waves anteriorly, st depression laterally, l axis, abnl ekg <Willow De Souza - Last Filed: 01/07/18 01:30>
[2018-01-06 23:50] LABS: BASO % 0.4 % (0-2.0); EOS % 0.6 % (0-4.5); HEMATOCRIT 33.9 % (35.4-49); HEMOGLOBIN 10.9 GM/dL (11.7-16.9); LYMPH % 8.9 % (8-40); MCH 28.7 pg (25.7-33.7); MEAN CELL VOLUME 89.8 fl (80-96); MEAN PLT VOLUME 10.3 fl (7.5-11.1); MONO % 7.3 % (3.8-10.2); NEUT % 82.8 % (42.8-82.8); PLATELET COUNT 267 K/MM3 (134-434); RBC 3.78 M/mm3 (4.00-5.60); RDW 16.6 % (11.9-15.9); WHITE BLOOD COUNT 12.9 K/mm3 (4.0-10.0)
--- NOTE | 2018-01-06 23:56 | PDOC ---
History of Present Illness - General Chief Complaint: Shortness of Breath Stated Complaint: SOB Time Seen by Provider: 01/06/18 22:47 History Source: Patient, Skilled Nursing Records, Old Records Exam Limitations: Other - History of Present Illness Initial Comments: 82 y/o male presenting to [facility] via ambulance from [facility] complaining of shortness of breath and bilateral lower extremity swelling for the past several days. Pt is a poor historian. States he is feeling short of breath and may have thrown up at some point in the past. Pt refused to answer ROS questions. Pt was recently discharged from this facility on 12/24/2017 and 01/03/2018 for pneumonia and CHF exacerbation. Discharged by Dr. Francheska dickson norm. Medical Hx: - HTN - CHF - AFIB on xarelto - CKD - DM - Recent Pneumonia Surgical Hx: R TKR 2013 Past History - Past Medical History Allergies/Adverse Reactions: Allergies Allergy/AdvReac Type Severity Reaction Status Date / Time No Known Allergies Allergy Verified 01/06/18 23:56 Home Medications: Ambulatory Orders Fenofibric Acid [Trilipix -] 45 mg PO DAILY 12/18/17 Guaifenesin 100 mg PO TID 12/18/17 Metformin HCl [Metformin HCl ER] 500 mg PO BID 12/18/17 Mometasone Furoate [Asmanex] 2 puff IH DAILY 12/18/17 Acetaminophen [Tylenol .Regular Strength -] 650 mg PO Q6H PRN tablet 12/24/17 Albuterol 2.5/Ipratropium 0.5 [Duoneb -] 1 amp NEB Q4H PRN amp 12/24/17 Allopurinol [Zyloprim -] 100 mg PO DAILY tablet 12/24/17 Atorvastatin Ca [Lipitor] 80 mg PO HS tablet 12/24/17 Enalapril Maleate [Vasotec -] 2.5 mg PO BID tablet 12/24/17 Ferrous Sulfate [Feosol] 325 mg PO DAILY #30 tablet 12/24/17 Polyethylene Glycol 3350 [Miralax 119 gm Btl -] 17 gm PO DAILY bottle 12/24/17 Magnesium Hydrox 2400MG/30Ml [Milk of Magnesia -] 30 ml PO DAILY PRN 12/27/17 Aspirin Coated [Ecotrin -] 81 mg PO DAILY tablet.ec 01/03/18 Insulin Sliding Scale [Novolog Vial Sliding Scale -] 1 vial SQ ACHS units 01/03 Rivaroxaban [Xarelto -] 15 mg PO DAILY@1800 tablet 01/03/18 Sennosides [Senna -] 1 tab PO HS tablet 01/03/18 Furosemide [Lasix -] 40 mg PO DAILY 01/06/18 Metoprolol Succinate [Toprol XL -] 25 mg PO DAILY 01/06/18 Anemia: No Asthma: No Cancer: No Cardiac Disorders: Yes (afib) CVA: No COPD: No CHF: No Dementia: No Diabetes: Yes Disorders: (CKD) HTN: Yes Hypercholesterolemia: Yes Seizures: No - Surgical History Cardiac Surgery: No Neurologic Surgery: No Orthopedic Surgery: Yes (Right knee replacement) - Suicide/Smoking/Psychosocial Hx Smoking History: Never smoked Have you smoked in the past 12 months: No Hx Alcohol Use: No Drug/Substance Use Hx: No Substance Use Type: None Hx Substance Use Treatment: No Review of Systems - Review of Systems Able to Perform ROS?: No Comments:: Pt refused to answer ROS questions. *Physical Exam - Vital Signs Last Vital Signs Temp Pulse Resp BP Pulse Ox 97.6 F 120 H 22 H 114/78 98 01/06/18 22:40 01/06/18 22:40 01/06/18 22:40 01/06/18 22:40 01/06/18 22:40 - Physical Exam Comments: Constitutional: Nontoxic, obese male in no acute life threat. Found semi- fowlers in hospital bed. Alert and oriented x4. HEENT: Normocephalic. No obvious external signs of trauma. Hearing grossly normal. No nasal discharge. Neck is supple, trachea is midline. Cardiovascular: Tachycardiac and irregularly irregular rate and rhythm. No murmur, rubs, clicks, or gallops. Respiratory: Tachypnic without obvious signs of hypoxia. No retractions or accessory muscle usage. Equal chest rise and fall. Rhonchorous throughout and rales in posterior lower lobes. No wheezing. Gastrointestinal: abdomen is non-tender but distended. No fluid wave. No pulsatile masses. No overlying skin lesions or obvious signs of trauma. Neuro: Alert and oriented. Moving all four extremities spontaneously. MSK / Skin: 3+ pitting pretibial edema to knee bilaterally. No weeping or skin breakdown. Globally, skin is warm and dry. Psych: Affect: tearful. Mood: easily angered. ED Treatment Course - LABORATORY CBC & Chemistry Diagram: 01/06/18 22:35 01/06/18 22:35 - ADDITIONAL ORDERS Additional order review: 01/06/18 22:35 RBC 3.78 L MCV 89.8 MCHC 32.0 RDW 16.6 H MPV 10.3 Neutrophils % 82.8 Lymphocytes % 8.9 Monocytes % 7.3 Eosinophils % 0.6 Basophils % 0.4 - RADIOLOGY Radiology Studies Ordered: Category Date Time Status CHEST X-RAY PORTABLE* [RAD] Stat Radiology 01/06/18 23:23 Ordered Medical Decision Making - Medical Decision Making *Reviewed vital signs, nursing notes, and prior visit documentation (if available). 82 y/o male with SOB and significant bilateral lower extremity edema with h/o CHF and episodes of rapid a-fib. Afebrile. Vitals remarkable for tachycardia without hypotension. EKG showed A-fib with RVR. Suspect rapid a-fib inducing acute CHF exacerbation. Low suspicion for infectious cause as pt is afebrile. Will hold lactate and cultures until CXR results. Ordered metoprolol IV push for rate control. CBC revealed mild leukocytosis without left shift. Suspect reactionary give multiple comorbidities and duration of symptoms. Mild normocytic anemia, suspect secondary to CKD. Troponin elevated to 0.54, which is in similar range found in recent past admissions. No ST segment changes. Possibly secondary to demand ischemia. Will ordered ASA. BNP has trended upward significantly since previous on 12/18/2017. CXR revealed enlarged cardiac silhouette with blunting of right costophrenic angle per my wet read. Difficult to compare to previous study as pt is malrotated in both images. Continue to suspect CHF exacerbation. Lasix ordered. 01:33 Telephone consultation with MYRNA Dialy. Agrees to admit pt to telemetry on inpatient status for Dr. Johnson. *DC/Admit/Observation/Transfer Diagnosis at time of Disposition: CHF (congestive heart failure) Qualifiers: Heart failure type: unspecified Heart failure chronicity: acute on chronic Qualified Code(s): I50.9 - Heart failure, unspecified - Discharge Dispostion Condition at time of disposition: Stable Decision to Admit order: Yes - Referrals - Patient Instructions - Post Discharge Activity
[2018-01-07 00:14] LABS: N-TERMINAL BNP 15828.2 pg/ml (5-450)
[2018-01-07] MEDS ORDERED: METOPROLOL TARTRATE 5 MG/5 ML VIAL IVPUSH ONE (00:16)
[2018-01-07] MEDS ORDERED: METOPROLOL TARTRATE 5 MG/5 ML VIAL ONE (00:28)
[2018-01-07 00:31] LABS: ALBUMIN 3.1 g/dl (3.4-5.0); ALK PHOS 244 U/L (45-117); ANION GAP 12 MMOL/L (8-16); BILIRUBIN,TOTAL 1.7 mg/dL (0.2-1); BLOOD UREA NITROGEN 71 mg/dL (7-18); CALCIUM 8.6 mg/dL (8.5-10.1); CHLORIDE 99 mmol/L (98-107); CO2 24 mmol/L (21-32); CREATININE 2.6 mg/dL (0.55-1.3); GLUCOSE,RANDOM 152 mg/dL (74-106); MAGNESIUM 2.5 mg/dL (1.8-2.4); POTASSIUM 4.2 mmol/L (3.5-5.1); SGOT/AST 70 U/L (15-37); SGPT/ALT 87 U/L (13-61); SODIUM 135 mmol/L (136-145); TOT PROT 6.4 g/dl (6.4-8.2)
[2018-01-07] MEDS ORDERED: FUROSEMIDE 40 MG/4 ML INJECTABLE VIAL IVPUSH ONE ×2 (01:06→22:11)
[2018-01-07] MEDS ORDERED: FUROSEMIDE 40 MG/4 ML INJECTABLE VIAL ONE ×3 (01:10→05:44)
[2018-01-07] MEDS ORDERED: ASPIRIN 81 MG CHEWABLE TABLETS PO ONE (01:12)
--- NOTE | 2018-01-07 01:40 | HP ---
Admitting History and Physical - Primary Care Physician PCP: Lindsay Arvizu ([facility]) - Admission Chief Complaint: SOB, Lower Extremity Edema History of Present Illness: This is a 82 y/o man from [facility] with a past medical history of HTN , CHF, LV Systolic Dysfunction, Mitral Regurgitation, Afib (on Xarelto), CKD, DM , PNA. Who presents to the ED with SOB, lower extremity edema x1 day. Patient has had recent admissions Pneumonia, CHF 12/16-12-24, 12/26-01/03. Patient reports having shortness of breath and lower extremity swelling since earlier today. 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[employer] ) History of Recent Travel: No Home Medications - Allergies Allergies/Adverse Reactions: Allergies Allergy/AdvReac Type Severity Reaction Status Date / Time No Known Allergies Allergy Verified 01/06/18 23:56 - Home Medications Home Medications: Ambulatory Orders Fenofibric Acid [Trilipix -] 45 mg PO DAILY 12/18/17 Guaifenesin 100 mg PO TID 12/18/17 Metformin HCl [Metformin HCl ER] 500 mg PO BID 12/18/17 Mometasone Furoate [Asmanex] 2 puff IH DAILY 12/18/17 Acetaminophen [Tylenol .Regular Strength -] 650 mg PO Q6H PRN tablet 12/24/17 Albuterol 2.5/Ipratropium 0.5 [Duoneb -] 1 amp NEB Q4H PRN amp 12/24/17 Allopurinol [Zyloprim -] 100 mg PO DAILY tablet 12/24/17 Atorvastatin Ca [Lipitor] 80 mg PO HS tablet 12/24/17 Enalapril Maleate [Vasotec -] 2.5 mg PO BID tablet 12/24/17 Ferrous Sulfate [Feosol] 325 mg PO DAILY #30 tablet 12/24/17 Polyethylene Glycol 3350 [Miralax 119 gm Btl -] 17 gm PO DAILY bottle 12/24/17 Magnesium Hydrox 2400MG/30Ml [Milk of Magnesia -] 30 ml PO DAILY PRN 12/27/17 Aspirin Coated [Ecotrin -] 81 mg PO DAILY tablet.ec 01/03/18 Insulin Sliding Scale [Novolog Vial Sliding Scale -] 1 vial SQ ACHS units 01/03 Rivaroxaban [Xarelto -] 15 mg PO DAILY@1800 tablet 01/03/18 Sennosides [Senna -] 1 tab PO HS tablet 01/03/18 Furosemide [Lasix -] 40 mg PO DAILY 01/06/18 Metoprolol Succinate [Toprol XL -] 25 mg PO DAILY 01/06/18 Family Disease History - Family Disease History Family History: Unable to Obtain Review of Systems - Review of Systems Constitutional: reports: No Symptoms Eyes: reports: No Symptoms HENT: reports: No Symptoms Neck: reports: No Symptoms Cardiovascular: reports: Edema, Shortness of Breath Respiratory: reports: SOB, SOB on Exertion Gastrointestinal: reports: No Symptoms Genitourinary: reports: No Symptoms Breasts: reports: No Symptoms Reported Musculoskeletal: reports: No Symptoms Integumentary: reports: No Symptoms Neurological: reports: No Symptoms Endocrine: reports: No Symptoms Hematology/Lymphatic: reports: No Symptoms Psychiatric: reports: No Symptoms Physical Examination Vital Signs: Vital Signs Temperature 97.6 F 01/06/18 22:40 Pulse Rate 120 H 01/06/18 22:40 Respiratory Rate 22 H 01/06/18 22:40 Blood Pressure 102/88 01/07/18 00:32 O2 Sat by Pulse Oximetry (%) 98 01/06/18 23:43 Constitutional: Yes: Well Nourished, Anxious, Obese, Poor Hygeine Eyes: Yes: WNL, Conjunctiva Clear, EOM Intact, PERRL HENT: Yes: WNL, Atraumatic, Normocephalic Neck: Yes: WNL, Supple, Trachea Midline Cardiovascular: Yes: Pulse Irregular, Murmur, S1, S2 Respiratory: Yes: Diminished, On Nasal O2, Rales Gastrointestinal: Yes: Normal Bowel Sounds, Soft, Abdomen, Obese Renal/: Yes: Ray Present Musculoskeletal: Yes: WNL Edema: Yes Edema: LLE: 3+, RLE: 4+ Peripheral Pulses WNL: Yes Peripheral Pulses: Left Doralis Pedis: 1+, Right Dorsalis Pedis: 1+ Neurological: Yes: Alert, Confusion, Cran Nerves II-XII Intact ...Motor Strength: WNL Psychiatric: Yes: Alert, Agitated Labs: CBC, BMP 01/06/18 22:35 01/06/18 22:35 Troponin, BNP 01/06/18 22:35 Troponin I 0.54 H B-Natriuretic Peptide 71982.2 H Laboratory Results - last 24 hr 01/06/18 01/06/18 01/06/18 22:35 22:35 22:35 WBC 12.9 H RBC 3.78 L Hgb 10.9 L Hct 33.9 L MCV 89.8 MCH 28.7 MCHC 32.0 RDW 16.6 H Plt Count 267 MPV 10.3 Absolute Neuts (auto) 10.7 H Neutrophils % 82.8 Lymphocytes % 8.9 Monocytes % 7.3 Eosinophils % 0.6 Basophils % 0.4 Nucleated RBC % 1 H Sodium 135 L Potassium 4.2 Chloride 99 Carbon Dioxide 24 Anion Gap 12 BUN 71 H Creatinine 2.6 H Creat Clearance w eGFR 23.69 Random Glucose 152 H Calcium 8.6 Magnesium 2.5 H Total Bilirubin 1.7 H AST 70 H ALT 87 H Alkaline Phosphatase 244 H Troponin I 0.54 H B-Natriuretic Peptide 39344.2 H Total Protein 6.4 Albumin 3.1 L Current Medications Generic Name Dose Route Start Last Admin Trade Name Freq PRN Reason Stop Dose Admin Albuterol/Ipratropium 1 amp 01/07/18 01:40 Duoneb - NEB Q4H PRN SHORTNESS OF BREATH Aspirin 81 mg 01/07/18 10:00 Ecotrin - PO DAILY [facility] Atorvastatin Calcium 80 mg 01/07/18 22:00 Lipitor - PO HS [facility] Fenofibric Acid 45 mg 01/07/18 10:00 Trilipix - PO DAILY [facility] Ferrous Sulfate 325 mg 01/07/18 10:00 Feosol - PO DAILY [facility] Furosemide 40 mg 01/07/18 06:00 01/07/18 05:51 Lasix Injection - IVPUSH 40 mg BID@0600,1400 [facility] Administration Insulin Aspart 1 vial 01/07/18 07:00 Novolog Vial Sliding Scale - SQ ACHS [facility] Protocol Metoprolol Succinate 25 mg 01/07/18 10:00 Toprol Xl - PO DAILY [facility] Non-Formulary Medication 2 puff 01/07/18 10:00 Mometasone Furoate [Asmanex] IH DAILY [facility] Rivaroxaban 15 mg 01/07/18 18:00 Xarelto - PO DAILY@1800 [facility] Senna 1 tab 01/07/18 22:00 Senna - PO HS [facility] Imaging - Results Chest X-ray: Image Reviewed EKG: Image Reviewed Problem List - Problems (1) Atrial fibrillation with RVR Assessment/Plan: - Continue cardiac monitoring - EKG Afib with RVR - Metoprolol given in ED - [id number] 5 - Continue BB, Xarelto - Appreciate Cardiology consult - Serial Enzymes Code(s): I48.91 - UNSPECIFIED ATRIAL FIBRILLATION (2) Acute exacerbation of CHF (congestive heart failure) Assessment/Plan: -Continue cardiac monitoring - Lasix given in ED, will continue - Appreciate Cardiology consult - Daily weights - Strict INOs - Echo done on 12/2017 showed regional wall motion abnormalities, mod valvular , LVSF mod-severe reduced, mod-severe MR Code(s): I50.9 - HEART FAILURE, UNSPECIFIED (3) CKD (chronic kidney disease) Assessment/Plan: - Cr 2.6 - Will hold Enalapril 2/2 JD - Monitor renal function Code(s): N18.9 - CHRONIC KIDNEY DISEASE, UNSPECIFIED (4) Diabetes Assessment/Plan: - controlled \- BGMs - ISS - Hold Metformin 2/2 JD Code(s): E11.9 - TYPE 2 DIABETES MELLITUS WITHOUT COMPLICATIONS (5) Hyperlipidemia Assessment/Plan: - Continue Fenofibrate, Lipitor - Will hold Fenofibrate if LFTs >3ULN - AST/ALT/Alk Phos- 70/87/244 - Monitor BMP Code(s): E78.5 - HYPERLIPIDEMIA, UNSPECIFIED (6) Hypertension Assessment/Plan: - Controlled - Monitor BP - Continue Metoprolol with parameters - Hold Enalapril secondary to Acute on Chronic JD Code(s): I10 - ESSENTIAL (PRIMARY) HYPERTENSION Qualifiers: Hypertension type: essential hypertension Qualified Code(s): I10 - Essential (primary) hypertension (7) DVT prophylaxis Assessment/Plan: - OOB - Continue Xarelto Code(s): [id number] - Assessment/Plan 82 y/o man with a PMHx of: HTN, HLD, DM, CHF, LV Systolic Dysfunction, Mitral Regurgitation, Afib (on Xarelto), Pneumonia.Admitted to Telemetry for Afib with RVR, Acute on Chronic CHF Exacerbation for further evaluation of their emergent condition. Plan: FEN Fluid Restriction 1L Replete lytes prn Low Na, Diabetic Diet Code Status: Full Code Dispo: Requires Inpatient Care Visit type - Emergency Visit Emergency Visit: Yes ED Registration Date: 01/07/18 Care time: The patient presented to the Emergency Department on the above date and was hospitalized for further evaluation of their emergent condition. - New Patient This patient is new to me today: Yes Date on this admission: 01/07/18 - Critical Care Critical Care patient: No
[2018-01-07] MEDS ORDERED: ASPIRIN 325 MG ENTERIC COATED TABLET (FP) ONE (01:43)
[2018-01-07] MEDS: FUROSEMIDE 40 MG/4 ML INJECTABLE VIAL IVPUSH SCH ×2 (05:51→14:05)
[2018-01-07 07:38] LABS: BASO % 0.4 % (0-2.0); EOS % 0.6 % (0-4.5); HEMATOCRIT 34.7 % (35.4-49); HEMOGLOBIN 11.1 GM/dL (11.7-16.9); LYMPH % 11.1 % (8-40); MCH 28.7 pg (25.7-33.7); MCHC 32.1 g/dl (32.0-35.9); MEAN CELL VOLUME 89.6 fl (80-96); MEAN PLT VOLUME 10.7 fl (7.5-11.1); MONO % 8.3 % (3.8-10.2); NEUT % 79.6 % (42.8-82.8); PLATELET COUNT 235 K/MM3 (134-434); RBC 3.87 M/mm3 (4.00-5.60); RDW 16.1 % (11.9-15.9); WHITE BLOOD COUNT 12.8 K/mm3 (4.0-10.0)
[2018-01-07 07:47] LABS: ANION GAP 15 MMOL/L (8-16); BLOOD UREA NITROGEN 66 mg/dL (7-18); CHLORIDE 101 mmol/L (98-107); CO2 23 mmol/L (21-32); CREATININE 2.4 mg/dL (0.55-1.3); GLUCOSE,RANDOM 144 mg/dL (74-106); MAGNESIUM 2.4 mg/dL (1.8-2.4); POTASSIUM 4.2 mmol/L (3.5-5.1); SODIUM 139 mmol/L (136-145)
[2018-01-07 08:08] VITALS: BMI 42.7
[2018-01-07] MEDS: ASPIRIN COATED 81 MG TABLET.EC PO SCH (09:36)
[2018-01-07] MEDS: metoPROLOL SUCCINATE 25 MG TAB.SR.24H (FP) PO SCH (09:36)
[2018-01-07] MEDS: FERROUS SO4 325 MG TABLET (FP) PO SCH (09:36)
[2018-01-07] MEDS: INSULIN SLIDING SCALE (NOVOLOG) 1 VIAL SQ SCH ×4 (09:36→21:19)
[2018-01-07] MEDS: FENOFIBRIC ACID 45 MG CAP PO SCH (09:37)
--- NOTE | 2018-01-07 09:42 | PN ---
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, Physician History of Present Illness: 82 y/o man with a PMHx of: HTN, HLD, DM, CHF, LV Systolic Dysfunction, Mitral Regurgitation, Afib (on Xarelto), Pneumonia.Admitted to Telemetry for Afib with RVR, Acute on Chronic CHF Exacerbation for further evaluation of their emergent condition. - Current Medication List Current Medications: Active Medications Albuterol/Ipratropium (Duoneb -) 1 amp NEB Q4H PRN PRN Reason: SHORTNESS OF BREATH Aspirin (Ecotrin -) 81 mg PO DAILY [facility] Last Admin: 01/07/18 09:36 Dose: 81 mg Atorvastatin Calcium (Lipitor -) 80 mg PO [facility] Fenofibric Acid (Trilipix -) 45 mg PO DAILY [facility] Last Admin: 01/07/18 09:37 Dose: 45 mg Ferrous Sulfate (Feosol -) 325 mg PO DAILY [facility] Last Admin: 01/07/18 09:36 Dose: 325 mg Furosemide (Lasix Injection -) 40 mg IVPUSH BID@0600,1400 [facility] Last Admin: 01/07/18 05:51 Dose: 40 mg Influenza Virus Vaccine Quadrival (Flulaval Quad [id number]) 60 mcg IM .ONCE ONE Stop: 01/07/18 11:01 Insulin Aspart (Novolog Vial Sliding Scale -) 1 vial SQ [facility]; Protocol Last Admin: 01/07/18 09:36 Dose: Not Given Metoprolol Succinate (Toprol Xl -) 25 mg PO DAILY [facility] Last Admin: 01/07/18 09:36 Dose: 25 mg Mometasone Furoate (Asmanex 110mcg -) 2 puff IH [facility] Rivaroxaban (Xarelto -) 15 mg PO DAILY@1800 [facility] Senna (Senna -) 1 tab PO [facility] - Objective Vital Signs: Vital Signs Temperature 97.9 F 01/07/18 08:10 Pulse Rate 125 H 01/07/18 08:10 Respiratory Rate 25 H 01/07/18 08:15 Blood Pressure 122/93 01/07/18 08:10 O2 Sat by Pulse Oximetry (%) 100 01/07/18 08:15 Cardiovascular: Yes: Tachycardia, Pulse Irregular, S1, S2 Respiratory: Yes: Diminished, On Nasal O2, Rales Gastrointestinal: Yes: Normal Bowel Sounds, Soft Edema: Yes Labs: CBC, BMP 01/07/18 06:50 01/07/18 06:50 Problem List - Problems (1) Acute exacerbation of CHF (congestive heart failure) Assessment/Plan: -Continue cardiac monitoring - Lasix given in ED, will continue - Appreciate Cardiology consult - Daily weights - Strict INOs - Echo done on 12/2017 showed regional wall motion abnormalities, mod valvular , LVSF mod-severe reduced, mod-severe MR Code(s): I50.9 - HEART FAILURE, UNSPECIFIED (2) Atrial fibrillation with RVR Assessment/Plan: - Continue cardiac monitoring - EKG Afib with RVR - Metoprolol given in ED - [id number] 5 - Continue BB, Xarelto - Appreciate Cardiology consult - Serial Enzymes Code(s): I48.91 - UNSPECIFIED ATRIAL FIBRILLATION (3) CKD (chronic kidney disease) Assessment/Plan: - Cr 2.6 - Will hold Enalapril 2/2 JD - Monitor renal function Code(s): N18.9 - CHRONIC KIDNEY DISEASE, UNSPECIFIED (4) Anemia Code(s): D64.9 - ANEMIA, UNSPECIFIED (5) Diabetes Assessment/Plan: - controlled \- BGMs - ISS - Hold Metformin 2/2 JD Code(s): E11.9 - TYPE 2 DIABETES MELLITUS WITHOUT COMPLICATIONS (6) Hyperlipidemia Assessment/Plan: - Continue Fenofibrate, Lipitor - Will hold Fenofibrate if LFTs >3ULN - AST/ALT/Alk Phos- 70/87/244 - Monitor BMP Code(s): E78.5 - HYPERLIPIDEMIA, UNSPECIFIED (7) Hypertension Assessment/Plan: - Controlled - Monitor BP - Continue Metoprolol with parameters - Hold Enalapril secondary to Acute on Chronic JD Code(s): I10 - ESSENTIAL (PRIMARY) HYPERTENSION Qualifiers: Hypertension type: essential hypertension Qualified Code(s): I10 - Essential (primary) hypertension
[2018-01-07] MEDS ORDERED: FLU VACCINE QUAD 60 MCG/0.5 ML (MDV 18-19) IM ONE (11:00)
--- NOTE | 2018-01-07 14:59 | CON.CARD ---
Consult Consult Specialty:: Cardiology Referred by:: Luh Reason for Consultation:: CHF - History of Present Illness Chief Complaint: sob History of Present Illness: He is an 82 year old NHR with a history of HTN NIDDM, CKD, afib on NOAC admitted for cough sob and edema. Recent admissions for chf and pneumonia. No chest pain + orthopnea no PND. mibi 04/2013 (stanton): no ecg changes, no ischemia/scar, nl lvef Echo 2014: TDS, normal LV/RV size and function, Aortic valve not seen well Echo 12/20/17 severe segmental LV systolic dysfunction with LAD territory LV dysfunction. 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: Other (cognitive impairment) Cardio/Vascular: Yes: HTN, Hyperlipdemia, Mitral Insufficiency, Murmur, Other ( AFIB) Pulmonary: Yes: Pneumonia Renal/: Yes: Renal Inusuff Endocrine: Yes: Diabetes Mellitus - Past Surgical History Past Surgical History: Yes: Joint Replacement (RT knee replacement- 2013.) - Alcohol/Substance Use Hx Alcohol Use: No - Smoking History Smoking history: Never smoked Have you smoked in the past 12 months: No - Social History Usual Living Arrangement: Alone ADL: Support Services 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 History of Recent Travel: No Home Medications - Allergies Allergies/Adverse Reactions: Allergies Allergy/AdvReac Type Severity Reaction Status Date / Time No Known Allergies Allergy Verified 01/06/18 23:56 - Home Medications Home Medications: Ambulatory Orders Fenofibric Acid [Trilipix -] 45 mg PO DAILY 12/18/17 Guaifenesin 100 mg PO TID 12/18/17 Metformin HCl [Metformin HCl ER] 500 mg PO BID 12/18/17 Mometasone Furoate [Asmanex] 2 puff IH DAILY 12/18/17 Acetaminophen [Tylenol .Regular Strength -] 650 mg PO Q6H PRN tablet 12/24/17 Albuterol 2.5/Ipratropium 0.5 [Duoneb -] 1 amp NEB Q4H PRN amp 12/24/17 Allopurinol [Zyloprim -] 100 mg PO DAILY tablet 12/24/17 Atorvastatin Ca [Lipitor] 80 mg PO HS tablet 12/24/17 Enalapril Maleate [Vasotec -] 2.5 mg PO BID tablet 12/24/17 Ferrous Sulfate [Feosol] 325 mg PO DAILY #30 tablet 12/24/17 Polyethylene Glycol 3350 [Miralax 119 gm Btl -] 17 gm PO DAILY bottle 12/24/17 Magnesium Hydrox 2400MG/30Ml [Milk of Magnesia -] 30 ml PO DAILY PRN 12/27/17 Aspirin Coated [Ecotrin -] 81 mg PO DAILY tablet.ec 01/03/18 Insulin Sliding Scale [Novolog Vial Sliding Scale -] 1 vial SQ ACHS units 01/03 Rivaroxaban [Xarelto -] 15 mg PO DAILY@1800 tablet 01/03/18 Sennosides [Senna -] 1 tab PO HS tablet 01/03/18 Furosemide [Lasix -] 40 mg PO DAILY 01/06/18 Metoprolol Succinate [Toprol XL -] 25 mg PO DAILY 01/06/18 Vital Signs: Vital Signs Temperature 97.9 F 01/07/18 08:10 Pulse Rate 125 H 01/07/18 08:10 Respiratory Rate 25 H 01/07/18 08:15 Blood Pressure 122/93 01/07/18 08:10 O2 Sat by Pulse Oximetry (%) 100 01/07/18 08:15 Constitutional: Yes: No Distress, Calm Eyes: Yes: Conjunctiva Clear, EOM Intact HENT: Yes: Normocephalic Neck: Yes: Trachea Midline Respiratory: Yes: Rales (bilat bases) Gastrointestinal: Yes: Normal Bowel Sounds, Soft Cardiovascular: Yes: Pulse Irregular JVD: Yes Carotid Bruit: No PMI: Non-Displaced Heart Sounds: Yes: S1, S2 Murmur: Yes: Systolic Murmur Musculoskeletal: Yes: WNL Edema: Yes Edema: LLE: 2+, RLE: 2+ Peripheral Pulses WNL: Yes - Other Data Labs, Other Data: CBC, BMP 01/07/18 06:50 01/07/18 06:50 Troponin, BNP 01/06/18 01/07/18 22:35 06:50 Troponin I 0.54 H 0.53 H B-Natriuretic Peptide 24657.2 H Troponin, BNP 01/06/18 01/07/18 22:35 06:50 Troponin I 0.54 H 0.53 H B-Natriuretic Peptide 85856.2 H Imaging - Results Chest X-ray: Report Reviewed (coarse changes mattie) EKG: Report Reviewed (af) Assessment/Plan He is an 82 year old NHR with a history of HTN NIDDM, CKD, afib on NOAC admitted for cough sob and edema. Recent admissions for chf and pneumonia. No chest pain + orthopnea no PND. mibi 04/2013 (stanton): no ecg changes, no ischemia/scar, nl lvef Echo 2014: TDS, normal LV/RV size and function, Aortic valve not seen well Echo 12/20/17 severe segmental LV systolic dysfunction with LAD territory LV dysfunction. No significant valvular pathology +troponin, chronic CAD - recent echo c/w old LAD territory infarct and systolic dysfunction - trop is nonischemic pattern, chronically elevated and likely due to CKD. - no sign of ACS Chronic systolic CHF, ischemic CMP - cont home meds - lasix 40 IV BID for now, follow wts and I/O afib - continue xarelto - rate controlled, cont bb at same dose
--- NOTE | 2018-01-07 16:30 | PN ---
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 (short form) - Note 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: Renal follow up for JD on CKD This is a 82 year old gentleman known to our service from prior admissions who presented with SOB and admitted for R/o ACS and CHF. Pt denies any sob upon examination. Denies any CP. NO fever, or chills. Making urine. Legs are swollen. Vital Signs Temperature 97.9 F 01/07/18 08:10 Pulse Rate 125 H 01/07/18 08:10 Respiratory Rate 22 H 01/07/18 16:18 Blood Pressure 122/93 01/07/18 08:10 O2 Sat by Pulse Oximetry (%) 100 01/07/18 08:15 Intake & Output 01/04/18 01/05/18 01/06/18 01/07/18 23:59 23:59 23:59 23:59 Intake Total 50 Output Total 700 Balance -650 Weight 108.862 kg 131.342 kg NAD awake and alert MMM, No JVD RRR, No M/R Dec BS, no overt rales soft NT.ND no bladder distension + LE edema, no clubbing or cyanosis CBC, BMP 01/07/18 06:50 01/07/18 06:50 Current Medications Albuterol/Ipratropium (Duoneb -) 1 amp NEB Q4H PRN PRN Reason: SHORTNESS OF BREATH Aspirin (Ecotrin -) 81 mg PO DAILY [facility] Last Admin: 01/07/18 09:36 Dose: 81 mg Atorvastatin Calcium (Lipitor -) 80 mg PO HS [facility] Fenofibric Acid (Trilipix -) 45 mg PO DAILY [facility] Last Admin: 01/07/18 09:37 Dose: 45 mg Ferrous Sulfate (Feosol -) 325 mg PO DAILY [facility] Last Admin: 01/07/18 09:36 Dose: 325 mg Furosemide (Lasix Injection -) 40 mg IVPUSH BID@0600,1400 [facility] Last Admin: 01/07/18 14:05 Dose: 40 mg Insulin Aspart (Novolog Vial Sliding Scale -) 1 vial SQ ACHS [facility]; Protocol Last Admin: 01/07/18 11:44 Dose: Not Given Metoprolol Succinate (Toprol Xl -) 25 mg PO DAILY [facility] Last Admin: 01/07/18 09:36 Dose: 25 mg Mometasone Furoate (Asmanex 110mcg -) 2 puff IH [facility] Rivaroxaban (Xarelto -) 15 mg PO DAILY@1800 [facility] Senna (Senna -) 1 tab PO HS [facility] 82 year old gentleman known to our service from prior admissions who presented with SOB and admitted for R/o ACS and CHF. 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
[2018-01-07] MEDS ORDERED: PT OWN MED DRAWER 7, Y5N ONE (16:59)
[2018-01-07] MEDS: RIVAROXABAN 15 MG TABLET PO SCH (19:07)
[2018-01-07] MEDS: ALBUTEROL SO4 2.5/IPRATROPIUM 0.5 INH SOL 3 ML VIAL.NEB. NEB PRN (20:28)
[2018-01-07] MEDS ORDERED: INSULIN (NOVOLOG) ASPART 100 UNITS/ML 10ML VIAL ONE (21:14)
[2018-01-07] MEDS: MOMETASONE FUROATE 110 MCG/IH INHALER IH SCH (21:19)
[2018-01-07] MEDS: SENNOSIDES 8.6MG TABLET (FP) PO SCH (21:19)
[2018-01-07] MEDS: ATORVASTATIN CA 80 MG TABLET (FP) PO SCH (21:19)
--- NOTE | 2018-01-07 23:16 | HOSP ---
Subjective - Review of Symptoms Events since last encounter: called to see patient for possible ectopy/runs of vtach on monitor as well as c/ o SOB. Subjective: pt denies CP/SOB at time of exam. Reports feeling better. Musculoskeletal: No: Muscle Pain Physical Examination Vital Signs: Vital Signs Temperature 97.8 F 01/07/18 18:20 Pulse Rate 81 01/07/18 18:20 Respiratory Rate 20 01/07/18 18:20 Blood Pressure 123/57 L 01/07/18 18:20 O2 Sat by Pulse Oximetry (%) 100 01/07/18 08:15 Constitutional: Yes: No Distress Cardiovascular: Yes: Regular Rate and Rhythm, S1, S2. No: Murmur, Rub Respiratory: Yes: Other (crackles B/L bases, R>L) Gastrointestinal: Yes: Normal Bowel Sounds, Soft. No: Tenderness Labs: CBC, BMP 01/07/18 06:50 01/07/18 06:50 Hospitalist Encounter Assessment: CHF exac - cont lasix 40mg BID - monitor reviewed, abnormal waveforms only present in 2 out of 3 leads. not vtach or vfib, is artifact, leads on chest changed for clearer tracing - care per PCP/Cardiology in am.
[2018-01-08] MEDS: FUROSEMIDE 40 MG/4 ML INJECTABLE VIAL IVPUSH SCH ×2 (05:59→13:39)
[2018-01-08] MEDS: INSULIN SLIDING SCALE (NOVOLOG) 1 VIAL SQ SCH ×4 (06:02→21:20)
[2018-01-08 06:55] LABS: BASO % 0.5 % (0-2.0); EOS % 1.3 % (0-4.5); HEMATOCRIT 36.4 % (35.4-49); HEMOGLOBIN 11.5 GM/dL (11.7-16.9); MCH 28.4 pg (25.7-33.7); MCHC 31.5 g/dl (32.0-35.9); MEAN CELL VOLUME 89.9 fl (80-96); MEAN PLT VOLUME 10.4 fl (7.5-11.1); MONO % 8.9 % (3.8-10.2); NEUT % 78.3 % (42.8-82.8); PLATELET COUNT 219 K/MM3 (134-434); RBC 4.05 M/mm3 (4.00-5.60); RDW 16.4 % (11.9-15.9); WHITE BLOOD COUNT 13.7 K/mm3 (4.0-10.0)
[2018-01-08 07:37] LABS: ALBUMIN 3.2 g/dl (3.4-5.0); ALK PHOS 228 U/L (45-117); ANION GAP 11 MMOL/L (8-16); BLOOD UREA NITROGEN 62 mg/dL (7-18); CALCIUM 8.5 mg/dL (8.5-10.1); CHLORIDE 98 mmol/L (98-107); CO2 28 mmol/L (21-32); CREATININE 2.2 mg/dL (0.55-1.3); GLUCOSE,RANDOM 115 mg/dL (74-106); POTASSIUM 3.6 mmol/L (3.5-5.1); SGOT/AST 91 U/L (15-37); SGPT/ALT 113 U/L (13-61); SODIUM 137 mmol/L (136-145); TOT PROT 6.4 g/dl (6.4-8.2)
[2018-01-08] MEDS: FERROUS SO4 325 MG TABLET (FP) PO SCH (09:02)
[2018-01-08] MEDS: ASPIRIN COATED 81 MG TABLET.EC PO SCH (09:02)
[2018-01-08] MEDS: metoPROLOL SUCCINATE 25 MG TAB.SR.24H (FP) PO SCH (09:02)
[2018-01-08] MEDS ORDERED: PT OWN MED DRAWER 7, Y5N ONE ×2 (09:56→21:12)
[2018-01-08] MEDS: FENOFIBRIC ACID 45 MG CAP PO SCH (09:58)
--- NOTE | 2018-01-08 11:45 | PN ---
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, Physician Chief Complaint: The patient seen in his room. Sitting by his bedside chair. Short of breath. Ray catheter draining large amounts of urine. History of Present Illness: This is an 82 y/o man with a PMHx of: HTN, CKD3, HLD, DM, CHF, LV Systolic Dysfunction, Mitral Regurgitation, Afib (on Xarelto), Pneumonia admitted for Afib with RVR, Acute on Chronic CHF Exacerbation , and with worsening of his renal functions. - Current Medication List Current Medications: Active Medications Albuterol/Ipratropium (Duoneb -) 1 amp NEB Q4H PRN PRN Reason: SHORTNESS OF BREATH Last Admin: 01/07/18 20:28 Dose: 1 amp Aspirin (Ecotrin -) 81 mg PO DAILY [facility] Last Admin: 01/08/18 09:02 Dose: 81 mg Atorvastatin Calcium (Lipitor -) 80 mg PO HS [facility] Last Admin: 01/07/18 21:19 Dose: 80 mg Fenofibric Acid (Trilipix -) 45 mg PO DAILY [facility] Last Admin: 01/08/18 09:58 Dose: 45 mg Ferrous Sulfate (Feosol -) 325 mg PO DAILY [facility] Last Admin: 01/08/18 09:02 Dose: 325 mg Furosemide (Lasix Injection -) 40 mg IVPUSH BID@0600,1400 [facility] Last Admin: 01/08/18 05:59 Dose: 40 mg Insulin Aspart (Novolog Vial Sliding Scale -) 1 vial SQ [facility]; Protocol Last Admin: 01/08/18 06:02 Dose: Not Given Metoprolol Succinate (Toprol Xl -) 25 mg PO DAILY [facility] Last Admin: 01/08/18 09:02 Dose: 25 mg Mometasone Furoate (Asmanex 110mcg -) 2 puff IH [facility] Last Admin: 01/07/18 21:19 Dose: 2 puff Rivaroxaban (Xarelto -) 15 mg PO DAILY@1800 [facility] Last Admin: 01/07/18 19:07 Dose: 15 mg Senna (Senna -) 1 tab PO [facility] Last Admin: 01/07/18 21:19 Dose: 1 tab - Objective Vital Signs: Vital Signs Temperature 97.7 F 01/08/18 06:00 Pulse Rate 114 H 01/08/18 06:00 Respiratory Rate 22 H 01/08/18 09:00 Blood Pressure 141/86 01/08/18 06:00 O2 Sat by Pulse Oximetry (%) 96 01/08/18 09:00 Constitutional: Yes: Well Nourished, Anxious, Mild Distress, Pallor Eyes: Yes: Conjunctiva Clear HENT: Yes: Normocephalic Neck: Yes: Trachea Midline Cardiovascular: Yes: Pulse Irregular, S1, S2 Respiratory: Yes: Diminished, Poor Air Entry, Rales, Rhonchi, SOB Gastrointestinal: Yes: Normal Bowel Sounds, Soft, Abdomen, Obese Genitourinary: Yes: Ray Present Edema: LLE: 4+, RLE: 4+ Neurological: Yes: Alert, Oriented Labs: CBC, BMP 01/08/18 06:00 01/08/18 06:00 Problem List - Problems (1) Acute exacerbation of CHF (congestive heart failure) Code(s): I50.9 - HEART FAILURE, UNSPECIFIED (2) Atrial fibrillation with RVR Code(s): I48.91 - UNSPECIFIED ATRIAL FIBRILLATION (3) CHF (congestive heart failure) Code(s): I50.9 - HEART FAILURE, UNSPECIFIED Qualifiers: Heart failure type: unspecified Heart failure chronicity: acute on chronic Qualified Code(s): I50.9 - Heart failure, unspecified (4) CKD (chronic kidney disease) Code(s): N18.9 - CHRONIC KIDNEY DISEASE, UNSPECIFIED (5) DVT prophylaxis Code(s): [id number] - (6) JD (acute kidney injury) Code(s): N17.9 - ACUTE KIDNEY FAILURE, UNSPECIFIED (7) Anemia Code(s): D64.9 - ANEMIA, UNSPECIFIED (8) Atrial fibrillation Code(s): I48.91 - UNSPECIFIED ATRIAL FIBRILLATION (9) Hypertension Code(s): I10 - ESSENTIAL (PRIMARY) HYPERTENSION Qualifiers: Hypertension type: essential hypertension Qualified Code(s): I10 - Essential (primary) hypertension (10) Pneumonia Code(s): J18.9 - PNEUMONIA, UNSPECIFIED ORGANISM Qualifiers: Assessment/Plan 82 y/o man with a PMHx of: HTN, HLD, DM, CHF, LV Systolic Dysfunction, Mitral Regurgitation, Afib (on Xarelto), Pneumonia, Afib with RVR. Has CKD, and now with acute worsening of renal failure. JD, superimposed on CKD. The JD due to altered renal hemodynamics and hypoperfusion. Massive volume overload and CHF. PLAN: Continue the loop diuretics. The renal functions expected to improve, with improved hemodynamics. May have to increase Lasix dose if the anasarca persists. Concur with the current management. Will monitor the renal functions with you. Thank you. Will follow with you. Crystal Canchola MD
[2018-01-08] MEDS ORDERED: INSULIN (NOVOLOG) ASPART 100 UNITS/ML 10ML VIAL ONE (12:25)
--- NOTE | 2018-01-08 13:20 | PN ---
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, Physician Chief Complaint: EVENTS AND NOTES REVIEWED AWAKE ALERT TOLERATING MEALS NO COMPLAINTS CHEST PAIN/SOB - Current Medication List Current Medications: Active Medications Albuterol/Ipratropium (Duoneb -) 1 amp NEB Q4H PRN PRN Reason: SHORTNESS OF BREATH Last Admin: 01/07/18 20:28 Dose: 1 amp Aspirin (Ecotrin -) 81 mg PO DAILY [facility] BEDS AT [facility] Last Admin: 01/08/18 09:02 Dose: 81 mg Atorvastatin Calcium (Lipitor -) 80 mg PO [facility] Last Admin: 01/07/18 21:19 Dose: 80 mg Fenofibric Acid (Trilipix -) 45 mg PO DAILY [facility]CLUDE 234 BEDS AT THE [facility] Last Admin: 01/08/18 09:58 Dose: 45 mg Ferrous Sulfate (Feosol -) 325 mg PO DAILY [facility] 234 BEDS AT THE [facility] Last Admin: 01/08/18 09:02 Dose: 325 mg Furosemide (Lasix Injection -) 40 mg IVPUSH BID@0600,1400 [facility] 234 BEDS AT THE [facility] Last Admin: 01/08/18 05:59 Dose: 40 mg Insulin Aspart (Novolog Vial Sliding Scale -) 1 vial SQ [facility] COUNTS INCLUDE 234 BEDS AT THE [facility]; Protocol Last Admin: 01/08/18 12:30 Dose: 4 units Metoprolol Succinate (Toprol Xl -) 25 mg PO DAILY [facility]CLUDE 234 BEDS AT THE [facility] Last Admin: 01/08/18 09:02 Dose: 25 mg Mometasone Furoate (Asmanex 110mcg -) 2 puff IH [facility] Last Admin: 01/07/18 21:19 Dose: 2 puff Rivaroxaban (Xarelto -) 15 mg PO DAILY@1800 [facility]CLUDE 234 BEDS AT THE [facility] Last Admin: 01/07/18 19:07 Dose: 15 mg Senna (Senna -) 1 tab PO [facility] Last Admin: 01/07/18 21:19 Dose: 1 tab - Objective Vital Signs: Vital Signs Temperature 97.5 F L 01/08/18 10:00 Pulse Rate 116 H 01/08/18 10:00 Respiratory Rate 22 H 01/08/18 10:00 Blood Pressure 132/94 01/08/18 10:00 O2 Sat by Pulse Oximetry (%) 96 01/08/18 09:00 Constitutional: Yes: Mild Distress Eyes: Yes: WNL HENT: Yes: WNL Neck: Yes: WNL Cardiovascular: Yes: Tachycardia, Pulse Irregular Respiratory: Yes: On Nasal O2, Rhonchi Gastrointestinal: Yes: Soft, Distention, Hernia Genitourinary: Yes: WNL Musculoskeletal: Yes: Muscle Weakness Extremities: Yes: Deformity, Erythema Edema: Yes Edema: LLE: 2+, RLE: 2+ Integumentary: Yes: Erythema Wound/Incision: Yes: Open to air Neurological: Yes: Confusion, Pre-Existing Deficit, Unsteady Gait, Weakness ...Motor Strength: LLE (UNSTEADY GAIT), RLE Psychiatric: Yes: Other Labs: CBC, BMP 01/08/18 06:00 01/08/18 06:00 Problem List - Problems (1) Acute exacerbation of CHF (congestive heart failure) Code(s): I50.9 - HEART FAILURE, UNSPECIFIED (2) Atrial fibrillation with RVR Code(s): I48.91 - UNSPECIFIED ATRIAL FIBRILLATION (3) CKD (chronic kidney disease) Code(s): N18.9 - CHRONIC KIDNEY DISEASE, UNSPECIFIED (4) DVT prophylaxis Code(s): [id number] - (5) DJ (acute kidney injury) Code(s): N17.9 - ACUTE KIDNEY FAILURE, UNSPECIFIED (6) Atrial fibrillation Code(s): I48.91 - UNSPECIFIED ATRIAL FIBRILLATION (7) Diabetes Code(s): E11.9 - TYPE 2 DIABETES MELLITUS WITHOUT COMPLICATIONS (8) Hyperlipidemia Code(s): E78.5 - HYPERLIPIDEMIA, UNSPECIFIED (9) Hypertension Code(s): I10 - ESSENTIAL (PRIMARY) HYPERTENSION Qualifiers: Hypertension type: essential hypertension Qualified Code(s): I10 - Essential (primary) hypertension (10) Non-STEMI (non-ST elevated myocardial infarction) Code(s): I21.4 - NON-ST ELEVATION (NSTEMI) MYOCARDIAL INFARCTION Assessment/Plan CONTINUE TELE MONITORING, ALARMS REVIEWED, RAPID AFIB CARDIOLOGY F/U APPRECIATED CONTINUE LASIX FOR DIURESIS DVT PROPHYLAXIS NEPHROLOGY F/U APPRECIATED DAILY LABS TO MONITOR RENAL FUNC CONTINUE WITH XARELTO CXR IN AM BGM CHECKS O2 SUPPORT PRN VIA NC PT EVAL FALL PRECAUTIONS NEURO CHECKS
[2018-01-08] MEDS ORDERED: ONDANSETRON 4 MG/2 ML VIAL IVPB PRN (14:46)
--- NOTE | 2018-01-08 16:48 | PN ---
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, Physician Chief Complaint: The patient was sitting in chair with mild SOB at rest. But he denies SOB, chest pain and palpitation. Tele shows atrial fibrillation with rapid VR: 120s occasional goes to 130s. History of Present Illness: 82 year old man, NHR, with a history of HTN, NIDDM, CKD, afib on NOAC Recent admissions for CHF and pneumonia, readmitted 01/06/2018 with recurrent CHF and rapid afib. Nuclear stress test 04/2013 ([facility]): no ecg changes, no ischemia/scar, nl lvef Echo 2014: TDS, normal LV/RV size and function, Aortic valve not seen well Echo 12/20/17 severe segmental LV systolic dysfunction with LAD territory LV dysfunction. No significant valvular pathology - Current Medication List Current Medications: Active Medications Albuterol/Ipratropium (Duoneb -) 1 amp NEB Q4H PRN PRN Reason: SHORTNESS OF BREATH Last Admin: 01/07/18 20:28 Dose: 1 amp Aspirin (Ecotrin -) 81 mg PO DAILY [facility] Last Admin: 01/08/18 09:02 Dose: 81 mg Atorvastatin Calcium (Lipitor -) 80 mg PO HS [facility] Last Admin: 01/07/18 21:19 Dose: 80 mg Fenofibric Acid (Trilipix -) 45 mg PO DAILY [facility] Last Admin: 01/08/18 09:58 Dose: 45 mg Ferrous Sulfate (Feosol -) 325 mg PO DAILY [facility] Last Admin: 01/08/18 09:02 Dose: 325 mg Furosemide (Lasix Injection -) 40 mg IVPUSH BID@0600,1400 [facility] Last Admin: 01/08/18 13:39 Dose: 40 mg Insulin Aspart (Novolog Vial Sliding Scale -) 1 vial SQ [facility]; Protocol Last Admin: 01/08/18 12:30 Dose: 4 units Metoprolol Succinate (Toprol Xl -) 25 mg PO DAILY [facility] Last Admin: 01/08/18 09:02 Dose: 25 mg Mometasone Furoate (Asmanex 110mcg -) 2 puff IH [facility] Last Admin: 01/07/18 21:19 Dose: 2 puff Ondansetron HCl (Zofran Injection) 8 mg IVPB Q6H PRN PRN Reason: NAUSEA Last Admin: 01/08/18 15:46 Dose: 8 mg Rivaroxaban (Xarelto -) 15 mg PO DAILY@1800 [facility] Last Admin: 01/07/18 19:07 Dose: 15 mg Senna (Senna -) 1 tab PO HS [facility] Last Admin: 01/07/18 21:19 Dose: 1 tab - Objective Vital Signs: Vital Signs Temperature 98.3 F 01/08/18 14:31 Pulse Rate 125 H 01/08/18 14:31 Respiratory Rate 22 H 01/08/18 14:31 Blood Pressure 132/94 01/08/18 10:00 O2 Sat by Pulse Oximetry (%) 96 01/08/18 09:00 General: Well developed. Obese. Mild respiratory distress. Head: Normocephalic. Atraumatic, Eyes: PERRLA, EOMI. Sclerae anicteric. Conjunctivae clear. Neck: Supple. No JVD. No bruits. Heart: Normal S1, S2: Irregularly rhythm and tachycardic. Lungs: Symmetrical air entry. Bibasilar crackle. No wheezing or rhonchi. Abdomen: Obese. Distended. Soft. Bowel sound positive. Non tender. No masses. Extremities: 2+ edema. No clubbing or cyanosis. Labs: CBC, BMP 01/08/18 06:00 01/08/18 06:00 Assessment/Plan 82 year old man, NHR, with a history of HTN, NIDDM, CKD, afib on NOAC Recent admissions for CHF and pneumonia, readmitted 01/06/2018 with recurrent CHF and rapid afib. Nuclear stress test 04/2013 ([facility]): no ecg changes, no ischemia/scar, nl lvef Echo 2014: TDS, normal LV/RV size and function, Aortic valve not seen well Echo 12/20/17 severe segmental LV systolic dysfunction with LAD territory LV dysfunction. No significant valvular pathology 1) Chronic systolic CHF, ischemic CMP: Still fluid overloaded with dyspnea. - Increae IV Lasix to 60 IV BID. - Monitor Is, Os, daily weight, electrolytes and renal function. 2)Persistent atrial fibrillation with rapid VR. - Change metoprolol succinate to short acting metoprolol tartrate and increase it to 50 mg BID. - Add Digoxin 0.25 mg daily for 4 days and decrease it to 0.125 mg daily or every other day based on his renal function at that time. - Continue xarelto 15 mg daily. May have to change it to Eliquis if renal function worsens. 3) Chronic CAD: +troponin, recent echo c/w old LAD territory infarct and systolic dysfunction - trop is nonischemic pattern, chronically elevated and likely due to CKD. - no sign of ACS
[2018-01-08] MEDS: RIVAROXABAN 15 MG TABLET PO SCH (17:10)
--- NOTE | 2018-01-08 17:22 | EKG ---
Test Reason : Blood Pressure : / mmHG Vent. Rate : 133 BPM Atrial Rate : 111 BPM P-R Int : 000 ms QRS Dur : 084 ms QT Int : 314 ms P-R-T Axes : 000 -50 134 degrees QTc Int : 467 ms ATRIAL FIBRILLATION WITH RAPID VENTRICULAR RESPONSE WITH PREMATURE VENTRICULAR OR ABERRANTLY CONDUCTED COMPLEXES LEFT AXIS DEVIATION ANTEROSEPTAL INFARCT (CITED ON OR BEFORE 18-DEC-2017) ABNORMAL ECG WHEN COMPARED WITH ECG OF 26-DEC-2017 20:11, QUESTIONABLE CHANGE IN INITIAL FORCES OF ANTERIOR LEADS T WAVE INVERSION LESS EVIDENT IN ANTERIOR LEADS CLINICAL CORRELATION IS RECOMMENDED Confirmed by CESAR KRAUS, CIARAN ([id number]) on 01/08/2018 5:22:18 PM Referred By: Confirmed By:CIARAN GUERRERO MD
[2018-01-08] MEDS: DIGOXIN 0.25 MG TABLET (FP) PO SCH (18:22)
[2018-01-08] MEDS: ATORVASTATIN CA 80 MG TABLET (FP) PO SCH (21:14)
[2018-01-08] MEDS: METOPROLOL TARTRATE 50 MG TABLET (FP) PO SCH (21:14)
[2018-01-08] MEDS: MOMETASONE FUROATE 110 MCG/IH INHALER IH SCH (21:14)
[2018-01-08] MEDS: SENNOSIDES 8.6MG TABLET (FP) PO SCH (21:20)
--- NOTE | 2018-01-09 00:17 | CONSULT ---
Consult Consult Specialty:: endocrine Referred by:: dr.rabadi mariano Reason for Consultation:: diabetes mellitus - History of Present Illness Chief Complaint: weak and high sugars History of Present Illness: 82 y/o man from [facility] with a past medical history of HTN, CHF, LV Systolic Dysfunction, Mitral Regurgitation, Afib (on Xarelto), CKD, DM, PNA. Who presents to with SOB, lower extremity edema x1 day. Patient has had recent admissions Pneumonia, CHF . he has been increasingly short of breath and lower extremity swelling admitted for chf symptoms and possible pneumonia,he is weak and has poor appetite. 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: Other (cognitive impairment) Cardio/Vascular: Yes: HTN, Hyperlipdemia, Mitral Insufficiency, Murmur, Other ( AFIB) Pulmonary: Yes: Pneumonia Renal/: Yes: Renal Inusuff Endocrine: Yes: Diabetes Mellitus - Past Surgical History Past Surgical History: Yes: Joint Replacement (RT knee replacement- 2013.) - Alcohol/Substance Use Hx Alcohol Use: No - Smoking History Smoking history: Never smoked Have you smoked in the past 12 months: No - Social History Usual Living Arrangement: Alone ADL: Support Services 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 History of Recent Travel: No Home Medications - Allergies Allergies/Adverse Reactions: Allergies Allergy/AdvReac Type Severity Reaction Status Date / Time No Known Allergies Allergy Verified 01/06/18 23:56 - Home Medications Home Medications: Ambulatory Orders Fenofibric Acid [Trilipix -] 45 mg PO DAILY 12/18/17 Guaifenesin 100 mg PO TID 12/18/17 Metformin HCl [Metformin HCl ER] 500 mg PO BID 12/18/17 Mometasone Furoate [Asmanex] 2 puff IH DAILY 12/18/17 Acetaminophen [Tylenol .Regular Strength -] 650 mg PO Q6H PRN tablet 12/24/17 Albuterol 2.5/Ipratropium 0.5 [Duoneb -] 1 amp NEB Q4H PRN amp 12/24/17 Allopurinol [Zyloprim -] 100 mg PO DAILY tablet 12/24/17 Atorvastatin Ca [Lipitor] 80 mg PO HS tablet 12/24/17 Enalapril Maleate [Vasotec -] 2.5 mg PO BID tablet 12/24/17 Ferrous Sulfate [Feosol] 325 mg PO DAILY #30 tablet 12/24/17 Polyethylene Glycol 3350 [Miralax 119 gm Btl -] 17 gm PO DAILY bottle 12/24/17 Magnesium Hydrox 2400MG/30Ml [Milk of Magnesia -] 30 ml PO DAILY PRN 12/27/17 Aspirin Coated [Ecotrin -] 81 mg PO DAILY tablet.ec 01/03/18 Insulin Sliding Scale [Novolog Vial Sliding Scale -] 1 vial SQ [facility] units 01/03 Rivaroxaban [Xarelto -] 15 mg PO DAILY@1800 tablet 01/03/18 Sennosides [Senna -] 1 tab PO HS tablet 01/03/18 Furosemide [Lasix -] 40 mg PO DAILY 01/06/18 Metoprolol Succinate [Toprol XL -] 25 mg PO DAILY 01/06/18 Review of Systems - Review of Systems Constitutional: reports: Lethargy, Weakness Eyes: reports: No Symptoms HENT: reports: No Symptoms Neck: reports: No Symptoms Cardiovascular: reports: Shortness of Breath Respiratory: reports: Exercise Intolerance, SOB, SOB on Exertion Gastrointestinal: reports: Bloating, Nausea Genitourinary: reports: No Symptoms Breasts: reports: No Symptoms Reported Musculoskeletal: reports: Muscle Cramps, Muscle Weakness Endocrine: reports: Unexplained Weight Loss Physical Exam Vital Signs: Vital Signs Temperature 97.1 F L 01/08/18 18:05 Pulse Rate 121 H 01/08/18 18:22 Respiratory Rate 20 01/08/18 18:05 Blood Pressure 107/87 01/08/18 18:05 O2 Sat by Pulse Oximetry (%) 96 01/08/18 09:00 Constitutional: Yes: Anxious Eyes: Yes: EOM Intact HENT: Yes: Normocephalic Neck: Yes: Trachea Midline Cardiovascular: Yes: Tachycardia, S2 Respiratory: Yes: On Nasal O2, SOB, Tachypnea Gastrointestinal: Yes: Normal Bowel Sounds Breast(s): Yes: WNL Musculoskeletal: Yes: WNL, Muscle Weakness Neurological: Yes: Alert Labs: CBC, BMP 01/08/18 06:00 01/08/18 06:00 Assessment/Plan Current Active Problems Acute exacerbation of CHF (congestive heart failure) (Acute) Atrial fibrillation with RVR (Acute) CHF (congestive heart failure) (Acute) CKD (chronic kidney disease) (Acute) DVT prophylaxis (Acute) diabetes mellitus hyperglycemia/ckd nephropathy diabetic hypertensive Abnormal Lab Results 01/08/18 01/08/18 06:00 06:00 WBC 13.7 H Hgb 11.5 L MCHC 31.5 L RDW 16.4 H Absolute Neuts (auto) 10.7 H BUN 62 H Creatinine 2.2 H Random Glucose 115 H Total Bilirubin 2.0 H AST 91 H ALT 113 H Alkaline Phosphatase 228 H Albumin 3.2 L Laboratory Results - last 24 hr 01/07/18 01/08/18 01/08/18 07:43 05:38 06:00 WBC 13.7 H RBC 4.05 Hgb 11.5 L Hct 36.4 MCV 89.9 MCH 28.4 MCHC 31.5 L RDW 16.4 H Plt Count 219 MPV 10.4 Absolute Neuts (auto) 10.7 H Neutrophils % 78.3 Lymphocytes % 11.0 Monocytes % 8.9 Eosinophils % 1.3 D Basophils % 0.5 Nucleated RBC % 0 Sodium Potassium Chloride Carbon Dioxide Anion Gap BUN Creatinine Creat Clearance w eGFR POC Glucometer 176.76249 126 Random Glucose Calcium Total Bilirubin AST ALT Alkaline Phosphatase Total Protein Albumin 01/08/18 01/08/18 01/08/18 06:00 11:16 16:11 WBC RBC Hgb Hct MCV MCH MCHC RDW Plt Count MPV Absolute Neuts (auto) Neutrophils % Lymphocytes % Monocytes % Eosinophils % Basophils % Nucleated RBC % Sodium 137 Potassium 3.6 Chloride 98 Carbon Dioxide 28 Anion Gap 11 BUN 62 H Creatinine 2.2 H Creat Clearance w eGFR 28.73 POC Glucometer 244 215 Random Glucose 115 H Calcium 8.5 Total Bilirubin 2.0 H AST 91 H ALT 113 H Alkaline Phosphatase 228 H Total Protein 6.4 Albumin 3.2 L 01/08/18 21:17 WBC RBC Hgb Hct MCV MCH MCHC RDW Plt Count MPV Absolute Neuts (auto) Neutrophils % Lymphocytes % Monocytes % Eosinophils % Basophils % Nucleated RBC % Sodium Potassium Chloride Carbon Dioxide Anion Gap BUN Creatinine Creat Clearance w eGFR POC Glucometer 142 Random Glucose Calcium Total Bilirubin AST ALT Alkaline Phosphatase Total Protein Albumin plan: bgm qid novolog insulin use low dose januvia 25mg daily dc metformin nephrology consult ck hba1c
[2018-01-09] MEDS ORDERED: diphenhydrAMINE HCL 25 MG CAPSULE (FP) PO PRN (01:16)
[2018-01-09] MEDS: FUROSEMIDE 40 MG/4 ML INJECTABLE VIAL IVPUSH SCH (06:31)
[2018-01-09] MEDS: INSULIN SLIDING SCALE (NOVOLOG) 1 VIAL SQ SCH (06:41)
[2018-01-09] MEDS ORDERED: sitaGLIPtin PHOSPHATE 25 MG TABLET (FP) PO SCH (07:00)
--- NOTE | 2018-01-09 09:23 | PN ---
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, Physician Chief Complaint: The patient seen in his room. Sitting by his bedside chair. Still short of breath. Ray catheter in place. Urine out put acceptable. History of Present Illness: This is an 82 y/o man with a PMHx of: HTN, CKD3, HLD, DM, CHF, LV Systolic Dysfunction, Mitral Regurgitation, Afib (on Xarelto), Pneumonia admitted for Afib , Acute on Chronic CHF Exacerbation , and with worsening of his renal functions. - Current Medication List Current Medications: Active Medications Albuterol/Ipratropium (Duoneb -) 1 amp NEB Q4H PRN PRN Reason: SHORTNESS OF BREATH Last Admin: 01/07/18 20:28 Dose: 1 amp Aspirin (Ecotrin -) 81 mg PO DAILY [facility] Last Admin: 01/08/18 09:02 Dose: 81 mg Atorvastatin Calcium (Lipitor -) 80 mg PO HS [facility] Last Admin: 01/08/18 21:14 Dose: 80 mg Digoxin (Lanoxin -) 0.25 mg PO DAILY [facility] Stop: 01/11/18 10:01 Last Admin: 01/08/18 18:22 Dose: 0.25 mg Digoxin (Lanoxin -) 0.125 mg PO DAILY [facility] Diphenhydramine HCl (Benadryl -) 25 mg PO HS PRN PRN Reason: INSOMNIA Last Admin: 01/09/18 01:59 Dose: 25 mg Fenofibric Acid (Trilipix -) 45 mg PO DAILY [facility] Last Admin: 01/08/18 09:58 Dose: 45 mg Ferrous Sulfate (Feosol -) 325 mg PO DAILY [facility] Last Admin: 01/08/18 09:02 Dose: 325 mg Furosemide (Lasix Injection -) 40 mg IVPUSH BID@0600,1400 [facility] Last Admin: 01/09/18 06:31 Dose: 40 mg Insulin Aspart (Novolog Vial Sliding Scale -) 1 vial SQ ACHS [facility]; Protocol Last Admin: 01/09/18 06:41 Dose: Not Given Metoprolol Tartrate (Lopressor -) 50 mg PO BID [facility] Last Admin: 01/08/18 21:14 Dose: 50 mg Mometasone Furoate (Asmanex 110mcg -) 2 puff IH HS [facility] Last Admin: 01/08/18 21:14 Dose: 2 puff Ondansetron HCl (Zofran Injection) 8 mg IVPB Q6H PRN PRN Reason: NAUSEA Last Admin: 01/08/18 15:46 Dose: 8 mg Rivaroxaban (Xarelto -) 15 mg PO DAILY@1800 [facility] Last Admin: 01/08/18 17:10 Dose: 15 mg Senna (Senna -) 1 tab PO HS [facility] Last Admin: 01/08/18 21:20 Dose: Not Given Sitagliptin Phosphate (Januvia -) 25 mg PO DAILY@0700 [facility] Last Admin: 01/09/18 06:31 Dose: 25 mg - Objective Vital Signs: Vital Signs Temperature 97.5 F L 01/08/18 22:00 Pulse Rate 96 H 01/09/18 06:00 Respiratory Rate 19 01/09/18 06:00 Blood Pressure 131/53 L 01/09/18 06:00 O2 Sat by Pulse Oximetry (%) 98 01/08/18 21:00 Constitutional: Yes: Anxious, Mild Distress Eyes: Yes: Conjunctiva Clear HENT: Yes: Normocephalic Neck: Yes: Supple, Trachea Midline Cardiovascular: Yes: Tachycardia, Pulse Irregular, S1, S2 Respiratory: Yes: CTA Bilaterally, Diminished, Poor Air Entry, Rales Gastrointestinal: Yes: Normal Bowel Sounds, Abdomen, Obese Musculoskeletal: Yes: Joint Stiffness Edema: Yes Edema: LLE: 4+, RLE: 4+ Neurological: Yes: Alert, Oriented Labs: CBC, BMP 01/08/18 06:00 01/08/18 06:00 Problem List - Problems (1) Acute exacerbation of CHF (congestive heart failure) Code(s): I50.9 - HEART FAILURE, UNSPECIFIED (2) Atrial fibrillation with RVR Code(s): I48.91 - UNSPECIFIED ATRIAL FIBRILLATION (3) CHF (congestive heart failure) Code(s): I50.9 - HEART FAILURE, UNSPECIFIED Qualifiers: Heart failure type: unspecified Heart failure chronicity: acute on chronic Qualified Code(s): I50.9 - Heart failure, unspecified (4) CKD (chronic kidney disease) Code(s): N18.9 - CHRONIC KIDNEY DISEASE, UNSPECIFIED (5) DVT prophylaxis Code(s): [id number] - (6) JD (acute kidney injury) Code(s): N17.9 - ACUTE KIDNEY FAILURE, UNSPECIFIED (7) Anemia Code(s): D64.9 - ANEMIA, UNSPECIFIED (8) Atrial fibrillation Code(s): I48.91 - UNSPECIFIED ATRIAL FIBRILLATION (9) Hypertension Code(s): I10 - ESSENTIAL (PRIMARY) HYPERTENSION Qualifiers: Hypertension type: essential hypertension Qualified Code(s): I10 - Essential (primary) hypertension (10) Pneumonia Code(s): J18.9 - PNEUMONIA, UNSPECIFIED ORGANISM Qualifiers: Assessment/Plan 82 y/o man with a PMHx of: HTN, HLD, DM, CHF, LV Systolic Dysfunction, Mitral Regurgitation, Afib , Pneumonia, Afib with RVR. Has CKD, and now with acute worsening of renal failure. JD, superimposed on CKD. The JD due to altered renal hemodynamics and hypoperfusion. Massive volume overload and CHF. No lab values available from today. PLAN: Continue the loop diuretics. The renal functions expected to improve, with improved hemodynamics. May have to increase Lasix dose if the anasarca persists. Concur with the current management. Will monitor the renal functions with you. Thank you. Will follow with you. Crystal Canchola MD
[2018-01-09] MEDS ORDERED: PT OWN MED DRAWER 7, Y5N ONE (10:12)
[2018-01-09] MEDS: ALBUTEROL SO4 2.5/IPRATROPIUM 0.5 INH SOL 3 ML VIAL.NEB. NEB PRN (10:18)
[2018-01-09] MEDS: FERROUS SO4 325 MG TABLET (FP) PO SCH (10:46)
[2018-01-09] MEDS: ASPIRIN COATED 81 MG TABLET.EC PO SCH (10:47)
[2018-01-09] MEDS: FENOFIBRIC ACID 45 MG CAP PO SCH (10:47)
[2018-01-09] MEDS: METOPROLOL TARTRATE 50 MG TABLET (FP) PO SCH (10:48)
[2018-01-09] MEDS: DIGOXIN 0.25 MG TABLET (FP) PO SCH (10:48)
[2018-01-09 10:51] VITALS: PULSE 108
[2018-01-09 11:01] VITALS: BP 158/81; TEMP 98.1
[2018-01-09] MEDS ORDERED: SODIUM CHLORIDE 0.9% 1000 ML INFUS.BAG IV ONE (11:29)
[2018-01-09] MEDS ORDERED: SODIUM BICARBONATE 8.4% 50 MEQ/50 ML VIAL IV ONE (12:05)
--- NOTE | 2018-01-09 12:13 | PN ---
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, Physician Chief Complaint: RESPIRATORY DISTRESS RAPID RESPONSE CALLED AND PATIENT INTUBATED TRANSFERRED TO ICU - Current Medication List Current Medications: Active Medications Albuterol/Ipratropium (Duoneb -) 1 amp NEB Q4H PRN PRN Reason: SHORTNESS OF BREATH Last Admin: 01/09/18 10:18 Dose: 1 amp Aspirin (Ecotrin -) 81 mg PO DAILY [facility] Last Admin: 01/09/18 10:47 Dose: 81 mg Atorvastatin Calcium (Lipitor -) 80 mg PO HS [facility] Last Admin: 01/08/18 21:14 Dose: 80 mg Digoxin (Lanoxin -) 0.25 mg PO DAILY [facility] Stop: 01/11/18 10:01 Last Admin: 01/09/18 10:48 Dose: 0.25 mg Digoxin (Lanoxin -) 0.125 mg PO DAILY [facility] Diphenhydramine HCl (Benadryl -) 25 mg PO HS PRN PRN Reason: INSOMNIA Last Admin: 01/09/18 01:59 Dose: 25 mg Fenofibric Acid (Trilipix -) 45 mg PO DAILY [facility] Last Admin: 01/09/18 10:47 Dose: 45 mg Ferrous Sulfate (Feosol -) 325 mg PO DAILY [facility] Last Admin: 01/09/18 10:46 Dose: 325 mg Furosemide (Lasix Injection -) 80 mg IVPB BID@0600,1400 [facility] Insulin Aspart (Novolog Vial Sliding Scale -) 1 vial SQ [facility]; Protocol Last Admin: 01/09/18 06:41 Dose: Not Given Metoprolol Tartrate (Lopressor -) 50 mg PO BID [facility] Last Admin: 01/09/18 10:48 Dose: 50 mg Mometasone Furoate (Asmanex 110mcg -) 2 puff [facility] Last Admin: 01/08/18 21:14 Dose: 2 puff Ondansetron HCl (Zofran Injection) 8 mg IVPB Q6H PRN PRN Reason: NAUSEA Last Admin: 01/08/18 15:46 Dose: 8 mg Rivaroxaban (Xarelto -) 15 mg PO DAILY@1800 [facility] Last Admin: 01/08/18 17:10 Dose: 15 mg Senna (Senna -) 1 tab PO [facility] Last Admin: 01/08/18 21:20 Dose: Not Given Sitagliptin Phosphate (Januvia -) 25 mg PO DAILY@0700 [facility] Last Admin: 01/09/18 06:31 Dose: 25 mg Sodium Bicarbonate (Sodium Bicarbonate 8.4% -) 50 meq IV ONCE ONE Stop: 01/09/18 12:06 - Objective Vital Signs: Vital Signs Temperature 98.1 F 01/09/18 10:00 Pulse Rate 108 H 01/09/18 10:48 Respiratory Rate 14 01/09/18 11:58 Blood Pressure 158/81 01/09/18 10:00 O2 Sat by Pulse Oximetry (%) 98 01/09/18 09:00 Constitutional: Yes: Moderate Distress Eyes: Yes: WNL HENT: Yes: WNL Neck: Yes: WNL Cardiovascular: Yes: Tachycardia Respiratory: Yes: Diminished, Mechanically Ventilated Gastrointestinal: Yes: Abdomen, Obese, Distention Genitourinary: Yes: Ray Present Musculoskeletal: Yes: Muscle Weakness Extremities: Yes: Other Edema: Yes Edema: LLE: 2+, RLE: 2+ Peripheral Pulses WNL: Yes Integumentary: Yes: Rash Wound/Incision: Yes: Dressing Dry and Intact Neurological: Yes: Pre-Existing Deficit ...Motor Strength: LLE, RLE Psychiatric: Yes: Other Labs: CBC, BMP 01/08/18 06:00 01/08/18 06:00 Problem List - Problems (1) Acute exacerbation of CHF (congestive heart failure) Code(s): I50.9 - HEART FAILURE, UNSPECIFIED (2) Atrial fibrillation with RVR Code(s): I48.91 - UNSPECIFIED ATRIAL FIBRILLATION (3) CKD (chronic kidney disease) Code(s): N18.9 - CHRONIC KIDNEY DISEASE, UNSPECIFIED (4) DVT prophylaxis Code(s): [id number] - (5) JD (acute kidney injury) Code(s): N17.9 - ACUTE KIDNEY FAILURE, UNSPECIFIED (6) Atrial fibrillation Code(s): I48.91 - UNSPECIFIED ATRIAL FIBRILLATION (7) Diabetes Code(s): E11.9 - TYPE 2 DIABETES MELLITUS WITHOUT COMPLICATIONS (8) Hyperlipidemia Code(s): E78.5 - HYPERLIPIDEMIA, UNSPECIFIED (9) Hypertension Code(s): I10 - ESSENTIAL (PRIMARY) HYPERTENSION Qualifiers: Hypertension type: essential hypertension Qualified Code(s): I10 - Essential (primary) hypertension (10) Non-STEMI (non-ST elevated myocardial infarction) Code(s): I21.4 - NON-ST ELEVATION (NSTEMI) MYOCARDIAL INFARCTION Assessment/Plan INTUBATED TRANSFERRED TO ICU PULM/CARDIO EVAL DVT PROPHYLAXIS CHECK LABS R/O ASPIRATION NPO IVF MONITOR HEART FUNCTION/TELE
--- NOTE | 2018-01-09 12:22 | PN ---
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 (short form) - Note 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: CODE99 CALLED: SPOKE WITH LU THE HCP, STATES THAT MR. MARLEY DOES NOT WANT AGGRESSIVE INTERVENTIONS OR RESUCCITATION WILL STOP THE CODE CHEST COMPRESSIONS AND MONITOR TIME OF 12:22PM Problem List - Problems (1) Acute exacerbation of CHF (congestive heart failure) Code(s): I50.9 - HEART FAILURE, UNSPECIFIED (2) Atrial fibrillation with RVR Code(s): I48.91 - UNSPECIFIED ATRIAL FIBRILLATION (3) CKD (chronic kidney disease) Code(s): N18.9 - CHRONIC KIDNEY DISEASE, UNSPECIFIED (4) DVT prophylaxis Code(s): [id number] - (5) JD (acute kidney injury) Code(s): N17.9 - ACUTE KIDNEY FAILURE, UNSPECIFIED (6) Atrial fibrillation Code(s): I48.91 - UNSPECIFIED ATRIAL FIBRILLATION (7) Diabetes Code(s): E11.9 - TYPE 2 DIABETES MELLITUS WITHOUT COMPLICATIONS (8) Hyperlipidemia Code(s): E78.5 - HYPERLIPIDEMIA, UNSPECIFIED (9) Hypertension Code(s): I10 - ESSENTIAL (PRIMARY) HYPERTENSION Qualifiers: Hypertension type: essential hypertension Qualified Code(s): I10 - Essential (primary) hypertension (10) Non-STEMI (non-ST elevated myocardial infarction) Code(s): I21.4 - NON-ST ELEVATION (NSTEMI) MYOCARDIAL INFARCTION
--- NOTE | 2018-01-09 12:24 | DS ---
Physical Examination Vital Signs: Vital Signs Temperature 98.1 F 01/09/18 10:00 Pulse Rate 108 H 01/09/18 10:48 Respiratory Rate 14 01/09/18 11:58 Blood Pressure 158/81 01/09/18 10:00 O2 Sat by Pulse Oximetry (%) 98 01/09/18 09:00 Findings/Remarks: CODE 99 CARDIAC ARREST Labs: CBC, BMP 01/08/18 06:00 01/08/18 06:00 Discharge Summary Reason For Visit: CONGESTIVE HEART FAILURE Current Active Problems Acute exacerbation of CHF (congestive heart failure) (Acute) Atrial fibrillation with RVR (Acute) CHF (congestive heart failure) (Acute) CKD (chronic kidney disease) (Acute) DVT prophylaxis (Acute) Hospital Course: CARDIAC RESUCCITATION STARTED IN ICU, INTUBATED, VFIB, AMIODARONE AND CARDIAC SHOCK INITIATED, HCP ASKED TO STOP THE CODE PER PATIENTS WISHES Condition: Stable - Instructions Disposition: - Home Medications Comprehensive Discharge Medication List: Ambulatory Orders Fenofibric Acid [Trilipix -] 45 mg PO DAILY 12/18/17 Guaifenesin 100 mg PO TID 12/18/17 Metformin HCl [Metformin HCl ER] 500 mg PO BID 12/18/17 Mometasone Furoate [Asmanex] 2 puff IH DAILY 12/18/17 Acetaminophen [Tylenol .Regular Strength -] 650 mg PO Q6H PRN tablet 12/24/17 Albuterol 2.5/Ipratropium 0.5 [Duoneb -] 1 amp NEB Q4H PRN amp 12/24/17 Allopurinol [Zyloprim -] 100 mg PO DAILY tablet 12/24/17 Atorvastatin Ca [Lipitor] 80 mg PO HS tablet 12/24/17 Enalapril Maleate [Vasotec -] 2.5 mg PO BID tablet 12/24/17 Ferrous Sulfate [Feosol] 325 mg PO DAILY #30 tablet 12/24/17 Polyethylene Glycol 3350 [Miralax 119 gm Btl -] 17 gm PO DAILY bottle 12/24/17 Magnesium Hydrox 2400MG/30Ml [Milk of Magnesia -] 30 ml PO DAILY PRN 12/27/17 Aspirin Coated [Ecotrin -] 81 mg PO DAILY tablet.ec 01/03/18 Insulin Sliding Scale [Novolog Vial Sliding Scale -] 1 vial SQ ACHS units 01/03 Rivaroxaban [Xarelto -] 15 mg PO DAILY@1800 tablet 01/03/18 Sennosides [Senna -] 1 tab PO HS tablet 01/03/18 Furosemide [Lasix -] 40 mg PO DAILY 01/06/18 Metoprolol Succinate [Toprol XL -] 25 mg PO DAILY 01/06/18
--- NOTE | 2018-01-09 12:26 | PN ---
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 (short form) - Note 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: Event Note: Rapid response called on floor, responded immediately. On arrival pt was agonal breathing with weak pulse. Intubated without sedation using Mac IV blade, grade 1 view obtained, + ETCO2, +BS. Pt brought urgently to ICU where his cardiovascular status deteriorated rapidly to PEA arrest. An approximate 15 min resuscitative effort was unable to restore circulation. Healthcare proxy was contacted during arrest and expressed that pt would not wish to be resuscitated. Efforts stopped at 12:22 PM. At time of exam pt was asystolic, apneic, without corneal reflexes or palpable pulse. Pt pronounced. Pt attending at bedside. [employer] to be notified. Sj Pastor [facility] [id number]
[2018-01-09] MEDS ORDERED: FUROSEMIDE 100 MG/10 ML INJECTABLE VIAL IVPB SCH (14:00)
--- NOTE | 2018-01-10 10:44 | EKG ---
Test Reason : Blood Pressure : / mmHG Vent. Rate : 051 BPM Atrial Rate : 034 BPM P-R Int : 000 ms QRS Dur : 140 ms QT Int : 418 ms P-R-T Axes : 000 -60 027 degrees QTc Int : 385 ms WIDE QRS RHYTHM , ? JUNCTIONAL ESCAPE RHYTHM VS. SLOW ATRIAL FIBRILLATION LEFT AXIS DEVIATION NON-SPECIFIC INTRA-VENTRICULAR CONDUCTION BLOCK CANNOT RULE OUT ANTEROSEPTAL INFARCT , AGE UNDETERMINED LATERAL INJURY PATTERN ABNORMAL ECG WHEN COMPARED WITH ECG OF 07-JAN-2018 00:12, WIDE QRS RHYTHM IS SEEN VENT. RATE HAS DECREASED BY 82 BPM CLINICAL CORRELATION IS RECOMMENDED Confirmed by DRISS WELLER MD ([id number]) on 01/10/2018 10:44:23 AM Referred By: Confirmed By:DRISS WELLER MD
[2018-01-12] MEDS ORDERED: DIGOXIN 0.125 MG TABLET (FP) PO SCH (10:00)
== END 2018-01-09 12:47 | disposition expired | DRG 291 ==
LOC: JER 22:09 → UNDOADMIN 01-07 01:09 → JERBED 01-07 01:09 → UNDOADMIN 01-07 02:05 → JERBED 01-07 02:05 → J4S 01-07 15:34 → JICU 01-09 11:59
PROVIDERS: ADMIT Internal Medicine; ATTEND Family Medicine
PROC: 5A1935Z Respiratory Ventilation, Less than 24 Consecutive Hours (ICD-10-PCS; principal; 2018-01-09)
PROC: 0BH17EZ Insertion of Endotracheal Airway into Trachea, Via Natural or Artificial Opening (ICD-10-PCS; 2018-01-09)
PROC: 5A12012 Performance of Cardiac Output, Single, Manual (ICD-10-PCS; 2018-01-09)
DX: I13.0 Hypertensive heart and chronic kidney disease with heart failure and stage 1 through stage 4 chronic kidney disease, or unspecified chronic kidney disease (principal); I50.23 Acute on chronic systolic (congestive) heart failure; N17.9 Acute kidney failure, unspecified; Z68.41 Body mass index [BMI] 40.0-44.9, adult; I48.1 Persistent atrial fibrillation; N18.3 Chronic kidney disease, stage 3 (moderate); R06.03 Acute respiratory distress; E11.65 Type 2 diabetes mellitus with hyperglycemia; E78.5 Hyperlipidemia, unspecified; E66.9 Obesity, unspecified; I34.0 Nonrheumatic mitral (valve) insufficiency; E87.70 Fluid overload, unspecified; E11.21 Type 2 diabetes mellitus with diabetic nephropathy; Z79.4 Long term (current) use of insulin; D64.9 Anemia, unspecified; I49.01 Ventricular fibrillation
CPT/HCPCS: 36415; 71045-TC-FY; 80048; 80053; 82570; 82962; 83735; 83880; 84484; 84540; 85025; 90688; 93005; 93010; 93970-TC; 94002; 94640; 99285-25; G0008